=== PATIENT | male | born 1940 | race Asian ===

== ENCOUNTER 2020-01-07 05:17 | Inpatient (IN) | payer MEDICARE, OTHER ==
[~2020-01-07] VITALS: Ht 165.1 cm; Wt 51.8 kg
[2020-01-07] VITALS (25 sets, daily range): BP systolic 63–206; BP diastolic 28–144
[2020-01-07] MEDS ORDERED: SINEMET 25-1001 EAC1 ORAL (05:28)
[2020-01-07] MEDS ORDERED: NORVASC2.5 MG ORAL (05:28)
[2020-01-07] MEDS ORDERED: COZAAR25 MG ORAL (05:28)
[2020-01-07] MEDS ORDERED: ATORVASTATIN CA20 MG ORAL (05:28)
--- NOTE | 2020-01-07 05:41 | Emergency Room Report ---
History of Present Illness General Chief Complaint: Dyspnea/Respdistress Present Illness HPI Disclaimer: Please note that this report is being documented using [employer] technology. This can lead to erroneous entry secondary to incorrect interpretation by the dictating instrument. HPI: 79-year-old male presents from senior living facility due to shortness of breath. Patient presented by EMS. Reportedly short of breath for the past few hours. Found to be hypoxic on room air. Improved on oxygen supplementation. Patient has a history of dementia, Parkinson's disease and is unable to provide any history. PMH: Dementia, Parkinson's disease, (Rufus Good M.D.) Allergies: Coded Allergies: PENICILLINS (Verified Allergy, Unknown, 01/07/20) COVID-19 Screening Contact w/high risk pt: Yes Experienced COVID-19 symptoms?: Yes (Rufus Good M.D.) Patient History Reviewed Nursing Documentation: PMH: Agreed; PSxH: Agreed (Rufus Good M.D.) Nursing Documentation-PMH Hx Cardiac Problems: Yes - HLD, BPH, Hx Hypertension: Yes (Rufus Good M.D.) Review of Systems All Other Systems: negative except mentioned in HPI (Rufus Good M.D.) Physical Exam Vital Signs Date Time Temp Pulse Resp B/P (MAP) Pulse Ox O2 Delivery O2 Flow Rate FiO2 01/07/20 05:16 97.9 86 24 206/104 (138) 100 Non-Rebreather 15.0 Sp02 EP Interpretation: reviewed, normal, abnormal General Appearance: mild distress, Chronically Ill Head: normocephalic, atraumatic Eyes: bilateral eye PERRL, bilateral eye EOMI ENT: no angioedema, dry mucus membranes Neck: supple/symm/no masses Respiratory: no rhonchi, no retraction, respiratory distress - Mild respiratory distress Cardiovascular #1: normal peripheral pulses, regular rate, rhythm, no murmur Gastrointestinal: non tender, soft, non-distended, no guarding Neurologic: alert, no focal defects, other - Patient with a baseline tremor. Alert but not oriented Skin: normal color, warm/dry (Rufus Good M.D.) Procedures Critical Care Time Critical Care Time Given the critical condition in which the patient arrived, the patient was immediately assessed by myself and the nurse, and cardiac monitoring initiated due to the potential for rapid decompensation of the patient's clinical condition. During the course of the patient's stay, I spent a considerable amount of time at the bedside performing serial re-evaluations of the patient's hemodynamic and clinical status because of the recognized potential threat to life or limb in this condition. I then had a chance to review not only all of the available current laboratory and radiographic studies obtained today, but I also reviewed old records available to me at the time. Additionally, any ancillary information available including industrial hygiene engineer records were reviewed. Sequential vital signs were obtained. Critical Care time of 35 minutes was performed exclusive of billable procedures. (Jefferson De La O MD) Medical Decision Making Diagnostic Impression: Primary Impression: Hypoxia Additional Impressions: HECTOR (acute kidney injury) Acute hypernatremia AMS (altered mental status) Qualified Codes: R41.82 - Altered mental status, unspecified ER Course MDM: Differential diagnosis included but not limited to pneumonia, COVID-19, CHF , sepsis, UTI to name a few Clinical course-septic work-up initiated, COVID-19 testing was sent. Patient signed out to oncoming physician to follow-up on laboratory studies, chest x- ray and and final disposition (Rufus Good M.D.) ER Course 79-year-old male history of dementia altered mental status, DNR, DNI, presents with hypoxia, worsening altered mental status, patient found to be hyponatremic , found to have an HECTOR, plan admit to ICU for supportive care electrolyte correction. Spoke with Noah Rawls who signed POLST, she was okay with upgrading to ICU without major interventions. Patient as high risk for cerebral edema if corrected too quickly ICU for electrolyte checks Patient given broad-spectrum antibiotics given elevated white count and hypoxia Laboratory Tests Test 01/07/20 05:30 01/07/20 05:39 White Blood Count 12.7 K/UL (4.8-10.8) H Red Blood Count 3.29 M/UL (4.70-6.10) L Hemoglobin 9.7 G/DL (14.2-18.0) L Hematocrit 31.4 % (42.0-52.0) L Mean Corpuscular Volume 96 FL (80-99) Mean Corpuscular Hemoglobin 29.4 PG (27.0-31.0) Mean Corpuscular Hemoglobin Concent 30.7 G/DL (32.0-36.0) L Red Cell Distribution Width 14.9 % (11.6-14.8) H Platelet Count 231 K/UL (150-450) Mean Platelet Volume 7.2 FL (6.5-10.1) Neutrophils (%) (Auto) % (45.0-75.0) Lymphocytes (%) (Auto) % (20.0-45.0) Monocytes (%) (Auto) % (1.0-10.0) Eosinophils (%) (Auto) % (0.0-3.0) Basophils (%) (Auto) % (0.0-2.0) Urine Color Pale yellow Urine Appearance Clear Urine pH 5 (4.5-8.0) Urine Specific [place] 1.015 (1.005-1.035) Urine Protein Negative (NEGATIVE) Urine Glucose (UA) Negative (NEGATIVE) Urine Ketones Negative (NEGATIVE) Urine Blood 2+ (NEGATIVE) H Urine Nitrite Negative (NEGATIVE) Urine Bilirubin Negative (NEGATIVE) Urine Urobilinogen Normal MG/DL (0.0-1.0) Urine Leukocyte Esterase 1+ (NEGATIVE) H Urine RBC 2-4 /HPF (0 - 0) H Urine WBC 0-2 /HPF (0 - 0) Urine Squamous Epithelial Cells None /LPF (NONE/OCC) Urine Bacteria None /HPF (NONE) Sodium Level 182 MMOL/L (136-145) *H Potassium Level 5.2 MMOL/L (3.5-5.1) H Chloride Level 144 MMOL/L (98-107) H Carbon Dioxide Level 24 MMOL/L (21-32) Anion Gap 13 mmol/L (5-15) Blood Urea Nitrogen 176 mg/dL (7-18) H Creatinine 5.6 MG/DL (0.55-1.30) H Estimated Glomerular Filtration Rate 9.9 mL/min (>60) Glucose Level 145 MG/DL (74-106) H Lactic Acid Level 1.60 mmol/L (0.4-2.0) Calcium Level 9.1 MG/DL (8.5-10.1) Total Bilirubin 0.2 MG/DL (0.2-1.0) Aspartate Amino Transferase (AST) 44 U/L (15-37) H Alanine Aminotransferase (ALT) 23 U/L (12-78) Alkaline Phosphatase 70 U/L (46-116) Troponin I 0.046 ng/mL (0.000-0.056) Pro-B-Type Natriuretic Peptide 337 pg/mL (0-125) H Total Protein 7.0 G/DL (6.4-8.2) Albumin 2.0 G/DL (3.4-5.0) L Globulin 5.0 g/dL Albumin/Globulin Ratio 0.4 (1.0-2.7) L Arterial Blood pH 7.382 (7.350-7.450) Arterial Blood Partial Pressure CO2 34.3 mmHg (35.0-45.0) L Arterial Blood Partial Pressure O2 74.1 mmHg (75.0-100.0) L Arterial Blood HCO3 19.9 mmol/L (22.0-26.0) L Arterial Blood Oxygen Saturation 93.1 % (95-100) L Arterial Blood Base Excess -4.5 (-2-2) L Martell Test Positive Microbiology Date/Time Source Procedure Growth Status 01/07/20 05:30 Nasopharynx SARS-CoV-2 RdRp Gene Assay - Final Complete (Jefferson De La O MD) EKG Diagnostic Results EKG Time: 05:37 EP Interpretation: NSR, rate 85, QTc 478, no acute ST elevations, normal axis (Jefferson De La O MD) Rhythm Strip Diag. Results Rhythm Strip Time: 06:28 EP Interpretation: yes Rate: 82 Rhythm: NSR, no PVC's, no ectopy (Jefferson De La O MD) Chest X-Ray Diagnostic Results Chest X-Ray Diagnostic Results : Chest X-Ray Ordered: Yes # of Views/Limited/Complete: 1 View Indication: Chest Pain EP Interpretation: Yes Interpretation: no consolidation, no effusion, no pneumothorax, no acute cardiopulmonary disease Impression: No acute disease Electronically Signed by: Jefferson De La O MD (Jefferson De La O MD) CT/MRI/US Diagnostic Results CT/MRI/US Diagnostic Results : Impression Procedure: CT Chest no Contrast EXAM: CT Chest Without Intravenous Contrast CLINICAL HISTORY: PAIN TECHNIQUE: Axial computed tomography images of the chest without intravenous contrast. CTDI is 4.8 mGy and DLP is 176.7 mGy-cm. One or more of the following dose reduction techniques were used: automated exposure control, adjustment of the mA and/or kV according to patient size, use of iterative reconstruction technique. COMPARISON: No relevant prior studies available. FINDINGS: Airspace consolidation at the lung bases, consistent with correlate for aspiration. Moderate centrilobular emphysematous changes. Linear subsegmental scarring at the left lung apex. Calcified granuloma within the right upper lobe adjacent to the right major fissure on series 4 image. 8 mm left apical spiculated nodule. 1 cm right upper lobe nodule (series 8 image 35). Consider PET/CT correlation given the background emphysematous changes. No cardiomegaly. No pericardial effusion. Atherosclerotic changes of the thoracic aorta, with coronary involvement. Mildly prominent thyroid gland. No mediastinal or axillary adenopathy. Hilar adenopathy is suboptimally evaluated without intravenous contrast. Suspected small bilateral calcified hilar lymph nodes. Correlate for history of granulomatous disease. Degenerative changes of the spine. IMPRESSION: Airspace consolidation at the lung bases, consistent with correlate for aspiration. 8 mm left apical spiculated nodule. 1.0 cm right upper lobe nodule (series 8 image 35). Consider PET/CT correlation given the background emphysematous changes. Dictated By: Hossein Farris M.D. Electronically Signed By: Hossein Farris M.D. Signed Date/Time 01/07/20 0752 CC: Jefferson De La O MD; Iggy Saunders MD EXAM: CT Head Without Intravenous Contrast CLINICAL HISTORY: AMS TECHNIQUE: Axial computed tomography images of the head/brain without intravenous contrast. CTDI is 53.4 mGy and DLP is 1018.80 mGy-cm. One or more of the following dose reduction techniques were used: automated exposure control, adjustment of the mA and/or kV according to patient size, use of iterative reconstruction technique. COMPARISON: No relevant prior studies available. FINDINGS: There is no acute intracranial hemorrhage. The territorial pimentel-white matter differentiation is maintained throughout. There is no midline shift or other mass effect. The ventricles and sulci are commensurate with age. There is age-related cerebral volume loss. There is nonspecific white matter hypoattenuation, indicative of chronic ischemic microangiopathy. The visualized orbits appear grossly unremarkable. The calvarium is intact. The visualized paranasal sinuses and mastoid air cells are grossly clear. IMPRESSION: No acute intracranial hemorrhage, midline shift, or mass effect. Dictated By: Hossein Farris M.D. Electronically Signed By: Hossein Farris M.D. Signed Date/Time 01/07/20 0741 CC: Jefferson De La O MD; Iggy Saunders MD (Jefferson De La O MD) Last Vital Signs Date Time Temp Pulse Resp B/P (MAP) Pulse Ox O2 Delivery O2 Flow Rate FiO2 01/07/20 05:16 97.9 86 24 206/104 (138) 100 Non-Rebreather 15.0 (Rufus Good M.D.) Disposition: ADMITTED INPATIENT Condition: Critical Signed Out To: Jaylyn (Rufus Good M.D.) Referrals: NON PHYSICIAN (PCP) Rufus Good M.D. Jan 07, 2020 05:41 Jefferson De La O MD Jan 07, 2020 06:31
[2020-01-07 05:47] LABS: APPEARANCE,URINE CLEAR; BILIRUBIN, URINE NEGATIVE (NEGATIVE); COLOR,URINE PALE YELLOW; GLUCOSE, URINE (UA) NEGATIVE (NEGATIVE); KETONES,URINE NEGATIVE (NEGATIVE); LEUKOCYTE ESTERASE ,URINE 1+ (NEGATIVE); NITRITE,URINE NEGATIVE (NEGATIVE); PH,URINE 5 (4.5-8.0); PROTEIN,URINE NEGATIVE (NEGATIVE); UROBILINOGEN,URINE NORMAL MG/DL (0.0-1.0)
[2020-01-07 05:49] LABS: HEMATOCRIT 31.4 % (42.0-52.0); HEMOGLOBIN 9.7 G/DL (14.2-18.0); MEAN CORPUSCULAR VOLUME 96 FL (80-99); PLATELET COUNT 231 K/UL (150-450); RED BLOOD COUNT 3.29 M/UL (4.70-6.10); RED CELL DISTRIBUTION WIDTH 14.9 % (11.6-14.8); WHITE BLOOD COUNT 12.7 K/UL (4.8-10.8)
[2020-01-07] MEDS ORDERED: Cefepime HCl 1 GM in D5W 55 ML IVPB ONE (06:00)
[2020-01-07 06:12] LABS: ALANINE AMINOTRANSFERASE 23 U/L (12-78); ALBUMIN/GLOBULIN RATIO 0.4 (1.0-2.7); ALKALINE PHOSPHATASE 70 U/L (46-116); ANION GAP 13 mmol/L (5-15); ASPARTATE AMINO TRANSFERASE 44 U/L (15-37); BILIRUBIN,TOTAL 0.2 MG/DL (0.2-1.0); BLOOD UREA NITROGEN 176 mg/dL (7-18); CALCIUM 9.1 MG/DL (8.5-10.1); CARBON DIOXIDE 24 MMOL/L (21-32); CHLORIDE 144 MMOL/L (98-107); CREATININE 5.6 MG/DL (0.55-1.30); POTASSIUM 5.2 MMOL/L (3.5-5.1)
[2020-01-07 06:17] LABS: SODIUM 182 MMOL/L (136-145)
[2020-01-07] MEDS ORDERED: Omnipaque 350 100ml vial INJ PRN (06:30)
--- NOTE | 2020-01-07 07:41 | Diagnostic Imaging Report ---
EXAM: CT Head Without Intravenous Contrast CLINICAL HISTORY: AMS TECHNIQUE: Axial computed tomography images of the head/brain without intravenous contrast. CTDI is 53.4 mGy and DLP is 1018.80 mGy-cm. One or more of the following dose reduction techniques were used: automated exposure control, adjustment of the mA and/or kV according to patient size, use of iterative reconstruction technique. COMPARISON: No relevant prior studies available. FINDINGS: There is no acute intracranial hemorrhage. The territorial pimentel-white matter differentiation is maintained throughout. There is no midline shift or other mass effect. The ventricles and sulci are commensurate with age. There is age-related cerebral volume loss. There is nonspecific white matter hypoattenuation, indicative of chronic ischemic microangiopathy. The visualized orbits appear grossly unremarkable. The calvarium is intact. The visualized paranasal sinuses and mastoid air cells are grossly clear. IMPRESSION: No acute intracranial hemorrhage, midline shift, or mass effect.
--- NOTE | 2020-01-07 07:53 | Diagnostic Imaging Report ---
EXAM: CT Chest Without Intravenous Contrast CLINICAL HISTORY: PAIN TECHNIQUE: Axial computed tomography images of the chest without intravenous contrast. CTDI is 4.8 mGy and DLP is 176.7 mGy-cm. One or more of the following dose reduction techniques were used: automated exposure control, adjustment of the mA and/or kV according to patient size, use of iterative reconstruction technique. COMPARISON: No relevant prior studies available. FINDINGS: Airspace consolidation at the lung bases, consistent with correlate for aspiration. Moderate centrilobular emphysematous changes. Linear subsegmental scarring at the left lung apex. Calcified granuloma within the right upper lobe adjacent to the right major fissure on series 4 image. 8 mm left apical spiculated nodule. 1 cm right upper lobe nodule (series 8 image 35). Consider PET/CT correlation given the background emphysematous changes. No cardiomegaly. No pericardial effusion. Atherosclerotic changes of the thoracic aorta, with coronary involvement. Mildly prominent thyroid gland. No mediastinal or axillary adenopathy. Hilar adenopathy is suboptimally evaluated without intravenous contrast. Suspected small bilateral calcified hilar lymph nodes. Correlate for history of granulomatous disease. Degenerative changes of the spine. IMPRESSION: Airspace consolidation at the lung bases, consistent with correlate for aspiration. 8 mm left apical spiculated nodule. 1.0 cm right upper lobe nodule (series 8 image 35). Consider PET/CT correlation given the background emphysematous changes.
--- NOTE | 2020-01-07 09:15 | Diagnostic Imaging Report ---
Indication: Shortness of breath Technique: One view of the chest Comparison: none Findings: No acute infiltrates, effusions, or congestion. Tortuous calcified aorta. Normal heart size. Upper mediastinum unremarkable. Impression: No acute process.
[2020-01-07] MEDS: Heparin 5000 units/ml inj SUBQ SCH ×2 (12:21→20:37)
[2020-01-07] MEDS ORDERED: Vancomycin 1 GM in NS 275 ML IVPB SCH (13:00)
--- NOTE | 2020-01-07 15:39 | Diagnostic Imaging Report ---
Indication: Post nasogastric tube placement Technique: Supine view of the upper abdomen Comparison: none Findings: There is a nasogastric tube in place, tip projecting at the level gastric fundus, proximal port beyond the gastric esophageal junction. Unremarkable bowel gas pattern. Impression: Satisfactory nasogastric intubation. ICU nurse notified at the time of interpretation
[2020-01-07] MEDS: Levodopa/Carbidopa 25/100 tab ORAL SCH ×2 (15:40→17:39)
--- NOTE | 2020-01-07 15:43 | Diagnostic Imaging Report ---
Indication: Acute renal failure Technique: Grayscale and duplex images of the kidneys, retroperitoneum, and bladder were obtained. Comparison: none Findings: Right kidney measures 9.7 cm in length. Left kidney measures 11 cm in length. Both kidneys demonstrate normal echogenicity. There is moderate hydronephrosis bilaterally. Some debris is seen within the renal collecting systems. There also appears to be proximal bilateral hydroureter. The bladder is distended, calculated volume 601 mL. No ureteral jets are seen over the course of 3 minutes of examination. No focal abnormality. Normal inferior vena cava. Impression: Bilateral moderate hydronephrosis, etiology not demonstrated. Note absence of ureteral jets in the bladder Debris within the renal collecting systems. This is nonspecific Distended bladder, calculated volume 601 mL .
--- NOTE | 2020-01-07 16:00 | History and Physical Report ---
DATE OF ADMISSION: 01/07/2020 CHIEF COMPLAINT: Shortness of breath. HISTORY OF PRESENT ILLNESS: Patient is a 79-year-old male. He has a history of Parkinson disease, dementia, dysphagia, atherosclerotic cardiovascular disease who was transferred from a half-way facility with complaints of shortness of breath and desaturation. He was initially noted to be hypoxic in the ER, placed on 15 liters non-rebreather. He was titrated down to a simple mask. Workup in the ER included a chest x-ray, which was clear and a CT of the head, which was also unremarkable. A CT scan did show airspace consolidation at the lung bases. Patient initially was hyper and then hypotensive. Laboratories were significant for a sodium of 182 with a potassium of 5.2, a BUN of 176, and a creatinine of 5.6. White count of 12. The patient has been pancultured, started on IV antibiotic therapy and IV fluids, and now admitted to the ICU for further evaluation and care. PAST MEDICAL HISTORY: As above. PAST SURGICAL HISTORY: Unknown. CURRENT MEDICATIONS: Reconciled and reviewed. ALLERGIES: Penicillin. FAMILY HISTORY: Noncontributory. SOCIAL HISTORY: There is no known history of tobacco, ethanol, or drugs. REVIEW OF SYSTEMS: From the patient is unobtainable as he is confused. PHYSICAL EXAMINATION: VITAL SIGNS: Temperature 98 degrees, pulse 83, respirations 29, blood pressure 63/28. GENERAL: Patient is a chronically ill-appearing thin male, in no apparent distress. He is awake, but is clearly confused. Unable to follow any commands. HEENT: Head is normocephalic, atraumatic. Mucous membranes are dry. NECK: Supple. HEART: Regular rate and rhythm. LUNGS: Clear anteriorly. ABDOMEN: Soft, nontender, nondistended. EXTREMITIES: Without clubbing, cyanosis, or edema. NEUROLOGIC: Patient is unable to comply with neurologic exam. LABORATORY DATA: White count 12, hemoglobin 9.7, platelet count of 231. Sodium 182, potassium 5.2, chloride 144, bicarb 24, BUN 136, creatinine was 5.6. ASSESSMENT: This is a 79-year-old male with multiple medical problems admitted with complaints of severe hypernatremia, hypoxemia secondary to pneumonia, sepsis, and shock. PLAN: 1. Aggressive fluid resuscitation with hypotonic saline. 2. Monitor electrolytes every 6 hours. 3. Renal, Cardiology, and ID evaluations will be obtained. 4. Broad-spectrum IV antibiotics. 5. Followup pending cultures. 6. DVT and stress ulcer prophylaxis. 7. Check a swallow evaluation. 8. Patient's status is currently critical and guarded. 9. He is DNR as per advance directive. Mello Wheeler M.D. DR: FOSTER JOB#: [id number] CC:
[2020-01-07 18:48] LABS: CREATINE KINASE 322 U/L (26-308)
[2020-01-07 19:10] LABS: ANION GAP 9 mmol/L (5-15); BLOOD UREA NITROGEN 154 mg/dL (7-18); CALCIUM 8.6 MG/DL (8.5-10.1); CARBON DIOXIDE 24 MMOL/L (21-32); CHLORIDE 145 MMOL/L (98-107); CREATININE 4.4 MG/DL (0.55-1.30); POTASSIUM 4.4 MMOL/L (3.5-5.1)
[2020-01-07 19:12] LABS: SODIUM 178 MMOL/L (136-145)
[2020-01-07] MEDS: Cefepime HCl 1 GM in D5W 55 ML IVPB SCH (20:36)
[2020-01-07] MEDS ORDERED: Atorvastatin 20mg tab ORAL SCH (21:00)
[2020-01-08] VITALS (24 sets, daily range): BP systolic 90–138; BP diastolic 41–64
--- NOTE | 2020-01-08 01:45 | Consultation ---
DATE OF CONSULTATION: 01/07/2020 CARDIOLOGY CONSULTATION CONSULTING PHYSICIAN: Iggy Saunders MD. REFERRING PHYSICIAN: Mello Wheeler MD. REASON FOR CONSULTATION: Shock. HISTORY OF PRESENT ILLNESS: This is a 79-year-old [place] gentleman who resides at a intermediate facility. He has Parkinson disease and advanced dementia complicated by dysphagia. He was increasingly short of breath, congested, and hypoxic today and transferred to the emergency room. On arrival, his blood pressure was significantly elevated, but subsequently plummeted. Extensive workup in the emergency room was undertaken. Multiple abnormalities noted on his laboratory studies and the patient is being admitted to the intensive care unit. I have been asked to assist with cardiovascular care. PAST MEDICAL HISTORY: Parkinson disease, cerebrovascular disease, dementia, arteriosclerotic cardiovascular disease, osteoarthritis, dysphagia, chronic kidney disease. MEDICATIONS: Reviewed and reconciled. ALLERGIES: Penicillin. SOCIAL HISTORY: No history of smoking, alcohol, or substance abuse. FAMILY HISTORY: Not known. REVIEW OF SYSTEMS: Not obtainable from patient. Review of senior living records and discussions with senior living staff is performed for over 25 minutes with pertinent data obtained and outlined above. PHYSICAL EXAMINATION: GENERAL: Thin, frail, and in moderate respiratory distress. Appears older than stated age. Confused. VITAL SIGNS: Blood pressure 63/28, heart rate 83, respiratory rate 29, temperature 98. HEENT: Temporal wasting. Pale conjunctivae. Dry mucous membranes. NECK: Supple. Mild accessory muscle use. LUNGS: Diminished breath sounds. No wheezing. CARDIAC: Regular rhythm and rate. Normal S1, S2 with a fourth heart sound and a 1/6 systolic murmur at the base. ABDOMEN: Soft, flat, nontender. EXTREMITIES: No edema. NEUROLOGIC: He seems to move all extremities. LABORATORY DATA: Sodium 182, potassium 5.2, chloride 144, bicarb 24, BUN 176, creatinine 5.6. Pro natriuretic peptide 337. Troponin 0.046. Albumin 2.0. Lactic acid 1.6. White count 12.7, hemoglobin 9.7. Urinalysis with 0 to 2 white cells. IMPRESSION: 1. Critical and guarded. 2. Shock. 3. Aspiration pneumonia. 4. Hypovolemia. 5. Dehydration. 6. Acute renal failure. 7. Acute myocardial ischemia. 8. Chronic diastolic congestive heart failure. 9. Cerebrovascular disease with dementia. 10. Dysphagia. 11. Probable aspiration and healthcare-associated pneumonia with respiratory insufficiency. PLAN: 1. Review EKG. 2. Hydrate with hypotonic fluids. 3. Volume resuscitation. 4. May need pressors. 5. Broad-spectrum antibiotics. 6. Respiratory hygiene. 7. Stress ulcer and DVT prophylaxes. 8. DNR/DNI based on advance directives. Armando Saunders M.D. DR: DAVID JOB#: [id number] CC:
[2020-01-08 04:42] LABS: HEMATOCRIT 26.4 % (42.0-52.0); HEMOGLOBIN 8.2 G/DL (14.2-18.0); MEAN CORPUSCULAR VOLUME 93 FL (80-99); PLATELET COUNT 182 K/UL (150-450); RED BLOOD COUNT 2.84 M/UL (4.70-6.10); RED CELL DISTRIBUTION WIDTH 14.2 % (11.6-14.8)
[2020-01-08 05:02] LABS: ANION GAP 11 mmol/L (5-15); BLOOD UREA NITROGEN 132 mg/dL (7-18); CALCIUM 8.2 MG/DL (8.5-10.1); CARBON DIOXIDE 24 MMOL/L (21-32); CHLORIDE 142 MMOL/L (98-107); CREATININE 3.4 MG/DL (0.55-1.30); POTASSIUM 4.1 MMOL/L (3.5-5.1)
[2020-01-08 05:09] LABS: SODIUM 176 MMOL/L (136-145)
[2020-01-08] MEDS ORDERED: Vancomycin 1gm/D5W 275ml IVPB ONE ×2 (07:00)
[2020-01-08] MEDS: Levodopa/Carbidopa 25/100 tab NG SCH ×3 (09:00→17:01)
[2020-01-08] MEDS: Pantoprazole Inj IVP SCH (09:53)
[2020-01-08] MEDS ORDERED: NS 275ml ONE ×2 (09:57→18:47)
[2020-01-08] MEDS ORDERED: NS 500ML ONE (09:57)
[2020-01-08] MEDS ORDERED: Tubing IV Secondary IV ONE (09:57)
[2020-01-08] MEDS ORDERED: 1/2 NS 1000ml IV ONE ×2 (09:57→18:47)
[2020-01-08] MEDS ORDERED: D5NS 1000ml IV ONE (09:57)
[2020-01-08] MEDS: Heparin 5000 units/ml inj SUBQ SCH ×2 (10:06→20:12)
--- NOTE | 2020-01-08 14:24 | General Progress Note ---
Assessment/Plan Problem List: (1) Pneumonia ICD Codes: J18.9 - Pneumonia, unspecified organism SNOMED: 782570744 (2) Sepsis ICD Codes: A41.9 - Sepsis, unspecified organism SNOMED: 86980891 (3) HECTOR (acute kidney injury) ICD Codes: N17.9 - Acute kidney failure, unspecified SNOMED: 80447080, 3321003 (4) AMS (altered mental status) ICD Codes: R41.82 - Altered mental status, unspecified SNOMED: 257823266 Qualifiers: Qualified Codes: R41.82 - Altered mental status, unspecified (5) Acute hypernatremia ICD Codes: E87.0 - Hyperosmolality and hypernatremia SNOMED: 6338536, 3378709 (6) Hypoxia ICD Codes: R09.02 - Hypoxemia SNOMED: 879775865 Status: stable, progressing Assessment/Plan: cont hypotonic ivf added water flushes iv abx dvt/stress ulcer prophylaxis repeat labs later tonight and in am swallow eval ngt feeds/water flushes critical and guarded improving Subjective ROS Limited/Unobtainable: Yes Constitutional: Reports: malaise, weakness HEENT: Reports: no symptoms Cardiovascular: Reports: no symptoms Respiratory: Reports: cough, shortness of breath Gastrointestinal/Abdominal: Reports: no symptoms Genitourinary: Reports: no symptoms Neurologic/Psychiatric: Reports: no symptoms Endocrine: Reports: no symptoms Hematologic/Lymphatic: Reports: anemia Allergies: Coded Allergies: PENICILLINS (Verified Allergy, Unknown, 01/07/20) All Systems: reviewed and negative except above Subjective no events. d/w rn. on ivf. no fevers or chills. on iv abx. renal fxn and sodium improving. Objective Last 24 Hour Vital Signs Date Time Temp Pulse Resp B/P (MAP) Pulse Ox O2 Delivery O2 Flow Rate FiO2 01/08/20 10:00 80 24 114/50 (71) 96 01/08/20 09:00 78 31 118/59 (78) 96 01/08/20 08:00 3.0 01/08/20 08:00 Nasal Cannula 3.0 01/08/20 08:00 98.2 79 13 107/48 (67) 97 01/08/20 07:00 84 28 106/54 (71) 97 01/08/20 06:00 98.8 86 34 113/48 (69) 97 01/08/20 05:00 83 33 115/50 (71) 97 01/08/20 04:00 97.8 70 28 90/45 (60) 99 01/08/20 04:00 Nasal Cannula 4.0 01/08/20 03:23 79 01/08/20 03:00 81 24 108/42 (64) 98 01/08/20 02:00 76 29 103/47 (65) 99 01/08/20 01:00 81 25 105/45 (65) 100 01/08/20 00:00 Venturi Mask 8.0 01/08/20 00:00 98.1 79 30 94/41 (58) 98 01/07/20 23:00 84 01/07/20 23:00 80 26 103/41 (61) 98 01/07/20 21:00 75 24 97/38 (57) 99 01/07/20 20:00 98.7 73 26 94/35 (54) 100 01/07/20 20:00 Venturi Mask 8.0 01/07/20 19:37 100 Venturi Mask 8.0 40 01/07/20 19:13 73 01/07/20 19:00 77 26 94/38 (56) 98 01/07/20 18:00 82 31 94/41 (58) 98 01/07/20 17:00 89 29 110/47 (68) 99 01/07/20 16:00 98.5 92 28 93/30 (51) 99 01/07/20 16:00 Simple Mask 10.0 01/07/20 15:56 84 01/07/20 15:00 24 124/48 (73) 98 01/07/20 14:37 100 Simple Mask 10.0 50 Intake and Output 01/07/20 01/08/20 19:00 07:00 Intake Total 1375.000 ml 2475.004 ml Output Total 1955 ml 1345 ml Balance -580.000 ml 1130.004 ml IV Total 1375.000 ml 2445.004 ml Other 30 ml Output Urine Total 1955 ml 1345 ml # Voids 1 # Bowel Movements 3 1 Laboratory Tests 01/07/20 16:20: Urine Random Sodium 38, Urine Creatinine 54.8 01/07/20 18:16: Sodium Level 178*H, Potassium Level 4.4, Chloride Level 145H, Carbon Dioxide Level 24, Anion Gap 9, Blood Urea Nitrogen 154H, Creatinine 4.4H, Estimat Glomerular Filtration Rate 13.1, Glucose Level 137H, Uric Acid 7.9H, Calcium Level 8.6, Total Creatine Kinase 322H 01/08/20 02:45: Sodium Level 176*H, Potassium Level 4.1, Chloride Level 142H, Carbon Dioxide Level 24, Anion Gap 11, Blood Urea Nitrogen 132H, Creatinine 3.4H, Estimat Glomerular Filtration Rate 17.6, Glucose Level 108H, Calcium Level 8.2L, White Blood Count 9.0, Red Blood Count 2.84L, Hemoglobin 8.2L, Hematocrit 26.4L, Mean Corpuscular Volume 93, Mean Corpuscular Hemoglobin 29.0, Mean Corpuscular Hemoglobin Concent 31.1L, Red Cell Distribution Width 14.2, Platelet Count 182, Mean Platelet Volume 6.9, Neutrophils (%) (Auto) , Lymphocytes (%) (Auto) , Monocytes (%) (Auto) , Eosinophils (%) (Auto) , Basophils (%) (Auto) , Differential Total Cells Counted 100, Neutrophils % (Manual) 89H, Lymphocytes % (Manual) 7L, Monocytes % (Manual) 3, Eosinophils % (Manual) 1, Basophils % ( Manual) 0, Band Neutrophils 0, Platelet Estimate Adequate, Platelet Morphology Normal, Hypochromasia 2+, Anisocytosis 1+, Random Vancomycin Level 10.6 Height (Feet): 5 Height (Inches): 6.00 Weight (Pounds): 111 General Appearance: WD/WN, lethargic, confused EENT: PERRL/EOMI, normal ENT inspection Neck: non-tender, normal alignment Cardiovascular: normal peripheral pulses, normal rate Respiratory/Chest: chest wall non-tender, lungs clear, normal breath sounds, no respiratory distress Abdomen: normal bowel sounds, non tender, soft, no organomegaly Edema: no edema noted Arm (L), no edema noted Arm (R) Edema: trace edema 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
--- NOTE | 2020-01-08 14:25 | Diagnostic Imaging Report ---
Indication: Post nasogastric tube placement Technique: Supine view of the upper abdomen Comparison: 01/07/2020 Findings: There is a nasogastric tube in place. Tip projects at the level gastric fundus, proximal sidehole at the level of the gastroesophageal junction. Bowel gas pattern is unremarkable. The visualized lower thorax appears unremarkable. Impression: Proximal port of the nasogastric tube is at the gastroesophageal junction, and slight advancement is recommended. This was discussed with patient's nurse at the time of interpretation
--- NOTE | 2020-01-08 15:46 | Diagnostic Imaging Report ---
Indication: NG tube Technique: Portable frontal view the abdomen Comparison: 01/08/2020, 8:59 Findings: NG tube tip and side-port project in the region of the proximal stomach, not significant changed compared to prior.. Bowel gas pattern is nonspecific. There are degenerative changes in the spine. Question interval development of mild interstitial opacification/edema. Impression: NG tube with tip and side-port projecting in the expected region of the proximal stomach. Question development of some mild interstitial opacification/edema in the partially visualized lungs. Relation a dedicated chest radiograph recommended.
--- NOTE | 2020-01-08 19:30 | Consultation ---
DATE OF CONSULTATION: 01/08/2020 NEPHROLOGY CONSULTATION CONSULTING PHYSICIAN: Franki Bergeron MD REFERRING PHYSICIAN: Mello Wheeler MD REASON FOR CONSULTATION: I am asked to evaluate this 79-year-old man, who has severe hypernatremia and dehydration. HISTORY OF PRESENT ILLNESS: The patient lives in an [facility] and is unable to give any history. On record review, he has a history of Parkinson disease, dysphagia, and coronary artery disease. He presented with some shortness of breath, desaturation, and azotemia. ALLERGIES: Apparently to penicillin. MEDICATIONS: Medications at the [facility] reviewed include amlodipine, atorvastatin, Sinemet, and losartan. SYSTEM REVIEW: The patient is unable. PHYSICAL EXAMINATION: GENERAL: The patient is lying in bed, lethargic. VITAL SIGNS: Pulse 80, respirations 30, blood pressure 116/54, and O2 saturation is 95%. HEAD, EYES, EARS, NOSE, THROAT: Oral mucosa is dry. Sclerae anicteric. NECK: No adenopathy. LUNGS: Clear. HEART: Regular rhythm. I hear no murmur. ABDOMEN: Soft without organomegaly. EXTREMITIES: Show edema. There is muscle wasting. NEUROLOGIC: The patient is very lethargic with lack of spontaneous movement. REVIEW OF PERTINENT LABS: Chest x-ray shows no active disease. He had white count of 12.7, hemoglobin 9.7. Sodium 178, potassium 4.4, chloride 145, CO2 of 24, BUN 154, creatinine 4.4. Initial sodium was 182. IMPRESSION: 1. Severe dehydration. 2. Severe hypernatremia secondary to dehydration. 3. Acute kidney injury. 4. Unknown baseline of chronic kidney disease. 5. Dyspnea with clear chest x-ray. PLAN: At this time, the patient requires vigorous hydration. We will avoid overcorrection of his sodium and correction with 8-10 milliequivalents per day. Half-normal saline has been ordered. The patient is NPO. He has been started on empiric antibiotics. In view of his prior condition, his condition is gravely ill and high risk. Franki Bergeron M.D. : Bertin JOB#: [id number] CC:
[2020-01-08] MEDS ORDERED: AMLODIPINE BESYL5 MG ORAL (19:34)
[2020-01-08] MEDS ORDERED: ATORVASTATIN CA40 MG ORAL (19:34)
[2020-01-08] MEDS ORDERED: LOSARTAN POTASS50 MG ORAL (19:35)
[2020-01-08 19:50] LABS: ANION GAP 13 mmol/L (5-15); BLOOD UREA NITROGEN 101 mg/dL (7-18); CARBON DIOXIDE 24 MMOL/L (21-32); CHLORIDE 136 MMOL/L (98-107); CREATININE 2.5 MG/DL (0.55-1.30); POTASSIUM 3.9 MMOL/L (3.5-5.1)
[2020-01-08 19:52] LABS: SODIUM 172 MMOL/L (136-145)
[2020-01-08] MEDS ORDERED: FOLIC ACID1 MG ORAL (19:53)
[2020-01-08] MEDS ORDERED: TRAZODONE HCL50 MG ORAL (19:53)
[2020-01-08] MEDS ORDERED: VITAMIN B-12500 MCG ORAL (19:53)
[2020-01-08] MEDS ORDERED: APATATE FORTE237 ML ORAL (19:53)
[2020-01-08] MEDS ORDERED: ALFUZOSIN HCL10 MG PO (19:53)
[2020-01-08] MEDS ORDERED: BISACODYL10 M1 RC (19:53)
[2020-01-08] MEDS ORDERED: MELATONIN 5 MG1 EAC1 ORAL (19:53)
[2020-01-08] MEDS ORDERED: ACETAMINOPHEN325 M1 ORAL (19:53)
[2020-01-08] MEDS ORDERED: AZILECT1 MG ORAL (19:53)
[2020-01-08] MEDS ORDERED: METOPROLOL SUCC25 MG ORAL (19:53)
[2020-01-08] MEDS ORDERED: MILK OF MA400 MG/51 ORAL (19:53)
[2020-01-08] MEDS ORDERED: ASPIRIN81 MG ORAL (19:53)
[2020-01-08] MEDS ORDERED: NORCO 5-325 TA1 EAC1 ORAL (19:53)
[2020-01-08] MEDS ORDERED: VITAMIN D325 MCG ORAL (19:53)
[2020-01-08] MEDS ORDERED: DOCUSATE SODIU100 MG ORAL (19:53)
[2020-01-08] MEDS ORDERED: B-121000 MCG ORAL (19:59)
[2020-01-08] MEDS: Cefepime HCl 1 GM in D5W 55 ML IVPB SCH (20:11)
[2020-01-08] MEDS ORDERED: Atorvastatin 20mg tab NG SCH (21:00)
[2020-01-09] VITALS (18 sets, daily range): BP systolic 111–141; BP diastolic 50–71
--- NOTE | 2020-01-09 02:10 | Cardiology Progress Note ---
Subjective DATE OF SERVICE: Jan 08, 2020 Withdrawn and lethargic BP parameters tenuous at times Remains on hypotonic IVF and Abx Monitor: sinus with PAC's Objective Last 24 Hour Vital Signs Date Time Temp Pulse Resp B/P (MAP) Pulse Ox O2 Delivery O2 Flow Rate FiO2 01/09/20 00:00 98.0 74 23 130/58 (82) 99 01/09/20 00:00 Nasal Cannula 3.0 01/08/20 23:00 73 25 128/57 (80) 98 01/08/20 22:00 74 25 132/59 (83) 98 01/08/20 21:00 74 27 133/64 (87) 98 01/08/20 20:00 Nasal Cannula 3.0 01/08/20 20:00 97.8 65 19 138/58 (84) 99 01/08/20 20:00 73 01/08/20 19:00 73 27 133/62 (85) 100 01/08/20 18:00 77 26 120/52 (74) 99 01/08/20 17:00 77 28 119/54 (75) 96 01/08/20 16:00 Nasal Cannula 3.0 01/08/20 16:00 77 01/08/20 16:00 98.2 79 26 129/60 (83) 97 01/08/20 15:00 72 26 113/53 (73) 96 01/08/20 14:00 76 31 114/54 (74) 94 01/08/20 13:00 78 27 120/55 (76) 96 01/08/20 12:00 Nasal Cannula 3.0 01/08/20 12:00 98.0 68 23 98/52 (67) 98 01/08/20 12:00 71 01/08/20 11:00 80 30 116/54 (74) 95 01/08/20 10:00 80 24 114/50 (71) 96 01/08/20 09:00 78 31 118/59 (78) 96 01/08/20 08:00 3.0 01/08/20 08:00 81 01/08/20 08:00 Nasal Cannula 3.0 01/08/20 08:00 98.2 79 13 107/48 (67) 97 01/08/20 07:00 84 28 106/54 (71) 97 01/08/20 06:00 98.8 86 34 113/48 (69) 97 01/08/20 05:00 83 33 115/50 (71) 97 01/08/20 04:00 97.8 70 28 90/45 (60) 99 01/08/20 04:00 Nasal Cannula 4.0 01/08/20 03:23 79 01/08/20 03:00 81 24 108/42 (64) 98 ROS: unchanged from my initial assessment on 01/07/20 RHYTHM: PACs LUNGS: diminished breath sounds CARDIAC: normal rate, regular rhythm, normal S1 and S2 ABDOMEN: normal bowel sounds, non tender, soft EXTREMITIES: normal inspection, No edema Laboratory Tests Test 01/08/20 02:45 01/08/20 19:05 White Blood Count 9.0 K/UL (4.8-10.8) Red Blood Count 2.84 M/UL (4.70-6.10) L Hemoglobin 8.2 G/DL (14.2-18.0) L Hematocrit 26.4 % (42.0-52.0) L Mean Corpuscular Volume 93 FL (80-99) Mean Corpuscular Hemoglobin 29.0 PG (27.0-31.0) Mean Corpuscular Hemoglobin Concent 31.1 G/DL (32.0-36.0) L Red Cell Distribution Width 14.2 % (11.6-14.8) Platelet Count 182 K/UL (150-450) Mean Platelet Volume 6.9 FL (6.5-10.1) Neutrophils (%) (Auto) % (45.0-75.0) Lymphocytes (%) (Auto) % (20.0-45.0) Monocytes (%) (Auto) % (1.0-10.0) Eosinophils (%) (Auto) % (0.0-3.0) Basophils (%) (Auto) % (0.0-2.0) Differential Total Cells Counted 100 Neutrophils % (Manual) 89 % (45-75) H Lymphocytes % (Manual) 7 % (20-45) L Monocytes % (Manual) 3 % (1-10) Eosinophils % (Manual) 1 % (0-3) Basophils % (Manual) 0 % (0-2) Band Neutrophils 0 % (0-8) Platelet Estimate Adequate Platelet Morphology Normal Hypochromasia 2+ Anisocytosis 1+ Sodium Level 176 MMOL/L (136-145) *H 172 MMOL/L (136-145) *H Potassium Level 4.1 MMOL/L (3.5-5.1) 3.9 MMOL/L (3.5-5.1) Chloride Level 142 MMOL/L (98-107) H 136 MMOL/L (98-107) H Carbon Dioxide Level 24 MMOL/L (21-32) 24 MMOL/L (21-32) Anion Gap 11 mmol/L (5-15) 13 mmol/L (5-15) Blood Urea Nitrogen 132 mg/dL (7-18) H 101 mg/dL (7-18) H Creatinine 3.4 MG/DL (0.55-1.30) H 2.5 MG/DL (0.55-1.30) H Estimat Glomerular Filtration Rate 17.6 mL/min (>60) 25.1 mL/min (>60) Glucose Level 108 MG/DL (74-106) H 91 MG/DL (74-106) Calcium Level 8.2 MG/DL (8.5-10.1) L 8.0 MG/DL (8.5-10.1) L Random Vancomycin Level 10.6 ug/mL Microbiology Date/Time Source Procedure Growth Status 01/07/20 05:30 Blood Blood Culture - Preliminary NO GROWTH AFTER 24 HOURS Resulted 01/07/20 05:15 Blood Blood Culture - Preliminary NO GROWTH AFTER 24 HOURS Resulted 01/07/20 06:00 Nasal Nares MRSA Culture - Final NO METHICILLIN RESISTANT STAPH AUREUS... Complete 01/07/20 05:30 Nasopharynx SARS-CoV-2 RdRp Gene Assay - Final Complete 01/07/20 06:00 Rectum Received Assessment/Plan Assessment/Plan Severe dehydration Toxic and metabolic encephalopathies Severe sepsis Hypernatremia UTI Anemia Acute renal failure Chronic diastolic CHF Dementia Aspiration risk Hypotonic IVF ICU care Abx Follow up cultures DVT prophyl Iggy Saunders MD Jan 09, 2020 02:10
[2020-01-09 05:08] LABS: HEMATOCRIT 27.6 % (42.0-52.0); HEMOGLOBIN 8.7 G/DL (14.2-18.0); MEAN CORPUSCULAR VOLUME 92 FL (80-99); PLATELET COUNT 187 K/UL (150-450); RED BLOOD COUNT 2.99 M/UL (4.70-6.10); RED CELL DISTRIBUTION WIDTH 13.5 % (11.6-14.8); WHITE BLOOD COUNT 10.9 K/UL (4.8-10.8)
[2020-01-09 05:30] LABS: ANION GAP 12 mmol/L (5-15); BLOOD UREA NITROGEN 79 mg/dL (7-18); CALCIUM 7.7 MG/DL (8.5-10.1); CARBON DIOXIDE 22 MMOL/L (21-32); CHLORIDE 134 MMOL/L (98-107); POTASSIUM 3.4 MMOL/L (3.5-5.1)
[2020-01-09 05:32] LABS: SODIUM 168 MMOL/L (136-145)
[2020-01-09] MEDS: Heparin 5000 units/ml inj SUBQ SCH ×2 (10:01→21:45)
[2020-01-09] MEDS: Pantoprazole Inj IVP SCH (10:01)
[2020-01-09] MEDS: Levodopa/Carbidopa 25/100 tab NG SCH ×4 (10:01→18:37)
--- NOTE | 2020-01-09 12:37 | General Progress Note ---
Assessment/Plan Problem List: (1) Pneumonia ICD Codes: J18.9 - Pneumonia, unspecified organism SNOMED: 065487173 (2) Sepsis ICD Codes: A41.9 - Sepsis, unspecified organism SNOMED: 04922510 (3) HECTOR (acute kidney injury) ICD Codes: N17.9 - Acute kidney failure, unspecified SNOMED: 18926683, 4759076 (4) AMS (altered mental status) ICD Codes: R41.82 - Altered mental status, unspecified SNOMED: 852045401 Qualifiers: Qualified Codes: R41.82 - Altered mental status, unspecified (5) Acute hypernatremia ICD Codes: E87.0 - Hyperosmolality and hypernatremia SNOMED: 6250176, 2479854 (6) Hypoxia ICD Codes: R09.02 - Hypoxemia SNOMED: 351301126 Status: stable, progressing Assessment/Plan: cont hypotonic ivf added water flushes start tube feeds monitor residuals iv abx dvt/stress ulcer prophylaxis monitor labs swallow eval improving Subjective ROS Limited/Unobtainable: Yes Constitutional: Reports: malaise, weakness HEENT: Reports: no symptoms Cardiovascular: Reports: no symptoms Respiratory: Reports: no symptoms Gastrointestinal/Abdominal: Reports: difficulty swallowing Genitourinary: Reports: no symptoms Neurologic/Psychiatric: Reports: pre-existing deficit Endocrine: Reports: no symptoms Hematologic/Lymphatic: Reports: anemia Allergies: Coded Allergies: PENICILLINS (Verified Allergy, Unknown, 01/07/20) All Systems: reviewed and negative except above Subjective no events. d/w rn. on ivf. no fevers or chills. on iv abx. renal fxn and sodium improving. +ngt. placement confirmed. more alert. responds to simple questions in yoruba. c/o leg pain Objective Last 24 Hour Vital Signs Date Time Temp Pulse Resp B/P (MAP) Pulse Ox O2 Delivery O2 Flow Rate FiO2 01/09/20 11:00 68 23 123/56 (78) 98 01/09/20 10:00 66 21 125/57 (79) 98 01/09/20 09:00 76 29 137/60 (85) 97 01/09/20 08:00 75 01/09/20 08:00 98.4 75 25 138/61 (86) 98 01/09/20 08:00 3.0 01/09/20 08:00 Nasal Cannula 3.0 01/09/20 07:00 73 26 127/62 (83) 99 01/09/20 06:00 72 25 129/57 (81) 97 01/09/20 05:00 71 24 127/55 (79) 96 01/09/20 04:00 97.8 73 26 126/59 (81) 98 01/09/20 04:00 Nasal Cannula 3.0 01/09/20 04:00 74 01/09/20 03:00 72 28 122/54 (76) 98 01/09/20 02:00 76 26 111/50 (70) 97 01/09/20 01:00 69 23 124/56 (78) 98 01/09/20 00:00 98.0 74 23 130/58 (82) 99 01/09/20 00:00 73 01/09/20 00:00 Nasal Cannula 3.0 01/08/20 23:00 73 25 128/57 (80) 98 01/08/20 22:00 74 25 132/59 (83) 98 01/08/20 21:00 74 27 133/64 (87) 98 01/08/20 20:00 Nasal Cannula 3.0 01/08/20 20:00 97.8 65 19 138/58 (84) 99 01/08/20 20:00 73 01/08/20 19:00 73 27 133/62 (85) 100 01/08/20 18:00 77 26 120/52 (74) 99 01/08/20 17:00 77 28 119/54 (75) 96 01/08/20 16:00 Nasal Cannula 3.0 01/08/20 16:00 77 01/08/20 16:00 98.2 79 26 129/60 (83) 97 01/08/20 15:00 72 26 113/53 (73) 96 01/08/20 14:00 76 31 114/54 (74) 94 01/08/20 13:00 78 27 120/55 (76) 96 Intake and Output 01/08/20 01/09/20 19:00 07:00 Intake Total 2192 ml 1785 ml Output Total 1660 ml 2300 ml Balance 532 ml -515 ml Free Water 100 ml 200 ml IV Total 2092 ml 1585 ml Output Urine Total 1660 ml 2300 ml Laboratory Tests 01/08/20 19:05: Sodium Level 172*H, Potassium Level 3.9, Chloride Level 136H, Carbon Dioxide Level 24, Anion Gap 13, Blood Urea Nitrogen 101H, Creatinine 2.5H, Estimat Glomerular Filtration Rate 25.1, Glucose Level 91, Calcium Level 8.0L 01/09/20 04:20: Sodium Level 168*H, Potassium Level 3.4L, Chloride Level 134H, Carbon Dioxide Level 22, Anion Gap 12, Blood Urea Nitrogen 79H, Creatinine 2.0H, Estimat Glomerular Filtration Rate 32.5, Glucose Level 87, Calcium Level 7.7L, White Blood Count 10.9H, Red Blood Count 2.99L, Hemoglobin 8.7L, Hematocrit 27.6L, Mean Corpuscular Volume 92, Mean Corpuscular Hemoglobin 29.1, Mean Corpuscular Hemoglobin Concent 31.5L, Red Cell Distribution Width 13.5, Platelet Count 187, Mean Platelet Volume 7.2, Neutrophils (%) (Auto) , Lymphocytes (%) (Auto) , Monocytes (%) (Auto) , Eosinophils (%) (Auto) , Basophils (%) (Auto) , Differential Total Cells Counted 100, Neutrophils % (Manual) 87H, Lymphocytes % (Manual) 7L, Monocytes % (Manual) 3, Eosinophils % (Manual) 3, Basophils % ( Manual) 0, Band Neutrophils 0, Platelet Estimate Adequate, Platelet Morphology Normal, Hypochromasia 2+, Anisocytosis 1+, Phosphorus Level 3.0, Magnesium Level 3.0H Height (Feet): 5 Height (Inches): 6.00 Weight (Pounds): 113 Objective General Appearance: WD/WN, lethargic, confused EENT: PERRL/EOMI, normal ENT inspection Neck: non-tender, normal alignment Cardiovascular: normal peripheral pulses, normal rate Respiratory/Chest: chest wall non-tender, lungs clear, normal breath sounds, no respiratory distress Abdomen: normal bowel sounds, non tender, soft, no organomegaly Edema: no edema noted Arm (L), no edema noted Arm (R) Edema: trace edema 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
--- NOTE | 2020-01-09 12:45 | Consultation ---
DATE OF CONSULTATION: 01/09/2020 INFECTIOUS DISEASES CONSULTATION CONSULTING PHYSICIAN: Ana Carrasco MD. REFERRING PHYSICIAN: Iggy Saunders MD. REASON FOR CONSULTATION: Septic shock and aspiration pneumonia. HISTORY OF PRESENTING ILLNESS: This is a 79-year-old gentleman with history of Parkinson's disease, dementia, CVA, atherosclerotic cardiovascular disease, chronic kidney disease, who comes in because he had increasing congestion and shortness of breath. He was found to be hypoxic. He has been admitted to the ICU with shock as well as possible pneumonia and an Infectious Diseases consultation has been obtained for antibiotics. PAST MEDICAL HISTORY: 1. History of Parkinson's disease. 2. CVA. 3. Dementia. 4. Atherosclerotic cardiovascular disease. 5. Osteoarthritis. 6. Chronic kidney disease. SOCIAL HISTORY: No history of smoking, alcohol, or drug use. FAMILY HISTORY: Unknown. REVIEW OF SYSTEMS: Unable to obtain currently. MEDICATIONS: As an inpatient, the patient is on atorvastatin, Protonix, carbidopa and levodopa, cefepime, IV vancomycin, subcutaneous heparin. ALLERGIES: To penicillin noted. PHYSICAL EXAMINATION: VITAL SIGNS: Temperature of 98.4, T-max of 98.8, pulse of 66, respiratory rate 21, blood pressure 127/57, O2 saturation of 98% on 3 liters of oxygen. HEENT: Pupils equally reactive to light and accommodation. Mouth appears clean without thrush. NECK: Supple. No adenopathy. No JVD. CARDIOVASCULAR: Regular rate and rhythm. No murmurs. LUNGS: Clear to auscultation bilaterally. No crackles. No wheezes. ABDOMEN: Soft, nontender. No organomegaly. EXTREMITIES: No cyanosis, no clubbing, no edema. LABORATORY AND DIAGNOSTIC DATA: White count of 10.9, hemoglobin 8.7, hematocrit 27.6, MCV 92, platelet count of 187,000, neutrophils of 87%. Sodium 168, potassium 3.4, chloride 134, bicarb 22, BUN 79, creatinine 2, glucose 87, calcium 7.7. Total bilirubin 0.2. AST 44, ALT 23, alkaline phosphatase 70. Troponin 0.046. Beta-natriuretic peptide 337. Total protein 7. Albumin of 2. UA is showing 0 to 2 white cells. Blood cultures are negative. COVID-19 test is negative. Nasal swab was negative for MRSA. Rectal swab was negative for VRE. Chest x-ray is showing no acute process. CT head showing no acute hemorrhage, midline shift or mass effect. CT chest showing airspace consolidation at the lung bases consistent with aspiration pneumonia. Left apical spiculated nodule. Renal ultrasound showing bilateral hydronephrosis, debride within the renal collecting system, distended bladder. ASSESSMENT: This is a 79-year-old gentleman with history of Parkinson's disease, dementia, CVA, who comes in with congestion and cough and was found to have, 1. Aspiration pneumonia. 2. Shock. 3. Would like to rule out urinary tract infection. 4. Parkinson's disease. 5. Dementia. PLAN: 1. Continue IV vancomycin and cefepime. 2. We will follow up cultures and adjust antibiotics accordingly. 3. We will order sputum for Gram stain and culture. I would like to thank, Dr. Saunders, for this consultation. Ana Carrasco M.D. DR: EILEEN JOB#: [id number] CC: Iggy Saunders MD.
--- NOTE | 2020-01-09 14:54 | Nephrology Progress Note ---
Assessment/Plan Problem List: (1) Malnutrition of moderate degree (2) Metabolic encephalopathy (3) HECTOR (acute kidney injury) (4) AMS (altered mental status) (5) Acute hypernatremia (6) Pneumonia Plan lab trend better, iv adjusted, starting tube feed Subjective ROS Limited/Unobtainable: Yes Objective Objective Last 24 Hour Vital Signs Date Time Temp Pulse Resp B/P (MAP) Pulse Ox O2 Delivery O2 Flow Rate FiO2 01/09/20 12:00 73 01/09/20 11:00 68 23 123/56 (78) 98 01/09/20 10:00 66 21 125/57 (79) 98 01/09/20 09:00 76 29 137/60 (85) 97 01/09/20 08:00 75 01/09/20 08:00 98.4 75 25 138/61 (86) 98 01/09/20 08:00 3.0 01/09/20 08:00 Nasal Cannula 3.0 01/09/20 07:00 73 26 127/62 (83) 99 01/09/20 06:00 72 25 129/57 (81) 97 01/09/20 05:00 71 24 127/55 (79) 96 01/09/20 04:00 97.8 73 26 126/59 (81) 98 01/09/20 04:00 Nasal Cannula 3.0 01/09/20 04:00 74 01/09/20 03:00 72 28 122/54 (76) 98 01/09/20 02:00 76 26 111/50 (70) 97 01/09/20 01:00 69 23 124/56 (78) 98 01/09/20 00:00 98.0 74 23 130/58 (82) 99 01/09/20 00:00 73 01/09/20 00:00 Nasal Cannula 3.0 01/08/20 23:00 73 25 128/57 (80) 98 01/08/20 22:00 74 25 132/59 (83) 98 01/08/20 21:00 74 27 133/64 (87) 98 01/08/20 20:00 Nasal Cannula 3.0 01/08/20 20:00 97.8 65 19 138/58 (84) 99 01/08/20 20:00 73 01/08/20 19:00 73 27 133/62 (85) 100 01/08/20 18:00 77 26 120/52 (74) 99 01/08/20 17:00 77 28 119/54 (75) 96 01/08/20 16:00 Nasal Cannula 3.0 01/08/20 16:00 77 01/08/20 16:00 98.2 79 26 129/60 (83) 97 01/08/20 15:00 72 26 113/53 (73) 96 Intake and Output 01/08/20 01/09/20 19:00 07:00 Intake Total 2192 ml 1785 ml Output Total 1660 ml 2300 ml Balance 532 ml -515 ml Free Water 100 ml 200 ml IV Total 2092 ml 1585 ml Output Urine Total 1660 ml 2300 ml Laboratory Tests 01/08/20 19:05: Sodium Level 172*H, Potassium Level 3.9, Chloride Level 136H, Carbon Dioxide Level 24, Anion Gap 13, Blood Urea Nitrogen 101H, Creatinine 2.5H, Estimat Glomerular Filtration Rate 25.1, Glucose Level 91, Calcium Level 8.0L 01/09/20 04:20: Sodium Level 168*H, Potassium Level 3.4L, Chloride Level 134H, Carbon Dioxide Level 22, Anion Gap 12, Blood Urea Nitrogen 79H, Creatinine 2.0H, Estimat Glomerular Filtration Rate 32.5, Glucose Level 87, Calcium Level 7.7L, White Blood Count 10.9H, Red Blood Count 2.99L, Hemoglobin 8.7L, Hematocrit 27.6L, Mean Corpuscular Volume 92, Mean Corpuscular Hemoglobin 29.1, Mean Corpuscular Hemoglobin Concent 31.5L, Red Cell Distribution Width 13.5, Platelet Count 187, Mean Platelet Volume 7.2, Neutrophils (%) (Auto) , Lymphocytes (%) (Auto) , Monocytes (%) (Auto) , Eosinophils (%) (Auto) , Basophils (%) (Auto) , Differential Total Cells Counted 100, Neutrophils % (Manual) 87H, Lymphocytes % (Manual) 7L, Monocytes % (Manual) 3, Eosinophils % (Manual) 3, Basophils % ( Manual) 0, Band Neutrophils 0, Platelet Estimate Adequate, Platelet Morphology Normal, Hypochromasia 2+, Anisocytosis 1+, Phosphorus Level 3.0, Magnesium Level 3.0H Height (Feet): 5 Height (Inches): 6.00 Weight (Pounds): 113 General Appearance: lethargic, confused Neck: normal alignment Cardiovascular: regular rhythm Respiratory/Chest: lungs clear Abdomen: non tender, soft Extremities: no edema Neurologic: disoriented Franki Bergeron MD Jan 09, 2020 14:54
[2020-01-09] MEDS ORDERED: Potassium Chloride 30 MEQ in 1/2 NS 1000ml 1,000 ML IV SCH ×2 (16:00→16:45)
[2020-01-09] MEDS ORDERED: 1/2 NS 1000ml IV ONE (17:12)
[2020-01-09] MEDS ORDERED: Sterile Water Irrig 1000ml IRRIG ONE (17:12)
--- NOTE | 2020-01-09 17:20 | Diagnostic Imaging Report ---
EXAM: XR Abdomen, 2 Views CLINICAL HISTORY: TUBE PLCMT TECHNIQUE: Frontal view of the abdomen/pelvis with upright view of the abdomen. COMPARISON: 01/08/2020 FINDINGS: Lower thorax: Limited evaluation of the lung bases. Intraperitoneal space: No free air. Gastrointestinal tract: Nonobstructive bowel gas pattern. Bones/joints: Lumbosacral spondylosis. Tubes, lines and devices: Enteric tube tip and proximal sideport below gastroesophageal junction, adequate for gastric decompression. IMPRESSION: 1. Enteric tube tip and proximal sideport below gastroesophageal junction, adequate for gastric decompression. 2. Nonobstructive bowel gas pattern.
--- NOTE | 2020-01-09 17:42 | Cardiology Progress Note ---
Subjective DATE OF SERVICE: Jan 09, 2020 More alert BP parameters stabilizing. Remains on hypotonic IVF and Abx Monitor: sinus with PAC's and BBB NGTube replaced. Objective Last 24 Hour Vital Signs Date Time Temp Pulse Resp B/P (MAP) Pulse Ox O2 Delivery O2 Flow Rate FiO2 01/09/20 16:00 Nasal Cannula 3.0 01/09/20 16:00 98.7 60 18 116/62 (80) 98 01/09/20 16:00 70 01/09/20 15:00 69 15 118/57 (77) 97 01/09/20 14:00 79 29 124/62 (82) 96 01/09/20 13:00 73 24 133/69 (90) 97 01/09/20 12:00 Nasal Cannula 3.0 01/09/20 12:00 73 01/09/20 12:00 98.6 73 25 137/60 (85) 97 01/09/20 11:00 68 23 123/56 (78) 98 01/09/20 10:00 66 21 125/57 (79) 98 01/09/20 09:00 76 29 137/60 (85) 97 01/09/20 08:00 75 01/09/20 08:00 98.4 75 25 138/61 (86) 98 01/09/20 08:00 3.0 01/09/20 08:00 Nasal Cannula 3.0 01/09/20 07:00 73 26 127/62 (83) 99 01/09/20 06:00 72 25 129/57 (81) 97 01/09/20 05:00 71 24 127/55 (79) 96 01/09/20 04:00 97.8 73 26 126/59 (81) 98 01/09/20 04:00 Nasal Cannula 3.0 01/09/20 04:00 74 01/09/20 03:00 72 28 122/54 (76) 98 01/09/20 02:00 76 26 111/50 (70) 97 01/09/20 01:00 69 23 124/56 (78) 98 01/09/20 00:00 98.0 74 23 130/58 (82) 99 01/09/20 00:00 73 01/09/20 00:00 Nasal Cannula 3.0 01/08/20 23:00 73 25 128/57 (80) 98 01/08/20 22:00 74 25 132/59 (83) 98 01/08/20 21:00 74 27 133/64 (87) 98 01/08/20 20:00 Nasal Cannula 3.0 01/08/20 20:00 97.8 65 19 138/58 (84) 99 01/08/20 20:00 73 01/08/20 19:00 73 27 133/62 (85) 100 01/08/20 18:00 77 26 120/52 (74) 99 ROS: unchanged from my initial assessment on 01/07/20 HEENT: other - NGTube RHYTHM: PACs LUNGS: diminished breath sounds CARDIAC: normal rate, regular rhythm, normal S1 and S2 ABDOMEN: normal bowel sounds, non tender, soft EXTREMITIES: normal inspection, No edema Laboratory Tests Test 01/08/20 19:05 01/09/20 04:20 Sodium Level 172 MMOL/L (136-145) *H 168 MMOL/L (136-145) *H Potassium Level 3.9 MMOL/L (3.5-5.1) 3.4 MMOL/L (3.5-5.1) L Chloride Level 136 MMOL/L (98-107) H 134 MMOL/L (98-107) H Carbon Dioxide Level 24 MMOL/L (21-32) 22 MMOL/L (21-32) Anion Gap 13 mmol/L (5-15) 12 mmol/L (5-15) Blood Urea Nitrogen 101 mg/dL (7-18) H 79 mg/dL (7-18) H Creatinine 2.5 MG/DL (0.55-1.30) H 2.0 MG/DL (0.55-1.30) H Estimat Glomerular Filtration Rate 25.1 mL/min (>60) 32.5 mL/min (>60) Glucose Level 91 MG/DL (74-106) 87 MG/DL (74-106) Calcium Level 8.0 MG/DL (8.5-10.1) L 7.7 MG/DL (8.5-10.1) L White Blood Count 10.9 K/UL (4.8-10.8) H Red Blood Count 2.99 M/UL (4.70-6.10) L Hemoglobin 8.7 G/DL (14.2-18.0) L Hematocrit 27.6 % (42.0-52.0) L Mean Corpuscular Volume 92 FL (80-99) Mean Corpuscular Hemoglobin 29.1 PG (27.0-31.0) Mean Corpuscular Hemoglobin Concent 31.5 G/DL (32.0-36.0) L Red Cell Distribution Width 13.5 % (11.6-14.8) Platelet Count 187 K/UL (150-450) Mean Platelet Volume 7.2 FL (6.5-10.1) Neutrophils (%) (Auto) % (45.0-75.0) Lymphocytes (%) (Auto) % (20.0-45.0) Monocytes (%) (Auto) % (1.0-10.0) Eosinophils (%) (Auto) % (0.0-3.0) Basophils (%) (Auto) % (0.0-2.0) Differential Total Cells Counted 100 Neutrophils % (Manual) 87 % (45-75) H Lymphocytes % (Manual) 7 % (20-45) L Monocytes % (Manual) 3 % (1-10) Eosinophils % (Manual) 3 % (0-3) Basophils % (Manual) 0 % (0-2) Band Neutrophils 0 % (0-8) Platelet Estimate Adequate Platelet Morphology Normal Hypochromasia 2+ Anisocytosis 1+ Phosphorus Level 3.0 MG/DL (2.5-4.9) Magnesium Level 3.0 MG/DL (1.8-2.4) H Microbiology Date/Time Source Procedure Growth Status 01/07/20 05:30 Blood Blood Culture - Preliminary NO GROWTH AFTER 24 HOURS Resulted 01/07/20 05:15 Blood Blood Culture - Preliminary NO GROWTH AFTER 24 HOURS Resulted 01/07/20 06:00 Nasal Nares MRSA Culture - Final NO METHICILLIN RESISTANT STAPH AUREUS... Complete 01/07/20 05:30 Nasopharynx SARS-CoV-2 RdRp Gene Assay - Final Complete 01/07/20 06:00 Rectum VRE Culture - Final NO VANCOMYCIN RESISTANT ENTEROCOCCUS ... Complete 01/07/20 06:00 Rectum - Final NO CARBAPENEM-RESISTANT ENTEROBACTERI... Complete Assessment/Plan Assessment/Plan Severe dehydration Toxic and metabolic encephalopathies Severe sepsis with recovering shock Hypernatremia UTI Anemia Acute renal failure Chronic diastolic CHF Dementia Aspiration risk Hypotonic IVF Continue telemetry Abx Follow up cultures DVT prophyl Start NGTube feeds; swallow eval to follow Monitor and replace lytes as needed. Monitor volume status Restraints to prevent pulling out NGtube and IV lines Iggy Saunders MD Jan 09, 2020 17:42
[2020-01-09] MEDS: Atorvastatin 20mg tab NG SCH (21:43)
[2020-01-09] MEDS: Cefepime HCl 1 GM in D5W 55 ML IVPB SCH (21:43)
[2020-01-10] VITALS: BP 132/81
[2020-01-10] MEDS: Potassium Chloride 30 MEQ in 1/2 NS 1000ml 1,000 ML IV SCH ×4 (00:02→18:14)
[2020-01-10 04:00] VITALS: BP 122/74
[2020-01-10 07:29] LABS: HEMATOCRIT 32.1 % (42.0-52.0); MEAN CORPUSCULAR VOLUME 92 FL (80-99); PLATELET COUNT 201 K/UL (150-450); RED BLOOD COUNT 3.49 M/UL (4.70-6.10); RED CELL DISTRIBUTION WIDTH 13.4 % (11.6-14.8); WHITE BLOOD COUNT 9.3 K/UL (4.8-10.8)
[2020-01-10 07:36] LABS: ANION GAP 10 mmol/L (5-15); BLOOD UREA NITROGEN 56 mg/dL (7-18); CALCIUM 7.9 MG/DL (8.5-10.1); CARBON DIOXIDE 23 MMOL/L (21-32); CHLORIDE 131 MMOL/L (98-107); CREATININE 1.7 MG/DL (0.55-1.30); POTASSIUM 4.3 MMOL/L (3.5-5.1)
[2020-01-10 07:39] LABS: SODIUM 163 MMOL/L (136-145)
[2020-01-10 08:00] VITALS: BP 156/70
[2020-01-10] MEDS ORDERED: Vancomycin 1gm in D5W 275ml IVPB SCH (08:30)
--- NOTE | 2020-01-10 09:17 | Diagnostic Imaging Report ---
EXAM: XR Abdomen, 2 Views CLINICAL HISTORY: NGT TECHNIQUE: Frontal view of the abdomen/pelvis with upright view of the abdomen. COMPARISON: 1 day prior FINDINGS: Intraperitoneal space: No free air Gastrointestinal tract: Bowel gas pattern is consistent with mild ileus. No obstruction or free air is identified. Bones/joints: Unremarkable. Tubes, lines and devices: There is an NG tube identified as tip in the gastric fundus. IMPRESSION: NG tube in good position. Mild ileus.
[2020-01-10] MEDS: Levodopa/Carbidopa 25/100 tab NG SCH ×3 (09:31→17:58)
[2020-01-10] MEDS: Pantoprazole Inj IVP SCH (09:31)
[2020-01-10] MEDS: Heparin 5000 units/ml inj SUBQ SCH ×2 (09:32→21:13)
--- NOTE | 2020-01-10 11:14 | General Progress Note ---
Assessment/Plan Problem List: (1) Pneumonia ICD Codes: J18.9 - Pneumonia, unspecified organism SNOMED: 360640341 (2) Sepsis ICD Codes: A41.9 - Sepsis, unspecified organism SNOMED: 02620658 (3) HECTOR (acute kidney injury) ICD Codes: N17.9 - Acute kidney failure, unspecified SNOMED: 93019821, 4345626 (4) AMS (altered mental status) ICD Codes: R41.82 - Altered mental status, unspecified SNOMED: 582850337 Qualifiers: Qualified Codes: R41.82 - Altered mental status, unspecified (5) Acute hypernatremia ICD Codes: E87.0 - Hyperosmolality and hypernatremia SNOMED: 4988132, 6209624 (6) Hypoxia ICD Codes: R09.02 - Hypoxemia SNOMED: 499659711 Status: stable, progressing Assessment/Plan: cont hypotonic ivf per renal water flushes resume tube feeds monitor residuals iv abx repeat cxr dvt/stress ulcer prophylaxis monitor labs swallow eval when alert enough improving Subjective ROS Limited/Unobtainable: Yes Constitutional: Reports: malaise, weakness HEENT: Reports: no symptoms Cardiovascular: Reports: no symptoms Respiratory: Reports: no symptoms Gastrointestinal/Abdominal: Reports: difficulty swallowing Genitourinary: Reports: no symptoms Neurologic/Psychiatric: Reports: pre-existing deficit Endocrine: Reports: no symptoms Hematologic/Lymphatic: Reports: no symptoms Allergies: Coded Allergies: PENICILLINS (Verified Allergy, Unknown, 01/07/20) All Systems: reviewed and negative except above Subjective Patient was transferred from the intensive care unit to telemetry. Accidentally pulled out NG tube. NG tube replaced. Confirmation of placement review of x-ray. Slightly more alert. Nonverbal. Remains on IV fluids. Renal function and hypernatremia improving with hydration. On IV antibiotics. Objective Last 24 Hour Vital Signs Date Time Temp Pulse Resp B/P (MAP) Pulse Ox O2 Delivery O2 Flow Rate FiO2 01/10/20 08:00 97.5 75 18 156/70 (98) 100 01/10/20 04:00 82 01/10/20 04:00 97.4 82 18 122/74 (90) 97 01/10/20 00:00 97.5 73 18 132/81 (98) 97 01/10/20 00:00 73 01/09/20 21:00 Nasal Cannula 3.0 01/09/20 20:00 81 01/09/20 20:00 97.0 81 18 141/71 (94) 98 01/09/20 16:00 Nasal Cannula 3.0 01/09/20 16:00 98.7 60 18 116/62 (80) 98 01/09/20 16:00 70 01/09/20 15:00 69 15 118/57 (77) 97 01/09/20 14:00 79 29 124/62 (82) 96 01/09/20 13:00 73 24 133/69 (90) 97 01/09/20 12:00 Nasal Cannula 3.0 01/09/20 12:00 73 01/09/20 12:00 98.6 73 25 137/60 (85) 97 Intake and Output 01/09/20 01/10/20 19:00 07:00 Intake Total 1725 ml Output Total 1250 ml 200 ml Balance 475 ml -200 ml Free Water 300 ml IV Total 1325 ml Tube Feeding 100 ml Output Urine Total 1250 ml 200 ml # Bowel Movements 1 Laboratory Tests 01/10/20 06:05: White Blood Count 9.3, Red Blood Count 3.49L, Hemoglobin 10.0L, Hematocrit 32.1L , Mean Corpuscular Volume 92, Mean Corpuscular Hemoglobin 28.6, Mean Corpuscular Hemoglobin Concent 31.1L, Red Cell Distribution Width 13.4, Platelet Count 201, Mean Platelet Volume 7.3, Neutrophils (%) (Auto) , Lymphocytes (%) (Auto) , Monocytes (%) (Auto) , Eosinophils (%) (Auto) , Basophils (%) (Auto) , Differential Total Cells Counted 100, Neutrophils % ( Manual) 86H, Lymphocytes % (Manual) 7L, Monocytes % (Manual) 4, Eosinophils % ( Manual) 3, Basophils % (Manual) 0, Band Neutrophils 0, Platelet Estimate Adequate, Platelet Morphology Normal, Hypochromasia 1+, Anisocytosis 1+, Sodium Level 163*H, Potassium Level 4.3, Chloride Level 131H, Carbon Dioxide Level 23, Anion Gap 10, Blood Urea Nitrogen 56H, Creatinine 1.7H, Estimat Glomerular Filtration Rate 39.2, Glucose Level 79, Calcium Level 7.9L, Random Vancomycin Level 7.1 Height (Feet): 5 Height (Inches): 6.00 Weight (Pounds): 113 Objective General Appearance: WD/WN, lethargic, confused EENT: PERRL/EOMI, normal ENT inspection Neck: non-tender, normal alignment Cardiovascular: normal peripheral pulses, normal rate Respiratory/Chest: chest wall non-tender, lungs clear, normal breath sounds, no respiratory distress Abdomen: normal bowel sounds, non tender, soft, no organomegaly Edema: no edema noted Arm (L), no edema noted Arm (R) Edema: trace edema 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
--- NOTE | 2020-01-10 11:54 | Diagnostic Imaging Report ---
EXAM: XR Chest, 1 View CLINICAL HISTORY: COUGH TECHNIQUE: Frontal view of the chest. COMPARISON: Chest radiograph on 01/07/2020 FINDINGS: Hardware: None. Lungs/pleura: Decreased patchy opacities in the upper lungs. Slightly increased opacities in the medial lower lungs. No pleural effusion or pneumothorax. Heart/mediastinum: Atherosclerotic calcifications of the aorta. No cardiomegaly. Soft tissues: Unremarkable. Bones: No acute fracture. Degenerative changes of the acromioclavicular joints and spine. Upper abdomen: Normal. IMPRESSION: Decreased patchy opacities in the upper lungs. Slightly increased opacities in the medial lower lungs which may represent an infectious/inflammatory process.
[2020-01-10 12:00] VITALS: BP 116/65
[2020-01-10] MEDS ORDERED: Vancomycin 500mg/D5W 110ml IVPB ONE ×2 (14:30)
--- NOTE | 2020-01-10 15:04 | Infectious Diseases Prog Note ---
Assessment/Plan Assessment/Plan A: 1. Aspiration pneumonia. 2. Shock resolved 3. Hydronephrosis 4. Parkinson's disease. 5. Dementia. 6. acute renal failure, improving 7. Hypernatremia PLAN: 1. Discontinue IV vancomycin 2. Continue cefepime. Subjective ROS Limited/Unobtainable: Yes Constitutional: Reports: other - transferred from ICU to telemetry; Denies: fever Neurologic: Reports: other - more alert on restraint Allergies: Coded Allergies: PENICILLINS (Verified Allergy, Unknown, 01/07/20) Objective Last 24 Hour Vital Signs Date Time Temp Pulse Resp B/P (MAP) Pulse Ox O2 Delivery O2 Flow Rate FiO2 01/10/20 12:00 97.9 70 18 116/65 (82) 100 01/10/20 12:00 72 01/10/20 09:00 Nasal Cannula 3.0 01/10/20 08:00 97.5 75 18 156/70 (98) 100 01/10/20 08:00 75 01/10/20 04:00 82 01/10/20 04:00 97.4 82 18 122/74 (90) 97 01/10/20 00:00 97.5 73 18 132/81 (98) 97 01/10/20 00:00 73 01/09/20 21:00 Nasal Cannula 3.0 01/09/20 20:00 81 01/09/20 20:00 97.0 81 18 141/71 (94) 98 01/09/20 16:00 Nasal Cannula 3.0 01/09/20 16:00 98.7 60 18 116/62 (80) 98 01/09/20 16:00 70 01/09/20 15:00 69 15 118/57 (77) 97 Height (Feet): 5 Height (Inches): 6.00 Weight (Pounds): 113 HEENT: mucous membranes moist Respiratory/Chest: rhonchi - bilaterally, other - oxygen by nasal cannula Cardiovascular: normal rate Abdomen: soft, non tender, other - GT feeding Extremities: other - hands edema Neurologic/Psychiatric: alert Laboratory Tests Test 01/10/20 06:05 White Blood Count 9.3 K/UL (4.8-10.8) Red Blood Count 3.49 M/UL (4.70-6.10) L Hemoglobin 10.0 G/DL (14.2-18.0) L Hematocrit 32.1 % (42.0-52.0) L Mean Corpuscular Volume 92 FL (80-99) Mean Corpuscular Hemoglobin 28.6 PG (27.0-31.0) Mean Corpuscular Hemoglobin Concent 31.1 G/DL (32.0-36.0) L Red Cell Distribution Width 13.4 % (11.6-14.8) Platelet Count 201 K/UL (150-450) Mean Platelet Volume 7.3 FL (6.5-10.1) Neutrophils (%) (Auto) % (45.0-75.0) Lymphocytes (%) (Auto) % (20.0-45.0) Monocytes (%) (Auto) % (1.0-10.0) Eosinophils (%) (Auto) % (0.0-3.0) Basophils (%) (Auto) % (0.0-2.0) Differential Total Cells Counted 100 Neutrophils % (Manual) 86 % (45-75) H Lymphocytes % (Manual) 7 % (20-45) L Monocytes % (Manual) 4 % (1-10) Eosinophils % (Manual) 3 % (0-3) Basophils % (Manual) 0 % (0-2) Band Neutrophils 0 % (0-8) Platelet Estimate Adequate Platelet Morphology Normal Hypochromasia 1+ Anisocytosis 1+ Sodium Level 163 MMOL/L (136-145) *H Potassium Level 4.3 MMOL/L (3.5-5.1) Chloride Level 131 MMOL/L (98-107) H Carbon Dioxide Level 23 MMOL/L (21-32) Anion Gap 10 mmol/L (5-15) Blood Urea Nitrogen 56 mg/dL (7-18) H Creatinine 1.7 MG/DL (0.55-1.30) H Estimat Glomerular Filtration Rate 39.2 mL/min (>60) Glucose Level 79 MG/DL (74-106) Calcium Level 7.9 MG/DL (8.5-10.1) L Random Vancomycin Level 7.1 ug/mL Current Medications Medications (Trade) Dose Ordered Sig/Veronica Route PRN Reason Start Time Stop Time Status Last Admin Dose Admin Atorvastatin Calcium (Lipitor) 20 mg BEDTIME NG 01/09/20 21:00 04/06/20 20:59 01/09/20 21:43 Carbidopa/Levodopa (Sinemet 25/100) 1 tab THREE TIMES A DAY NG 01/09/20 18:00 02/06/20 12:59 01/10/20 12:59 Cefepime HCl 1 gm/ Dextrose 55 ml @ 110 mls/hr Q24H IVPB 01/09/20 21:00 01/14/20 20:59 01/09/20 21:43 Heparin Sodium (Porcine) (Heparin 5000 units/ml) 5,000 units EVERY 12 HOURS SUBQ 01/09/20 21:00 02/21/20 11:14 01/10/20 09:32 Pantoprazole (Protonix) 40 mg DAILY IVP 01/10/20 09:00 02/07/20 08:59 01/10/20 09:31 Potassium Chloride 30 meq/ Sodium Chloride 1,015 ml @ 100 mls/hr Q10H9M IV 01/11/20 11:39 02/10/20 11:38 Vancomycin HCl ([facility] pharmacy to dose) 1 ea DAILY PRN MISC Per rx protocol 01/10/20 09:00 02/06/20 11:14 Vancomycin HCl 500 mg/Dextrose 110 ml @ 110 mls/hr ONCE ONCE IVPB 01/10/20 14:30 01/10/20 15:29 Mohsen Garcia MD Jan 10, 2020 15:04
[2020-01-10 16:00] VITALS: BP 155/73
--- NOTE | 2020-01-10 16:13 | Cardiology Progress Note ---
Subjective DATE OF SERVICE: Jan 10, 2020 More alert BP parameters stabilizing. Remains on hypotonic IVF and Abx Monitor: sinus with PAC's and BBB NGTube replaced; restraints needed now to prevent from pulling out, as needed for nutrition. Objective Last 24 Hour Vital Signs Date Time Temp Pulse Resp B/P (MAP) Pulse Ox O2 Delivery O2 Flow Rate FiO2 01/10/20 12:00 97.9 70 18 116/65 (82) 100 01/10/20 12:00 72 01/10/20 09:00 Nasal Cannula 3.0 01/10/20 08:00 97.5 75 18 156/70 (98) 100 01/10/20 08:00 75 01/10/20 04:00 82 01/10/20 04:00 97.4 82 18 122/74 (90) 97 01/10/20 00:00 97.5 73 18 132/81 (98) 97 01/10/20 00:00 73 01/09/20 21:00 Nasal Cannula 3.0 01/09/20 20:00 81 01/09/20 20:00 97.0 81 18 141/71 (94) 98 ROS: unchanged from my initial assessment on 01/07/20 HEENT: other - NGTube RHYTHM: PACs LUNGS: diminished breath sounds CARDIAC: normal rate, regular rhythm, normal S1 and S2 ABDOMEN: normal bowel sounds, non tender, soft EXTREMITIES: normal inspection, No edema Laboratory Tests Test 01/10/20 06:05 White Blood Count 9.3 K/UL (4.8-10.8) Red Blood Count 3.49 M/UL (4.70-6.10) L Hemoglobin 10.0 G/DL (14.2-18.0) L Hematocrit 32.1 % (42.0-52.0) L Mean Corpuscular Volume 92 FL (80-99) Mean Corpuscular Hemoglobin 28.6 PG (27.0-31.0) Mean Corpuscular Hemoglobin Concent 31.1 G/DL (32.0-36.0) L Red Cell Distribution Width 13.4 % (11.6-14.8) Platelet Count 201 K/UL (150-450) Mean Platelet Volume 7.3 FL (6.5-10.1) Neutrophils (%) (Auto) % (45.0-75.0) Lymphocytes (%) (Auto) % (20.0-45.0) Monocytes (%) (Auto) % (1.0-10.0) Eosinophils (%) (Auto) % (0.0-3.0) Basophils (%) (Auto) % (0.0-2.0) Differential Total Cells Counted 100 Neutrophils % (Manual) 86 % (45-75) H Lymphocytes % (Manual) 7 % (20-45) L Monocytes % (Manual) 4 % (1-10) Eosinophils % (Manual) 3 % (0-3) Basophils % (Manual) 0 % (0-2) Band Neutrophils 0 % (0-8) Platelet Estimate Adequate Platelet Morphology Normal Hypochromasia 1+ Anisocytosis 1+ Sodium Level 163 MMOL/L (136-145) *H Potassium Level 4.3 MMOL/L (3.5-5.1) Chloride Level 131 MMOL/L (98-107) H Carbon Dioxide Level 23 MMOL/L (21-32) Anion Gap 10 mmol/L (5-15) Blood Urea Nitrogen 56 mg/dL (7-18) H Creatinine 1.7 MG/DL (0.55-1.30) H Estimat Glomerular Filtration Rate 39.2 mL/min (>60) Glucose Level 79 MG/DL (74-106) Calcium Level 7.9 MG/DL (8.5-10.1) L Random Vancomycin Level 7.1 ug/mL CHEST XRAY: 01/10/20 - decreasing upper lobe infiltrate; increasing lower lobe infiltrates Assessment/Plan Assessment/Plan Severe dehydration Healthcare associated/aspiration PNA Toxic and metabolic encephalopathies Severe sepsis with recovering shock Hypernatremia UTI Anemia Acute renal failure Chronic diastolic CHF Dementia Aspiration risk Hypotonic IVF Continue telemetry Abx Follow up cultures DVT prophyl Respiratory therapy Start NGTube feeds; swallow eval to follow Monitor and replace lytes as needed. Monitor volume status Restraints to prevent pulling out NGtube and IV lines Iggy Saunders MD Jan 10, 2020 16:13
--- NOTE | 2020-01-10 16:31 | Diagnostic Imaging Report ---
EXAM: XR Abdomen, 2 Views CLINICAL HISTORY: NGT TECHNIQUE: Frontal view of the abdomen/pelvis with upright view of the abdomen. COMPARISON: Abdominal radiographs on 01/10/2020@817 hours. FINDINGS: Hardware: Enteric tube terminates in the region of the stomach. Abdomen: Nonspecific partially visualized bowel gas pattern. No free air. Bones: Degenerative changes of the spine. Soft tissues: Normal. Lower chest: Normal. IMPRESSION: Enteric tube terminates in the region of the stomach.
[2020-01-10] MEDS: Albuterol/Ipratropium 3ml neb HHN SCH (19:02)
[2020-01-10 20:00] VITALS: BP 109/46
[2020-01-10] MEDS: Atorvastatin 20mg tab NG SCH (21:12)
[2020-01-10] MEDS: Cefepime HCl 1 GM in D5W 55 ML IVPB SCH (21:12)
[2020-01-11] VITALS: BP 119/58
[2020-01-11] MEDS: Albuterol/Ipratropium 3ml neb HHN SCH ×4 (01:21→19:35)
[2020-01-11 04:00] VITALS: BP 110/55
[2020-01-11] MEDS: Potassium Chloride 30 MEQ in 1/2 NS 1000ml 1,000 ML IV SCH ×2 (04:17→09:04)
[2020-01-11 06:29] LABS: ANION GAP 10 mmol/L (5-15); BLOOD UREA NITROGEN 42 mg/dL (7-18); CALCIUM 6.8 MG/DL (8.5-10.1); CARBON DIOXIDE 23 MMOL/L (21-32); CHLORIDE 125 MMOL/L (98-107); CREATININE 1.5 MG/DL (0.55-1.30); POTASSIUM 4.1 MMOL/L (3.5-5.1); SODIUM 158 MMOL/L (136-145)
[2020-01-11 08:00] VITALS: BP 120/54
[2020-01-11] MEDS: Pantoprazole Inj IVP SCH (09:04)
[2020-01-11] MEDS: Levodopa/Carbidopa 25/100 tab NG SCH ×3 (09:04→17:00)
[2020-01-11] MEDS: Heparin 5000 units/ml inj SUBQ SCH ×2 (09:05→22:01)
--- NOTE | 2020-01-11 11:13 | Infectious Diseases Prog Note ---
Assessment/Plan Assessment/Plan antibiotics : cefepime A 1. Aspiration pneumonia. COVID 19 test negative 2. Shock resolved 3. Parkinson's disease. 4. Dementia. P 1. continue cefepime 2. will follow up cultures Subjective ROS Limited/Unobtainable: Yes Allergies: Coded Allergies: PENICILLINS (Verified Allergy, Unknown, 01/07/20) Objective Last 24 Hour Vital Signs Date Time Temp Pulse Resp B/P (MAP) Pulse Ox O2 Delivery O2 Flow Rate FiO2 01/11/20 09:00 Nasal Cannula 3.0 01/11/20 08:00 89 01/11/20 08:00 100.0 76 22 120/54 (76) 95 01/11/20 06:57 94 Nasal Cannula 3.0 32 01/11/20 06:57 82 16 96 Nasal Cannula 3.0 32 85 16 94 01/11/20 04:00 85 01/11/20 04:00 98.8 78 29 110/55 (73) 97 01/11/20 00:13 76 14 94 Nasal Cannula 3.0 32 76 14 94 01/11/20 00:00 75 01/11/20 00:00 98.2 74 28 119/58 (78) 96 01/10/20 21:00 Nasal Cannula 3.0 01/10/20 20:00 72 01/10/20 20:00 98.1 71 21 109/46 (67) 96 01/10/20 19:04 80 16 95 Nasal Cannula 2.0 28 77 14 92 01/10/20 19:02 92 Nasal Cannula 2.0 28 01/10/20 16:00 97.9 74 18 155/73 (100) 100 01/10/20 16:00 70 01/10/20 12:00 97.9 70 18 116/65 (82) 100 01/10/20 12:00 72 Height (Feet): 5 Height (Inches): 6.00 Weight (Pounds): 119 Respiratory/Chest: lungs clear Cardiovascular: normal rate, regular rhythm, no gallop/murmur Abdomen: soft, non tender Extremities: no edema Microbiology Date/Time Source Procedure Growth Status 01/09/20 16:20 Sputum Gram Stain - Final Resulted 01/09/20 16:20 Sputum Sputum Culture Pending Resulted Laboratory Tests Test 01/11/20 05:50 Sodium Level 158 MMOL/L (136-145) H Potassium Level 4.1 MMOL/L (3.5-5.1) Chloride Level 125 MMOL/L (98-107) H Carbon Dioxide Level 23 MMOL/L (21-32) Anion Gap 10 mmol/L (5-15) Blood Urea Nitrogen 42 mg/dL (7-18) H Creatinine 1.5 MG/DL (0.55-1.30) H Estimat Glomerular Filtration Rate 45.3 mL/min (>60) Glucose Level 138 MG/DL (74-106) H Calcium Level 6.8 MG/DL (8.5-10.1) L Current Medications Medications (Trade) Dose Ordered Sig/Veronica Route PRN Reason Start Time Stop Time Status Last Admin Dose Admin Albuterol/ Ipratropium (Albuterol/ Ipratropium) 3 ml Q6HRT HHN 01/10/20 19:00 01/15/20 18:59 01/11/20 06:47 Atorvastatin Calcium (Lipitor) 20 mg BEDTIME NG 01/09/20 21:00 04/06/20 20:59 01/10/20 21:12 Carbidopa/Levodopa (Sinemet 25/100) 1 tab THREE TIMES A DAY NG 01/09/20 18:00 02/06/20 12:59 01/11/20 09:04 Cefepime HCl 1 gm/ Dextrose 55 ml @ 110 mls/hr Q24H IVPB 01/09/20 21:00 01/14/20 20:59 01/10/20 21:12 Heparin Sodium (Porcine) (Heparin 5000 units/ml) 5,000 units EVERY 12 HOURS SUBQ 01/09/20 21:00 02/21/20 11:14 01/11/20 09:05 Pantoprazole (Protonix) 40 mg DAILY IVP 01/10/20 09:00 02/07/20 08:59 01/11/20 09:04 Potassium Chloride 30 meq/ Sodium Chloride 1,015 ml @ 100 mls/hr Q10H9M IV 01/10/20 18:08 02/09/20 18:07 01/11/20 09:04 Ana Carrasco MD Jan 11, 2020 11:13
[2020-01-11 12:00] VITALS: BP 126/69
[2020-01-11] MEDS ORDERED: Acetaminophen 650mg/20.3ml NG PRN (14:15)
--- NOTE | 2020-01-11 15:59 | Nephrology Progress Note ---
Assessment/Plan Problem List: (1) Malnutrition of moderate degree (2) Metabolic encephalopathy (3) HECTOR (acute kidney injury) (4) AMS (altered mental status) (5) Acute hypernatremia (6) Pneumonia Plan lab trend better, iv adjusted, starting tube feed Subjective ROS Limited/Unobtainable: Yes Objective Objective Last 24 Hour Vital Signs Date Time Temp Pulse Resp B/P (MAP) Pulse Ox O2 Delivery O2 Flow Rate FiO2 01/11/20 15:06 98.1 01/11/20 13:25 82 16 97 Nasal Cannula 3.0 32 74 16 95 01/11/20 12:00 102.2 88 22 126/69 (88) 96 01/11/20 12:00 68 01/11/20 09:00 Nasal Cannula 3.0 01/11/20 08:00 89 01/11/20 08:00 100.0 76 22 120/54 (76) 95 01/11/20 06:57 94 Nasal Cannula 3.0 32 01/11/20 06:57 82 16 96 Nasal Cannula 3.0 32 85 16 94 01/11/20 04:00 85 01/11/20 04:00 98.8 78 29 110/55 (73) 97 01/11/20 00:13 76 14 94 Nasal Cannula 3.0 32 76 14 94 01/11/20 00:00 75 01/11/20 00:00 98.2 74 28 119/58 (78) 96 01/10/20 21:00 Nasal Cannula 3.0 01/10/20 20:00 72 01/10/20 20:00 98.1 71 21 109/46 (67) 96 01/10/20 19:04 80 16 95 Nasal Cannula 2.0 28 77 14 92 01/10/20 19:02 92 Nasal Cannula 2.0 28 01/10/20 16:00 97.9 74 18 155/73 (100) 100 01/10/20 16:00 70 Intake and Output 01/10/20 01/11/20 19:00 07:00 Intake Total 1605 ml Output Total 1000 ml Balance 1605 ml -1000 ml IV Total 1585 ml Tube Feeding 20 ml Output Urine Total 1000 ml Laboratory Tests 01/11/20 05:50: Sodium Level 158H, Potassium Level 4.1, Chloride Level 125H, Carbon Dioxide Level 23, Anion Gap 10, Blood Urea Nitrogen 42H, Creatinine 1.5H, Estimat Glomerular Filtration Rate 45.3, Glucose Level 138H, Calcium Level 6.8L Height (Feet): 5 Height (Inches): 6.00 Weight (Pounds): 119 General Appearance: lethargic, confused EENT: normal ENT inspection Neck: normal alignment Cardiovascular: regular rhythm Respiratory/Chest: rhonchi - bilaterally Abdomen: non tender Extremities: moderate edema Neurologic: motor weakness, disoriented Franki Bergeron MD Jan 11, 2020 15:59
[2020-01-11 16:00] VITALS: BP 117/59
[2020-01-11] MEDS: D5W w/KCl 20mEq 1,000 ML IV SCH (17:01)
--- NOTE | 2020-01-11 17:41 | General Progress Note ---
Assessment/Plan Problem List: (1) Pneumonia ICD Codes: J18.9 - Pneumonia, unspecified organism SNOMED: 439144569 (2) Sepsis ICD Codes: A41.9 - Sepsis, unspecified organism SNOMED: 43589597 (3) HECTOR (acute kidney injury) ICD Codes: N17.9 - Acute kidney failure, unspecified SNOMED: 98468935, 8301471 (4) AMS (altered mental status) ICD Codes: R41.82 - Altered mental status, unspecified SNOMED: 868616115 Qualifiers: Qualified Codes: R41.82 - Altered mental status, unspecified (5) Acute hypernatremia ICD Codes: E87.0 - Hyperosmolality and hypernatremia SNOMED: 2622065, 7081193 (6) Hypoxia ICD Codes: R09.02 - Hypoxemia SNOMED: 129123073 Status: stable, progressing Assessment/Plan: cont hypotonic ivf per renal water flushes tube feeds monitor residuals monitor volume status iv abx repeat cxr dvt/stress ulcer prophylaxis monitor labs speech rx turn q2 skin care improving Subjective ROS Limited/Unobtainable: Yes Constitutional: Reports: malaise, weakness HEENT: Reports: no symptoms Cardiovascular: Reports: no symptoms Respiratory: Reports: no symptoms Gastrointestinal/Abdominal: Reports: difficulty swallowing Genitourinary: Reports: no symptoms Neurologic/Psychiatric: Reports: pre-existing deficit Endocrine: Reports: no symptoms Hematologic/Lymphatic: Reports: no symptoms Allergies: Coded Allergies: PENICILLINS (Verified Allergy, Unknown, 01/07/20) All Systems: reviewed and negative except above Subjective no events. w/o complaints. remains poorly responsive. opens eyes. tracks. does not follow commands. no fevers. tolerating tube feeds. renal fxn and hypernatremia gradually improving on hydration/ivf. Objective Last 24 Hour Vital Signs Date Time Temp Pulse Resp B/P (MAP) Pulse Ox O2 Delivery O2 Flow Rate FiO2 01/11/20 16:00 97.7 78 22 117/59 (78) 95 01/11/20 16:00 83 01/11/20 15:06 98.1 01/11/20 13:25 82 16 97 Nasal Cannula 3.0 32 74 16 95 01/11/20 12:00 102.2 88 22 126/69 (88) 96 01/11/20 12:00 68 01/11/20 09:00 Nasal Cannula 3.0 01/11/20 08:00 89 01/11/20 08:00 100.0 76 22 120/54 (76) 95 01/11/20 06:57 94 Nasal Cannula 3.0 32 01/11/20 06:57 82 16 96 Nasal Cannula 3.0 32 85 16 94 01/11/20 04:00 85 01/11/20 04:00 98.8 78 29 110/55 (73) 97 01/11/20 00:13 76 14 94 Nasal Cannula 3.0 32 76 14 94 01/11/20 00:00 75 01/11/20 00:00 98.2 74 28 119/58 (78) 96 01/10/20 21:00 Nasal Cannula 3.0 01/10/20 20:00 72 01/10/20 20:00 98.1 71 21 109/46 (67) 96 01/10/20 19:04 80 16 95 Nasal Cannula 2.0 28 77 14 92 01/10/20 19:02 92 Nasal Cannula 2.0 28 Intake and Output 01/10/20 01/11/20 19:00 07:00 Intake Total 1605 ml Output Total 1000 ml Balance 1605 ml -1000 ml IV Total 1585 ml Tube Feeding 20 ml Output Urine Total 1000 ml Laboratory Tests 01/11/20 05:50: Sodium Level 158H, Potassium Level 4.1, Chloride Level 125H, Carbon Dioxide Level 23, Anion Gap 10, Blood Urea Nitrogen 42H, Creatinine 1.5H, Estimat Glomerular Filtration Rate 45.3, Glucose Level 138H, Calcium Level 6.8L Height (Feet): 5 Height (Inches): 6.00 Weight (Pounds): 119 Objective General Appearance: WD/WN, lethargic, confused EENT: PERRL/EOMI, normal ENT inspection Neck: non-tender, normal alignment Cardiovascular: normal peripheral pulses, normal rate Respiratory/Chest: chest wall non-tender, lungs clear, normal breath sounds, no respiratory distress Abdomen: normal bowel sounds, non tender, soft, no organomegaly Edema: no edema noted Arm (L), no edema noted Arm (R) Edema: trace edema 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 MD Jan 11, 2020 17:41
[2020-01-11 20:00] VITALS: BP 135/62
[2020-01-11] MEDS: Cefepime HCl 1 GM in D5W 55 ML IVPB SCH (21:59)
[2020-01-11] MEDS: Atorvastatin 20mg tab NG SCH (22:00)
[2020-01-12] VITALS: BP 147/51
[2020-01-12] MEDS: Albuterol/Ipratropium 3ml neb HHN SCH ×4 (01:04→19:27)
[2020-01-12] MEDS: D5W w/KCl 20mEq 1,000 ML IV SCH ×3 (01:12→13:00)
[2020-01-12 04:00] VITALS: BP 122/50
[2020-01-12 06:06] LABS: ANION GAP 8 mmol/L (5-15); BLOOD UREA NITROGEN 29 mg/dL (7-18); CALCIUM 7.3 MG/DL (8.5-10.1); CARBON DIOXIDE 24 MMOL/L (21-32); CHLORIDE 119 MMOL/L (98-107); CREATININE 1.4 MG/DL (0.55-1.30); POTASSIUM 4.5 MMOL/L (3.5-5.1); SODIUM 151 MMOL/L (136-145)
[2020-01-12 08:00] VITALS: BP 143/57
[2020-01-12] MEDS: Pantoprazole Inj IVP SCH (08:47)
[2020-01-12] MEDS: Levodopa/Carbidopa 25/100 tab NG SCH ×3 (08:47→18:17)
[2020-01-12] MEDS: Heparin 5000 units/ml inj SUBQ SCH ×2 (08:49→22:10)
--- NOTE | 2020-01-12 10:53 | Infectious Diseases Prog Note ---
Assessment/Plan Assessment/Plan antibiotics : cefepime A 1. gram negative Aspiration pneumonia. COVID 19 test negative 2. Shock resolved 3. Parkinson's disease. 4. Dementia. P 1. continue cefepime 2. will follow up cultures Subjective ROS Limited/Unobtainable: Yes Allergies: Coded Allergies: PENICILLINS (Verified Allergy, Unknown, 01/07/20) Objective Last 24 Hour Vital Signs Date Time Temp Pulse Resp B/P (MAP) Pulse Ox O2 Delivery O2 Flow Rate FiO2 01/12/20 08:18 79 18 98 Nasal Cannula 3.0 32 87 18 95 01/12/20 06:59 95 Nasal Cannula 3.0 32 01/12/20 04:00 86 01/12/20 04:00 97.7 85 25 122/50 (74) 98 01/12/20 01:04 84 18 99 Nasal Cannula 3.0 32 81 18 95 01/12/20 00:01 81 01/12/20 00:00 98.1 84 21 147/51 (83) 99 01/11/20 21:00 Nasal Cannula 3.0 01/11/20 20:00 97.9 76 26 135/62 (86) 99 01/11/20 20:00 79 01/11/20 19:38 94 Nasal Cannula 3.0 32 01/11/20 19:35 77 18 99 Nasal Cannula 3.0 32 79 18 94 01/11/20 16:00 97.7 78 22 117/59 (78) 95 01/11/20 16:00 83 01/11/20 15:06 98.1 01/11/20 13:25 82 16 97 Nasal Cannula 3.0 32 74 16 95 01/11/20 12:00 102.2 88 22 126/69 (88) 96 01/11/20 12:00 68 Height (Feet): 5 Height (Inches): 6.00 Weight (Pounds): 113 Respiratory/Chest: lungs clear Cardiovascular: normal rate, regular rhythm, no gallop/murmur Abdomen: soft, non tender Extremities: no edema Microbiology Date/Time Source Procedure Growth Status 01/09/20 16:20 Sputum Gram Stain - Final Resulted 01/09/20 16:20 Sputum Culture - Preliminary Gram Negative Bacillus 1 Gram Negative Bacillus 2 Usual Respiratory Anaid Resulted 01/11/20 14:40 Urine,Clean Catch Urine Culture - Preliminary NO GROWTH Resulted Laboratory Tests Test 01/12/20 05:10 Sodium Level 151 MMOL/L (136-145) H Potassium Level 4.5 MMOL/L (3.5-5.1) Chloride Level 119 MMOL/L (98-107) H Carbon Dioxide Level 24 MMOL/L (21-32) Anion Gap 8 mmol/L (5-15) Blood Urea Nitrogen 29 mg/dL (7-18) H Creatinine 1.4 MG/DL (0.55-1.30) H Estimat Glomerular Filtration Rate 49.0 mL/min (>60) Glucose Level 166 MG/DL (74-106) H Calcium Level 7.3 MG/DL (8.5-10.1) L Phosphorus Level 2.0 MG/DL (2.5-4.9) L Current Medications Medications (Trade) Dose Ordered Sig/Veronica Route PRN Reason Start Time Stop Time Status Last Admin Dose Admin Acetaminophen (Tylenol) 650 mg Q6H PRN NG Temp >100.5 01/11/20 14:15 02/10/20 14:14 01/11/20 14:36 Albuterol/ Ipratropium (Albuterol/ Ipratropium) 3 ml Q6HRT HHN 01/10/20 19:00 01/15/20 18:59 01/12/20 08:08 Atorvastatin Calcium (Lipitor) 20 mg BEDTIME NG 01/09/20 21:00 04/06/20 20:59 01/11/20 22:00 Carbidopa/Levodopa (Sinemet 25/100) 1 tab THREE TIMES A DAY NG 01/09/20 18:00 02/06/20 12:59 01/12/20 08:47 Cefepime HCl 1 gm/ Dextrose 55 ml @ 110 mls/hr Q24H IVPB 01/09/20 21:00 01/14/20 20:59 01/11/20 21:59 Dextrose/ Electrolytes 1,000 ml @ 125 mls/hr Q8H IV 01/11/20 17:00 02/10/20 16:59 01/12/20 08:47 Heparin Sodium (Porcine) (Heparin 5000 units/ml) 5,000 units EVERY 12 HOURS SUBQ 01/09/20 21:00 02/21/20 11:14 01/12/20 08:49 Pantoprazole (Protonix) 40 mg DAILY IVP 01/10/20 09:00 02/07/20 08:59 01/12/20 08:47 Ana Carrasco MD Jan 12, 2020 10:53
[2020-01-12 12:00] VITALS: BP 133/63
--- NOTE | 2020-01-12 12:44 | Nephrology Progress Note ---
Assessment/Plan Problem List: (1) Malnutrition of moderate degree (2) Metabolic encephalopathy (3) HECTOR (acute kidney injury) (4) AMS (altered mental status) (5) Acute hypernatremia (6) Pneumonia (7) Hypophosphatemia Plan lab trend better, iv adjusted, starting tube feed replace phos Subjective ROS Limited/Unobtainable: Yes Objective Objective Last 24 Hour Vital Signs Date Time Temp Pulse Resp B/P (MAP) Pulse Ox O2 Delivery O2 Flow Rate FiO2 01/12/20 09:00 Nasal Cannula 3.0 01/12/20 08:18 79 18 98 Nasal Cannula 3.0 32 87 18 95 01/12/20 08:00 98.9 80 20 143/57 (85) 97 01/12/20 06:59 95 Nasal Cannula 3.0 32 01/12/20 04:00 86 01/12/20 04:00 97.7 85 25 122/50 (74) 98 01/12/20 01:04 84 18 99 Nasal Cannula 3.0 32 81 18 95 01/12/20 00:01 81 01/12/20 00:00 98.1 84 21 147/51 (83) 99 01/11/20 21:00 Nasal Cannula 3.0 01/11/20 20:00 97.9 76 26 135/62 (86) 99 01/11/20 20:00 79 01/11/20 19:38 94 Nasal Cannula 3.0 32 01/11/20 19:35 77 18 99 Nasal Cannula 3.0 32 79 18 94 01/11/20 16:00 97.7 78 22 117/59 (78) 95 01/11/20 16:00 83 01/11/20 15:06 98.1 01/11/20 13:25 82 16 97 Nasal Cannula 3.0 32 74 16 95 Intake and Output 01/11/20 01/12/20 19:00 07:00 Output Total 750 ml 500 ml Balance -750 ml -500 ml Output Urine Total 750 ml 500 ml # Bowel Movements 1 Laboratory Tests 01/12/20 05:10: Sodium Level 151H, Potassium Level 4.5, Chloride Level 119H, Carbon Dioxide Level 24, Anion Gap 8, Blood Urea Nitrogen 29H, Creatinine 1.4H, Estimat Glomerular Filtration Rate 49.0, Glucose Level 166H, Calcium Level 7.3L, Phosphorus Level 2.0L Height (Feet): 5 Height (Inches): 6.00 Weight (Pounds): 113 General Appearance: confused Cardiovascular: normal rate, regular rhythm Respiratory/Chest: rhonchi - bilaterally Abdomen: non tender Extremities: moderate edema Neurologic: motor weakness Franki Bergeron MD Jan 12, 2020 12:43
[2020-01-12] MEDS: Phospha 250 Neutral tab NG SCH ×2 (13:47→18:17)
[2020-01-12 16:00] VITALS: BP 115/50
--- NOTE | 2020-01-12 16:41 | General Progress Note ---
Assessment/Plan Problem List: (1) Pneumonia ICD Codes: J18.9 - Pneumonia, unspecified organism SNOMED: 133801981 (2) Sepsis ICD Codes: A41.9 - Sepsis, unspecified organism SNOMED: 56223779 (3) HECTOR (acute kidney injury) ICD Codes: N17.9 - Acute kidney failure, unspecified SNOMED: 96298836, 0949870 (4) AMS (altered mental status) ICD Codes: R41.82 - Altered mental status, unspecified SNOMED: 094270868 Qualifiers: Qualified Codes: R41.82 - Altered mental status, unspecified (5) Acute hypernatremia ICD Codes: E87.0 - Hyperosmolality and hypernatremia SNOMED: 1945298, 6364629 (6) Hypoxia ICD Codes: R09.02 - Hypoxemia SNOMED: 152615579 Status: stable, progressing Assessment/Plan: cont hypotonic ivf per renal water flushes tube feeds monitor residuals monitor volume status iv abx per id repeat cxr dvt/stress ulcer prophylaxis monitor labs speech rx turn q2 skin care improving notes reviewed Subjective ROS Limited/Unobtainable: Yes Constitutional: Reports: malaise, weakness HEENT: Reports: no symptoms Cardiovascular: Reports: no symptoms Respiratory: Reports: shortness of breath Gastrointestinal/Abdominal: Reports: difficulty swallowing Genitourinary: Reports: no symptoms Neurologic/Psychiatric: Reports: no symptoms Endocrine: Reports: no symptoms Hematologic/Lymphatic: Reports: anemia Allergies: Coded Allergies: PENICILLINS (Verified Allergy, Unknown, 01/07/20) All Systems: reviewed and negative except above Subjective no change. remains lethargic and withdrawn. opens eyes, does not follow commands , na and cr improving on ivf/tube feeds. no fevers. on iv abx, no distress. Objective Last 24 Hour Vital Signs Date Time Temp Pulse Resp B/P (MAP) Pulse Ox O2 Delivery O2 Flow Rate FiO2 01/12/20 14:05 75 18 97 Nasal Cannula 3.0 32 76 18 92 01/12/20 12:00 78 01/12/20 12:00 98.8 78 18 133/63 (86) 98 01/12/20 09:00 Nasal Cannula 3.0 01/12/20 08:18 79 18 98 Nasal Cannula 3.0 32 87 18 95 01/12/20 08:00 98.9 80 20 143/57 (85) 97 01/12/20 08:00 80 01/12/20 06:59 95 Nasal Cannula 3.0 32 01/12/20 04:00 86 01/12/20 04:00 97.7 85 25 122/50 (74) 98 01/12/20 01:04 84 18 99 Nasal Cannula 3.0 32 81 18 95 01/12/20 00:01 81 01/12/20 00:00 98.1 84 21 147/51 (83) 99 01/11/20 21:00 Nasal Cannula 3.0 01/11/20 20:00 97.9 76 26 135/62 (86) 99 01/11/20 20:00 79 01/11/20 19:38 94 Nasal Cannula 3.0 32 01/11/20 19:35 77 18 99 Nasal Cannula 3.0 32 79 18 94 Intake and Output 01/11/20 01/12/20 19:00 07:00 Output Total 750 ml 500 ml Balance -750 ml -500 ml Output Urine Total 750 ml 500 ml # Bowel Movements 1 Laboratory Tests 01/12/20 05:10: Sodium Level 151H, Potassium Level 4.5, Chloride Level 119H, Carbon Dioxide Level 24, Anion Gap 8, Blood Urea Nitrogen 29H, Creatinine 1.4H, Estimat Glomerular Filtration Rate 49.0, Glucose Level 166H, Calcium Level 7.3L, Phosphorus Level 2.0L Height (Feet): 5 Height (Inches): 6.00 Weight (Pounds): 113 Objective General Appearance: WD/WN, lethargic, confused EENT: PERRL/EOMI, normal ENT inspection Neck: non-tender, normal alignment Cardiovascular: normal peripheral pulses, normal rate Respiratory/Chest: chest wall non-tender, lungs clear, normal breath sounds, no respiratory distress Abdomen: normal bowel sounds, non tender, soft, no organomegaly Edema: no edema noted Arm (L), no edema noted Arm (R) Edema: trace edema 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
--- NOTE | 2020-01-12 18:56 | Cardiology Progress Note ---
Subjective DATE OF SERVICE: Jan 12, 2020 More alert, but non-verbal and doesnt follow commands BP parameters stabilizing. Remains on hypotonic IVF and Abx Monitor: sinus with PAC's and BBB NGTube replaced; restraints needed now to prevent from pulling out, as needed for nutrition. 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 I have made them aware that current condition may not improve significantly. As such - they are asked to consider a Gtube, or hospice care. Objective Last 24 Hour Vital Signs Date Time Temp Pulse Resp B/P (MAP) Pulse Ox O2 Delivery O2 Flow Rate FiO2 01/12/20 16:00 98.0 74 20 115/50 (71) 97 01/12/20 16:00 72 01/12/20 14:05 75 18 97 Nasal Cannula 3.0 32 76 18 92 01/12/20 12:00 78 01/12/20 12:00 98.8 78 18 133/63 (86) 98 01/12/20 09:00 Nasal Cannula 3.0 01/12/20 08:18 79 18 98 Nasal Cannula 3.0 32 87 18 95 01/12/20 08:00 98.9 80 20 143/57 (85) 97 01/12/20 08:00 80 01/12/20 06:59 95 Nasal Cannula 3.0 32 01/12/20 04:00 86 01/12/20 04:00 97.7 85 25 122/50 (74) 98 01/12/20 01:04 84 18 99 Nasal Cannula 3.0 32 81 18 95 01/12/20 00:01 81 01/12/20 00:00 98.1 84 21 147/51 (83) 99 01/11/20 21:00 Nasal Cannula 3.0 01/11/20 20:00 97.9 76 26 135/62 (86) 99 01/11/20 20:00 79 01/11/20 19:38 94 Nasal Cannula 3.0 32 01/11/20 19:35 77 18 99 Nasal Cannula 3.0 32 79 18 94 ROS: unchanged from my initial assessment on 01/07/20 HEENT: other - NGTube RHYTHM: PACs LUNGS: diminished breath sounds CARDIAC: normal rate, regular rhythm, normal S1 and S2 ABDOMEN: normal bowel sounds, non tender, soft EXTREMITIES: normal inspection, No edema Laboratory Tests Test 01/12/20 05:10 Sodium Level 151 MMOL/L (136-145) H Potassium Level 4.5 MMOL/L (3.5-5.1) Chloride Level 119 MMOL/L (98-107) H Carbon Dioxide Level 24 MMOL/L (21-32) Anion Gap 8 mmol/L (5-15) Blood Urea Nitrogen 29 mg/dL (7-18) H Creatinine 1.4 MG/DL (0.55-1.30) H Estimat Glomerular Filtration Rate 49.0 mL/min (>60) Glucose Level 166 MG/DL (74-106) H Calcium Level 7.3 MG/DL (8.5-10.1) L Phosphorus Level 2.0 MG/DL (2.5-4.9) L Microbiology Date/Time Source Procedure Growth Status 01/11/20 14:40 Urine,Clean Catch Urine Culture - Preliminary NO GROWTH Resulted Assessment/Plan Assessment/Plan Severe dehydration Healthcare associated gram negative/aspiration PNA Toxic and metabolic encephalopathies Severe sepsis with recovering shock Hypernatremia UTI Anemia Acute renal failure Chronic diastolic CHF Dementia Aspiration risk Hypophosphatemia Parkinsons dementia Hypotonic IVF Discontinue telemetry Abx Follow up cultures DVT prophyl Respiratory therapy Start NGTube feeds; may need PEG. Monitor volume status Replace lytes and PO4 Restraints to prevent pulling out NGtube and IV lines Iggy Saunders MD Jan 12, 2020 18:56
[2020-01-12 20:00] VITALS: BP 109/55
[2020-01-12] MEDS: Atorvastatin 20mg tab NG SCH (22:09)
[2020-01-12] MEDS: Cefepime HCl 1 GM in D5W 55 ML IVPB SCH (22:09)
[2020-01-13] VITALS (7 sets, daily range): BP systolic 101–136; BP diastolic 48–99
[2020-01-13] MEDS: Albuterol/Ipratropium 3ml neb HHN SCH ×4 (00:03→19:04)
[2020-01-13] MEDS: D5W w/KCl 20mEq 1,000 ML IV SCH ×2 (02:28→15:08)
[2020-01-13 07:59] LABS: ANION GAP 7 mmol/L (5-15); BLOOD UREA NITROGEN 25 mg/dL (7-18); CARBON DIOXIDE 25 MMOL/L (21-32); CHLORIDE 112 MMOL/L (98-107); CREATININE 1.2 MG/DL (0.55-1.30); POTASSIUM 4.7 MMOL/L (3.5-5.1); SODIUM 144 MMOL/L (136-145)
--- NOTE | 2020-01-13 09:14 | General Progress Note ---
Assessment/Plan Problem List: (1) Pneumonia ICD Codes: J18.9 - Pneumonia, unspecified organism SNOMED: 041121729 (2) Sepsis ICD Codes: A41.9 - Sepsis, unspecified organism SNOMED: 31131679 (3) HECTOR (acute kidney injury) ICD Codes: N17.9 - Acute kidney failure, unspecified SNOMED: 87087581, 0163679 (4) AMS (altered mental status) ICD Codes: R41.82 - Altered mental status, unspecified SNOMED: 582795482 Qualifiers: Qualified Codes: R41.82 - Altered mental status, unspecified (5) Acute hypernatremia ICD Codes: E87.0 - Hyperosmolality and hypernatremia SNOMED: 2634321, 1107224 (6) Hypoxia ICD Codes: R09.02 - Hypoxemia SNOMED: 265538511 Status: stable, progressing Assessment/Plan: ivf per renal water flushes tube feeds monitor residuals monitor volume status iv abx per id repeat cxr dvt/stress ulcer prophylaxis monitor labs speech rx re-eval turn q2 skin care improving notes reviewed Subjective ROS Limited/Unobtainable: No Constitutional: Reports: malaise, weakness HEENT: Reports: no symptoms Cardiovascular: Reports: no symptoms Respiratory: Reports: no symptoms Gastrointestinal/Abdominal: Reports: difficulty swallowing Genitourinary: Reports: no symptoms Neurologic/Psychiatric: Reports: pre-existing deficit Endocrine: Reports: no symptoms Hematologic/Lymphatic: Reports: no symptoms Allergies: Coded Allergies: PENICILLINS (Verified Allergy, Unknown, 01/07/20) All Systems: reviewed and negative except above Subjective no change. remains lethargic and withdrawn. opens eyes, does not follow commands ,labs much better no fevers. on iv abx, no distress. Objective Last 24 Hour Vital Signs Date Time Temp Pulse Resp B/P (MAP) Pulse Ox O2 Delivery O2 Flow Rate FiO2 01/13/20 07:38 94 18 96 Nasal Cannula 2.0 28 92 18 94 01/13/20 07:38 94 Nasal Cannula 2.0 28 01/13/20 04:00 99.0 84 20 101/62 (75) 97 01/13/20 04:00 83 01/13/20 00:04 85 18 97 Nasal Cannula 2.0 28 83 18 93 01/13/20 00:00 82 01/13/20 00:00 98.9 97 22 136/94 (108) 97 01/12/20 21:00 Nasal Cannula 3.0 01/12/20 20:00 98.5 87 20 109/55 (73) 95 01/12/20 19:30 96 Nasal Cannula 2.0 28 01/12/20 19:29 81 18 98 Nasal Cannula 2.0 28 78 18 96 01/12/20 16:00 98.0 74 20 115/50 (71) 97 01/12/20 16:00 72 01/12/20 14:05 75 18 97 Nasal Cannula 3.0 32 76 18 92 01/12/20 12:00 78 01/12/20 12:00 98.8 78 18 133/63 (86) 98 Intake and Output 01/12/20 01/13/20 19:00 07:00 Output Total 1500 ml 400 ml Balance -1500 ml -400 ml Output Urine Total 1500 ml 400 ml # Bowel Movements 1 Laboratory Tests 01/13/20 05:31: Sodium Level 144, Potassium Level 4.7, Chloride Level 112H, Carbon Dioxide Level 25, Anion Gap 7, Blood Urea Nitrogen 25H, Creatinine 1.2, Estimat Glomerular Filtration Rate 58.6, Glucose Level 119H, Calcium Level 7.0L, Phosphorus Level 3.0 Height (Feet): 5 Height (Inches): 6.00 Weight (Pounds): 147 Objective General Appearance: WD/WN, lethargic, confused EENT: PERRL/EOMI, normal ENT inspection Neck: non-tender, normal alignment Cardiovascular: normal peripheral pulses, normal rate Respiratory/Chest: chest wall non-tender, lungs clear, normal breath sounds, no respiratory distress Abdomen: normal bowel sounds, non tender, soft, no organomegaly Edema: no edema noted Arm (L), no edema noted Arm (R) Edema: trace edema Neurologic: [facility] home [facility] II-XII grossly normal, alert, responsive, disoriented Skin: normal pigmentation Lymphatic: normal anterior cervical (L), normal anterior cervical (R) Mello Wheeler MD Jan 13, 2020 09:14
[2020-01-13] MEDS: Levodopa/Carbidopa 25/100 tab NG SCH ×3 (09:52→17:43)
[2020-01-13] MEDS: Phospha 250 Neutral tab NG SCH ×2 (09:52→12:35)
[2020-01-13] MEDS: Heparin 5000 units/ml inj SUBQ SCH ×2 (09:53→22:11)
--- NOTE | 2020-01-13 10:51 | Infectious Diseases Prog Note ---
Assessment/Plan Assessment/Plan antibiotics : cefepime A 1. klebsiella, e.coli pneumonia. COVID 19 test negative 2. Shock resolved 3. Parkinson's disease. 4. Dementia. P 1. d/c cefepime 2. observe off antibiotics 3. will follow up cultures Subjective ROS Limited/Unobtainable: Yes Allergies: Coded Allergies: PENICILLINS (Verified Allergy, Unknown, 01/07/20) Objective Last 24 Hour Vital Signs Date Time Temp Pulse Resp B/P (MAP) Pulse Ox O2 Delivery O2 Flow Rate FiO2 01/13/20 07:38 94 18 96 Nasal Cannula 2.0 28 92 18 94 01/13/20 07:38 94 Nasal Cannula 2.0 28 01/13/20 04:00 99.0 84 20 101/62 (75) 97 01/13/20 04:00 83 01/13/20 00:04 85 18 97 Nasal Cannula 2.0 28 83 18 93 01/13/20 00:00 82 01/13/20 00:00 98.9 97 22 136/94 (108) 97 01/12/20 21:00 Nasal Cannula 3.0 01/12/20 20:00 98.5 87 20 109/55 (73) 95 01/12/20 19:30 96 Nasal Cannula 2.0 28 01/12/20 19:29 81 18 98 Nasal Cannula 2.0 28 78 18 96 01/12/20 16:00 98.0 74 20 115/50 (71) 97 01/12/20 16:00 72 01/12/20 14:05 75 18 97 Nasal Cannula 3.0 32 76 18 92 01/12/20 12:00 78 01/12/20 12:00 98.8 78 18 133/63 (86) 98 Height (Feet): 5 Height (Inches): 6.00 Weight (Pounds): 147 Respiratory/Chest: lungs clear Cardiovascular: normal rate, regular rhythm, no gallop/murmur Abdomen: soft, non tender Extremities: no edema Microbiology Date/Time Source Procedure Growth Status 01/11/20 20:55 Blood Blood Culture - Preliminary NO GROWTH AFTER 24 HOURS Resulted 01/11/20 20:42 Blood Blood Culture - Preliminary NO GROWTH AFTER 24 HOURS Resulted 01/11/20 14:40 Urine,Clean Catch Urine Culture - Preliminary NO GROWTH AFTER 24 HOURS Resulted Laboratory Tests Test 01/13/20 05:31 Sodium Level 144 MMOL/L (136-145) Potassium Level 4.7 MMOL/L (3.5-5.1) Chloride Level 112 MMOL/L (98-107) H Carbon Dioxide Level 25 MMOL/L (21-32) Anion Gap 7 mmol/L (5-15) Blood Urea Nitrogen 25 mg/dL (7-18) H Creatinine 1.2 MG/DL (0.55-1.30) Estimat Glomerular Filtration Rate 58.6 mL/min (>60) Glucose Level 119 MG/DL (74-106) H Calcium Level 7.0 MG/DL (8.5-10.1) L Phosphorus Level 3.0 MG/DL (2.5-4.9) Current Medications Medications (Trade) Dose Ordered Sig/Veronica Route PRN Reason Start Time Stop Time Status Last Admin Dose Admin Acetaminophen (Tylenol) 650 mg Q6H PRN NG Temp >100.5 01/11/20 14:15 02/10/20 14:14 01/11/20 14:36 Albuterol/ Ipratropium (Albuterol/ Ipratropium) 3 ml Q6HRT HHN 01/10/20 19:00 01/15/20 18:59 01/13/20 07:37 Atorvastatin Calcium (Lipitor) 20 mg BEDTIME NG 01/09/20 21:00 04/06/20 20:59 01/12/20 22:09 Carbidopa/Levodopa (Sinemet 25/100) 1 tab THREE TIMES A DAY NG 01/09/20 18:00 02/06/20 12:59 01/13/20 09:52 Cefepime HCl 1 gm/ Dextrose 55 ml @ 110 mls/hr Q24H IVPB 01/09/20 21:00 01/14/20 20:59 01/12/20 22:09 Dextrose/ Electrolytes 1,000 ml @ 75 mls/hr [id number] IV 01/12/20 13:00 02/11/20 12:59 01/13/20 02:28 Famotidine (Pepcid) 20 mg BID GT 01/13/20 09:00 04/12/20 08:59 01/13/20 09:52 Heparin Sodium (Porcine) (Heparin 5000 units/ml) 5,000 units EVERY 12 HOURS SUBQ 01/09/20 21:00 02/21/20 11:14 01/13/20 09:53 Phosphorus (Phospha 250 Neutral) 500 mg THREE TIMES A DAY NG 01/12/20 13:00 02/11/20 12:59 01/13/20 09:52 Ana Carrasco MD Jan 13, 2020 10:51
[2020-01-13] MEDS ORDERED: Acetaminophen 650mg/20.3ml NG PRN (17:15)
[2020-01-13] MEDS ORDERED: D5W w/KCl 20mEq 1,000 ML IV SCH ×2 (17:15→18:00)
--- NOTE | 2020-01-13 17:51 | Nephrology Progress Note ---
Assessment/Plan Problem List: (1) Malnutrition of moderate degree (2) Metabolic encephalopathy (3) HECTOR (acute kidney injury) (4) AMS (altered mental status) (5) Acute hypernatremia (6) Pneumonia (7) Hypophosphatemia Plan lab trend better, iv adjusted, starting tube feed replace phos Subjective ROS Limited/Unobtainable: Yes Objective Objective Last 24 Hour Vital Signs Date Time Temp Pulse Resp B/P (MAP) Pulse Ox O2 Delivery O2 Flow Rate FiO2 01/13/20 16:00 83 01/13/20 16:00 98.0 78 20 112/49 (70) 97 01/13/20 13:05 88 18 98 Nasal Cannula 2.0 28 86 18 96 01/13/20 12:00 98.4 82 19 110/53 (72) 96 01/13/20 12:00 91 01/13/20 09:00 Nasal Cannula 3.0 01/13/20 08:00 79 01/13/20 08:00 98.0 84 19 104/99 (101) 97 01/13/20 07:38 94 18 96 Nasal Cannula 2.0 28 92 18 94 01/13/20 07:38 94 Nasal Cannula 2.0 28 01/13/20 04:00 99.0 84 20 101/62 (75) 97 01/13/20 04:00 83 01/13/20 00:04 85 18 97 Nasal Cannula 2.0 28 83 18 93 01/13/20 00:00 82 01/13/20 00:00 98.9 97 22 136/94 (108) 97 01/12/20 21:00 Nasal Cannula 3.0 01/12/20 20:00 98.5 87 20 109/55 (73) 95 01/12/20 19:30 96 Nasal Cannula 2.0 28 01/12/20 19:29 81 18 98 Nasal Cannula 2.0 28 78 18 96 Intake and Output 01/12/20 01/13/20 19:00 07:00 Output Total 1500 ml 400 ml Balance -1500 ml -400 ml Output Urine Total 1500 ml 400 ml # Bowel Movements 1 Laboratory Tests 01/13/20 05:31: Sodium Level 144, Potassium Level 4.7, Chloride Level 112H, Carbon Dioxide Level 25, Anion Gap 7, Blood Urea Nitrogen 25H, Creatinine 1.2, Estimat Glomerular Filtration Rate 58.6, Glucose Level 119H, Calcium Level 7.0L, Phosphorus Level 3.0 Height (Feet): 5 Height (Inches): 6.00 Weight (Pounds): 147 General Appearance: lethargic, confused EENT: normal ENT inspection Neck: supple Cardiovascular: regular rhythm Respiratory/Chest: rhonchi - bilaterally Abdomen: non tender, soft Extremities: moderate edema Neurologic: motor weakness, disoriented Franki Bergeron MD Jan 13, 2020 17:51
[2020-01-13] MEDS ORDERED: Phospha 250 Neutral tab NG SCH (18:00)
[2020-01-13] MEDS ORDERED: Varibar Honey 250ml MC PRN (19:30)
[2020-01-13] MEDS ORDERED: Varibar Pudding 230ml MC PRN (19:30)
[2020-01-13] MEDS ORDERED: Varibar Nectar 240ml MC PRN (19:30)
[2020-01-13] MEDS ORDERED: Cefepime HCl 1 GM in D5W 55 ML IVPB SCH (21:00)
[2020-01-13] MEDS: Atorvastatin 20mg tab NG SCH (22:10)
--- NOTE | 2020-01-13 22:23 | Cardiology Progress Note ---
Subjective DATE OF SERVICE: Jan 13, 2020 More alert, but non-verbal and doesnt follow commands BP parameters stabilizing. CXR: no acute process now. Remains on hypotonic IVF; Abx discont'd by ID NGTube replaced; restraints needed now to prevent from pulling out, as needed for nutrition. 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 I have made them aware that current condition may not improve significantly. As such - they are asked to consider a Gtube, or hospice care. Objective Last 24 Hour Vital Signs Date Time Temp Pulse Resp B/P (MAP) Pulse Ox O2 Delivery O2 Flow Rate FiO2 01/13/20 20:00 98.1 78 17 118/83 (95) 95 01/13/20 19:03 80 18 98 Nasal Cannula 2.0 28 78 18 96 01/13/20 19:03 96 Nasal Cannula 2.0 28 01/13/20 16:00 83 01/13/20 16:00 98.0 78 20 112/49 (70) 97 01/13/20 13:05 88 18 98 Nasal Cannula 2.0 28 86 18 96 01/13/20 12:00 98.4 82 19 110/53 (72) 96 01/13/20 12:00 91 01/13/20 09:00 Nasal Cannula 3.0 01/13/20 08:00 79 01/13/20 08:00 98.0 84 19 104/99 (101) 97 01/13/20 07:38 94 18 96 Nasal Cannula 2.0 28 92 18 94 01/13/20 07:38 94 Nasal Cannula 2.0 28 01/13/20 04:00 99.0 84 20 101/62 (75) 97 01/13/20 04:00 83 01/13/20 00:04 85 18 97 Nasal Cannula 2.0 28 83 18 93 01/13/20 00:00 82 01/13/20 00:00 98.9 97 22 136/94 (108) 97 ROS: unchanged from my initial assessment on 01/07/20 HEENT: other - NGTube RHYTHM: PACs LUNGS: diminished breath sounds CARDIAC: normal rate, regular rhythm, normal S1 and S2 ABDOMEN: normal bowel sounds, non tender, soft EXTREMITIES: normal inspection, No edema Laboratory Tests Test 01/13/20 05:31 Sodium Level 144 MMOL/L (136-145) Potassium Level 4.7 MMOL/L (3.5-5.1) Chloride Level 112 MMOL/L (98-107) H Carbon Dioxide Level 25 MMOL/L (21-32) Anion Gap 7 mmol/L (5-15) Blood Urea Nitrogen 25 mg/dL (7-18) H Creatinine 1.2 MG/DL (0.55-1.30) Estimat Glomerular Filtration Rate 58.6 mL/min (>60) Glucose Level 119 MG/DL (74-106) H Calcium Level 7.0 MG/DL (8.5-10.1) L Phosphorus Level 3.0 MG/DL (2.5-4.9) Microbiology Date/Time Source Procedure Growth Status 01/11/20 20:55 Blood Blood Culture - Preliminary NO GROWTH AFTER 24 HOURS Resulted 01/11/20 20:42 Blood Blood Culture - Preliminary NO GROWTH AFTER 24 HOURS Resulted 01/11/20 14:40 Urine,Clean Catch Urine Culture - Preliminary NO GROWTH AFTER 24 HOURS Resulted Assessment/Plan Assessment/Plan Severe dehydration resolving Healthcare associated gram negative/aspiration PNA Toxic and metabolic encephalopathies Severe sepsis with recovered shock Hypernatremia UTI Anemia Acute renal failure Chronic diastolic CHF Dementia Aspiration risk Hypophosphatemia Parkinsons dementia Hypotonic IVF Abx completed today DVT prophyl Respiratory therapy Continue NGTube feeds; may need PEG. Swallow eval in progress. Monitor volume status Replace lytes and PO4 Restraints to prevent pulling out NGtube and IV lines Iggy Saunders MD Jan 13, 2020 22:23
[2020-01-14] VITALS (9 sets, daily range): BP systolic 103–122; BP diastolic 48–60
[2020-01-14] MEDS: Albuterol/Ipratropium 3ml neb HHN SCH ×4 (00:36→22:01)
[2020-01-14 07:05] LABS: ANION GAP 5 mmol/L (5-15); BLOOD UREA NITROGEN 26 mg/dL (7-18); CALCIUM 7.4 MG/DL (8.5-10.1); CARBON DIOXIDE 27 MMOL/L (21-32); CHLORIDE 108 MMOL/L (98-107); CREATININE 1.2 MG/DL (0.55-1.30); PHOSPHORUS 3.6 MG/DL (2.5-4.9); POTASSIUM 4.4 MMOL/L (3.5-5.1); SODIUM 140 MMOL/L (136-145)
[2020-01-14] MEDS: Levodopa/Carbidopa 25/100 tab NG SCH ×3 (08:15→19:02)
[2020-01-14] MEDS: Heparin 5000 units/ml inj SUBQ SCH ×2 (08:16→21:08)
--- NOTE | 2020-01-14 08:21 | General Progress Note ---
Assessment/Plan Problem List: (1) Pneumonia ICD Codes: J18.9 - Pneumonia, unspecified organism SNOMED: 704910627 (2) Sepsis ICD Codes: A41.9 - Sepsis, unspecified organism SNOMED: 11981786 (3) HECTOR (acute kidney injury) ICD Codes: N17.9 - Acute kidney failure, unspecified SNOMED: 30387309, 4926536 (4) AMS (altered mental status) ICD Codes: R41.82 - Altered mental status, unspecified SNOMED: 193395142 Qualifiers: Qualified Codes: R41.82 - Altered mental status, unspecified (5) Acute hypernatremia ICD Codes: E87.0 - Hyperosmolality and hypernatremia SNOMED: 9717378, 3141823 (6) Hypoxia ICD Codes: R09.02 - Hypoxemia SNOMED: 791741985 Status: stable, progressing Assessment/Plan: water flushes/ivf tube feeds monitor residuals monitor volume status iv abx per id dvt/stress ulcer prophylaxis monitor labs speech rx re-eval turn q2 skin care improving notes reviewed await decision on gt Subjective ROS Limited/Unobtainable: Yes Constitutional: Reports: malaise, weakness HEENT: Reports: no symptoms Cardiovascular: Reports: no symptoms Respiratory: Reports: cough, shortness of breath Gastrointestinal/Abdominal: Reports: difficulty swallowing Genitourinary: Reports: no symptoms Neurologic/Psychiatric: Reports: pre-existing deficit Endocrine: Reports: no symptoms Hematologic/Lymphatic: Reports: anemia Allergies: Coded Allergies: PENICILLINS (Verified Allergy, Unknown, 01/07/20) All Systems: reviewed and negative except above Subjective no change. remains lethargic and withdrawn. opens eyes, does not follow commands ,labs reviewed no fevers. on iv abx, no distress. tolerating feeds Objective Last 24 Hour Vital Signs Date Time Temp Pulse Resp B/P (MAP) Pulse Ox O2 Delivery O2 Flow Rate FiO2 01/14/20 07:34 90 18 94 Nasal Cannula 2.0 88 18 93 01/14/20 07:32 94 Nasal Cannula 2.0 28 01/14/20 04:00 96.9 81 18 111/52 (71) 95 01/14/20 00:36 83 18 98 Nasal Cannula 2.0 28 81 18 96 01/14/20 00:34 97.5 80 18 103/48 (66) 94 8/19/20 21:00 Nasal Cannula 3.0 01/13/20 20:01 98.2 83 18 102/48 (66) 96 01/13/20 19:03 80 18 98 Nasal Cannula 2.0 28 78 18 96 01/13/20 19:03 96 Nasal Cannula 2.0 28 01/13/20 16:00 83 01/13/20 16:00 98.0 78 20 112/49 (70) 97 01/13/20 13:05 88 18 98 Nasal Cannula 2.0 28 86 18 96 01/13/20 12:00 98.4 82 19 110/53 (72) 96 01/13/20 12:00 91 01/13/20 09:00 Nasal Cannula 3.0 Intake and Output 01/13/20 01/14/20 19:00 07:00 Intake Total 45 ml Output Total 400 ml 100 ml Balance -355 ml -100 ml Tube Feeding 45 ml Output Urine Total 400 ml 100 ml Laboratory Tests 01/14/20 04:52: Sodium Level 140, Potassium Level 4.4, Chloride Level 108H, Carbon Dioxide Level 27, Anion Gap 5, Blood Urea Nitrogen 26H, Creatinine 1.2, Estimat Glomerular Filtration Rate 58.6, Glucose Level 115H, Calcium Level 7.4L, Phosphorus Level 3.6 Height (Feet): 5 Height (Inches): 6.00 Weight (Pounds): 147 Objective General Appearance: WD/WN, lethargic, confused EENT: PERRL/EOMI, normal ENT inspection Neck: non-tender, normal alignment Cardiovascular: normal peripheral pulses, normal rate Respiratory/Chest: chest wall non-tender, lungs clear, normal breath sounds, no respiratory distress Abdomen: normal bowel sounds, non tender, soft, no organomegaly Edema: no edema noted Arm (L), no edema noted Arm (R) Edema: trace edema 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
--- NOTE | 2020-01-14 10:48 | Nephrology Progress Note ---
Assessment/Plan Status: stable, progressing Assessment/Plan: A/P 1) Hypernatremia - resolved - DC IVfs as patient on TFs 2) PNA- mgmt per PCP 3) Dehydration- resolved- DC IVFs and continue TFs Subjective Date patient seen: Jan 14, 2020 Time patient seen: 10:46 ROS Limited/Unobtainable: Yes Allergies: Coded Allergies: PENICILLINS (Verified Allergy, Unknown, 01/07/20) Subjective NG tube in place. In no overt distress Objective Last 24 Hour Vital Signs Date Time Temp Pulse Resp B/P (MAP) Pulse Ox O2 Delivery O2 Flow Rate FiO2 01/14/20 08:00 97.0 79 18 115/55 (75) 96 01/14/20 07:34 90 18 94 Nasal Cannula 2.0 28 88 18 93 01/14/20 07:32 94 Nasal Cannula 2.0 28 01/14/20 04:00 96.9 81 18 111/52 (71) 95 01/14/20 00:36 83 18 98 Nasal Cannula 2.0 28 81 18 96 01/14/20 00:34 97.5 80 18 103/48 (66) 94 01/13/20 21:00 Nasal Cannula 3.0 01/13/20 20:01 98.2 83 18 102/48 (66) 96 01/13/20 19:03 80 18 98 Nasal Cannula 2.0 28 78 18 96 01/13/20 19:03 96 Nasal Cannula 2.0 28 01/13/20 16:00 83 01/13/20 16:00 98.0 78 20 112/49 (70) 97 01/13/20 13:05 88 18 98 Nasal Cannula 2.0 28 86 18 96 01/13/20 12:00 98.4 82 19 110/53 (72) 96 01/13/20 12:00 91 Intake and Output 01/13/20 01/14/20 19:00 07:00 Intake Total 45 ml Output Total 400 ml 100 ml Balance -355 ml -100 ml Tube Feeding 45 ml Output Urine Total 400 ml 100 ml Laboratory Tests 01/14/20 04:52: Sodium Level 140, Potassium Level 4.4, Chloride Level 108H, Carbon Dioxide Level 27, Anion Gap 5, Blood Urea Nitrogen 26H, Creatinine 1.2, Estimat Glomerular Filtration Rate 58.6, Glucose Level 115H, Calcium Level 7.4L, Phosphorus Level 3.6 Height (Feet): 5 Height (Inches): 6.00 Weight (Pounds): 147 General Appearance: no apparent distress EENT: normal ENT inspection Neck: normal alignment Cardiovascular: normal rate, regular rhythm Respiratory/Chest: rhonchi - bilaterally Abdomen: non tender, soft Edema: no edema noted Arm (L), no edema noted Arm (R), no edema noted Leg (L), no edema noted Leg (R), no edema noted Pedal (L), no edema noted Pedal (R), no edema noted Generalized Efrain Parker MD Jan 14, 2020 10:48
[2020-01-14] MEDS ORDERED: Cyclobenzaprine 10mg Tab NG SCH ×3 (12:00→21:45)
--- NOTE | 2020-01-14 12:12 | Infectious Diseases Prog Note ---
Assessment/Plan Assessment/Plan A: 1. Aspiration pneumonia with E. Coli & Klebsiella treated 2. Shock resolved 3. Hydronephrosis 4. Parkinson's disease. 5. Dementia. 6. acute renal failure, improving 7. Hypernatremia corrected 8. Anemia PLAN: 1. Observe off antibiotic Subjective ROS Limited/Unobtainable: Yes Constitutional: Denies: fever Neurologic: Reports: confusion, other - on restraint Allergies: Coded Allergies: PENICILLINS (Verified Allergy, Unknown, 01/07/20) Objective Last 24 Hour Vital Signs Date Time Temp Pulse Resp B/P (MAP) Pulse Ox O2 Delivery O2 Flow Rate FiO2 01/14/20 09:00 Nasal Cannula 3.0 01/14/20 08:00 97.0 79 18 115/55 (75) 96 01/14/20 07:34 90 18 94 Nasal Cannula 2.0 28 88 18 93 01/14/20 07:32 94 Nasal Cannula 2.0 28 01/14/20 04:00 96.9 81 18 111/52 (71) 95 01/14/20 00:36 83 18 98 Nasal Cannula 2.0 28 81 18 96 01/14/20 00:34 97.5 80 18 103/48 (66) 94 01/13/20 21:00 Nasal Cannula 3.0 01/13/20 20:01 98.2 83 18 102/48 (66) 96 01/13/20 19:03 80 18 98 Nasal Cannula 2.0 28 78 18 96 01/13/20 19:03 96 Nasal Cannula 2.0 28 01/13/20 16:00 83 01/13/20 16:00 98.0 78 20 112/49 (70) 97 01/13/20 13:05 88 18 98 Nasal Cannula 2.0 28 86 18 96 Height (Feet): 5 Height (Inches): 6.00 Weight (Pounds): 147 General Appearance: no acute distress HEENT: mucous membranes moist Respiratory/Chest: rhonchi - bilaterally Cardiovascular: normal rate Abdomen: soft, non tender, other - NGT feeding Extremities: other - left hand edema Neurologic/Psychiatric: alert, responsive Microbiology Date/Time Source Procedure Growth Status 01/11/20 20:55 Blood Blood Culture - Preliminary NO GROWTH AFTER 48 HOURS Resulted 01/11/20 20:42 Blood Blood Culture - Preliminary NO GROWTH AFTER 48 HOURS Resulted 01/11/20 14:40 Urine,Clean Catch Urine Culture - Final NO GROWTH AFTER 48 HOURS Complete Laboratory Tests Test 01/14/20 04:52 Sodium Level 140 MMOL/L (136-145) Potassium Level 4.4 MMOL/L (3.5-5.1) Chloride Level 108 MMOL/L (98-107) H Carbon Dioxide Level 27 MMOL/L (21-32) Anion Gap 5 mmol/L (5-15) Blood Urea Nitrogen 26 mg/dL (7-18) H Creatinine 1.2 MG/DL (0.55-1.30) Estimat Glomerular Filtration Rate 58.6 mL/min (>60) Glucose Level 115 MG/DL (74-106) H Calcium Level 7.4 MG/DL (8.5-10.1) L Phosphorus Level 3.6 MG/DL (2.5-4.9) Current Medications Medications (Trade) Dose Ordered Sig/Veronica Route PRN Reason Start Time Stop Time Status Last Admin Dose Admin Acetaminophen (Tylenol) 650 mg Q6H PRN NG Temp >100.5 01/13/20 17:15 02/10/20 17:14 Albuterol/ Ipratropium (Albuterol/ Ipratropium) 3 ml Q6HRT HHN 01/13/20 19:00 01/15/20 18:59 01/14/20 07:31 Atorvastatin Calcium (Lipitor) 20 mg BEDTIME NG 01/13/20 21:00 04/06/20 20:59 01/13/20 22:10 Barium Sulfate (Varibar Honey) 250 ml NOW PRN MC RAD 01/13/20 19:30 01/16/20 19:21 Barium Sulfate (Varibar [place]) 240 ml NOW PRN MC RAD 01/13/20 19:30 01/16/20 19:21 Barium Sulfate (Varibar Pudding) 230 ml NOW PRN MC RAD 01/13/20 19:30 01/16/20 19:21 Carbidopa/Levodopa (Sinemet 25/100) 1 tab THREE TIMES A DAY NG 01/13/20 18:00 02/06/20 12:59 01/14/20 08:15 Cyclobenzaprine HCl (Flexeril) 10 mg ONCE NG 01/14/20 12:00 01/14/20 13:00 Famotidine (Pepcid) 20 mg BID GT 01/13/20 18:00 04/12/20 08:59 01/14/20 08:15 Heparin Sodium (Porcine) (Heparin 5000 units/ml) 5,000 units EVERY 12 HOURS SUBQ 01/13/20 21:00 02/21/20 11:14 01/14/20 08:16 Mohsen Garcia MD Jan 14, 2020 12:12
[2020-01-14] MEDS: Atorvastatin 20mg tab NG SCH (21:06)
--- NOTE | 2020-01-14 22:19 | Cardiology Progress Note ---
Subjective DATE OF SERVICE: Jan 14, 2020 More alert, but non-verbal and doesnt follow commands Failed swallow eval BP parameters stabilizing. CXR: no acute process now. Remains on hypotonic IVF; Abx discont'd by ID NGTube replaced; restraints needed now to prevent from pulling out, as needed for nutrition. 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 I have made them aware that current condition may not improve significantly. As such - they are asked to consider a Gtube, or hospice care. Objective Last 24 Hour Vital Signs Date Time Temp Pulse Resp B/P (MAP) Pulse Ox O2 Delivery O2 Flow Rate FiO2 01/14/20 22:00 94 Nasal Cannula 2.0 28 01/14/20 22:00 83 16 95 Nasal Cannula 2.0 28 82 16 94 01/14/20 16:00 97.0 81 18 105/54 (71) 95 01/14/20 14:08 97.9 83 18 122/60 (80) 98 01/14/20 13:23 89 18 99 Nasal Cannula 2.0 28 86 18 96 01/14/20 12:00 97.9 83 18 122/60 (80) 98 01/14/20 09:00 Nasal Cannula 3.0 01/14/20 08:00 97.0 79 18 115/55 (75) 96 01/14/20 07:34 90 18 94 Nasal Cannula 2.0 28 88 18 93 01/14/20 07:32 94 Nasal Cannula 2.0 28 01/14/20 04:00 96.9 81 18 111/52 (71) 95 01/14/20 00:36 83 18 98 Nasal Cannula 2.0 28 81 18 96 01/14/20 00:34 97.5 80 18 103/48 (66) 94 ROS: unchanged from my initial assessment on 01/07/20 HEENT: other - NGTube RHYTHM: PACs LUNGS: diminished breath sounds CARDIAC: normal rate, regular rhythm, normal S1 and S2 ABDOMEN: normal bowel sounds, non tender, soft EXTREMITIES: normal inspection, No edema Laboratory Tests Test 01/14/20 04:52 Sodium Level 140 MMOL/L (136-145) Potassium Level 4.4 MMOL/L (3.5-5.1) Chloride Level 108 MMOL/L (98-107) H Carbon Dioxide Level 27 MMOL/L (21-32) Anion Gap 5 mmol/L (5-15) Blood Urea Nitrogen 26 mg/dL (7-18) H Creatinine 1.2 MG/DL (0.55-1.30) Estimat Glomerular Filtration Rate 58.6 mL/min (>60) Glucose Level 115 MG/DL (74-106) H Calcium Level 7.4 MG/DL (8.5-10.1) L Phosphorus Level 3.6 MG/DL (2.5-4.9) Assessment/Plan Assessment/Plan Severe dehydration resolving Healthcare associated gram negative/aspiration PNA Toxic and metabolic encephalopathies Severe sepsis with recovered shock Hypernatremia UTI Anemia Acute renal failure Chronic diastolic CHF Dementia Aspiration risk Hypophosphatemia Parkinsons dementia Hypotonic IVF Abx completed today DVT prophyl Respiratory therapy Continue NGTube feeds; will need PEG. Monitor volume status Replace lytes and PO4 Restraints to prevent pulling out NGtube and IV lines Iggy Saunders MD Jan 14, 2020 22:19
[2020-01-15] VITALS: BP 122/90
[2020-01-15] MEDS: Albuterol/Ipratropium 3ml neb HHN SCH ×3 (01:18→12:58)
[2020-01-15 04:00] VITALS: BP 128/61
[2020-01-15 06:35] LABS: EOSINOPHILS % (AUTO) 4.3 % (0.0-3.0); HEMATOCRIT 25.8 % (42.0-52.0); HEMOGLOBIN 8.5 G/DL (14.2-18.0); LYMPHOCYTES % (AUTO) 12.3 % (20.0-45.0); MEAN CORPUSCULAR VOLUME 88 FL (80-99); MONOCYTES % (AUTO) 5.4 % (1.0-10.0); NEUTROPHILS % (AUTO) 76.9 % (45.0-75.0); PLATELET COUNT 270 K/UL (150-450); RED BLOOD COUNT 2.93 M/UL (4.70-6.10); RED CELL DISTRIBUTION WIDTH 12.9 % (11.6-14.8); WHITE BLOOD COUNT 8.4 K/UL (4.8-10.8)
[2020-01-15 07:00] LABS: ALANINE AMINOTRANSFERASE 38 U/L (12-78); ALBUMIN 1.6 G/DL (3.4-5.0); ALBUMIN/GLOBULIN RATIO 0.4 (1.0-2.7); ALKALINE PHOSPHATASE 88 U/L (46-116); ANION GAP 9 mmol/L (5-15); ASPARTATE AMINO TRANSFERASE 70 U/L (15-37); BILIRUBIN,TOTAL 0.2 MG/DL (0.2-1.0); BLOOD UREA NITROGEN 25 mg/dL (7-18); CALCIUM 7.5 MG/DL (8.5-10.1); CARBON DIOXIDE 27 MMOL/L (21-32); CHLORIDE 104 MMOL/L (98-107); CREATININE 1.2 MG/DL (0.55-1.30); POTASSIUM 4.4 MMOL/L (3.5-5.1); SODIUM 139 MMOL/L (136-145)
[2020-01-15 08:00] VITALS: BP 109/58
[2020-01-15] MEDS: Levodopa/Carbidopa 25/100 tab NG SCH ×3 (08:02→17:08)
[2020-01-15] MEDS: Heparin 5000 units/ml inj SUBQ SCH ×2 (08:04→20:35)
--- NOTE | 2020-01-15 11:00 | Nephrology Progress Note ---
Assessment/Plan Status: stable, progressing Assessment/Plan: A/P 1) Hypernatremia - resolved - continue on TFs 2) PNA- mgmt per PCP 3) Dehydration- resolved Subjective Date patient seen: Jan 15, 2020 Time patient seen: 10:53 ROS Limited/Unobtainable: Yes Allergies: Coded Allergies: PENICILLINS (Verified Allergy, Unknown, 01/07/20) Subjective NG tube in place Objective Last 24 Hour Vital Signs Date Time Temp Pulse Resp B/P (MAP) Pulse Ox O2 Delivery O2 Flow Rate FiO2 01/15/20 10:33 Nasal Cannula 3.0 01/15/20 08:00 99.1 91 20 109/58 (75) 96 01/15/20 07:37 94 18 95 Nasal Cannula 2.0 28 91 16 93 01/15/20 07:34 93 Nasal Cannula 2.0 28 01/15/20 04:00 97.6 85 23 128/61 (83) 96 01/15/20 01:18 83 18 97 Nasal Cannula 2.0 28 86 16 92 01/15/20 00:00 97.5 89 23 122/90 (101) 96 01/14/20 22:00 94 Nasal Cannula 2.0 28 01/14/20 22:00 83 16 95 Nasal Cannula 2.0 28 82 16 94 01/14/20 21:00 Nasal Cannula 3.0 01/14/20 20:00 97.9 79 22 114/58 (76) 97 01/14/20 16:00 97.0 81 18 105/54 (71) 95 01/14/20 14:08 97.9 83 18 122/60 (80) 98 01/14/20 13:23 89 18 99 Nasal Cannula 2.0 28 86 18 96 01/14/20 12:00 97.9 83 18 122/60 (80) 98 Intake and Output 01/14/20 01/15/20 19:00 07:00 Intake Total 1173 ml 45 ml Output Total 100 ml Balance 1073 ml 45 ml Intake Oral 0 ml Free Water 400 ml IV Total 188 ml Tube Feeding 585 ml 45 ml Output Urine Total 100 ml # Voids 1 # Bowel Movements 2 Laboratory Tests 01/15/20 06:00: White Blood Count 8.4, Red Blood Count 2.93L, Hemoglobin 8.5L, Hematocrit 25.8L , Mean Corpuscular Volume 88, Mean Corpuscular Hemoglobin 29.1, Mean Corpuscular Hemoglobin Concent 33.0, Red Cell Distribution Width 12.9, Platelet Count 270, Mean Platelet Volume 6.9, Neutrophils (%) (Auto) 76.9H, Lymphocytes ( %) (Auto) 12.3L, Monocytes (%) (Auto) 5.4, Eosinophils (%) (Auto) 4.3H, Basophils (%) (Auto) 1.0, Sodium Level 139, Potassium Level 4.4, Chloride Level 104, Carbon Dioxide Level 27, Anion Gap 9, Blood Urea Nitrogen 25H, Creatinine 1.2, Estimat Glomerular Filtration Rate 58.6, Glucose Level 125H, Calcium Level 7.5L, Total Bilirubin 0.2, Aspartate Amino Transf (AST/SGOT) 70H, Alanine Aminotransferase (ALT/SGPT) 38, Alkaline Phosphatase 88, Total Protein 6.1L, Albumin 1.6L, Globulin 4.5, Albumin/Globulin Ratio 0.4L Height (Feet): 5 Height (Inches): 6.00 Weight (Pounds): 147 General Appearance: no apparent distress EENT: normal ENT inspection Neck: normal alignment, supple Cardiovascular: normal rate, regular rhythm Respiratory/Chest: normal breath sounds Abdomen: non tender, soft Edema: no edema noted Arm (L), no edema noted Arm (R), no edema noted Leg (L), no edema noted Leg (R), no edema noted Pedal (L), no edema noted Pedal (R), no edema noted Generalized Efrain Parker MD Jan 15, 2020 11:00
--- NOTE | 2020-01-15 11:50 | Infectious Diseases Prog Note ---
Assessment/Plan Assessment/Plan A: 1. Aspiration pneumonia with E. Coli & Klebsiella treated 2. Shock resolved 3. Hydronephrosis 4. Parkinson's disease. 5. Dementia. 6. acute renal failure, improving 7. Hypernatremia corrected 8. Anemia PLAN: 1. Observe off antibiotic Subjective ROS Limited/Unobtainable: Yes Neurologic: Reports: confusion, other - on restraint Allergies: Coded Allergies: PENICILLINS (Verified Allergy, Unknown, 01/07/20) Objective Last 24 Hour Vital Signs Date Time Temp Pulse Resp B/P (MAP) Pulse Ox O2 Delivery O2 Flow Rate FiO2 01/15/20 10:33 Nasal Cannula 3.0 01/15/20 08:00 99.1 91 20 109/58 (75) 96 01/15/20 07:37 94 18 95 Nasal Cannula 2.0 28 91 16 93 01/15/20 07:34 93 Nasal Cannula 2.0 28 01/15/20 04:00 97.6 85 23 128/61 (83) 96 01/15/20 01:18 83 18 97 Nasal Cannula 2.0 28 86 16 92 01/15/20 00:00 97.5 89 23 122/90 (101) 96 01/14/20 22:00 94 Nasal Cannula 2.0 28 01/14/20 22:00 83 16 95 Nasal Cannula 2.0 28 82 16 94 01/14/20 21:00 Nasal Cannula 3.0 01/14/20 20:00 97.9 79 22 114/58 (76) 97 01/14/20 16:00 97.0 81 18 105/54 (71) 95 01/14/20 14:08 97.9 83 18 122/60 (80) 98 01/14/20 13:23 89 18 99 Nasal Cannula 2.0 28 86 18 96 01/14/20 12:00 97.9 83 18 122/60 (80) 98 Height (Feet): 5 Height (Inches): 6.00 Weight (Pounds): 147 General Appearance: no acute distress HEENT: mucous membranes moist Respiratory/Chest: lungs clear Cardiovascular: normal rate Abdomen: soft, non tender, other - NG T feeding Extremities: no edema Neurologic/Psychiatric: other - sleeping Laboratory Tests Test 01/15/20 06:00 White Blood Count 8.4 K/UL (4.8-10.8) Red Blood Count 2.93 M/UL (4.70-6.10) L Hemoglobin 8.5 G/DL (14.2-18.0) L Hematocrit 25.8 % (42.0-52.0) L Mean Corpuscular Volume 88 FL (80-99) Mean Corpuscular Hemoglobin 29.1 PG (27.0-31.0) Mean Corpuscular Hemoglobin Concent 33.0 G/DL (32.0-36.0) Red Cell Distribution Width 12.9 % (11.6-14.8) Platelet Count 270 K/UL (150-450) Mean Platelet Volume 6.9 FL (6.5-10.1) Neutrophils (%) (Auto) 76.9 % (45.0-75.0) H Lymphocytes (%) (Auto) 12.3 % (20.0-45.0) L Monocytes (%) (Auto) 5.4 % (1.0-10.0) Eosinophils (%) (Auto) 4.3 % (0.0-3.0) H Basophils (%) (Auto) 1.0 % (0.0-2.0) Sodium Level 139 MMOL/L (136-145) Potassium Level 4.4 MMOL/L (3.5-5.1) Chloride Level 104 MMOL/L (98-107) Carbon Dioxide Level 27 MMOL/L (21-32) Anion Gap 9 mmol/L (5-15) Blood Urea Nitrogen 25 mg/dL (7-18) H Creatinine 1.2 MG/DL (0.55-1.30) Estimat Glomerular Filtration Rate 58.6 mL/min (>60) Glucose Level 125 MG/DL (74-106) H Calcium Level 7.5 MG/DL (8.5-10.1) L Total Bilirubin 0.2 MG/DL (0.2-1.0) Aspartate Amino Transf (AST/SGOT) 70 U/L (15-37) H Alanine Aminotransferase (ALT/SGPT) 38 U/L (12-78) Alkaline Phosphatase 88 U/L (46-116) Total Protein 6.1 G/DL (6.4-8.2) L Albumin 1.6 G/DL (3.4-5.0) L Globulin 4.5 g/dL Albumin/Globulin Ratio 0.4 (1.0-2.7) L Current Medications Medications (Trade) Dose Ordered Sig/Veronica Route PRN Reason Start Time Stop Time Status Last Admin Dose Admin Acetaminophen (Tylenol) 650 mg Q6H PRN NG Temp >100.5 01/13/20 17:15 02/10/20 17:14 Albuterol/ Ipratropium (Albuterol/ Ipratropium) 3 ml Q6HRT HHN 01/13/20 19:00 01/15/20 18:59 01/15/20 07:34 Atorvastatin Calcium (Lipitor) 20 mg BEDTIME NG 01/13/20 21:00 04/06/20 20:59 01/14/20 21:06 Barium Sulfate (Varibar Honey) 250 ml NOW PRN MC RAD 01/13/20 19:30 01/16/20 19:21 Barium Sulfate (Varibar [place]) 240 ml NOW PRN MC RAD 01/13/20 19:30 01/16/20 19:21 Barium Sulfate (Varibar Pudding) 230 ml NOW PRN MC RAD 01/13/20 19:30 01/16/20 19:21 Carbidopa/Levodopa (Sinemet 25/100) 1 tab THREE TIMES A DAY NG 01/13/20 18:00 02/06/20 12:59 01/15/20 08:02 Famotidine (Pepcid) 20 mg BID GT 01/13/20 18:00 04/12/20 08:59 01/15/20 08:02 Heparin Sodium (Porcine) (Heparin 5000 units/ml) 5,000 units EVERY 12 HOURS SUBQ 01/13/20 21:00 02/21/20 11:14 01/15/20 08:04 Mohsen Garcia MD Jan 15, 2020 11:50
[2020-01-15 12:05] VITALS: BP 108/98
--- NOTE | 2020-01-15 13:12 | General Progress Note ---
Assessment/Plan Problem List: (1) Pneumonia ICD Codes: J18.9 - Pneumonia, unspecified organism SNOMED: 584228855 (2) Sepsis ICD Codes: A41.9 - Sepsis, unspecified organism SNOMED: 37248095 (3) HECTOR (acute kidney injury) ICD Codes: N17.9 - Acute kidney failure, unspecified SNOMED: 34777917, 2573018 (4) AMS (altered mental status) ICD Codes: R41.82 - Altered mental status, unspecified SNOMED: 596317971 Qualifiers: Qualified Codes: R41.82 - Altered mental status, unspecified (5) Acute hypernatremia ICD Codes: E87.0 - Hyperosmolality and hypernatremia SNOMED: 7215111, 6079475 (6) Hypoxia ICD Codes: R09.02 - Hypoxemia SNOMED: 663475338 Status: stable, progressing Assessment/Plan: water flushes/ivf tube feeds monitor residuals monitor volume status iv abx per id dvt/stress ulcer prophylaxis monitor labs speech rx re-eval turn q2 skin care Klonopin x1 for hiccups. We will improving notes reviewed await decision on gt Subjective ROS Limited/Unobtainable: Yes Constitutional: Reports: malaise, weakness HEENT: Reports: no symptoms Cardiovascular: Reports: no symptoms Respiratory: Reports: shortness of breath, sputum Gastrointestinal/Abdominal: Reports: difficulty swallowing Genitourinary: Reports: no symptoms Neurologic/Psychiatric: Reports: pre-existing deficit Endocrine: Reports: no symptoms Hematologic/Lymphatic: Reports: no symptoms Allergies: Coded Allergies: PENICILLINS (Verified Allergy, Unknown, 01/07/20) All Systems: reviewed and negative except above Subjective No real change overnight. Continues to have intractable hiccups. Then after muscle relaxant. Seems overall more alert. Remains on NG tube feedings. No significant congestion or shortness of breath. Objective Last 24 Hour Vital Signs Date Time Temp Pulse Resp B/P (MAP) Pulse Ox O2 Delivery O2 Flow Rate FiO2 01/15/20 12:58 21 16 98 Nasal Cannula 3.0 32 81 16 93 01/15/20 12:05 98.9 85 19 108/98 (101) 95 01/15/20 10:33 Nasal Cannula 3.0 01/15/20 08:00 99.1 91 20 109/58 (75) 96 01/15/20 07:37 94 18 95 Nasal Cannula 2.0 28 91 16 93 01/15/20 07:34 93 Nasal Cannula 2.0 28 01/15/20 04:00 97.6 85 23 128/61 (83) 96 01/15/20 01:18 83 18 97 Nasal Cannula 2.0 28 86 16 92 01/15/20 00:00 97.5 89 23 122/90 (101) 96 01/14/20 22:00 94 Nasal Cannula 2.0 28 01/14/20 22:00 83 16 95 Nasal Cannula 2.0 28 82 16 94 01/14/20 21:00 Nasal Cannula 3.0 01/14/20 20:00 97.9 79 22 114/58 (76) 97 01/14/20 16:00 97.0 81 18 105/54 (71) 95 01/14/20 14:08 97.9 83 18 122/60 (80) 98 01/14/20 13:23 89 18 99 Nasal Cannula 2.0 28 86 18 96 Intake and Output 01/14/20 01/15/20 19:00 07:00 Intake Total 1173 ml 45 ml Output Total 100 ml Balance 1073 ml 45 ml Intake Oral 0 ml Free Water 400 ml IV Total 188 ml Tube Feeding 585 ml 45 ml Output Urine Total 100 ml # Voids 1 # Bowel Movements 2 Laboratory Tests 01/15/20 06:00: White Blood Count 8.4, Red Blood Count 2.93L, Hemoglobin 8.5L, Hematocrit 25.8L , Mean Corpuscular Volume 88, Mean Corpuscular Hemoglobin 29.1, Mean Corpuscular Hemoglobin Concent 33.0, Red Cell Distribution Width 12.9, Platelet Count 270, Mean Platelet Volume 6.9, Neutrophils (%) (Auto) 76.9H, Lymphocytes ( %) (Auto) 12.3L, Monocytes (%) (Auto) 5.4, Eosinophils (%) (Auto) 4.3H, Basophils (%) (Auto) 1.0, Sodium Level 139, Potassium Level 4.4, Chloride Level 104, Carbon Dioxide Level 27, Anion Gap 9, Blood Urea Nitrogen 25H, Creatinine 1.2, Estimat Glomerular Filtration Rate 58.6, Glucose Level 125H, Calcium Level 7.5L, Total Bilirubin 0.2, Aspartate Amino Transf (AST/SGOT) 70H, Alanine Aminotransferase (ALT/SGPT) 38, Alkaline Phosphatase 88, Total Protein 6.1L, Albumin 1.6L, Globulin 4.5, Albumin/Globulin Ratio 0.4L Height (Feet): 5 Height (Inches): 6.00 Weight (Pounds): 147 Objective General Appearance: WD/WN, lethargic, confused EENT: PERRL/EOMI, normal ENT inspection Neck: non-tender, normal alignment Cardiovascular: normal peripheral pulses, normal rate Respiratory/Chest: chest wall non-tender, lungs clear, normal breath sounds, no respiratory distress Abdomen: normal bowel sounds, non tender, soft, no organomegaly Edema: no edema noted Arm (L), no edema noted Arm (R) Edema: trace edema 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
[2020-01-15] MEDS ORDERED: clonazePAM 0.5mg tab ORAL SCH (13:15)
[2020-01-15 16:00] VITALS: BP 110/51
[2020-01-15 20:00] VITALS: BP 120/60
[2020-01-15] MEDS: Atorvastatin 20mg tab NG SCH (20:33)
--- NOTE | 2020-01-15 21:18 | Cardiology Progress Note ---
Subjective DATE OF SERVICE: Jan 15, 2020 More alert, but non-verbal and doesnt follow commands Failed swallow eval Frequent hiccups BP parameters stabilizing. CXR: no acute process now. Remains on hypotonic IVF; Abx discont'd by ID NGTube replaced; restraints needed now to prevent from pulling out, as needed for nutrition. 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 I have made them aware that current condition may not improve significantly. As such - they are asked to consider a Gtube, or hospice care. Son to discuss with other family members. Objective Last 24 Hour Vital Signs Date Time Temp Pulse Resp B/P (MAP) Pulse Ox O2 Delivery O2 Flow Rate FiO2 01/15/20 16:00 97.5 80 18 110/51 (70) 96 01/15/20 12:58 21 16 98 Nasal Cannula 3.0 32 81 16 93 01/15/20 12:05 98.9 85 19 108/98 (101) 95 01/15/20 10:33 Nasal Cannula 3.0 01/15/20 08:00 99.1 91 20 109/58 (75) 96 01/15/20 07:37 94 18 95 Nasal Cannula 2.0 28 91 16 93 01/15/20 07:34 93 Nasal Cannula 2.0 28 01/15/20 04:00 97.6 85 23 128/61 (83) 96 01/15/20 01:18 83 18 97 Nasal Cannula 2.0 28 86 16 92 01/15/20 00:00 97.5 89 23 122/90 (101) 96 01/14/20 22:00 94 Nasal Cannula 2.0 28 01/14/20 22:00 83 16 95 Nasal Cannula 2.0 28 82 16 94 ROS: unchanged from my initial assessment on 01/07/20 HEENT: other - NGTube RHYTHM: PACs LUNGS: diminished breath sounds CARDIAC: normal rate, regular rhythm, normal S1 and S2 ABDOMEN: normal bowel sounds, non tender, soft EXTREMITIES: normal inspection, No edema Laboratory Tests Test 01/15/20 06:00 White Blood Count 8.4 K/UL (4.8-10.8) Red Blood Count 2.93 M/UL (4.70-6.10) L Hemoglobin 8.5 G/DL (14.2-18.0) L Hematocrit 25.8 % (42.0-52.0) L Mean Corpuscular Volume 88 FL (80-99) Mean Corpuscular Hemoglobin 29.1 PG (27.0-31.0) Mean Corpuscular Hemoglobin Concent 33.0 G/DL (32.0-36.0) Red Cell Distribution Width 12.9 % (11.6-14.8) Platelet Count 270 K/UL (150-450) Mean Platelet Volume 6.9 FL (6.5-10.1) Neutrophils (%) (Auto) 76.9 % (45.0-75.0) H Lymphocytes (%) (Auto) 12.3 % (20.0-45.0) L Monocytes (%) (Auto) 5.4 % (1.0-10.0) Eosinophils (%) (Auto) 4.3 % (0.0-3.0) H Basophils (%) (Auto) 1.0 % (0.0-2.0) Sodium Level 139 MMOL/L (136-145) Potassium Level 4.4 MMOL/L (3.5-5.1) Chloride Level 104 MMOL/L (98-107) Carbon Dioxide Level 27 MMOL/L (21-32) Anion Gap 9 mmol/L (5-15) Blood Urea Nitrogen 25 mg/dL (7-18) H Creatinine 1.2 MG/DL (0.55-1.30) Estimat Glomerular Filtration Rate 58.6 mL/min (>60) Glucose Level 125 MG/DL (74-106) H Calcium Level 7.5 MG/DL (8.5-10.1) L Total Bilirubin 0.2 MG/DL (0.2-1.0) Aspartate Amino Transf (AST/SGOT) 70 U/L (15-37) H Alanine Aminotransferase (ALT/SGPT) 38 U/L (12-78) Alkaline Phosphatase 88 U/L (46-116) Total Protein 6.1 G/DL (6.4-8.2) L Albumin 1.6 G/DL (3.4-5.0) L Globulin 4.5 g/dL Albumin/Globulin Ratio 0.4 (1.0-2.7) L Assessment/Plan Assessment/Plan Severe dehydration resolving Healthcare associated gram negative/aspiration PNA Toxic and metabolic encephalopathies Severe sepsis with recovered shock Hypernatremia UTI Anemia Acute renal failure Chronic diastolic CHF Dementia Aspiration risk Hypophosphatemia Parkinsons dementia Hypotonic IVF Abx completed DVT prophyl Respiratory therapy Continue NGTube feeds; await family decision re: PEG. Monitor volume status Replace lytes and PO4 Restraints to prevent pulling out NGtube and IV lines Iggy Saunders MD Jan 15, 2020 21:18
[2020-01-16] VITALS: BP 113/48
[2020-01-16 04:00] VITALS: BP 109/61
[2020-01-16 08:00] VITALS: BP 126/64
[2020-01-16] MEDS: Levodopa/Carbidopa 25/100 tab NG SCH ×3 (08:40→17:07)
[2020-01-16] MEDS: Heparin 5000 units/ml inj SUBQ SCH ×2 (08:41→20:09)
--- NOTE | 2020-01-16 10:43 | General Progress Note ---
Assessment/Plan Problem List: (1) Pneumonia ICD Codes: J18.9 - Pneumonia, unspecified organism SNOMED: 971022840 (2) Sepsis ICD Codes: A41.9 - Sepsis, unspecified organism SNOMED: 47944949 (3) HECTOR (acute kidney injury) ICD Codes: N17.9 - Acute kidney failure, unspecified SNOMED: 84310378, 5938923 (4) AMS (altered mental status) ICD Codes: R41.82 - Altered mental status, unspecified SNOMED: 541272091 Qualifiers: Qualified Codes: R41.82 - Altered mental status, unspecified (5) Acute hypernatremia ICD Codes: E87.0 - Hyperosmolality and hypernatremia SNOMED: 9436451, 8283291 (6) Hypoxia ICD Codes: R09.02 - Hypoxemia SNOMED: 359600214 Status: stable, progressing Assessment/Plan: water flushes/ivf tube feeds monitor residuals monitor volume status iv abx per id dvt/stress ulcer prophylaxis monitor labs speech rx re-eval turn q2 skin care add reglan for hiccups improving notes reviewed await decision on gt Subjective ROS Limited/Unobtainable: Yes Constitutional: Reports: malaise, weakness HEENT: Reports: no symptoms Cardiovascular: Reports: no symptoms Respiratory: Reports: cough Gastrointestinal/Abdominal: Reports: difficulty swallowing Genitourinary: Reports: no symptoms Neurologic/Psychiatric: Reports: pre-existing deficit Endocrine: Reports: no symptoms Hematologic/Lymphatic: Reports: no symptoms Allergies: Coded Allergies: PENICILLINS (Verified Allergy, Unknown, 01/07/20) All Systems: reviewed and negative except above Subjective No real change overnight. Continues to have intractable hiccups. tolerating feeds. Lethargic but seems overall slightly more alert. Remains on NG tube feedings. No significant congestion or shortness of breath.no labs today Objective Last 24 Hour Vital Signs Date Time Temp Pulse Resp B/P (MAP) Pulse Ox O2 Delivery O2 Flow Rate FiO2 01/16/20 09:00 Nasal Cannula 2.0 01/16/20 08:00 97.2 89 18 126/64 (84) 95 01/16/20 04:00 98.4 90 21 109/61 (77) 94 01/16/20 00:00 98.0 86 23 113/48 (69) 95 01/15/20 21:00 Nasal Cannula 2.0 01/15/20 20:19 94 Nasal Cannula 2.0 28 01/15/20 20:00 98.1 88 23 120/60 (80) 94 01/15/20 16:00 97.5 80 18 110/51 (70) 96 01/15/20 12:58 21 16 98 Nasal Cannula 3.0 32 81 16 93 01/15/20 12:05 98.9 85 19 108/98 (101) 95 Intake and Output 01/15/20 01/16/20 19:00 07:00 Intake Total 635 ml 855 ml Output Total 900 ml Balance 635 ml -45 ml Free Water 230 ml 360 ml Tube Feeding 405 ml 495 ml Output Urine Total 900 ml Height (Feet): 5 Height (Inches): 6.00 Weight (Pounds): 147 Objective General Appearance: WD/WN, lethargic, confused EENT: PERRL/EOMI, normal ENT inspection Neck: non-tender, normal alignment Cardiovascular: normal peripheral pulses, normal rate Respiratory/Chest: chest wall non-tender, lungs clear, normal breath sounds, no respiratory distress Abdomen: normal bowel sounds, non tender, soft, no organomegaly Edema: no edema noted Arm (L), no edema noted Arm (R) Edema: trace edema Neurologic: roving hand II-XII grossly normal, alert, responsive, disoriented Skin: normal pigmentation Lymphatic: normal anterior cervical (L), normal anterior cervical (R) Mello Wheeler MD Jan 16, 2020 10:43
[2020-01-16 12:00] VITALS: BP 99/56
--- NOTE | 2020-01-16 13:27 | Nephrology Progress Note ---
Assessment/Plan Status: stable, progressing Assessment/Plan: A/P 1) Hypernatremia - resolved - continue on TFs. Stable 2) PNA- mgmt per PCP. Stable 3) Dehydration- resolved Subjective Date patient seen: Jan 16, 2020 Time patient seen: 13:25 ROS Limited/Unobtainable: Yes Allergies: Coded Allergies: PENICILLINS (Verified Allergy, Unknown, 01/07/20) Subjective NG tube in place. No overt distress Objective Last 24 Hour Vital Signs Date Time Temp Pulse Resp B/P (MAP) Pulse Ox O2 Delivery O2 Flow Rate FiO2 01/16/20 12:00 98.7 86 20 99/56 (70) 97 01/16/20 09:00 Nasal Cannula 2.0 01/16/20 08:00 97.2 89 18 126/64 (84) 95 01/16/20 04:00 98.4 90 21 109/61 (77) 94 01/16/20 00:00 98.0 86 23 113/48 (69) 95 01/15/20 21:00 Nasal Cannula 2.0 01/15/20 20:19 94 Nasal Cannula 2.0 28 01/15/20 20:00 98.1 88 23 120/60 (80) 94 01/15/20 16:00 97.5 80 18 110/51 (70) 96 Intake and Output 01/15/20 01/16/20 19:00 07:00 Intake Total 635 ml 855 ml Output Total 900 ml Balance 635 ml -45 ml Free Water 230 ml 360 ml Tube Feeding 405 ml 495 ml Output Urine Total 900 ml Height (Feet): 5 Height (Inches): 6.00 Weight (Pounds): 147 General Appearance: no apparent distress EENT: normal ENT inspection Neck: normal alignment Cardiovascular: normal rate Respiratory/Chest: rhonchi - bilaterally Abdomen: non tender, soft Edema: no edema noted Arm (L), no edema noted Arm (R), no edema noted Leg (L), no edema noted Leg (R), no edema noted Pedal (L), no edema noted Pedal (R), no edema noted Generalized Efrain Parker MD Jan 16, 2020 13:27
[2020-01-16 16:00] VITALS: BP 115/56
--- NOTE | 2020-01-16 18:38 | Cardiology Progress Note ---
Subjective DATE OF SERVICE: Jan 16, 2020 More alert, but non-verbal and doesnt follow commands Failed swallow eval Persisting hiccups - started on reglan BP parameters stabilizing. Remains on hypotonic IVF; Abx discont'd by ID NGTube replaced; restraints needed now to prevent from pulling out, as needed for nutrition. 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 I have made them aware that current condition may not improve significantly. As such - they are asked to consider a Gtube, or hospice care. Son to discuss with other family members. Objective Last 24 Hour Vital Signs Date Time Temp Pulse Resp B/P (MAP) Pulse Ox O2 Delivery O2 Flow Rate FiO2 01/16/20 16:00 97.6 81 18 115/56 (75) 95 01/16/20 12:00 98.7 86 20 99/56 (70) 97 01/16/20 09:00 Nasal Cannula 2.0 01/16/20 08:00 97.2 89 18 126/64 (84) 95 01/16/20 04:00 98.4 90 21 109/61 (77) 94 01/16/20 00:00 98.0 86 23 113/48 (69) 95 01/15/20 21:00 Nasal Cannula 2.0 01/15/20 20:19 94 Nasal Cannula 2.0 28 01/15/20 20:00 98.1 88 23 120/60 (80) 94 ROS: unchanged from my initial assessment on 01/07/20 HEENT: other - NGTube RHYTHM: PACs LUNGS: diminished breath sounds CARDIAC: normal rate, regular rhythm, normal S1 and S2 ABDOMEN: normal bowel sounds, non tender, soft EXTREMITIES: normal inspection, No edema Assessment/Plan Assessment/Plan Severe dehydration resolving Healthcare associated gram negative/aspiration PNA Toxic and metabolic encephalopathies Severe sepsis with recovered shock Hypernatremia UTI Anemia Acute renal failure Chronic diastolic CHF Dementia Aspiration risk Hypophosphatemia Parkinsons dementia Hypotonic IVF Abx completed DVT prophyl Respiratory therapy Continue NGTube feeds; await family decision re: PEG. Monitor volume status Replace lytes and PO4 as needed Restraints to prevent pulling out NGtube and IV lines Iggy Saunders MD Jan 16, 2020 18:38
[2020-01-16 20:00] VITALS: BP 98/53
[2020-01-16] MEDS: Atorvastatin 20mg tab NG SCH (20:08)
[2020-01-17] VITALS: BP 117/53
[2020-01-17 04:00] VITALS: BP 134/63
--- NOTE | 2020-01-17 06:24 | Diagnostic Imaging Report ---
EXAM: XR Abdomen, 2 Views CLINICAL HISTORY: NGT TECHNIQUE: Frontal view of the abdomen/pelvis with upright view of the abdomen. COMPARISON: 01/10/20 FINDINGS: Intraperitoneal space: No free air. Gastrointestinal tract: Side-port projects distal to the GE junction. Bones/joints: Unremarkable. Tubes, lines and devices: NG tube is again seen, tip in the proximal to mid stomach. IMPRESSION: NG tube, tip in the proximal to mid stomach
[2020-01-17 07:11] LABS: BASOPHILS % (AUTO) 0.4 % (0.0-2.0); EOSINOPHILS % (AUTO) 2.7 % (0.0-3.0); HEMATOCRIT 26.3 % (42.0-52.0); HEMOGLOBIN 9.1 G/DL (14.2-18.0); LYMPHOCYTES % (AUTO) 9.3 % (20.0-45.0); MEAN CORPUSCULAR VOLUME 87 FL (80-99); MONOCYTES % (AUTO) 5.5 % (1.0-10.0); NEUTROPHILS % (AUTO) 82.1 % (45.0-75.0); PLATELET COUNT 364 K/UL (150-450); RED BLOOD COUNT 3.01 M/UL (4.70-6.10); RED CELL DISTRIBUTION WIDTH 13.4 % (11.6-14.8); WHITE BLOOD COUNT 11.1 K/UL (4.8-10.8)
[2020-01-17 07:29] LABS: ALANINE AMINOTRANSFERASE 39 U/L (12-78); ALBUMIN 1.8 G/DL (3.4-5.0); ALBUMIN/GLOBULIN RATIO 0.4 (1.0-2.7); ALKALINE PHOSPHATASE 93 U/L (46-116); ANION GAP 10 mmol/L (5-15); ASPARTATE AMINO TRANSFERASE 39 U/L (15-37); BILIRUBIN,TOTAL 0.3 MG/DL (0.2-1.0); BLOOD UREA NITROGEN 33 mg/dL (7-18); CALCIUM 8.2 MG/DL (8.5-10.1); CARBON DIOXIDE 27 MMOL/L (21-32); CHLORIDE 99 MMOL/L (98-107); CREATININE 1.3 MG/DL (0.55-1.30); POTASSIUM 4.8 MMOL/L (3.5-5.1); SODIUM 136 MMOL/L (136-145)
[2020-01-17 08:00] VITALS: BP 107/58
[2020-01-17] MEDS: Metoclopramide 10mg/2ml Inj IVP PRN ×2 (08:15→17:59)
[2020-01-17] MEDS: Levodopa/Carbidopa 25/100 tab NG SCH ×3 (08:15→17:08)
[2020-01-17] MEDS: Heparin 5000 units/ml inj SUBQ SCH ×2 (08:19→20:45)
--- NOTE | 2020-01-17 08:27 | General Progress Note ---
Assessment/Plan Problem List: (1) Pneumonia ICD Codes: J18.9 - Pneumonia, unspecified organism SNOMED: 509801460 (2) Sepsis ICD Codes: A41.9 - Sepsis, unspecified organism SNOMED: 63099833 (3) HECTOR (acute kidney injury) ICD Codes: N17.9 - Acute kidney failure, unspecified SNOMED: 64081141, 4479763 (4) AMS (altered mental status) ICD Codes: R41.82 - Altered mental status, unspecified SNOMED: 219017241 Qualifiers: Qualified Codes: R41.82 - Altered mental status, unspecified (5) Acute hypernatremia ICD Codes: E87.0 - Hyperosmolality and hypernatremia SNOMED: 1455422, 0976363 (6) Hypoxia ICD Codes: R09.02 - Hypoxemia SNOMED: 596560305 Status: stable, progressing Assessment/Plan: water flushes/ivf tube feeds monitor residuals monitor volume status iv abx per id dvt/stress ulcer prophylaxis monitor labs speech rx re-eval turn q2 skin care reglan for hiccups improving notes reviewed await family decision on gt Subjective ROS Limited/Unobtainable: Yes Constitutional: Reports: malaise, weakness HEENT: Reports: no symptoms Cardiovascular: Reports: no symptoms Respiratory: Reports: cough, SOB at rest, sputum Gastrointestinal/Abdominal: Reports: difficulty swallowing Genitourinary: Reports: no symptoms Neurologic/Psychiatric: Reports: pre-existing deficit Endocrine: Reports: no symptoms Hematologic/Lymphatic: Reports: anemia Allergies: Coded Allergies: PENICILLINS (Verified Allergy, Unknown, 01/07/20) All Systems: reviewed and negative except above Subjective No real change overnight. Continues to have intractable hiccups. per RN reglan not given yet. tolerating feeds. Lethargic but seems overall slightly more alert. Remains on NG tube feedings. No significant congestion or shortness of breath. labs reviewed. family present last night- still undecided about gt Objective Last 24 Hour Vital Signs Date Time Temp Pulse Resp B/P (MAP) Pulse Ox O2 Delivery O2 Flow Rate FiO2 01/17/20 04:00 97.0 88 22 134/63 (86) 95 01/17/20 00:00 97.2 85 20 117/53 (74) 96 01/16/20 21:00 Nasal Cannula 2.0 01/16/20 20:00 98.1 86 20 98/53 (68) 95 01/16/20 19:11 95 Nasal Cannula 2.0 28 01/16/20 16:00 97.6 81 18 115/56 (75) 95 01/16/20 12:00 98.7 86 20 99/56 (70) 97 01/16/20 09:00 Nasal Cannula 2.0 Intake and Output 01/16/20 01/17/20 19:00 07:00 Intake Total 900 ml 525 ml Output Total 900 ml Balance 900 ml -375 ml Free Water 360 ml 120 ml Tube Feeding 540 ml 405 ml Output Urine Total 900 ml # Bowel Movements 1 Laboratory Tests 01/17/20 06:20: White Blood Count 11.1H, Red Blood Count 3.01L, Hemoglobin 9.1L, Hematocrit 26.3L, Mean Corpuscular Volume 87, Mean Corpuscular Hemoglobin 30.2, Mean Corpuscular Hemoglobin Concent 34.5, Red Cell Distribution Width 13.4, Platelet Count 364, Mean Platelet Volume 6.7, Neutrophils (%) (Auto) 82.1H, Lymphocytes ( %) (Auto) 9.3L, Monocytes (%) (Auto) 5.5, Eosinophils (%) (Auto) 2.7, Basophils (%) (Auto) 0.4, Sodium Level 136, Potassium Level 4.8, Chloride Level 99, Carbon Dioxide Level 27, Anion Gap 10, Blood Urea Nitrogen 33H, Creatinine 1.3, Estimat Glomerular Filtration Rate 53.4, Glucose Level 104, Calcium Level 8.2L, Total Bilirubin 0.3, Aspartate Amino Transf (AST/SGOT) 39H, Alanine Aminotransferase (ALT/SGPT) 39, Alkaline Phosphatase 93, Total Protein 6.7, Albumin 1.8L, Globulin 4.9, Albumin/Globulin Ratio 0.4L Height (Feet): 5 Height (Inches): 6.00 Weight (Pounds): 140 Objective General Appearance: WD/WN, lethargic, confused EENT: PERRL/EOMI, normal ENT inspection Neck: non-tender, normal alignment Cardiovascular: normal peripheral pulses, normal rate Respiratory/Chest: chest wall non-tender, lungs clear, normal breath sounds, no respiratory distress Abdomen: normal bowel sounds, non tender, soft, no organomegaly Edema: no edema noted Arm (L), no edema noted Arm (R) Edema: trace edema 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
[2020-01-17 12:00] VITALS: BP 101/53
--- NOTE | 2020-01-17 12:48 | Nephrology Progress Note ---
Assessment/Plan Status: stable, progressing Assessment/Plan: A/P 1) Hypernatremia - resolved - continue on TFs. 2) PNA- mgmt per PCP. 3) Dehydration- resolved Subjective Date patient seen: Jan 17, 2020 Time patient seen: 12:47 ROS Limited/Unobtainable: Yes Allergies: Coded Allergies: PENICILLINS (Verified Allergy, Unknown, 01/07/20) Subjective NG tube in place. No changes Objective Last 24 Hour Vital Signs Date Time Temp Pulse Resp B/P (MAP) Pulse Ox O2 Delivery O2 Flow Rate FiO2 01/17/20 12:00 97.7 87 18 101/53 (69) 96 01/17/20 09:00 Nasal Cannula 2.0 01/17/20 08:00 98.5 94 18 107/58 (74) 92 01/17/20 04:00 97.0 88 22 134/63 (86) 95 01/17/20 00:00 97.2 85 20 117/53 (74) 96 01/16/20 21:00 Nasal Cannula 2.0 01/16/20 20:00 98.1 86 20 98/53 (68) 95 01/16/20 19:11 95 Nasal Cannula 2.0 28 01/16/20 16:00 97.6 81 18 115/56 (75) 95 Intake and Output 01/16/20 01/17/20 19:00 07:00 Intake Total 900 ml 570 ml Output Total 900 ml Balance 900 ml -330 ml Free Water 360 ml 120 ml Tube Feeding 540 ml 450 ml Output Urine Total 900 ml # Bowel Movements 1 Laboratory Tests 01/17/20 06:20: White Blood Count 11.1H, Red Blood Count 3.01L, Hemoglobin 9.1L, Hematocrit 26.3L, Mean Corpuscular Volume 87, Mean Corpuscular Hemoglobin 30.2, Mean Corpuscular Hemoglobin Concent 34.5, Red Cell Distribution Width 13.4, Platelet Count 364, Mean Platelet Volume 6.7, Neutrophils (%) (Auto) 82.1H, Lymphocytes ( %) (Auto) 9.3L, Monocytes (%) (Auto) 5.5, Eosinophils (%) (Auto) 2.7, Basophils (%) (Auto) 0.4, Sodium Level 136, Potassium Level 4.8, Chloride Level 99, Carbon Dioxide Level 27, Anion Gap 10, Blood Urea Nitrogen 33H, Creatinine 1.3, Estimat Glomerular Filtration Rate 53.4, Glucose Level 104, Calcium Level 8.2L, Total Bilirubin 0.3, Aspartate Amino Transf (AST/SGOT) 39H, Alanine Aminotransferase (ALT/SGPT) 39, Alkaline Phosphatase 93, Total Protein 6.7, Albumin 1.8L, Globulin 4.9, Albumin/Globulin Ratio 0.4L Height (Feet): 5 Height (Inches): 6.00 Weight (Pounds): 140 General Appearance: no apparent distress EENT: normal ENT inspection Neck: normal alignment, supple Cardiovascular: normal rate Respiratory/Chest: normal breath sounds Abdomen: non tender, soft Edema: no edema noted Arm (L), no edema noted Arm (R), no edema noted Leg (L), no edema noted Leg (R), no edema noted Pedal (L), no edema noted Pedal (R), no edema noted Generalized Efrain Parker MD Jan 17, 2020 12:48
--- NOTE | 2020-01-17 14:11 | Infectious Diseases Prog Note ---
Assessment/Plan Assessment/Plan A: 1. Aspiration pneumonia with E. Coli & Klebsiella treated 2. Shock resolved 3. Hydronephrosis 4. Parkinson's disease. 5. Dementia. 6. acute renal failure, improving 7. Hypernatremia corrected 8. Anemia PLAN: 1. Observe off antibiotic Subjective ROS Limited/Unobtainable: Yes Neurologic: Reports: confusion, other - on restraint Allergies: Coded Allergies: PENICILLINS (Verified Allergy, Unknown, 01/07/20) Objective Last 24 Hour Vital Signs Date Time Temp Pulse Resp B/P (MAP) Pulse Ox O2 Delivery O2 Flow Rate FiO2 01/17/20 12:00 97.7 87 18 101/53 (69) 96 01/17/20 09:00 Nasal Cannula 2.0 01/17/20 08:00 98.5 94 18 107/58 (74) 92 01/17/20 04:00 97.0 88 22 134/63 (86) 95 01/17/20 00:00 97.2 85 20 117/53 (74) 96 01/16/20 21:00 Nasal Cannula 2.0 01/16/20 20:00 98.1 86 20 98/53 (68) 95 01/16/20 19:11 95 Nasal Cannula 2.0 28 01/16/20 16:00 97.6 81 18 115/56 (75) 95 Height (Feet): 5 Height (Inches): 6.00 Weight (Pounds): 140 General Appearance: no acute distress HEENT: mucous membranes moist Respiratory/Chest: lungs clear Cardiovascular: normal rate Abdomen: soft, non tender, other - NGT feeding Extremities: no edema Neurologic/Psychiatric: alert, disoriented Laboratory Tests Test 01/17/20 06:20 White Blood Count 11.1 K/UL (4.8-10.8) H Red Blood Count 3.01 M/UL (4.70-6.10) L Hemoglobin 9.1 G/DL (14.2-18.0) L Hematocrit 26.3 % (42.0-52.0) L Mean Corpuscular Volume 87 FL (80-99) Mean Corpuscular Hemoglobin 30.2 PG (27.0-31.0) Mean Corpuscular Hemoglobin Concent 34.5 G/DL (32.0-36.0) Red Cell Distribution Width 13.4 % (11.6-14.8) Platelet Count 364 K/UL (150-450) Mean Platelet Volume 6.7 FL (6.5-10.1) Neutrophils (%) (Auto) 82.1 % (45.0-75.0) H Lymphocytes (%) (Auto) 9.3 % (20.0-45.0) L Monocytes (%) (Auto) 5.5 % (1.0-10.0) Eosinophils (%) (Auto) 2.7 % (0.0-3.0) Basophils (%) (Auto) 0.4 % (0.0-2.0) Sodium Level 136 MMOL/L (136-145) Potassium Level 4.8 MMOL/L (3.5-5.1) Chloride Level 99 MMOL/L (98-107) Carbon Dioxide Level 27 MMOL/L (21-32) Anion Gap 10 mmol/L (5-15) Blood Urea Nitrogen 33 mg/dL (7-18) H Creatinine 1.3 MG/DL (0.55-1.30) Estimat Glomerular Filtration Rate 53.4 mL/min (>60) Glucose Level 104 MG/DL (74-106) Calcium Level 8.2 MG/DL (8.5-10.1) L Total Bilirubin 0.3 MG/DL (0.2-1.0) Aspartate Amino Transf (AST/SGOT) 39 U/L (15-37) H Alanine Aminotransferase (ALT/SGPT) 39 U/L (12-78) Alkaline Phosphatase 93 U/L (46-116) Total Protein 6.7 G/DL (6.4-8.2) Albumin 1.8 G/DL (3.4-5.0) L Globulin 4.9 g/dL Albumin/Globulin Ratio 0.4 (1.0-2.7) L Current Medications Medications (Trade) Dose Ordered Sig/Veronica Route PRN Reason Start Time Stop Time Status Last Admin Dose Admin Acetaminophen (Tylenol) 650 mg Q6H PRN NG Temp >100.5 01/13/20 17:15 02/10/20 17:14 Atorvastatin Calcium (Lipitor) 20 mg BEDTIME NG 01/13/20 21:00 04/06/20 20:59 01/16/20 20:08 Carbidopa/Levodopa (Sinemet 25/100) 1 tab THREE TIMES A DAY NG 01/13/20 18:00 02/06/20 12:59 01/17/20 12:19 Famotidine (Pepcid) 20 mg BID GT 01/13/20 18:00 04/12/20 08:59 01/17/20 08:15 Heparin Sodium (Porcine) (Heparin 5000 units/ml) 5,000 units EVERY 12 HOURS SUBQ 01/13/20 21:00 02/21/20 11:14 01/17/20 08:19 Metoclopramide HCl (Reglan) 10 mg Q8H PRN IVP Nausea & Vomiting 01/16/20 10:45 02/15/20 10:44 01/17/20 08:15 Mohsen Garcia MD Jan 17, 2020 14:11
[2020-01-17 16:00] VITALS: BP 94/46
[2020-01-17 20:00] VITALS: BP 105/59
[2020-01-17] MEDS: Atorvastatin 20mg tab NG SCH (20:38)
--- NOTE | 2020-01-17 23:03 | Cardiology Progress Note ---
Subjective DATE OF SERVICE: Jan 17, 2020 Remains alert, but non-verbal and doesnt follow commands Failed swallow eval - still awaiting family decision/consent for PEG. Persisting hiccups - started on reglan 2 days ago. BP parameters stabilizing. Remains on maintenance IVF; Abx discont'd by ID NGTube replaced; restraints needed now to prevent from pulling out, as needed for nutrition. Objective Last 24 Hour Vital Signs Date Time Temp Pulse Resp B/P (MAP) Pulse Ox O2 Delivery O2 Flow Rate FiO2 01/17/20 21:00 Nasal Cannula 2.0 01/17/20 20:06 96 Nasal Cannula 2.0 28 01/17/20 20:00 97.0 77 20 105/59 (74) 96 01/17/20 16:00 96.7 87 18 94/46 (62) 96 01/17/20 12:00 97.7 87 18 101/53 (69) 96 01/17/20 09:00 Nasal Cannula 2.0 01/17/20 08:00 98.5 94 18 107/58 (74) 92 01/17/20 04:00 97.0 88 22 134/63 (86) 95 01/17/20 00:00 97.2 85 20 117/53 (74) 96 ROS: unchanged from my initial assessment on 01/07/20 HEENT: other - NGTube RHYTHM: PACs LUNGS: diminished breath sounds CARDIAC: normal rate, regular rhythm, normal S1 and S2 ABDOMEN: normal bowel sounds, non tender, soft EXTREMITIES: normal inspection, No edema Laboratory Tests Test 01/17/20 06:20 White Blood Count 11.1 K/UL (4.8-10.8) H Red Blood Count 3.01 M/UL (4.70-6.10) L Hemoglobin 9.1 G/DL (14.2-18.0) L Hematocrit 26.3 % (42.0-52.0) L Mean Corpuscular Volume 87 FL (80-99) Mean Corpuscular Hemoglobin 30.2 PG (27.0-31.0) Mean Corpuscular Hemoglobin Concent 34.5 G/DL (32.0-36.0) Red Cell Distribution Width 13.4 % (11.6-14.8) Platelet Count 364 K/UL (150-450) Mean Platelet Volume 6.7 FL (6.5-10.1) Neutrophils (%) (Auto) 82.1 % (45.0-75.0) H Lymphocytes (%) (Auto) 9.3 % (20.0-45.0) L Monocytes (%) (Auto) 5.5 % (1.0-10.0) Eosinophils (%) (Auto) 2.7 % (0.0-3.0) Basophils (%) (Auto) 0.4 % (0.0-2.0) Sodium Level 136 MMOL/L (136-145) Potassium Level 4.8 MMOL/L (3.5-5.1) Chloride Level 99 MMOL/L (98-107) Carbon Dioxide Level 27 MMOL/L (21-32) Anion Gap 10 mmol/L (5-15) Blood Urea Nitrogen 33 mg/dL (7-18) H Creatinine 1.3 MG/DL (0.55-1.30) Estimat Glomerular Filtration Rate 53.4 mL/min (>60) Glucose Level 104 MG/DL (74-106) Calcium Level 8.2 MG/DL (8.5-10.1) L Total Bilirubin 0.3 MG/DL (0.2-1.0) Aspartate Amino Transf (AST/SGOT) 39 U/L (15-37) H Alanine Aminotransferase (ALT/SGPT) 39 U/L (12-78) Alkaline Phosphatase 93 U/L (46-116) Total Protein 6.7 G/DL (6.4-8.2) Albumin 1.8 G/DL (3.4-5.0) L Globulin 4.9 g/dL Albumin/Globulin Ratio 0.4 (1.0-2.7) L Assessment/Plan Assessment/Plan Severe dehydration resolving Healthcare associated gram negative/aspiration PNA Toxic and metabolic encephalopathies Severe sepsis with recovered shock Hypernatremia UTI Anemia Acute renal failure Chronic diastolic CHF Dementia Aspiration risk Hypophosphatemia Parkinsons dementia IVF Abx completed DVT prophyl Respiratory therapy Continue NGTube feeds; await family decision re: PEG. Monitor volume status Replace lytes and PO4 as needed Restraints to prevent pulling out NGtube and IV lines Iggy Saunders MD Jan 17, 2020 23:03
[2020-01-18] VITALS: BP 101/56
[2020-01-18 01:23] LABS: APPEARANCE,URINE CLEAR; COLOR,URINE PALE YELLOW
[2020-01-18 01:24] LABS: BILIRUBIN, URINE NEGATIVE (NEGATIVE); GLUCOSE, URINE (UA) NEGATIVE (NEGATIVE); KETONES,URINE NEGATIVE (NEGATIVE); LEUKOCYTE ESTERASE ,URINE NEGATIVE (NEGATIVE); NITRITE,URINE NEGATIVE (NEGATIVE); PROTEIN,URINE NEGATIVE (NEGATIVE); UROBILINOGEN,URINE NORMAL MG/DL (0.0-1.0)
[2020-01-18] MEDS: Metoclopramide 10mg/2ml Inj IVP PRN ×2 (02:39→20:06)
[2020-01-18 04:00] VITALS: BP 97/54
--- NOTE | 2020-01-18 07:57 | General Progress Note ---
Assessment/Plan Problem List: (1) Pneumonia ICD Codes: J18.9 - Pneumonia, unspecified organism SNOMED: 467627869 (2) Sepsis ICD Codes: A41.9 - Sepsis, unspecified organism SNOMED: 17398412 (3) HECTOR (acute kidney injury) ICD Codes: N17.9 - Acute kidney failure, unspecified SNOMED: 74504093, 6739563 (4) AMS (altered mental status) ICD Codes: R41.82 - Altered mental status, unspecified SNOMED: 979308577 Qualifiers: Qualified Codes: R41.82 - Altered mental status, unspecified (5) Acute hypernatremia ICD Codes: E87.0 - Hyperosmolality and hypernatremia SNOMED: 8993357, 2821377 (6) Hypoxia ICD Codes: R09.02 - Hypoxemia SNOMED: 415408367 Status: stable, progressing Assessment/Plan: water flushes tube feeds monitor residuals monitor volume status iv abx per id dvt/stress ulcer prophylaxis monitor labs speech rx re-eval turn q2 skin care reglan for hiccups improving notes reviewed await family decision on gt Subjective ROS Limited/Unobtainable: Yes Constitutional: Reports: malaise, weakness HEENT: Reports: no symptoms Cardiovascular: Reports: no symptoms Respiratory: Reports: no symptoms Gastrointestinal/Abdominal: Reports: difficulty swallowing Genitourinary: Reports: no symptoms Neurologic/Psychiatric: Reports: pre-existing deficit Endocrine: Reports: no symptoms Hematologic/Lymphatic: Reports: anemia Allergies: Coded Allergies: PENICILLINS (Verified Allergy, Unknown, 01/07/20) All Systems: reviewed and negative except above Subjective No real change overnight. hiccups better, tolerating feeds. Lethargic. Remains on NG tube feedings. No significant congestion or shortness of breath. Objective Last 24 Hour Vital Signs Date Time Temp Pulse Resp B/P (MAP) Pulse Ox O2 Delivery O2 Flow Rate FiO2 01/18/20 04:00 97.4 80 20 97/54 (68) 95 01/18/20 00:00 97.2 83 22 101/56 (71) 96 01/17/20 21:00 Nasal Cannula 2.0 01/17/20 20:06 96 Nasal Cannula 2.0 28 01/17/20 20:00 97.0 77 20 105/59 (74) 96 01/17/20 16:00 96.7 87 18 94/46 (62) 96 01/17/20 12:00 97.7 87 18 101/53 (69) 96 01/17/20 09:00 Nasal Cannula 2.0 01/17/20 08:00 98.5 94 18 107/58 (74) 92 Intake and Output 01/17/20 01/18/20 19:00 07:00 Intake Total 840 ml 460 ml Output Total 1000 ml Balance -160 ml 460 ml Free Water 300 ml 100 ml Tube Feeding 540 ml 360 ml Output Urine Total 1000 ml Laboratory Tests 01/17/20 23:30: Urine Color Pale yellow, Urine Appearance Clear, Urine pH 6.0, Urine Specific [place] 1.015, Urine Protein Negative, Urine Glucose (UA) Negative, Urine Ketones Negative, Urine Blood Negative, Urine Nitrite Negative, Urine Bilirubin Negative, Urine Urobilinogen Normal, Urine Leukocyte Esterase Negative Height (Feet): 5 Height (Inches): 6.00 Weight (Pounds): 138 Objective General Appearance: WD/WN, lethargic, confused EENT: PERRL/EOMI, normal ENT inspection Neck: non-tender, normal alignment Cardiovascular: normal peripheral pulses, normal rate Respiratory/Chest: chest wall non-tender, lungs clear, normal breath sounds, no respiratory distress Abdomen: normal bowel sounds, non tender, soft, no organomegaly Edema: no edema noted Arm (L), no edema noted Arm (R) Edema: trace edema 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
[2020-01-18 08:00] VITALS: BP 108/56
[2020-01-18] MEDS: Levodopa/Carbidopa 25/100 tab NG SCH ×3 (09:05→17:29)
[2020-01-18] MEDS: Heparin 5000 units/ml inj SUBQ SCH ×2 (09:06→20:08)
[2020-01-18 12:00] VITALS: BP 117/53
--- NOTE | 2020-01-18 12:00 | Infectious Diseases Prog Note ---
Assessment/Plan Assessment/Plan antibiotics : none A 1. klebsiella, e.coli pneumonia s/p rx COVID 19 test negative 2. Shock resolved 3. Parkinson's disease. 4. Dementia. P 1. observe off antibiotics 2. will follow up cultures Subjective ROS Limited/Unobtainable: Yes Allergies: Coded Allergies: PENICILLINS (Verified Allergy, Unknown, 01/07/20) Objective Last 24 Hour Vital Signs Date Time Temp Pulse Resp B/P (MAP) Pulse Ox O2 Delivery O2 Flow Rate FiO2 01/18/20 09:00 Nasal Cannula 2.0 01/18/20 08:00 97.8 82 19 108/56 (73) 97 01/18/20 04:00 97.4 80 20 97/54 (68) 95 01/18/20 00:00 97.2 83 22 101/56 (71) 96 01/17/20 21:00 Nasal Cannula 2.0 01/17/20 20:06 96 Nasal Cannula 2.0 28 01/17/20 20:00 97.0 77 20 105/59 (74) 96 01/17/20 16:00 96.7 87 18 94/46 (62) 96 01/17/20 12:00 97.7 87 18 101/53 (69) 96 Height (Feet): 5 Height (Inches): 6.00 Weight (Pounds): 138 Respiratory/Chest: lungs clear Cardiovascular: normal rate, regular rhythm, no gallop/murmur Abdomen: soft, non tender Extremities: no edema Laboratory Tests Test 01/17/20 23:30 Urine Color Pale yellow Urine Appearance Clear Urine pH 6.0 (4.5-8.0) Urine Specific [place] 1.015 (1.005-1.035) Urine Protein Negative (NEGATIVE) Urine Glucose (UA) Negative (NEGATIVE) Urine Ketones Negative (NEGATIVE) Urine Blood Negative (NEGATIVE) Urine Nitrite Negative (NEGATIVE) Urine Bilirubin Negative (NEGATIVE) Urine Urobilinogen Normal MG/DL (0.0-1.0) Urine Leukocyte Esterase Negative (NEGATIVE) Current Medications Medications (Trade) Dose Ordered Sig/Veronica Route PRN Reason Start Time Stop Time Status Last Admin Dose Admin Acetaminophen (Tylenol) 650 mg Q6H PRN NG Temp >100.5 01/13/20 17:15 02/10/20 17:14 Atorvastatin Calcium (Lipitor) 20 mg BEDTIME NG 01/13/20 21:00 04/06/20 20:59 01/17/20 20:38 Carbidopa/Levodopa (Sinemet 25/100) 1 tab THREE TIMES A DAY NG 01/13/20 18:00 02/06/20 12:59 01/18/20 09:05 Famotidine (Pepcid) 20 mg BID GT 01/13/20 18:00 04/12/20 08:59 01/18/20 09:05 Heparin Sodium (Porcine) (Heparin 5000 units/ml) 5,000 units EVERY 12 HOURS SUBQ 01/13/20 21:00 02/21/20 11:14 01/18/20 09:06 Metoclopramide HCl (Reglan) 10 mg Q8H PRN IVP Nausea & Vomiting 01/16/20 10:45 02/15/20 10:44 01/18/20 02:39 Ana Carrasco MD Jan 18, 2020 12:00
[2020-01-18 16:00] VITALS: BP 129/65
--- NOTE | 2020-01-18 16:22 | Nephrology Progress Note ---
Assessment/Plan Problem List: (1) Malnutrition of moderate degree (2) Metabolic encephalopathy (3) HECTOR (acute kidney injury) (4) AMS (altered mental status) (5) Acute hypernatremia (6) Pneumonia (7) Hypophosphatemia Plan lab trend better, add free water to tube feed, starting tube feed Subjective ROS Limited/Unobtainable: Yes Objective Objective Last 24 Hour Vital Signs Date Time Temp Pulse Resp B/P (MAP) Pulse Ox O2 Delivery O2 Flow Rate FiO2 01/18/20 16:00 98.2 80 20 129/65 (86) 98 01/18/20 12:00 97.2 85 20 117/53 (74) 96 01/18/20 09:00 Nasal Cannula 2.0 01/18/20 08:00 97.8 82 19 108/56 (73) 97 01/18/20 04:00 97.4 80 20 97/54 (68) 95 01/18/20 00:00 97.2 83 22 101/56 (71) 96 01/17/20 21:00 Nasal Cannula 2.0 01/17/20 20:06 96 Nasal Cannula 2.0 28 01/17/20 20:00 97.0 77 20 105/59 (74) 96 Intake and Output 01/17/20 01/18/20 19:00 07:00 Intake Total 840 ml 460 ml Output Total 1000 ml Balance -160 ml 460 ml Free Water 300 ml 100 ml Tube Feeding 540 ml 360 ml Output Urine Total 1000 ml Laboratory Tests 01/17/20 23:30: Urine Color Pale yellow, Urine Appearance Clear, Urine pH 6.0, Urine Specific [place] 1.015, Urine Protein Negative, Urine Glucose (UA) Negative, Urine Ketones Negative, Urine Blood Negative, Urine Nitrite Negative, Urine Bilirubin Negative, Urine Urobilinogen Normal, Urine Leukocyte Esterase Negative Height (Feet): 5 Height (Inches): 6.00 Weight (Pounds): 138 General Appearance: confused, thin EENT: normal ENT inspection Cardiovascular: regular rhythm Respiratory/Chest: rhonchi - bilaterally Abdomen: non tender Extremities: moderate edema Neurologic: motor weakness Franki Bergeron MD Jan 18, 2020 16:22
[2020-01-18 20:00] VITALS: BP 130/68
[2020-01-18] MEDS: Atorvastatin 20mg tab NG SCH (20:06)
[2020-01-19] VITALS: BP 135/70
--- NOTE | 2020-01-19 00:35 | Cardiology Progress Note ---
Subjective DATE OF SERVICE: Jan 18, 2020 Remains alert, but non-verbal and doesnt follow commands Failed swallow eval - family now consents for PEG. Decreasing hiccups - started on reglan 3 days ago. BP parameters stabilizing. Remains on maintenance IVF; Abx discont'd by ID NGTube replaced; restraints needed now to prevent from pulling out, as needed for nutrition. Objective Last 24 Hour Vital Signs Date Time Temp Pulse Resp B/P (MAP) Pulse Ox O2 Delivery O2 Flow Rate FiO2 01/19/20 00:00 98.0 90 23 135/70 (91) 95 01/18/20 21:00 Nasal Cannula 2.0 01/18/20 20:11 95 Nasal Cannula 2.0 28 01/18/20 20:00 98.9 95 23 130/68 (88) 95 01/18/20 16:00 98.2 80 20 129/65 (86) 98 01/18/20 12:00 97.2 85 20 117/53 (74) 96 01/18/20 09:00 Nasal Cannula 2.0 01/18/20 08:00 97.8 82 19 108/56 (73) 97 01/18/20 04:00 97.4 80 20 97/54 (68) 95 ROS: unchanged from my initial assessment on 01/07/20 HEENT: other - NGTube RHYTHM: PACs LUNGS: diminished breath sounds CARDIAC: normal rate, regular rhythm, normal S1 and S2 ABDOMEN: normal bowel sounds, non tender, soft EXTREMITIES: normal inspection, No edema Laboratory Tests Test 01/18/20 17:40 Phosphorus Level 4.3 MG/DL (2.5-4.9) Assessment/Plan Assessment/Plan Severe dehydration resolving Healthcare associated gram negative/aspiration PNA Toxic and metabolic encephalopathies Severe sepsis with recovered shock Hypernatremia UTI Anemia Acute renal failure Chronic diastolic CHF Dementia Aspiration risk Hypophosphatemia Parkinsons dementia IVF Abx completedG placed. Monitor volume status Replace lytes and PO4 as needed Restraints to prevent pulling out NGtube and IV lines Iggy Saunders MD Jan 19, 2020 00:35
[2020-01-19 04:00] VITALS: BP 128/68
[2020-01-19] MEDS: Metoclopramide 10mg/2ml Inj IVP PRN (05:25)
[2020-01-19 07:10] LABS: ANION GAP 8 mmol/L (5-15); BLOOD UREA NITROGEN 35 mg/dL (7-18); CALCIUM 8.6 MG/DL (8.5-10.1); CARBON DIOXIDE 28 MMOL/L (21-32); CHLORIDE 98 MMOL/L (98-107); CREATININE 1.2 MG/DL (0.55-1.30); POTASSIUM 4.9 MMOL/L (3.5-5.1); SODIUM 134 MMOL/L (136-145)
[2020-01-19 08:00] VITALS: BP 130/71
[2020-01-19] MEDS: Levodopa/Carbidopa 25/100 tab NG SCH ×3 (09:00→17:47)
--- NOTE | 2020-01-19 09:36 | General Progress Note ---
Assessment/Plan Problem List: (1) Pneumonia ICD Codes: J18.9 - Pneumonia, unspecified organism SNOMED: 490735866 (2) Sepsis ICD Codes: A41.9 - Sepsis, unspecified organism SNOMED: 15425749 (3) HECTOR (acute kidney injury) ICD Codes: N17.9 - Acute kidney failure, unspecified SNOMED: 37580815, 1060034 (4) AMS (altered mental status) ICD Codes: R41.82 - Altered mental status, unspecified SNOMED: 702995164 Qualifiers: Qualified Codes: R41.82 - Altered mental status, unspecified (5) Acute hypernatremia ICD Codes: E87.0 - Hyperosmolality and hypernatremia SNOMED: 8534323, 4892898 (6) Hypoxia ICD Codes: R09.02 - Hypoxemia SNOMED: 425349942 Status: stable, progressing Assessment/Plan: water flushes tube feeds monitor residuals monitor volume status iv abx per id dvt/stress ulcer prophylaxis monitor labs speech rx re-eval turn q2 skin care reglan for hiccups improving notes reviewed gi consult for gt placement Subjective ROS Limited/Unobtainable: Yes Constitutional: Reports: malaise, weakness HEENT: Reports: no symptoms Cardiovascular: Reports: no symptoms Respiratory: Reports: cough, shortness of breath Gastrointestinal/Abdominal: Reports: difficulty swallowing Genitourinary: Reports: no symptoms Neurologic/Psychiatric: Reports: pre-existing deficit Endocrine: Reports: no symptoms Hematologic/Lymphatic: Reports: anemia Allergies: Coded Allergies: PENICILLINS (Verified Allergy, Unknown, 01/07/20) All Systems: reviewed and negative except above Subjective status quo. no new complaints. remains lethargic and confused. awake. doesnt really track or communicate. tolerating ngt feeds. family now agrees to gt placement Objective Last 24 Hour Vital Signs Date Time Temp Pulse Resp B/P (MAP) Pulse Ox O2 Delivery O2 Flow Rate FiO2 01/19/20 08:00 98.2 93 21 130/71 (90) 97 01/19/20 04:00 98.4 90 23 128/68 (88) 97 01/19/20 00:00 98.0 90 23 135/70 (91) 95 01/18/20 21:00 Nasal Cannula 2.0 01/18/20 20:11 95 Nasal Cannula 2.0 28 01/18/20 20:00 98.9 95 23 130/68 (88) 95 01/18/20 16:00 98.2 80 20 129/65 (86) 98 01/18/20 12:00 97.2 85 20 117/53 (74) 96 Intake and Output 01/18/20 01/19/20 19:00 07:00 Intake Total 45 ml 1095 ml Output Total 1000 ml Balance 45 ml 95 ml Free Water 600 ml Tube Feeding 45 ml 495 ml Output Urine Total 1000 ml Laboratory Tests 01/18/20 17:40: Phosphorus Level 4.3 01/19/20 04:55: Sodium Level 134L, Potassium Level 4.9, Chloride Level 98, Carbon Dioxide Level 28, Anion Gap 8, Blood Urea Nitrogen 35H, Creatinine 1.2, Estimat Glomerular Filtration Rate 58.6, Glucose Level 123H, Calcium Level 8.6, Magnesium Level 2.3 Height (Feet): 5 Height (Inches): 6.00 Weight (Pounds): 138 Objective General Appearance: WD/WN, lethargic, confused EENT: PERRL/EOMI, normal ENT inspection Neck: non-tender, normal alignment Cardiovascular: normal peripheral pulses, normal rate Respiratory/Chest: chest wall non-tender, lungs clear, normal breath sounds, no respiratory distress Abdomen: normal bowel sounds, non tender, soft, no organomegaly Edema: no edema noted Arm (L), no edema noted Arm (R) Edema: trace edema 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
--- NOTE | 2020-01-19 10:29 | Infectious Diseases Prog Note ---
Assessment/Plan Assessment/Plan antibiotics : none A 1. klebsiella, e.coli pneumonia s/p rx COVID 19 test negative 2. Shock resolved 3. Parkinson's disease. 4. Dementia. P 1. observe off antibiotics 2. will follow up cultures Subjective ROS Limited/Unobtainable: Yes Allergies: Coded Allergies: PENICILLINS (Verified Allergy, Unknown, 01/07/20) Objective Last 24 Hour Vital Signs Date Time Temp Pulse Resp B/P (MAP) Pulse Ox O2 Delivery O2 Flow Rate FiO2 01/19/20 08:00 98.2 93 21 130/71 (90) 97 01/19/20 04:00 98.4 90 23 128/68 (88) 97 01/19/20 00:00 98.0 90 23 135/70 (91) 95 01/18/20 21:00 Nasal Cannula 2.0 01/18/20 20:11 95 Nasal Cannula 2.0 28 01/18/20 20:00 98.9 95 23 130/68 (88) 95 01/18/20 16:00 98.2 80 20 129/65 (86) 98 01/18/20 12:00 97.2 85 20 117/53 (74) 96 Height (Feet): 5 Height (Inches): 6.00 Weight (Pounds): 138 Respiratory/Chest: lungs clear Cardiovascular: normal rate, regular rhythm, no gallop/murmur Abdomen: soft, non tender Extremities: no edema Microbiology Date/Time Source Procedure Growth Status 01/19/20 08:18 Nasopharynx SARS-CoV-2 RdRp Gene Assay - Final Complete Laboratory Tests Test 01/18/20 17:40 01/19/20 04:55 Phosphorus Level 4.3 MG/DL (2.5-4.9) Sodium Level 134 MMOL/L (136-145) L Potassium Level 4.9 MMOL/L (3.5-5.1) Chloride Level 98 MMOL/L (98-107) Carbon Dioxide Level 28 MMOL/L (21-32) Anion Gap 8 mmol/L (5-15) Blood Urea Nitrogen 35 mg/dL (7-18) H Creatinine 1.2 MG/DL (0.55-1.30) Estimat Glomerular Filtration Rate 58.6 mL/min (>60) Glucose Level 123 MG/DL (74-106) H Calcium Level 8.6 MG/DL (8.5-10.1) Magnesium Level 2.3 MG/DL (1.8-2.4) Current Medications Medications (Trade) Dose Ordered Sig/Veronica Route PRN Reason Start Time Stop Time Status Last Admin Dose Admin Acetaminophen (Tylenol) 650 mg Q6H PRN NG Temp >100.5 01/13/20 17:15 02/10/20 17:14 Atorvastatin Calcium (Lipitor) 20 mg BEDTIME NG 01/13/20 21:00 04/06/20 20:59 01/18/20 20:06 Carbidopa/Levodopa (Sinemet /) 1 tab THREE TIMES A DAY NG 01/13/20 18:00 02/06/20 12:59 01/18/20 17:29 Famotidine (Pepcid) 20 mg BID GT 01/13/20 18:00 04/12/20 08:59 01/18/20 17:29 Heparin Sodium (Porcine) (Heparin 5000 units/ml) 5,000 units EVERY 12 HOURS SUBQ 01/13/20 21:00 02/21/20 11:14 01/18/20 20:08 Metoclopramide HCl (Reglan) 10 mg Q8H PRN IVP Nausea & Vomiting 01/16/20 10:45 02/15/20 10:44 01/19/20 05:25 Ana Carrasco MD Jan 19, 2020 10:29
[2020-01-19] MEDS: Heparin 5000 units/ml inj SUBQ SCH ×2 (11:05→20:03)
[2020-01-19 12:00] VITALS: BP 122/74
--- NOTE | 2020-01-19 12:31 | Diagnostic Imaging Report ---
Indication: Post nasogastric tube positioning Technique: Supine view of the upper abdomen Comparison: 01/17/2020 Findings: Again demonstrated is a nasogastric tube, tip of which projects at the level gastric fundus, occipital for appearing to be above the gastroesophageal junction. Prominent gas-filled but not frankly dilated small bowel loops are noted. Degenerative changes of the thoracolumbar junction are noted. Impression: Somewhat high position of nasogastric tube. Advancement recommended. This finding was phoned to patient's nurse at the time of interpretation Other findings as noted
--- NOTE | 2020-01-19 13:39 | Nephrology Progress Note ---
Assessment/Plan Problem List: (1) Malnutrition of moderate degree (2) Metabolic encephalopathy (3) HECTOR (acute kidney injury) (4) AMS (altered mental status) (5) Acute hypernatremia (6) Pneumonia (7) Hypophosphatemia Plan lab trend better, add free water to tube feed, starting tube feed Subjective ROS Limited/Unobtainable: Yes Objective Objective Last 24 Hour Vital Signs Date Time Temp Pulse Resp B/P (MAP) Pulse Ox O2 Delivery O2 Flow Rate FiO2 01/19/20 12:00 98.2 97 20 122/74 (90) 97 01/19/20 09:00 Nasal Cannula 2.0 01/19/20 08:35 96 Nasal Cannula 2.0 28 01/19/20 08:00 98.2 93 21 130/71 (90) 97 01/19/20 04:00 98.4 90 23 128/68 (88) 97 01/19/20 00:00 98.0 90 23 135/70 (91) 95 01/18/20 21:00 Nasal Cannula 2.0 01/18/20 20:11 95 Nasal Cannula 2.0 28 01/18/20 20:00 98.9 95 23 130/68 (88) 95 01/18/20 16:00 98.2 80 20 129/65 (86) 98 Intake and Output 01/18/20 01/19/20 19:00 07:00 Intake Total 45 ml 1095 ml Output Total 1000 ml Balance 45 ml 95 ml Free Water 600 ml Tube Feeding 45 ml 495 ml Output Urine Total 1000 ml Laboratory Tests 01/18/20 17:40: Phosphorus Level 4.3 01/19/20 04:55: Sodium Level 134L, Potassium Level 4.9, Chloride Level 98, Carbon Dioxide Level 28, Anion Gap 8, Blood Urea Nitrogen 35H, Creatinine 1.2, Estimat Glomerular Filtration Rate 58.6, Glucose Level 123H, Calcium Level 8.6, Magnesium Level 2.3 Height (Feet): 5 Height (Inches): 6.00 Weight (Pounds): 138 General Appearance: no apparent distress, lethargic, confused EENT: normal ENT inspection Neck: normal alignment Cardiovascular: regular rhythm Respiratory/Chest: rhonchi - bilaterally Abdomen: non tender, soft Extremities: moderate edema Neurologic: motor weakness, disoriented Franki Bergeron MD Jan 19, 2020 13:39
--- NOTE | 2020-01-19 15:01 | Diagnostic Imaging Report ---
Indication: Previously malpositioned nasogastric tube Technique: Supine view of the abdomen Comparison: 4 hours earlier Findings: Interim advancement of nasogastric tube, tip projecting at the level gastric fundus, proximal beyond the gastroesophageal junction. The bowel gas pattern is unremarkable. Impression: Satisfactory position of nasogastric tube Charge nurse Iggy notified at the time of interpretation
[2020-01-19 16:00] VITALS: BP 145/71
[2020-01-19 20:00] VITALS: BP 149/68
[2020-01-19] MEDS: Atorvastatin 20mg tab NG SCH (20:02)
--- NOTE | 2020-01-19 20:51 | General Progress Note ---
Assessment/Plan Status: stable, progressing Assessment/Plan: Assessment - Encephalopathy - dysphagia, NGT dependent - Abnormal LFT, ? etiology - Anemia, ? etiology - Malnutrition, Albumin = 1.6 Recommendations NGT feeds/Meds PEG in am check hepatitis serologies liver imaging Family advised to address anemia at later date Thank you Camilla Merida MD Subjective Allergies: Coded Allergies: PENICILLINS (Verified Allergy, Unknown, 01/07/20) Objective Last 24 Hour Vital Signs Date Time Temp Pulse Resp B/P (MAP) Pulse Ox O2 Delivery O2 Flow Rate FiO2 01/19/20 16:00 97.7 103 19 145/71 (95) 96 01/19/20 12:00 98.2 97 20 122/74 (90) 97 01/19/20 09:00 Nasal Cannula 2.0 01/19/20 08:35 96 Nasal Cannula 2.0 28 01/19/20 08:00 98.2 93 21 130/71 (90) 97 01/19/20 04:00 98.4 90 23 128/68 (88) 97 01/19/20 00:00 98.0 90 23 135/70 (91) 95 01/18/20 21:00 Nasal Cannula 2.0 Intake and Output 01/18/20 01/19/20 19:00 07:00 Intake Total 45 ml 1095 ml Output Total 1000 ml Balance 45 ml 95 ml Free Water 600 ml Tube Feeding 45 ml 495 ml Output Urine Total 1000 ml Laboratory Tests 01/19/20 04:55: Sodium Level 134L, Potassium Level 4.9, Chloride Level 98, Carbon Dioxide Level 28, Anion Gap 8, Blood Urea Nitrogen 35H, Creatinine 1.2, Estimat Glomerular Filtration Rate 58.6, Glucose Level 123H, Calcium Level 8.6, Magnesium Level 2.3 Height (Feet): 5 Height (Inches): 6.00 Weight (Pounds): 138 Camilla Merida MD Jan 19, 2020 20:50
--- NOTE | 2020-01-19 23:00 | Consultation ---
DATE OF CONSULTATION: 01/19/2020 GASTROENTEROLOGY CONSULTATION CONSULTING PHYSICIAN: Camilla Merida MD. CHIEF COMPLAINT: I was asked to see this patient by Dr. Iggy Saunders and Dr. Mello Wheeler for gastrostomy tube placement, anemia, and abnormal liver tests. HISTORY OF PRESENT ILLNESS: Patient is an unfortunate 79-year-old Sami man, who was brought to the hospital due to sepsis shock, hypernatremia, and other derangements. He has been in the hospital for several days and his metabolic parameters have significantly improved. However, he remained confused with hepatic encephalopathy and is unable to eat by mouth. A nasogastric tube is in place. This consultation was generated to place the gastrostomy tube. In addition, the patient has anemia of unclear etiology. There has been no other recent reports of bleeding. He also has abnormal liver tests of unclear etiology. The patient himself is unable to provide any information and most of the information is only available from the chart and discussion with the patient's family. PAST MEDICAL HISTORY: History of Parkinson disease, stroke, dementia, atherosclerotic cardiovascular disease, osteoarthritis, kidney disease, current abnormal liver tests. FAMILY HISTORY: Noncontributory. SOCIAL HISTORY: Patient does not smoke or drink alcohol. ALLERGIES: Penicillin. REVIEW OF SYSTEMS: Otherwise negative and unobtainable. PHYSICAL EXAMINATION: GENERAL: Debilitated man, seen in his room. HEENT: Normocephalic and atraumatic. Sclerae anicteric. Oropharynx clear. NECK: Supple. CHEST: Clear to auscultation. CARDIAC: Revealed a regular rate. ABDOMEN: Soft, nontender. Nasogastric tube is in place. EXTREMITIES: Revealed no edema. LABORATORY DATA: Noted. ASSESSMENT: This patient is unable to eat safely at this time due to his encephalopathy and requires tube feeding for enteral access and nutrition. The indications, risks, alternatives, and possible complications of procedure were explained to patient's daughter and his , as the daughter translated and all questions were answered and informed consent was obtained. In addition, the patient does have a degree of anemia of unclear etiology. He is not a good candidate for a colonoscopy at this time due to his multiple medical problems, but the family advised to wait about a month and then ask the primary physician whether the patient would be a candidate to consider workup at that time. Finally, he does have abnormal liver tests of unclear etiology. Basic evaluation with some hepatitis serologies and abdominal ultrasound can be done while he is here in the hospital. RECOMMENDATIONS: Per above discussion and per orders written in the chart. Thank you for asking me to participate in the care of this patient. Camilla Merida M.D. DR: ARY JOB#: [id number] CC: ZENAIDA
[2020-01-20] VITALS (11 sets, daily range): BP systolic 102–146; BP diastolic 61–85
--- NOTE | 2020-01-20 01:46 | Cardiology Progress Note ---
Subjective DATE OF SERVICE: Jan 19, 2020 Remains alert, but non-verbal and doesn't follow commands Failed swallow eval - family now consents for PEG, which is scheduled for tomorrow. Persisting hiccups - remains on reglan. BP parameters stabilized. NGTube replaced; restraints needed now to prevent from pulling out, as needed for nutrition. Objective Last 24 Hour Vital Signs Date Time Temp Pulse Resp B/P (MAP) Pulse Ox O2 Delivery O2 Flow Rate FiO2 01/20/20 00:00 97.8 97 18 137/75 (95) 96 01/19/20 21:00 Nasal Cannula 2.0 01/19/20 20:00 98.1 92 16 149/68 (95) 96 01/19/20 16:00 97.7 103 19 145/71 (95) 96 01/19/20 12:00 98.2 97 20 122/74 (90) 97 01/19/20 09:00 Nasal Cannula 2.0 01/19/20 08:35 96 Nasal Cannula 2.0 28 01/19/20 08:00 98.2 93 21 130/71 (90) 97 01/19/20 04:00 98.4 90 23 128/68 (88) 97 ROS: unchanged from my initial assessment on 01/07/20 HEENT: other - NGTube RHYTHM: PACs LUNGS: diminished breath sounds CARDIAC: normal rate, regular rhythm, normal S1 and S2 ABDOMEN: normal bowel sounds, non tender, soft EXTREMITIES: normal inspection, No edema Laboratory Tests Test 01/19/20 04:55 Sodium Level 134 MMOL/L (136-145) L Potassium Level 4.9 MMOL/L (3.5-5.1) Chloride Level 98 MMOL/L (98-107) Carbon Dioxide Level 28 MMOL/L (21-32) Anion Gap 8 mmol/L (5-15) Blood Urea Nitrogen 35 mg/dL (7-18) H Creatinine 1.2 MG/DL (0.55-1.30) Estimat Glomerular Filtration Rate 58.6 mL/min (>60) Glucose Level 123 MG/DL (74-106) H Calcium Level 8.6 MG/DL (8.5-10.1) Magnesium Level 2.3 MG/DL (1.8-2.4) Microbiology Date/Time Source Procedure Growth Status 01/19/20 08:18 Nasopharynx SARS-CoV-2 RdRp Gene Assay - Final Complete Assessment/Plan Assessment/Plan Severe dehydration resolving Healthcare associated gram negative/aspiration PNA Toxic and metabolic encephalopathies Severe sepsis with recovered shock Hypernatremia UTI Anemia Acute renal failure Chronic diastolic CHF Dementia Aspiration risk Hypophosphatemia Parkinsons dementia IVF Abx completed. Monitor volume status Replace lytes and PO4 as needed Restraints to prevent pulling out NGtube and IV lines PEG scheduled tomorrow. Iggy Saunders MD Jan 20, 2020 01:46
[2020-01-20] MEDS ORDERED: Vancomycin 500 MG in D5W 110 ML IVPB ONE (07:00)
[2020-01-20 07:34] LABS: ANION GAP 10 mmol/L (5-15); BLOOD UREA NITROGEN 38 mg/dL (7-18); CARBON DIOXIDE 28 MMOL/L (21-32); CHLORIDE 97 MMOL/L (98-107); CREATININE 1.3 MG/DL (0.55-1.30); SODIUM 135 MMOL/L (136-145)
[2020-01-20] MEDS: Heparin 5000 units/ml inj SUBQ SCH ×2 (08:17→20:30)
[2020-01-20] MEDS: Levodopa/Carbidopa 25/100 tab NG SCH ×3 (08:17→17:38)
--- NOTE | 2020-01-20 08:38 | Anethesia Preoperative Eval ---
Anesthesia Pre-op PMH/ROS General Date of Evaluation: Jan 20, 2020 Time of Evaluation: 08:38 Anesthesiologist: kt ASA Score: ASA 4 Mallampati Score Class I : Soft palate, uvula, fauces, pillars visible Class II: Soft palate, uvula, fauces visible Class III: Soft palate, base of uvula visible Class IV: Only hard plate visible Mallampati Classification: Class II Surgeon: anatoly Diagnosis: malnutrition Surgical Procedure: egd/peg Anesthesia History: none Social History: smoking - nonsmoker Family History: no anesthesia problems Allergies: Coded Allergies: PENICILLINS (Verified Allergy, Unknown, 01/07/20) Medications: see eMAR Patient NPO?: Yes Past Medical History Pulmonary: Reports: other - pneumonia Gastrointestinal/Genitourinary: Reports: other - malnutrition, hugo Neurologic/Psychiatric: Reports: other - ams, metabolic encephalopathy, Hematology/Immune: Reports: other - sepsis Anesthesia Pre-op Phys. Exam Physician Exam Last Vital Signs Date Time Temp Pulse Resp B/P (MAP) Pulse Ox O2 Delivery O2 Flow Rate FiO2 01/20/20 08:00 97.5 91 21 123/67 (85) 97 01/19/20 21:00 Nasal Cannula 2.0 01/19/20 08:35 28 Constitutional: NAD Neurologic: CN 2-12 intact Cardiovascular: RRR Respiratory: CTA Gastrointestinal: S/NT/ND Airway Exam Mallampati Score: Class II MO: limited Neck: flexible TMD: 2fb ROM: limited Anesthesia Pre-op A/P Labs Microbiology Date/Time Source Procedure Growth Status 01/19/20 08:18 Nasopharynx SARS-CoV-2 RdRp Gene Assay - Final Complete Chemistry Test 01/20/20 04:36 Sodium Level 135 MMOL/L (136-145) L Potassium Level 5.0 MMOL/L (3.5-5.1) Chloride Level 97 MMOL/L (98-107) L Carbon Dioxide Level 28 MMOL/L (21-32) Anion Gap 10 mmol/L (5-15) Blood Urea Nitrogen 38 mg/dL (7-18) H Creatinine 1.3 MG/DL (0.55-1.30) Estimat Glomerular Filtration Rate 53.4 mL/min (>60) Glucose Level 102 MG/DL (74-106) Calcium Level 9.0 MG/DL (8.5-10.1) Risk Assessment & Plan Assessment: asa4 Plan: mac Status Change Before Surgery: No Pre-Antibiotics Drug: Marta Walker MD Jan 20, 2020 08:38
[2020-01-20] MEDS ORDERED: Atropine Inj 1mg/10ml Syr IV PRN (08:45)
[2020-01-20] MEDS ORDERED: fentaNYL 100 mcg/2 mL IV PRN (08:45)
[2020-01-20] MEDS ORDERED: DiphenhydrAMINE 50mg/ml Inj IVP PRN (08:45)
[2020-01-20] MEDS ORDERED: Midazolam 2mg/2ml Inj IVP PRN (08:45)
[2020-01-20] MEDS ORDERED: Lidocaine 1% MPF 10mg/ml 5ml ONE (09:00)
--- NOTE | 2020-01-20 09:10 | General Progress Note ---
Assessment/Plan Status: stable, progressing Assessment/Plan: Assessment - Encephalopathy - dysphagia, NGT dependent - Abnormal LFT, ? etiology - Anemia, ? etiology - Malnutrition, Albumin = 1.6 Recommendations PEG today check hepatitis serologies liver imaging Family advised to address anemia at later date Subjective Allergies: Coded Allergies: PENICILLINS (Verified Allergy, Unknown, 01/07/20) Subjective Patient non verbal seen in GI lab NPO for EGD d/w DTR and last night Objective Last 24 Hour Vital Signs Date Time Temp Pulse Resp B/P (MAP) Pulse Ox O2 Delivery O2 Flow Rate FiO2 01/20/20 09:00 Nasal Cannula 2.0 01/20/20 08:00 97.5 91 21 123/67 (85) 97 01/20/20 04:00 97.6 97 17 130/63 (85) 96 01/20/20 00:00 97.8 97 18 137/75 (95) 96 01/19/20 21:00 Nasal Cannula 2.0 01/19/20 20:00 98.1 92 16 149/68 (95) 96 01/19/20 16:00 97.7 103 19 145/71 (95) 96 01/19/20 12:00 98.2 97 20 122/74 (90) 97 Intake and Output 01/19/20 01/20/20 19:00 07:00 Intake Total 705 ml 625 ml Output Total 1900 ml 600 ml Balance -1195 ml 25 ml Intake Oral 0 ml Free Water 400 ml 400 ml IV Total 50 ml Tube Feeding 225 ml 225 ml Other 30 ml Output Urine Total 1900 ml 600 ml # Voids 1 1 # Bowel Movements 2 1 Laboratory Tests 01/20/20 04:36: Sodium Level 135L, Potassium Level 5.0, Chloride Level 97L, Carbon Dioxide Level 28, Anion Gap 10, Blood Urea Nitrogen 38H, Creatinine 1.3, Estimat Glomerular Filtration Rate 53.4, Glucose Level 102, Calcium Level 9.0, Hepatitis A IgM Antibody [Pending], Hepatitis B Surface Antigen [Pending], Hepatitis B Core IgM Antibody [Pending], Hepatitis C Antibody [Pending] Height (Feet): 5 Height (Inches): 5.00 Weight (Pounds): 138 Objective Elderly Bengali Man NCAT neck supple CTA RR abd soft ND NT no edema Camilla Merida MD Jan 20, 2020 09:10
--- NOTE | 2020-01-20 09:11 | Pre-Procedure Note/Attestation ---
Pre-Procedure Note/Attestation Complete Prior to Procedure Planned Procedure: not applicable Procedure Narrative: esophagogastroduodenoscopy enteroscopy PEG Indications for Procedure Pre-Operative Diagnosis: anemia dysphagia Attestation I attest that I discussed the nature of the procedure; its benefits; risks and complications; and alternatives (and the risks and benefits of such alternatives ), prior to the procedure, with the patient (or the patient's legal chemical sales representative). I attest that, if there was a reasonable possibility of needing a blood transfusion, the patient (or the patient's legal chemical sales representative) was given the [facility] standardized written summary, pursuant to the Jovany Faizan Blood Safety Act ([place] Health and Safety Code # 1645, as amended). I attest that I re-evaluated the patient just prior to the surgery and that there has been no change in the patient's H&P, except as documented below: Camilla Merida MD Jan 20, 2020 09:11
[2020-01-20] MEDS ORDERED: NS 500ML IVPB ONE (09:12)
--- NOTE | 2020-01-20 09:35 | Endoscopy Procedure Note ---
Endoscopy Procedure Note General Indication for Procedure: anemia dysphagia Procedures Performed: EGD, PEG Operative Findings/Diagnosis: PEG Specimen: yes Pt Tolerated Procedure Well: Yes Estimated Blood Loss: none Anesthesia Anesthesiologist: Randell Parker Anesthesia: MAC Medications Medication Given: see anesthesia record Inserted Devices Implant(s) used?: No GI Core Measures 50 yrs or older w/o bx or poly: Not Applicable 10yrs. F/U recommended: Not Applicable If not recommended, why?: Camilla Merida MD Jan 20, 2020 09:35
--- NOTE | 2020-01-20 09:37 | Brief Operative Note ---
Immediate Post Operative Note Operative Note Chief Complaint: anemia dysphagia Pre-op Diagnosis: anemia dysphagia Procedure: EGD Ent PEG Post-op Diagnosis: Nl EGD , Bx Duo , PEG Surgeon: anatoly Anesthesiologist: joshua Parker Anesthesia: MAC Specimen: yes Complications: none Condition: stable Fluids: per anesthesia Estimated Blood Loss: none Drains: none Implant(s) used?: No Camilla Merida MD Jan 20, 2020 09:37
--- NOTE | 2020-01-20 11:08 | Infectious Diseases Prog Note ---
Assessment/Plan Assessment/Plan antibiotics : none A 1. klebsiella, e.coli pneumonia s/p rx COVID 19 test negative 2. Shock resolved 3. Parkinson's disease. 4. Dementia. 5. s/p GT placement P 1. observe off antibiotics 2. will follow up cultures Subjective ROS Limited/Unobtainable: Yes Allergies: Coded Allergies: PENICILLINS (Verified Allergy, Unknown, 01/07/20) Objective Last 24 Hour Vital Signs Date Time Temp Pulse Resp B/P (MAP) Pulse Ox O2 Delivery O2 Flow Rate FiO2 01/20/20 10:04 97.4 88 23 146/72 100 Nasal Cannula 3 01/20/20 10:00 92 21 144/85 100 Nasal Cannula 3 01/20/20 09:50 88 20 145/82 100 Nasal Cannula 3 01/20/20 09:45 86 19 139/77 100 Nasal Cannula 3 01/20/20 09:43 97.9 85 19 142/84 100 Nasal Cannula 3 01/20/20 09:00 Nasal Cannula 2.0 01/20/20 08:00 97.5 91 21 123/67 (85) 97 01/20/20 04:00 97.6 97 17 130/63 (85) 96 01/20/20 00:00 97.8 97 18 137/75 (95) 96 01/19/20 21:00 Nasal Cannula 2.0 01/19/20 20:00 98.1 92 16 149/68 (95) 96 01/19/20 16:00 97.7 103 19 145/71 (95) 96 01/19/20 12:00 98.2 97 20 122/74 (90) 97 Height (Feet): 5 Height (Inches): 5.00 Weight (Pounds): 138 Respiratory/Chest: lungs clear Cardiovascular: normal rate, regular rhythm, no gallop/murmur Abdomen: soft, non tender Extremities: no edema Microbiology Date/Time Source Procedure Growth Status 01/19/20 08:18 Nasopharynx SARS-CoV-2 RdRp Gene Assay - Final Complete Laboratory Tests Test 01/20/20 04:36 Sodium Level 135 MMOL/L (136-145) L Potassium Level 5.0 MMOL/L (3.5-5.1) Chloride Level 97 MMOL/L (98-107) L Carbon Dioxide Level 28 MMOL/L (21-32) Anion Gap 10 mmol/L (5-15) Blood Urea Nitrogen 38 mg/dL (7-18) H Creatinine 1.3 MG/DL (0.55-1.30) Estimat Glomerular Filtration Rate 53.4 mL/min (>60) Glucose Level 102 MG/DL (74-106) Calcium Level 9.0 MG/DL (8.5-10.1) Hepatitis A IgM Antibody Pending Hepatitis B Surface Antigen Pending Hepatitis B Core IgM Antibody Pending Hepatitis C Antibody Pending Current Medications Medications (Trade) Dose Ordered Sig/Veronica Route PRN Reason Start Time Stop Time Status Last Admin Dose Admin Acetaminophen (Tylenol) 650 mg Q6H PRN NG Temp >100.5 01/13/20 17:15 02/10/20 17:14 Atorvastatin Calcium (Lipitor) 20 mg BEDTIME NG 01/13/20 21:00 04/06/20 20:59 01/19/20 20:02 Carbidopa/Levodopa (Sinemet 25/100) 1 tab THREE TIMES A DAY NG 01/13/20 18:00 02/06/20 12:59 01/19/20 17:47 Famotidine (Pepcid) 20 mg BID GT 01/13/20 18:00 04/12/20 08:59 01/19/20 17:47 Heparin Sodium (Porcine) (Heparin 5000 units/ml) 5,000 units EVERY 12 HOURS SUBQ 01/13/20 21:00 02/21/20 11:14 01/19/20 20:03 Metoclopramide HCl (Reglan) 10 mg Q8H PRN IVP Nausea & Vomiting 01/16/20 10:45 02/15/20 10:44 01/19/20 05:25 Sodium Chloride 1,000 ml @ 50 mls/hr Q20H IVLG 01/21/20 10:30 02/20/20 10:29 Ana Carrasco MD Jan 20, 2020 11:08
--- NOTE | 2020-01-20 11:15 | Procedure Note ---
DATE OF PROCEDURE: 01/20/2020 PROCEDURE: Upper gastrointestinal endoscopy with enteroscopy and biopsy as well as gastrostomy tube placement. SURGEON: Camilla Merida MD. ANESTHESIA: Please see the separate anesthesiologist notes for details. PRE-ENDOSCOPIC DIAGNOSES: 1. Anemia. 2. Dysphagia. POST-ENDOSCOPIC DIAGNOSES: 1. Normal upper endoscopy status post random biopsies of the duodenum. 2. Status post uneventful gastrostomy tube placement. DESCRIPTION OF PROCEDURE: The procedure its risks, indications, alternatives, and possible complications including but not limited to bleeding, infection, perforation, , and anesthesia complications were explained to the patient's through a shearing machine feeder and informed consent was obtained. The patient was then sedated in supine position. A diagnostic upper endoscope was introduced through oropharynx and advanced to the third portion of duodenum without difficulty. The endoscope was then gradually withdrawn and mucosa examined carefully. Examination of the upper gastrointestinal mucosa did not reveal any pathology. Random biopsies of the duodenum were sent to pathology for review. The endoscope was pulled back into the stomach and location was identified by palpation and transillumination techniques for placement of gastrostomy tube. The outside skin was sterilely prepared, anesthetized, incised and the trocar needle was used to pass the gastrostomy tube using the standard pull technique. Position was verified endoscopically. The endoscope was removed. The patient was sent to recovery in good condition. COMPLICATIONS: None. RECOMMENDATIONS: 1. Followup biopsy results. 2. Monitor CBC. 3. The family was advised to the consider colonoscopy in a month or so once the patient has recovered from acute illness. 4. Observe overnight before restarting feeding tomorrow. Camilla Merida M.D. DR: Stewart JOB#: [id number] CC: ZENAIDA
--- NOTE | 2020-01-20 12:25 | General Progress Note ---
Assessment/Plan Problem List: (1) Pneumonia ICD Codes: J18.9 - Pneumonia, unspecified organism SNOMED: 999478470 (2) Sepsis ICD Codes: A41.9 - Sepsis, unspecified organism SNOMED: 84080620 (3) HECTOR (acute kidney injury) ICD Codes: N17.9 - Acute kidney failure, unspecified SNOMED: 98544927, 6596168 (4) AMS (altered mental status) ICD Codes: R41.82 - Altered mental status, unspecified SNOMED: 292241408 Qualifiers: Qualified Codes: R41.82 - Altered mental status, unspecified (5) Acute hypernatremia ICD Codes: E87.0 - Hyperosmolality and hypernatremia SNOMED: 3556861, 0798451 (6) Hypoxia ICD Codes: R09.02 - Hypoxemia SNOMED: 598645112 Status: stable, progressing Assessment/Plan: water flushes tube feeds monitor residuals monitor volume status off abx per id dvt/stress ulcer prophylaxis monitor labs turn q2 skin care reglan for hiccups improving notes reviewed gt today Subjective ROS Limited/Unobtainable: Yes Constitutional: Reports: malaise, weakness HEENT: Reports: no symptoms Cardiovascular: Reports: no symptoms Respiratory: Reports: cough Gastrointestinal/Abdominal: Reports: difficulty swallowing Genitourinary: Reports: no symptoms Neurologic/Psychiatric: Reports: pre-existing deficit Endocrine: Reports: no symptoms Hematologic/Lymphatic: Reports: no symptoms Allergies: Coded Allergies: PENICILLINS (Verified Allergy, Unknown, 01/07/20) All Systems: reviewed and negative except above Subjective no events. stable on tube feeds. scheduled for GT placement today. hiccups mostly better. no sob. Objective Last 24 Hour Vital Signs Date Time Temp Pulse Resp B/P (MAP) Pulse Ox O2 Delivery O2 Flow Rate FiO2 01/20/20 12:00 97.3 99 21 121/62 (81) 97 01/20/20 10:04 97.4 88 23 146/72 100 Nasal Cannula 3 01/20/20 10:00 92 21 144/85 100 Nasal Cannula 3 01/20/20 09:50 88 20 145/82 100 Nasal Cannula 3 01/20/20 09:45 86 19 139/77 100 Nasal Cannula 3 01/20/20 09:43 97.9 85 19 142/84 100 Nasal Cannula 3 01/20/20 09:00 Nasal Cannula 2.0 01/20/20 08:00 97.5 91 21 123/67 (85) 97 01/20/20 04:00 97.6 97 17 130/63 (85) 96 01/20/20 00:00 97.8 97 18 137/75 (95) 96 01/19/20 21:00 Nasal Cannula 2.0 01/19/20 20:00 98.1 92 16 149/68 (95) 96 01/19/20 16:00 97.7 103 19 145/71 (95) 96 Intake and Output 01/19/20 01/20/20 19:00 07:00 Intake Total 705 ml 625 ml Output Total 1900 ml 600 ml Balance -1195 ml 25 ml Intake Oral 0 ml Free Water 400 ml 400 ml IV Total 50 ml Tube Feeding 225 ml 225 ml Other 30 ml Output Urine Total 1900 ml 600 ml # Voids 1 1 # Bowel Movements 2 1 Laboratory Tests 01/20/20 04:36: Sodium Level 135L, Potassium Level 5.0, Chloride Level 97L, Carbon Dioxide Level 28, Anion Gap 10, Blood Urea Nitrogen 38H, Creatinine 1.3, Estimat Glomerular Filtration Rate 53.4, Glucose Level 102, Calcium Level 9.0, Hepatitis A IgM Antibody [Pending], Hepatitis B Surface Antigen [Pending], Hepatitis B Core IgM Antibody [Pending], Hepatitis C Antibody [Pending] Height (Feet): 5 Height (Inches): 5.00 Weight (Pounds): 138 Objective General Appearance: WD/WN, lethargic, confused EENT: PERRL/EOMI, normal ENT inspection Neck: non-tender, normal alignment Cardiovascular: normal peripheral pulses, normal rate Respiratory/Chest: chest wall non-tender, lungs clear, normal breath sounds, no respiratory distress Abdomen: normal bowel sounds, non tender, soft, no organomegaly Edema: no edema noted Arm (L), no edema noted Arm (R) Edema: trace edema Neurologic: yard demurrage clerk II-XII grossly normal, alert, responsive, disoriented Skin: normal pigmentation Lymphatic: normal anterior cervical (L), normal anterior cervical (R) Mello Wheeler MD Jan 20, 2020 12:25
--- NOTE | 2020-01-20 13:37 | Immediate Post-Op Evaluation ---
Immediate Post-Op Evalulation Immediate Post-Op Evalulation Procedure: egd/peg w/bx Date of Evaluation: Jan 20, 2020 Time of Evaluation: 09:55 IV Fluids: 275ml 0.9ns Blood Products: none Estimated Blood Loss: negligible Blood Pressure Systolic: 142 Blood Pressure Diastolic: 84 Pulse Rate: 86 Respiratory Rate: 18 O2 Sat by Pulse Oximetry: 100 Temperature (Fahrenheit): 97.9 Pain Score (1-10): 0 Nausea: No Vomiting: No Complications none Patient Status: awake, reacts, patent Hydration Status: adequate Drug: Marta Walker MD Jan 20, 2020 13:37
--- NOTE | 2020-01-20 13:39 | 48 Hour Post Anesthesia Eval ---
Post Anesthesia Evaluation Procedure: egd/peg w/bx Date of Evaluation: Jan 20, 2020 Time of Evaluation: 09:57 Blood Pressure Systolic: 144 0: 85 Pulse Rate: 92 Respiratory Rate: 18 Temperature (Fahrenheit): 98.2 O2 Sat by Pulse Oximetry: 100 Airway: patent Nausea: No Vomiting: No Pain Intensity: 0 Hydration Status: adequate Cardiopulmonary Status: stable Mental Status/LOC: patient returned to baseline Post-Anesthesia Complications: none Follow-up care needed: N/A Marta Christianson MD Jan 20, 2020 13:39
--- NOTE | 2020-01-20 13:40 | Nephrology Progress Note ---
Assessment/Plan Problem List: (1) Malnutrition of moderate degree (2) Metabolic encephalopathy (3) HECTOR (acute kidney injury) (4) AMS (altered mental status) (5) Acute hypernatremia (6) Pneumonia (7) Hypophosphatemia Plan lab trend better, add free water to tube feed, starting tube feed again soon, new aPEG Subjective ROS Limited/Unobtainable: Yes Objective Objective Last 24 Hour Vital Signs Date Time Temp Pulse Resp B/P (MAP) Pulse Ox O2 Delivery O2 Flow Rate FiO2 01/20/20 13:37 86 18 100 01/20/20 12:00 97.3 99 21 121/62 (81) 97 01/20/20 10:04 97.4 88 23 146/72 100 Nasal Cannula 3 01/20/20 10:00 92 21 144/85 100 Nasal Cannula 3 01/20/20 09:50 88 20 145/82 100 Nasal Cannula 3 01/20/20 09:45 86 19 139/77 100 Nasal Cannula 3 01/20/20 09:43 97.9 85 19 142/84 100 Nasal Cannula 3 01/20/20 09:00 Nasal Cannula 2.0 01/20/20 08:00 97.5 91 21 123/67 (85) 97 01/20/20 04:00 97.6 97 17 130/63 (85) 96 01/20/20 00:00 97.8 97 18 137/75 (95) 96 01/19/20 21:00 Nasal Cannula 2.0 01/19/20 20:00 98.1 92 16 149/68 (95) 96 01/19/20 16:00 97.7 103 19 145/71 (95) 96 Intake and Output 01/19/20 01/20/20 19:00 07:00 Intake Total 705 ml 625 ml Output Total 1900 ml 600 ml Balance -1195 ml 25 ml Intake Oral 0 ml Free Water 400 ml 400 ml IV Total 50 ml Tube Feeding 225 ml 225 ml Other 30 ml Output Urine Total 1900 ml 600 ml # Voids 1 1 # Bowel Movements 2 1 Laboratory Tests 01/20/20 04:36: Sodium Level 135L, Potassium Level 5.0, Chloride Level 97L, Carbon Dioxide Level 28, Anion Gap 10, Blood Urea Nitrogen 38H, Creatinine 1.3, Estimat Glomerular Filtration Rate 53.4, Glucose Level 102, Calcium Level 9.0, Hepatitis A IgM Antibody [Pending], Hepatitis B Surface Antigen [Pending], Hepatitis B Core IgM Antibody [Pending], Hepatitis C Antibody [Pending] Height (Feet): 5 Height (Inches): 5.00 Weight (Pounds): 138 General Appearance: lethargic, confused EENT: normal ENT inspection Neck: normal alignment Cardiovascular: normal rate Respiratory/Chest: rhonchi - bilaterally Abdomen: non tender Extremities: trace edema Neurologic: motor weakness Franki Bergeron MD Jan 20, 2020 13:40
[2020-01-20] MEDS: Atorvastatin 20mg tab NG SCH (20:28)
--- NOTE | 2020-01-20 21:04 | Cardiology Progress Note ---
Subjective DATE OF SERVICE: Jan 20, 2020 Remains alert, but non-verbal and doesn't follow commands Failed swallow eval - now s/p PEG Persisting hiccups - remains on reglan. BP parameters stabilized. Objective Last 24 Hour Vital Signs Date Time Temp Pulse Resp B/P (MAP) Pulse Ox O2 Delivery O2 Flow Rate FiO2 01/20/20 19:59 96 Nasal Cannula 2.0 28 01/20/20 16:00 97.3 99 21 121/62 (81) 97 01/20/20 16:00 98.1 92 21 102/72 (82) 98 01/20/20 13:39 92 18 100 01/20/20 13:37 86 18 100 01/20/20 12:00 97.3 99 21 121/62 (81) 97 01/20/20 10:04 97.4 88 23 146/72 100 Nasal Cannula 3 01/20/20 10:00 92 21 144/85 100 Nasal Cannula 3 01/20/20 09:50 88 20 145/82 100 Nasal Cannula 3 01/20/20 09:45 86 19 139/77 100 Nasal Cannula 3 01/20/20 09:43 97.9 85 19 142/84 100 Nasal Cannula 3 01/20/20 09:00 Nasal Cannula 2.0 01/20/20 08:00 97.5 91 21 123/67 (85) 97 01/20/20 04:00 97.6 97 17 130/63 (85) 96 01/20/20 00:00 97.8 97 18 137/75 (95) 96 ROS: unchanged from my initial assessment on 01/07/20 HEENT: other RHYTHM: PACs LUNGS: diminished breath sounds CARDIAC: normal rate, regular rhythm, normal S1 and S2 ABDOMEN: normal bowel sounds, non tender, soft, G-Tube intact EXTREMITIES: normal inspection, No edema Laboratory Tests Test 01/20/20 04:36 Sodium Level 135 MMOL/L (136-145) L Potassium Level 5.0 MMOL/L (3.5-5.1) Chloride Level 97 MMOL/L (98-107) L Carbon Dioxide Level 28 MMOL/L (21-32) Anion Gap 10 mmol/L (5-15) Blood Urea Nitrogen 38 mg/dL (7-18) H Creatinine 1.3 MG/DL (0.55-1.30) Estimat Glomerular Filtration Rate 53.4 mL/min (>60) Glucose Level 102 MG/DL (74-106) Calcium Level 9.0 MG/DL (8.5-10.1) Hepatitis A IgM Antibody Pending Hepatitis B Surface Antigen Pending Hepatitis B Core IgM Antibody Pending Hepatitis C Antibody Pending Microbiology Date/Time Source Procedure Growth Status 01/19/20 08:18 Nasopharynx SARS-CoV-2 RdRp Gene Assay - Final Complete Assessment/Plan Assessment/Plan Severe dehydration resolving Healthcare associated gram negative/aspiration PNA Toxic and metabolic encephalopathies Severe sepsis with recovered shock Hypernatremia UTI Anemia Acute renal failure Chronic diastolic CHF Dementia Aspiration risk - s/p PEG Hypophosphatemia Parkinsons dementia IVF until feedings maximized Abx completed. Monitor volume status Replace lytes and PO4 as needed Restraints to prevent pulling out Gtube and IV lines Iggy Saunders MD Jan 20, 2020 21:04
[2020-01-21] VITALS: BP 136/72
[2020-01-21 04:00] VITALS: BP 144/70
[2020-01-21 07:19] LABS: ANION GAP 12 mmol/L (5-15); BLOOD UREA NITROGEN 44 mg/dL (7-18); CARBON DIOXIDE 26 MMOL/L (21-32); CHLORIDE 98 MMOL/L (98-107); CREATININE 1.4 MG/DL (0.55-1.30); POTASSIUM 4.6 MMOL/L (3.5-5.1); SODIUM 136 MMOL/L (136-145)
[2020-01-21 08:00] VITALS: BP 110/67
[2020-01-21] MEDS: Levodopa/Carbidopa 25/100 tab NG SCH ×3 (08:06→17:08)
[2020-01-21] MEDS: Heparin 5000 units/ml inj SUBQ SCH ×2 (08:07→20:56)
--- NOTE | 2020-01-21 08:56 | Nephrology Progress Note ---
Assessment/Plan Problem List: (1) Malnutrition of moderate degree (2) Metabolic encephalopathy (3) HECTOR (acute kidney injury) (4) AMS (altered mental status) (5) Acute hypernatremia (6) Pneumonia (7) Hypophosphatemia Plan lab trend better, add free water to tube feed, starting tube feed again soon, new aPEG , iv hydration until adequate enteral intake, edema from hypoalbuminemia Subjective ROS Limited/Unobtainable: Yes Objective Objective Last 24 Hour Vital Signs Date Time Temp Pulse Resp B/P (MAP) Pulse Ox O2 Delivery O2 Flow Rate FiO2 01/21/20 08:00 98.0 94 18 110/67 (81) 97 01/21/20 04:00 98.2 86 19 144/70 (94) 98 01/21/20 00:00 98.2 85 19 136/72 (93) 99 01/20/20 21:00 Nasal Cannula 2.0 01/20/20 20:00 97.2 89 18 129/61 (83) 97 01/20/20 19:59 96 Nasal Cannula 2.0 28 01/20/20 16:00 97.3 99 21 121/62 (81) 97 01/20/20 16:00 98.1 92 21 102/72 (82) 98 01/20/20 13:39 92 18 100 01/20/20 13:37 86 18 100 01/20/20 12:00 97.3 99 21 121/62 (81) 97 01/20/20 10:04 97.4 88 23 146/72 100 Nasal Cannula 3 01/20/20 10:00 92 21 144/85 100 Nasal Cannula 3 01/20/20 09:50 88 20 145/82 100 Nasal Cannula 3 01/20/20 09:45 86 19 139/77 100 Nasal Cannula 3 01/20/20 09:43 97.9 85 19 142/84 100 Nasal Cannula 3 01/20/20 09:00 Nasal Cannula 2.0 Intake and Output 01/20/20 01/21/20 19:00 07:00 Intake Total 300 ml Output Total 0 ml 600 ml Balance 300 ml -600 ml IV Total 300 ml Output Urine Total 600 ml Estimated Blood Loss 0 ml # Bowel Movements 1 Laboratory Tests 01/21/20 05:35: Sodium Level 136, Potassium Level 4.6, Chloride Level 98, Carbon Dioxide Level 26, Anion Gap 12, Blood Urea Nitrogen 44H, Creatinine 1.4H, Estimat Glomerular Filtration Rate 49.0, Glucose Level 85, Calcium Level 9.0 Height (Feet): 5 Height (Inches): 5.00 Weight (Pounds): 114 General Appearance: lethargic, confused EENT: normal ENT inspection Cardiovascular: normal rate, regular rhythm Respiratory/Chest: lungs clear Abdomen: non tender, soft Extremities: moderate edema Neurologic: motor weakness, disoriented Franki Bergeron MD Jan 21, 2020 08:56
[2020-01-21 12:00] VITALS: BP 119/67
--- NOTE | 2020-01-21 12:17 | Infectious Diseases Prog Note ---
Assessment/Plan Assessment/Plan A: 1. Aspiration pneumonia with E. Coli & Klebsiella treated 2. Shock resolved 3. Hydronephrosis 4. Parkinson's disease. 5. Dementia. 6. acute renal failure, improving 7. Hypernatremia corrected 8. Anemia PLAN: 1. Observe off antibiotic Subjective ROS Limited/Unobtainable: Yes Neurologic: Reports: confusion, other - on restraint Allergies: Coded Allergies: PENICILLINS (Verified Allergy, Unknown, 01/07/20) Objective Last 24 Hour Vital Signs Date Time Temp Pulse Resp B/P (MAP) Pulse Ox O2 Delivery O2 Flow Rate FiO2 01/21/20 09:00 Nasal Cannula 2.0 01/21/20 08:00 98.0 94 18 110/67 (81) 97 01/21/20 04:00 98.2 86 19 144/70 (94) 98 01/21/20 00:00 98.2 85 19 136/72 (93) 99 01/20/20 21:00 Nasal Cannula 2.0 01/20/20 20:00 97.2 89 18 129/61 (83) 97 01/20/20 19:59 96 Nasal Cannula 2.0 28 01/20/20 16:00 97.3 99 21 121/62 (81) 97 01/20/20 16:00 98.1 92 21 102/72 (82) 98 01/20/20 13:39 92 18 100 01/20/20 13:37 86 18 100 Height (Feet): 5 Height (Inches): 5.00 Weight (Pounds): 114 General Appearance: no acute distress HEENT: mucous membranes moist Respiratory/Chest: lungs clear, other - oxygen by nasal cannula Cardiovascular: normal rate Abdomen: soft, non tender Extremities: no edema Neurologic/Psychiatric: other - sleeping Microbiology Date/Time Source Procedure Growth Status 01/19/20 08:18 Nasopharynx SARS-CoV-2 RdRp Gene Assay - Final Complete Laboratory Tests Test 01/21/20 05:35 Sodium Level 136 MMOL/L (136-145) Potassium Level 4.6 MMOL/L (3.5-5.1) Chloride Level 98 MMOL/L (98-107) Carbon Dioxide Level 26 MMOL/L (21-32) Anion Gap 12 mmol/L (5-15) Blood Urea Nitrogen 44 mg/dL (7-18) H Creatinine 1.4 MG/DL (0.55-1.30) H Estimat Glomerular Filtration Rate 49.0 mL/min (>60) Glucose Level 85 MG/DL (74-106) Calcium Level 9.0 MG/DL (8.5-10.1) Current Medications Medications (Trade) Dose Ordered Sig/Veronica Route PRN Reason Start Time Stop Time Status Last Admin Dose Admin Acetaminophen (Tylenol) 650 mg Q6H PRN NG Temp >100.5 01/13/20 17:15 02/10/20 17:14 Atorvastatin Calcium (Lipitor) 20 mg BEDTIME NG 01/13/20 21:00 04/06/20 20:59 01/20/20 20:28 Carbidopa/Levodopa (Sinemet 25/) 1 tab THREE TIMES A DAY NG 01/13/20 18:00 02/06/20 12:59 01/21/20 08:06 Famotidine (Pepcid) 20 mg BID GT 01/13/20 18:00 04/12/20 08:59 01/21/20 08:06 Heparin Sodium (Porcine) (Heparin 5000 units/ml) 5,000 units EVERY 12 HOURS SUBQ 01/13/20 21:00 02/21/20 11:14 01/21/20 08:07 Metoclopramide HCl (Reglan) 10 mg Q8H PRN IVP Nausea & Vomiting 01/16/20 10:45 02/15/20 10:44 01/19/20 05:25 Sodium Chloride 1,000 ml @ 50 mls/hr Q20H IVLG 01/21/20 10:30 02/20/20 10:29 01/21/20 10:37 Mohsen Garcia MD Jan 21, 2020 12:17
[2020-01-21 16:00] VITALS: BP 119/72
--- NOTE | 2020-01-21 16:22 | General Progress Note ---
Assessment/Plan Problem List: (1) Pneumonia ICD Codes: J18.9 - Pneumonia, unspecified organism SNOMED: 865904443 (2) Sepsis ICD Codes: A41.9 - Sepsis, unspecified organism SNOMED: 23257051 (3) HECTOR (acute kidney injury) ICD Codes: N17.9 - Acute kidney failure, unspecified SNOMED: 07367073, 1370407 (4) AMS (altered mental status) ICD Codes: R41.82 - Altered mental status, unspecified SNOMED: 759399344 Qualifiers: Qualified Codes: R41.82 - Altered mental status, unspecified (5) Acute hypernatremia ICD Codes: E87.0 - Hyperosmolality and hypernatremia SNOMED: 9937325, 6579949 (6) Hypoxia ICD Codes: R09.02 - Hypoxemia SNOMED: 663603591 Status: stable, progressing Assessment/Plan: water flushes tube feeds monitor residuals monitor volume status off abx per id dvt/stress ulcer prophylaxis monitor labs turn q2 skin care reglan for hiccups improving notes reviewed dc planning Subjective ROS Limited/Unobtainable: No Constitutional: Reports: malaise, weakness HEENT: Reports: no symptoms Cardiovascular: Reports: no symptoms Respiratory: Reports: cough Gastrointestinal/Abdominal: Reports: difficulty swallowing Genitourinary: Reports: no symptoms Neurologic/Psychiatric: Reports: emotional problems, pre-existing deficit Endocrine: Reports: no symptoms Hematologic/Lymphatic: Reports: anemia Allergies: Coded Allergies: PENICILLINS (Verified Allergy, Unknown, 01/07/20) All Systems: reviewed and negative except above Subjective Patient is status post uncomplicated G-tube placement. Tolerating feedings. Remains poorly responsive. No congestion. No hiccups noted labs reviewed. Objective Last 24 Hour Vital Signs Date Time Temp Pulse Resp B/P (MAP) Pulse Ox O2 Delivery O2 Flow Rate FiO2 01/21/20 12:00 97.9 89 19 119/67 (84) 98 01/21/20 09:00 Nasal Cannula 2.0 01/21/20 08:00 98.0 94 18 110/67 (81) 97 01/21/20 04:00 98.2 86 19 144/70 (94) 98 01/21/20 00:00 98.2 85 19 136/72 (93) 99 01/20/20 21:00 Nasal Cannula 2.0 01/20/20 20:00 97.2 89 18 129/61 (83) 97 01/20/20 19:59 96 Nasal Cannula 2.0 28 Intake and Output 01/20/20 01/21/20 19:00 07:00 Intake Total 300 ml Output Total 0 ml 600 ml Balance 300 ml -600 ml IV Total 300 ml Output Urine Total 600 ml Estimated Blood Loss 0 ml # Bowel Movements 1 Laboratory Tests 01/21/20 05:35: Sodium Level 136, Potassium Level 4.6, Chloride Level 98, Carbon Dioxide Level 26, Anion Gap 12, Blood Urea Nitrogen 44H, Creatinine 1.4H, Estimat Glomerular Filtration Rate 49.0, Glucose Level 85, Calcium Level 9.0 Height (Feet): 5 Height (Inches): 5.00 Weight (Pounds): 114 Objective General Appearance: WD/WN, lethargic, confused EENT: PERRL/EOMI, normal ENT inspection Neck: non-tender, normal alignment Cardiovascular: normal peripheral pulses, normal rate Respiratory/Chest: chest wall non-tender, lungs clear, normal breath sounds, no respiratory distress Abdomen: normal bowel sounds, non tender, soft, no organomegaly Edema: no edema noted Arm (L), no edema noted Arm (R) Edema: trace edema Neurologic: ward secretary II-XII grossly normal, alert, responsive, disoriented Skin: normal pigmentation Lymphatic: normal anterior cervical (L), normal anterior cervical (R) Mello Wheeler MD Jan 21, 2020 16:22
[2020-01-21 20:00] VITALS: BP 116/57
[2020-01-21] MEDS: Atorvastatin 20mg tab NG SCH (20:43)
[2020-01-22] VITALS: BP 140/66
--- NOTE | 2020-01-22 00:01 | Cardiology Progress Note ---
Subjective DATE OF SERVICE: Jan 21, 2020 Remains alert, but non-verbal and doesn't follow commands Failed swallow eval - now s/p PEG; feedings just restarted. Resolving hiccups. BP parameters stabilized. Objective Last 24 Hour Vital Signs Date Time Temp Pulse Resp B/P (MAP) Pulse Ox O2 Delivery O2 Flow Rate FiO2 01/21/20 21:00 Nasal Cannula 2.0 01/21/20 20:00 97.6 80 19 116/57 (76) 96 01/21/20 19:34 96 Nasal Cannula 2.0 28 01/21/20 16:00 97.2 81 18 119/72 (88) 97 01/21/20 12:00 97.9 89 19 119/67 (84) 98 01/21/20 09:00 Nasal Cannula 2.0 01/21/20 08:00 98.0 94 18 110/67 (81) 97 01/21/20 04:00 98.2 86 19 144/70 (94) 98 ROS: unchanged from my initial assessment on 01/07/20 HEENT: other RHYTHM: PACs LUNGS: diminished breath sounds CARDIAC: normal rate, regular rhythm, normal S1 and S2 ABDOMEN: normal bowel sounds, non tender, soft, G-Tube intact EXTREMITIES: normal inspection, No edema Laboratory Tests Test 01/21/20 05:35 Sodium Level 136 MMOL/L (136-145) Potassium Level 4.6 MMOL/L (3.5-5.1) Chloride Level 98 MMOL/L (98-107) Carbon Dioxide Level 26 MMOL/L (21-32) Anion Gap 12 mmol/L (5-15) Blood Urea Nitrogen 44 mg/dL (7-18) H Creatinine 1.4 MG/DL (0.55-1.30) H Estimat Glomerular Filtration Rate 49.0 mL/min (>60) Glucose Level 85 MG/DL (74-106) Calcium Level 9.0 MG/DL (8.5-10.1) Microbiology Date/Time Source Procedure Growth Status 01/19/20 08:18 Nasopharynx SARS-CoV-2 RdRp Gene Assay - Final Complete Assessment/Plan Assessment/Plan Severe dehydration resolving Healthcare associated gram negative/aspiration PNA Toxic and metabolic encephalopathies Severe sepsis with recovered shock Hypernatremia UTI Anemia Acute renal failure Chronic diastolic CHF Dementia Aspiration risk - s/p PEG Hypophosphatemia Parkinsons dementia IVF until feedings maximized Abx completed. Monitor volume status Replace lytes and PO4 as needed Restraints to prevent pulling out Gtube and IV lines DC plan tomorrow Iggy Saunders MD Jan 22, 2020 00:01
[2020-01-22 04:00] VITALS: BP 132/70
[2020-01-22 07:15] LABS: ANION GAP 7 mmol/L (5-15); BLOOD UREA NITROGEN 39 mg/dL (7-18); CALCIUM 8.6 MG/DL (8.5-10.1); CARBON DIOXIDE 28 MMOL/L (21-32); CHLORIDE 102 MMOL/L (98-107); CREATININE 1.3 MG/DL (0.55-1.30); POTASSIUM 4.6 MMOL/L (3.5-5.1); SODIUM 137 MMOL/L (136-145)
[2020-01-22 08:00] VITALS: BP 136/64
[2020-01-22] MEDS: Levodopa/Carbidopa 25/100 tab NG SCH ×2 (08:38→13:16)
[2020-01-22] MEDS: Heparin 5000 units/ml inj SUBQ SCH (08:50)
--- NOTE | 2020-01-22 09:32 | Nephrology Progress Note ---
Assessment/Plan Problem List: (1) Malnutrition of moderate degree (2) Metabolic encephalopathy (3) HECTOR (acute kidney injury) (4) AMS (altered mental status) (5) Acute hypernatremia (6) Pneumonia (7) Hypophosphatemia Plan lab trend better, add free water to tube feed, starting tube feed again , new aPEG , iv hydration until adequate enteral intake, edema from hypoalbuminemia Subjective ROS Limited/Unobtainable: Yes Objective Objective Last 24 Hour Vital Signs Date Time Temp Pulse Resp B/P (MAP) Pulse Ox O2 Delivery O2 Flow Rate FiO2 01/22/20 08:02 Nasal Cannula 2.0 01/22/20 08:00 98.1 82 18 136/64 (88) 99 01/22/20 07:55 95 Nasal Cannula 2.0 28 01/22/20 04:00 97.4 86 20 132/70 (90) 94 01/22/20 00:00 97.8 89 22 140/66 (90) 98 01/21/20 21:00 Nasal Cannula 2.0 01/21/20 20:00 97.6 80 19 116/57 (76) 96 01/21/20 19:34 96 Nasal Cannula 2.0 28 01/21/20 16:00 97.2 81 18 119/72 (88) 97 01/21/20 12:00 97.9 89 19 119/67 (84) 98 Intake and Output 01/21/20 01/22/20 19:00 07:00 Intake Total 670 ml 1060 ml Balance 670 ml 1060 ml Free Water 100 ml 200 ml IV Total 450 ml 600 ml Tube Feeding 120 ml 260 ml Laboratory Tests 01/22/20 05:25: Sodium Level 137, Potassium Level 4.6, Chloride Level 102, Carbon Dioxide Level 28, Anion Gap 7, Blood Urea Nitrogen 39H, Creatinine 1.3, Estimat Glomerular Filtration Rate 53.4, Glucose Level 121H, Calcium Level 8.6 Height (Feet): 5 Height (Inches): 5.00 Weight (Pounds): 114 General Appearance: lethargic, confused EENT: normal ENT inspection Cardiovascular: regular rhythm Respiratory/Chest: lungs clear Abdomen: non tender, soft Extremities: trace edema Neurologic: motor weakness, disoriented Franki Bergeron MD Jan 22, 2020 09:32
--- NOTE | 2020-01-22 11:04 | Infectious Diseases Prog Note ---
Assessment/Plan Assessment/Plan antibiotics : none A 1. klebsiella, e.coli pneumonia s/p rx COVID 19 test negative 2. Shock resolved 3. Parkinson's disease. 4. Dementia. 5. s/p GT placement P 1. observe off antibiotics 2. will follow up cultures Subjective ROS Limited/Unobtainable: Yes Allergies: Coded Allergies: PENICILLINS (Verified Allergy, Unknown, 01/07/20) Objective Last 24 Hour Vital Signs Date Time Temp Pulse Resp B/P (MAP) Pulse Ox O2 Delivery O2 Flow Rate FiO2 01/22/20 08:02 Nasal Cannula 2.0 01/22/20 08:00 98.1 82 18 136/64 (88) 99 01/22/20 07:55 95 Nasal Cannula 2.0 28 01/22/20 04:00 97.4 86 20 132/70 (90) 94 01/22/20 00:00 97.8 89 22 140/66 (90) 98 01/21/20 21:00 Nasal Cannula 2.0 01/21/20 20:00 97.6 80 19 116/57 (76) 96 01/21/20 19:34 96 Nasal Cannula 2.0 28 01/21/20 16:00 97.2 81 18 119/72 (88) 97 01/21/20 12:00 97.9 89 19 119/67 (84) 98 Height (Feet): 5 Height (Inches): 5.00 Weight (Pounds): 114 Respiratory/Chest: lungs clear Cardiovascular: normal rate, regular rhythm, no gallop/murmur Abdomen: soft, non tender, other - GT Extremities: no edema Laboratory Tests Test 01/22/20 05:25 Sodium Level 137 MMOL/L (136-145) Potassium Level 4.6 MMOL/L (3.5-5.1) Chloride Level 102 MMOL/L (98-107) Carbon Dioxide Level 28 MMOL/L (21-32) Anion Gap 7 mmol/L (5-15) Blood Urea Nitrogen 39 mg/dL (7-18) H Creatinine 1.3 MG/DL (0.55-1.30) Estimat Glomerular Filtration Rate 53.4 mL/min (>60) Glucose Level 121 MG/DL (74-106) H Calcium Level 8.6 MG/DL (8.5-10.1) Current Medications Medications (Trade) Dose Ordered Sig/Veronica Route PRN Reason Start Time Stop Time Status Last Admin Dose Admin Acetaminophen (Tylenol) 650 mg Q6H PRN NG Temp >100.5 01/13/20 17:15 02/10/20 17:14 Atorvastatin Calcium (Lipitor) 20 mg BEDTIME NG 01/13/20 21:00 04/06/20 20:59 01/21/20 20:43 Carbidopa/Levodopa (Sinemet 25/100) 1 tab THREE TIMES A DAY NG 01/13/20 18:00 02/06/20 12:59 01/22/20 08:38 Famotidine (Pepcid) 20 mg BID GT 01/13/20 18:00 04/12/20 08:59 01/22/20 08:38 Heparin Sodium (Porcine) (Heparin 5000 units/ml) 5,000 units EVERY 12 HOURS SUBQ 01/13/20 21:00 02/21/20 11:14 01/22/20 08:50 Metoclopramide HCl (Reglan) 10 mg Q8H PRN IVP Nausea & Vomiting 01/16/20 10:45 02/15/20 10:44 01/19/20 05:25 Sodium Chloride 1,000 ml @ 50 mls/hr Q20H IVLG 01/21/20 10:30 02/20/20 10:29 01/22/20 05:36 Ana Carrasco MD Jan 22, 2020 11:04
[2020-01-22 12:00] VITALS: BP 127/72
[2020-01-22] MEDS ORDERED: METOPROLOL TART25 MG ORAL (13:12)
[2020-01-22] MEDS ORDERED: LIPITOR20 MG NG (13:12)
[2020-01-22] MEDS ORDERED: FAMOTIDINE20 MG GT (13:12)
--- NOTE | 2020-01-22 15:46 | Cardiology Progress Note ---
Subjective DATE OF SERVICE: Jan 22, 2020 Remains alert, but non-verbal and doesn't follow commands Failed swallow eval - now s/p PEG; feedings restarted, and tolerated without residuals. Resolved hiccups. BP parameters stable. Objective Last 24 Hour Vital Signs Date Time Temp Pulse Resp B/P (MAP) Pulse Ox O2 Delivery O2 Flow Rate FiO2 01/22/20 12:00 98.8 80 18 127/72 (90) 98 01/22/20 08:02 Nasal Cannula 2.0 01/22/20 08:00 98.1 82 18 136/64 (88) 99 01/22/20 07:55 95 Nasal Cannula 2.0 28 01/22/20 04:00 97.4 86 20 132/70 (90) 94 01/22/20 00:00 97.8 89 22 140/66 (90) 98 01/21/20 21:00 Nasal Cannula 2.0 01/21/20 20:00 97.6 80 19 116/57 (76) 96 01/21/20 19:34 96 Nasal Cannula 2.0 28 01/21/20 16:00 97.2 81 18 119/72 (88) 97 ROS: unchanged from my initial assessment on 01/07/20 HEENT: other RHYTHM: PACs LUNGS: diminished breath sounds CARDIAC: normal rate, regular rhythm, normal S1 and S2 ABDOMEN: normal bowel sounds, non tender, soft, G-Tube intact EXTREMITIES: normal inspection, No edema Laboratory Tests Test 01/22/20 05:25 Sodium Level 137 MMOL/L (136-145) Potassium Level 4.6 MMOL/L (3.5-5.1) Chloride Level 102 MMOL/L (98-107) Carbon Dioxide Level 28 MMOL/L (21-32) Anion Gap 7 mmol/L (5-15) Blood Urea Nitrogen 39 mg/dL (7-18) H Creatinine 1.3 MG/DL (0.55-1.30) Estimat Glomerular Filtration Rate 53.4 mL/min (>60) Glucose Level 121 MG/DL (74-106) H Calcium Level 8.6 MG/DL (8.5-10.1) Assessment/Plan Assessment/Plan Severe dehydration resolving Healthcare associated gram negative/aspiration PNA Toxic and metabolic encephalopathies Severe sepsis with recovered shock Hypernatremia UTI Anemia Acute renal failure Chronic diastolic CHF Dementia Aspiration risk - s/p PEG Hypophosphatemia Parkinsons dementia Off IVF Abx completed. Monitor volume status at SNF DC plan to SNF today; DC meds reconciled and reviewed Iggy Saunders MD Jan 22, 2020 15:46
[2020-01-22 16:00] VITALS: BP 128/65
--- NOTE | 2020-01-22 20:43 | General Progress Note ---
Assessment/Plan Status: stable, progressing Assessment/Plan: Assessment - Encephalopathy - dysphagia, s/p PEG - Abnormal LFT, ? etiology - Anemia, ? etiology - Malnutrition, Albumin = 1.6 Recommendations TF check hepatitis serologies --> Neg liver imaging Family advised to address anemia at later date Subjective Allergies: Coded Allergies: PENICILLINS (Verified Allergy, Unknown, 01/07/20) Subjective Patient non verbal s/p PEG tolerating TF for discharge today Objective Last 24 Hour Vital Signs Date Time Temp Pulse Resp B/P (MAP) Pulse Ox O2 Delivery O2 Flow Rate FiO2 01/22/20 16:00 98.0 78 19 128/65 (86) 99 01/22/20 12:00 98.8 80 18 127/72 (90) 98 01/22/20 08:02 Nasal Cannula 2.0 01/22/20 08:00 98.1 82 18 136/64 (88) 99 01/22/20 07:55 95 Nasal Cannula 2.0 28 01/22/20 04:00 97.4 86 20 132/70 (90) 94 01/22/20 00:00 97.8 89 22 140/66 (90) 98 01/21/20 21:00 Nasal Cannula 2.0 Intake and Output 01/21/20 01/22/20 19:00 07:00 Intake Total 670 ml 1060 ml Balance 670 ml 1060 ml Free Water 100 ml 200 ml IV Total 450 ml 600 ml Tube Feeding 120 ml 260 ml Laboratory Tests 01/22/20 05:25: Sodium Level 137, Potassium Level 4.6, Chloride Level 102, Carbon Dioxide Level 28, Anion Gap 7, Blood Urea Nitrogen 39H, Creatinine 1.3, Estimat Glomerular Filtration Rate 53.4, Glucose Level 121H, Calcium Level 8.6 Height (Feet): 5 Height (Inches): 5.00 Weight (Pounds): 114 Objective Elderly [place] Man NCAT neck supple CTA RR abd soft ND NT no edema Camilla Merida MD Jan 22, 2020 20:43
--- NOTE | 2020-01-22 22:30 | Discharge Summary ---
DATE OF ADMISSION: 01/07/2020 DATE OF DISCHARGE: 01/22/2020 ADMISSION DIAGNOSES: Altered mental status, sepsis, shock, pneumonia, hypernatremia, and acute renal failure. DISCHARGE DIAGNOSES: Altered mental status, sepsis, shock, pneumonia, hypernatremia, and acute renal failure. HOSPITAL COURSE: The patient is an unfortunate male admitted with complaints of sepsis, hypernatremia, dehydration, shock, and acute renal failure. He was admitted and aggressively resuscitated. He received broad-spectrum IV antibiotics. Cardiology, ID consultation, and Renal consultations were obtained. The patient's renal failure did improve. He remained lethargic though and confused. He failed multiple swallow evaluations. An NG tube was placed and the patient was placed on feedings. Swallowing still did not improve. After discussion with family members, they agreed to proceed with G-tube. He tolerated the G-tube well. On discharge, he was tolerating feedings. DISCHARGE MEDICATIONS: Please see discharge medication list for discharge medications. DIET: G-tube feedings. ACTIVITY: Ad-charlene. FOLLOWUP: The patient will be followed by his PMD at the [facility]. Mello Wheeler M.D. DR: Bryan JOB#: [id number] CC:
== END 2020-01-22 17:06 | DRG 871 ==
LOC: EDBD 05:17 → EMR 05:34 → ICU 06:00 → EDBEDREQ 06:06 → EDBEDREQSVC 06:26 → EDBEDREQ 07:10 → 2E 01-09 16:10 → 4E 01-13 16:44
PROC: 0DD98ZX Extraction of Duodenum, Via Natural or Artificial Opening Endoscopic, Diagnostic (ICD-10-PCS; principal; 2020-01-18)
PROC: 0DH63UZ Insertion of Feeding Device into Stomach, Percutaneous Approach (ICD-10-PCS; principal; 2020-01-18)
DX: A41.9 Sepsis, unspecified organism (principal); R65.21 Severe sepsis with septic shock; J69.0 Pneumonitis due to inhalation of food and vomit; G92 Toxic encephalopathy; G93.41 Metabolic encephalopathy; J15.5 Pneumonia due to Escherichia coli; J15.0 Pneumonia due to Klebsiella pneumoniae; E87.0 Hyperosmolality and hypernatremia; N17.9 Acute kidney failure, unspecified; I24.9 Acute ischemic heart disease, unspecified; E44.0 Moderate protein-calorie malnutrition; N39.0 Urinary tract infection, site not specified; I50.32 Chronic diastolic (congestive) heart failure; R09.02 Hypoxemia; G20 Parkinson's disease; F02.80 Dementia in other diseases classified elsewhere, unspecified severity, without behavioral disturbance, psychotic disturbance, mood disturbance, and anxiety; R13.10 Dysphagia, unspecified; Z66 Do not resuscitate; Z20.828 Contact with and (suspected) exposure to other viral communicable diseases; N18.9 Chronic kidney disease, unspecified; E86.1 Hypovolemia; E86.0 Dehydration; K72.90 Hepatic failure, unspecified without coma; E83.39 Other disorders of phosphorus metabolism
CPT/HCPCS: 36415; 36600; 70450; 71045; 71250; 74018; 74230; 76770; 80048; 80053; 80202; 81003; 82550; 82570; 82803; 82962; 83605; 83735; 83880; 84100; 84300; 84484; 84550; 85007; 85025; 86705; 86709; 86803; 87040; 87070; 87081; 87086; 87181; 87205; 87340; 93005; 93306; 94003; 94150; 94640; 96365; 99291; C9399; J2765; J7620; U0002

== ENCOUNTER 2020-02-17 18:45 | Inpatient (IN) | payer MEDICARE, OTHER ==
[~2020-02-17] VITALS: Ht 157.5 cm; Wt 43.3 kg
[~2020-02-17 18:45] MED LIST: ACETAMINOPHEN325 M1 ORAL; ALFUZOSIN HCL10 MG PO; AMLODIPINE BESYL5 MG ORAL; APATATE FORTE237 ML ORAL; ASPIRIN81 MG ORAL; ATORVASTATIN CA20 MG ORAL; ATORVASTATIN CA40 MG ORAL; AZILECT1 MG ORAL; B-121000 MCG ORAL; BISACODYL10 M1 RC; COZAAR25 MG ORAL; DOCUSATE SODIU100 MG ORAL; FAMOTIDINE20 MG GT; FOLIC ACID1 MG ORAL; LIPITOR20 MG NG; LOSARTAN POTASS50 MG ORAL; MELATONIN 5 MG1 EAC1 ORAL; METOPROLOL SUCC25 MG ORAL; METOPROLOL TART25 MG ORAL; MILK OF MA400 MG/51 ORAL; NORCO 5-325 TA1 EAC1 ORAL; NORVASC2.5 MG ORAL; SINEMET 25-1001 EAC1 ORAL; TRAZODONE HCL50 MG ORAL; VITAMIN B-12500 MCG ORAL; VITAMIN D325 MCG ORAL
[2020-02-17 18:57] VITALS: BP 105/63
--- NOTE | 2020-02-17 18:59 | NUR ---
ED Nurse Note: PT brought in by ambulance from [facility] for fever of 101.3 with congestion. pt is covid +. pt currently on oxygen 2L NC with sp02 94%.
--- NOTE | 2020-02-17 18:59 | Emergency Room Report ---
History of Present Illness General Chief Complaint: Upper Respiratory Illness Source: Medical Record, EMS, PMD Present Illness HPI Disclaimer: Please note that this report is being documented using [employer] technology. This can lead to erroneous entry secondary to incorrect interpretat ion by the dictating instrument. HPI: 79-year-old male history of dementia, Parkinson's, CAD presents from custodial facility for evaluation of fever. Patient tested positive for COVID 19 earlier today; swabbed on 02/14. Was reportedly saturating 90% on room air reported persistently elevated fevers. Sent in for medical evaluation. Cannot obtain any information from the patient. 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 EOMI. Cardiovascular: RRR. S1 and S2 normal. No murmur appreciated Resp: Tachypneic, 90% on room air. Somewhat increased work of breathing. Abdomen: Abdomen is soft, nondistended. Nontender Skin: Intact. No abrasions, laceration or rash over the exposed skin MSK: Decreased muscle bulk diffusely. Neuro: Awake, confused. Procedures Critical Care Time Critical Care Time Total critical care time: Approximately 45 minutes Due to a high probability of clinically significant, life threatening deterioration, the patient required the highest level of preparedness to intervene emergently and I personally spent this critical care time directly and personally managing the patient. This critical care time included obtaining a history, examining the patient, pulse oximetry, ordering and reviewing studies, ordering treatments, evaluating response to treatment and updating management plan as needed, frequent reassessment and discussion with other providers as well as arranging for ultimate disposition. This critical to care time was p erformed to assess and manage the high probability of life-threatening deterioration that could result in multiorgan failure. This critical care time is separate from the separately billable procedures and treating other patients. Medical Decision Making Diagnostic Impression: Primary Impression: COVID-19 Additional Impressions: Right bundle branch block Pneumonia ER Course 79-year-old male sent in from nursing facility recent tested positive for COVID- 19 pneumonia. Reported fever and hypoxia. Patient is DNR/DNI. Concern for pneumonia, viral syndrome, malnutrition, sepsis. Patient given Decadron, started on supplemental oxygen. Labs are returned largely within normal limits. The patient appears to have a right lower lobe infiltrate consistent with COVID-19 pneumonia. Will treat with antibiotics. Slight elevation in d-dimer. 40 mg subcutaneous Lovenox ordered. Patient will be admitted to her PMD, Dr. Saunders. Laboratory Tests Test 02/17/20 19:30 02/17/20 19:40 White Blood Count 8.3 K/UL (4.8-10.8) Red Blood Count 3.39 M/UL (4.70-6.10) L Hemoglobin 9.7 G/DL (14.2-18.0) L Hematocrit 30.0 % (42.0-52.0) L Mean Corpuscular Volume 88 FL (80-99) Mean Corpuscular Hemoglobin 28.5 PG (27.0-31.0) Mean Corpuscular Hemoglobin Concent 32.2 G/DL (32.0-36.0) Red Cell Distribution Width 16.0 % (11.6-14.8) H Platelet Count 347 K/UL (150-450) Mean Platelet Volume 5.1 FL (6.5-10.1) L Neutrophils (%) (Auto) 82.1 % (45.0-75.0) H Lymphocytes (%) (Auto) 12.3 % (20.0-45.0) L Monocytes (%) (Auto) 4.0 % (1.0-10.0) Eosinophils (%) (Auto) 1.4 % (0.0-3.0) Basophils (%) (Auto) 0.2 % (0.0-2.0) Prothrombin Time 10.4 SEC (9.30-11.50) Prothrombin Time INR 0.9 (0.9-1.1) Activated Partial Thromboplast Time 32 SEC (23-33) D-Dimer 0.84 mg/L FEU (0.00-0.49) H Sodium Level 134 MMOL/L (136-145) L Potassium Level 3.7 MMOL/L (3.5-5.1) Chloride Level 100 MMOL/L (98-107) Carbon Dioxide Level 28 MMOL/L (21-32) Anion Gap 6 mmol/L (5-15) Blood Urea Nitrogen 34 mg/dL (7-18) H Creatinine 1.2 MG/DL (0.55-1.30) Estimated Glomerular Filtration Rate 58.6 mL/min (>60) Glucose Level 110 MG/DL (74-106) H Lactic Acid Level 0.80 mmol/L (0.4-2.0) Calcium Level 8.7 MG/DL (8.5-10.1) Phosphorus Level 3.4 MG/DL (2.5-4.9) Magnesium Level 1.9 MG/DL (1.8-2.4) Ferritin 553 NG/ML (8-388) H Total Bilirubin 0.3 MG/DL (0.2-1.0) Aspartate Amino Transferase (AST) 38 U/L (15-37) H Alanine Aminotransferase (ALT) 12 U/L (12-78) Alkaline Phosphatase 53 U/L (46-116) Lactate Dehydrogenase 269 U/L (81-234) H Total Creatine Kinase 438 U/L (26-308) H Creatine Kinase MB 1.9 NG/ML (0.0-3.6) Creatine Kinase MB Relative Index 0.4 Troponin I 0.018 ng/mL (0.000-0.056) C-Reactive Protein, Quantitative 10.7 mg/dL (0.00-0.90) H Pro-B-Type Natriuretic Peptide 271 pg/mL (0-125) H Total Protein 7.0 G/DL (6.4-8.2) Albumin 2.5 G/DL (3.4-5.0) L Globulin 4.5 g/dL Albumin/Globulin Ratio 0.6 (1.0-2.7) L Lipase 144 U/L (73-393) Urine Color Yellow Urine Appearance Cloudy Urine pH 6 (4.5-8.0) Urine Specific [place] 1.015 (1.005-1.035) Urine Protein 2+ (NEGATIVE) H Urine Glucose (UA) Negative (NEGATIVE) Urine Ketones Negative (NEGATIVE) Urine Blood 1+ (NEGATIVE) H Urine Nitrite Negative (NEGATIVE) Urine Bilirubin Negative (NEGATIVE) Urine Urobilinogen Normal MG/DL (0.0-1.0) Urine Leukocyte Esterase 1+ (NEGATIVE) H Urine RBC 2-4 /HPF (0 - 0) H Urine WBC 2-4 /HPF (0 - 0) Urine Squamous Epithelial Cells None /LPF (NONE/OCC) Urine Bacteria Few /HPF (NONE) Urine Yeast Many /HPF (NONE) H EKG Diagnostic Results EKG Time: 19:02 Rate: normal Rhythm: NSR ST Segments: no acute changes Other Impression Sinus rhythm, normal axis, normal intervals, right bundle branch block pattern Rhythm Strip Diag. Results Rhythm Strip Time: 19:02 EP Interpretation: yes Rate: 88 Rhythm: NSR, no PVC's, no ectopy Chest X-Ray Diagnostic Results Chest X-Ray Diagnostic Results : Chest X-Ray Ordered: Yes # of Views/Limited/Complete: 1 View Indication: Shortness of Breath EP Interpretation: Yes Interpretation: no effusion, no pneumothorax, other - Possible right lower lobe infiltrate Impression: Other - Right lower lobe pneumonia Electronically Signed by: Electronically signed by Dr. Gene Navarro Last Vital Signs Date Time Temp Pulse Resp B/P (MAP) Pulse Ox O2 Delivery O2 Flow Rate FiO2 02/17/20 18:47 101.3 86 20 103/54 (70) 90 Room Air Disposition: ADMITTED INPATIENT Condition: Serious Gene Navarro MD Feb 17, 2020 18:59
[2020-02-17] MEDS ORDERED: dexAMETHasone 10mg/ml Inj IV ONE (19:00)
[2020-02-17] MEDS ORDERED: Acetaminophen 650 MG SUPP RECTAL ONE (19:00)
--- NOTE | 2020-02-17 19:10 | NUR ---
HAND-OFF: Report given to DAMION Hardy. Endorsed plan of care.
--- NOTE | 2020-02-17 19:10 | NUR ---
ED Nurse Note: pt biba from SNF for COVID-19 pos test result with SOB (90% on RA), T 101.3, and congestion. Pt aao x 0-1. Pt bedbound with redness on sacral area. pt incontinent x 2. Pt placed in gown and on monitor with 2L NC for spo2 99%. ERMD at bedside. awaiting further orders.
--- NOTE | 2020-02-17 19:30 | NUR ---
ED Nurse Note: all medications administered, pt tolerated well no ss of distress noted. will continue to monitor.
[2020-02-17 20:24] LABS: BASOPHILS % (AUTO) 0.2 % (0.0-2.0); EOSINOPHILS % (AUTO) 1.4 % (0.0-3.0); HEMOGLOBIN 9.7 G/DL (14.2-18.0); LYMPHOCYTES % (AUTO) 12.3 % (20.0-45.0); MEAN CORPUSCULAR VOLUME 88 FL (80-99); NEUTROPHILS % (AUTO) 82.1 % (45.0-75.0); PLATELET COUNT 347 K/UL (150-450); RED BLOOD COUNT 3.39 M/UL (4.70-6.10); WHITE BLOOD COUNT 8.3 K/UL (4.8-10.8)
[2020-02-17 20:36] LABS: CALCIUM 8.7 MG/DL (8.5-10.1); CREATININE 1.2 MG/DL (0.55-1.30); POTASSIUM 3.7 MMOL/L (3.5-5.1)
[2020-02-17 20:38] LABS: INR 0.9 (0.9-1.1)
[2020-02-17 20:41] LABS: APPEARANCE,URINE CLOUDY; BILIRUBIN, URINE NEGATIVE (NEGATIVE); GLUCOSE, URINE (UA) NEGATIVE (NEGATIVE); KETONES,URINE NEGATIVE (NEGATIVE); LEUKOCYTE ESTERASE ,URINE 1+ (NEGATIVE); NITRITE,URINE NEGATIVE (NEGATIVE); PH,URINE 6 (4.5-8.0); PROTEIN,URINE 2+ (NEGATIVE); UROBILINOGEN,URINE NORMAL MG/DL (0.0-1.0)
[2020-02-17 20:43] LABS: COLOR,URINE YELLOW
[2020-02-17 20:45] VITALS: BP 105/55
[2020-02-17 20:56] LABS: ALBUMIN 2.5 G/DL (3.4-5.0); ALBUMIN/GLOBULIN RATIO 0.6 (1.0-2.7); BILIRUBIN,TOTAL 0.3 MG/DL (0.2-1.0); CKMB 1.9 NG/ML (0.0-3.6); PHOSPHORUS 3.4 MG/DL (2.5-4.9)
[2020-02-17] MEDS ORDERED: Enoxaparin 40mg Inj SUBQ SCH (21:15)
--- NOTE | 2020-02-17 21:15 | NUR ---
ED Nurse Note: all medications administered, pt tolerated well no ss of distress noted. will continue to monitor.
[2020-02-17] MEDS ORDERED: cefTRIAXone 1 GM in NS 55 ML IVPB ONE (22:00)
[2020-02-17] MEDS ORDERED: Azithromycin 500 MG in NS 275 ML IV ONE (22:00)
[2020-02-17 22:35] VITALS: BP 106/61
--- NOTE | 2020-02-17 23:10 | NUR ---
ED Nurse Note: all medications administered, pt tolerated well no ss of distress noted. Pt BP decreased for MAP of 55 (94/42) ERMD aware, bolus IV fluids administered. Will continue to monitor.
[2020-02-17 23:15] VITALS: BP 95/41
--- NOTE | 2020-02-17 23:26 | NUR ---
ED Nurse Note: Report given to DMAION Pabon on telemetry unit.
--- NOTE | 2020-02-18 00:13 | NUR ---
ER DISCHARGE NOTE: Patient is cleared to be discharged to telemetry unit per ERMD, pt is aox0-1, 98% on room air, with stable vital signs. pt took all belongings. Pt transported to unit with 1 RN and 1 HEALTH AND SAFETY TECH. Report given to DAMION Pabon on telemetry unit.
[2020-02-18 00:15] VITALS: BP 104/51
--- NOTE | 2020-02-18 00:15 | NUR ---
NURSE NOTES: Received pt from ED via gurney. Pt transferred to [facility] without any incident. Received report from DAMION Reveles. Pt is A/Ox0-1, nonverbal. air sampling and monitoring placed; pt is SR w/BBB. IV site intact, asymptomatic, and patent. Belongings list checked and signed. Bed is in the lowest position and locked. Call light and bedside table is within reach. No signs/symptoms of acute distress noted at this time. Will contact MD for admission orders.
--- NOTE | 2020-02-18 01:31 | NUR ---
NURSE NOTES: Contacted Dr. Saunders for admission orders. Awaiting call back.
--- NOTE | 2020-02-18 02:15 | NUR ---
NURSE NOTES: Contacted Dr. Saunders to verify new orders of two different IVF. NS 1000ml w/KCL 10mEq/H2O premix 100ml and KCL 10mEq in NS 1000ml. Awaiting call back.
[2020-02-18] MEDS ORDERED: [UNRECOGNIZED DRUG - OTHER] IV SCH ×2 (02:30)
--- NOTE | 2020-02-18 03:08 | NUR ---
NURSE NOTES: Contacted Dr. Saunders that NS 1000ml w/KCL 10mEq/H2O premix 100ml is not available in ER and pharmacy is closed at night. Awaiting call back.
--- NOTE | 2020-02-18 03:29 | NUR ---
NURSE NOTES: Per Dr. Saunders, discontinue previous IVF and order NS @75cc/hr. Will note and carry out.
[2020-02-18 04:00] VITALS: BP 105/55
--- NOTE | 2020-02-18 05:44 | Consultation ---
DATE OF CONSULTATION: 02/17/2020 CARDIOLOGY CONSULTATION REFERRING PHYSICIAN: Mello Wheeler M.D. REASON FOR CONSULTATION: Severe sepsis with abnormal EKG. HISTORY OF PRESENT ILLNESS: This elderly male, with advanced Parkinson disease and dementia, recently had a G-tube placed for dysphagia, has been residing at a shelter facility. He tested positive for COVID-19 today. He also developed hypoxia, shortness of breath, and fevers. He was transferred to the hospital for evaluation. Diagnostic workup in the emergency room was reviewed. I have been asked to assist with cardiovascular care. The patient is unable to give any historical data. Records have been reviewed including prior hospital chart and current jail chart. PAST MEDICAL HISTORY: 1. Dementia. 2. Parkinson disease. 3. Coronary artery disease. 4. Dysphagia, with G-tube. 5. Chronic kidney disease. 6. Hyperlipidemia. ALLERGIES: Penicillin. FAMILY HISTORY: Noncontributory. SOCIAL HISTORY: Nonsmoker. No alcohol or substance abuse. REVIEW OF SYSTEMS: Not obtainable. Pertinent data from records outlined above. PHYSICAL EXAMINATION: VITAL SIGNS: Temperature 101.3, blood pressure 103/54, heart rate 86, respiratory rate 20, oxygen saturation on room air 90%. HEENT: Temporal wasting. NECK: Jugular venous pressure normal. No accessory muscle use. LUNGS: Bilateral rhonchi. CARDIAC: Regular rhythm. Rapid rate. Normal S1. Increased splitting S2. No murmur. ABDOMEN: Soft, nontender. No guarding or rebound. EXTREMITIES: No clubbing, cyanosis, or edema. EKG with sinus rhythm and right bundle-branch block. LABORATORY DATA: Reviewed. White count 8.3, hemoglobin 9.7. D-dimer is 0.84, slightly elevated. Sodium 134, potassium 3.7, bicarb 28, BUN 34, creatinine 1.2. Magnesium 1.9. Albumin 2.5. Urinalysis with only 2 to 4 white and red cells. Chest x-ray reveals right basilar infiltrate. IMPRESSION: 1. Healthcare-acquired pneumonia, likely aspiration related. 2. COVID-19 pneumonia. 3. Severe protein-calorie malnutrition. 4. Parkinson disease with dementia. 5. Hypovolemia. 6. Dehydration. 7. Hyponatremia. 8. Prerenal azotemia. 9. 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 PLAN: 1. Saline hydration. 2. Oxygenation by nasal cannula. 3. Broad-spectrum antimicrobials. 4. Nasal oxygen. 5. DVT prophylaxis. 6. Consideration for steroids. Iggy Saunders M.D. DR: STACIA JOB#: [id number] CC:
--- NOTE | 2020-02-18 07:49 | NUR ---
NURSE NOTES: Received report from DAMION Pabon. Pt is A/Ox0-1, nonverbal. engine monitor in place with SR w/BBB. No SOB or acute distress noted. No IV site at this moment. Pt on NC 2L SATing @ 96%.Bed is in the lowest position and locked. Call light and bedside table is within reach. Will continue plan of care.
[2020-02-18 08:00] VITALS: BP 102/50
--- NOTE | 2020-02-18 08:00 | NUR ---
NURSE HAND-OFF REPORT: Important Events on Shift: Admitted pt for COVID-19/Hypoxia. Pt pulled out IV around 0720. Applied pressure on area and wrapped. No bleeding noted. Endorsed to dayshift. Patient Status: Stable Diet: ? Pending Orders: N Pending Results/Labs: N Pending MD notification: Diet needs to be change. Pt no longer has G-tube. Latest Vital Signs: Temperature 97.0 , Pulse 62 , B/P 105 /55 , Respiratory Rate 20 , O2 SAT 98 , Room Air, O2 Flow Rate 2.0 . EKG Rhythm: SR w/BBB Rhythm change?: N Latest [place] Fall Score: 75 Fall Risk: High Risk Safety Measures: Call light Within Reach, Bed Alarm Zone 1, Side Rails Side Rails x2, Bed position Low and Locked. Fall Precautions: Yellow Socks Yellow Gown Door Sign Patient Fall Education Report given to DAMION Tate.
--- NOTE | 2020-02-18 09:12 | NUR ---
RD ASSESSMENT & RECOMMENDATIONS SEE CARE ACTIVITY FOR COMPLETE ASSESSMENT DAILY ESTIMATED NEEDS: Needs based on Underweight, 46kg 30-35 kcals/kg 2273-6223 total kcals 1-1.5 g protein/kg 46-69 g total protein 25-30 mL/kg 9726-7414 total fluid mLs NUTRITION DIAGNOSIS: * Increased kcal and pro needs r/t underweight status as evidenced by pt is 78% of [place] Body Weight, w/ est progressive and severe wt loss of 24lbs/19% in 2 months * Swallowing difficulty R/T dysphagia as evidenced by pt is PEG dep. CURRENT TF:Glucerna 1.2 @ 45ml/hr x 24 hrs ENTERAL NUTRITION RECOMMENDATIONS: Osmolite 1.2 goal of 55ml/hr x24 hrs to provide 1320ml, 1584 kcal, 73g prot, 1082ml free H2O - Rec Osmolite 1.2: carb controlled TF is not indicated at this time, pt on non-carb controlled TF RAISER HELPER - Initiate Osmolite 1.2@ 35ml/hr x 6 hrs, advance 10ml q 4-6 hrs as tolerated to goal - HOB over 30 degrees. - Water flush 100ml q 8hrs ADDITIONAL RECOMMENDATIONS: 1) Maintain calibrated bedscale wt 2) Monitor BGs, need for carb controlled TF -> on noncarb controlled TF RAISER HELPER 3) F/up w/ WC eval: add Vit C 250mg QD 4) Monitor lytes, replete as needed . .
[2020-02-18] MEDS: Enoxaparin 40mg Inj SUBQ SCH (09:46)
[2020-02-18] MEDS: Levodopa/Carbidopa 25/100 tab ORAL SCH ×4 (09:47→20:34)
--- NOTE | 2020-02-18 10:21 | NUR ---
NURSE NOTES: Notified Dr Saunders office that pts pulse is between 150-160 with no BP medications. Puncher stated she would page him.
--- NOTE | 2020-02-18 10:47 | NUR ---
NURSES NOTES: Relieved order for metoprolol 5mg IVP x [address] Wheeler. Carried out.
[2020-02-18] MEDS ORDERED: Metoprolol Tartrate 5mg/5ml Inj IVP SCH (11:15)
[2020-02-18 12:00] VITALS: BP 110/54
--- NOTE | 2020-02-18 13:19 | Cardiology Progress Note ---
Subjective DATE OF SERVICE: Feb 18, 2020 Confused Some congestion Pulls out IV lines and tries to get OOB alone. Needs restraints for safety Objective Last 24 Hour Vital Signs Date Time Temp Pulse Resp B/P (MAP) Pulse Ox O2 Delivery O2 Flow Rate FiO2 02/18/20 11:35 159 132/56 02/18/20 09:00 Nasal Cannula 2.0 02/18/20 08:00 97.2 68 20 102/50 (67) 97 02/18/20 08:00 86 02/18/20 04:00 62 02/18/20 04:00 97.0 62 20 105/55 (72) 98 02/18/20 00:54 Nasal Cannula 2.0 02/18/20 00:29 70 02/18/20 00:15 97.9 70 20 104/51 (68) 97 02/18/20 00:13 100.7 69 22 91/67 98 Room Air 02/17/20 23:15 100.7 69 21 95/41 99 Nasal Cannula 2.0 02/17/20 22:35 100.7 68 21 106/61 99 Nasal Cannula 2.0 02/17/20 20:45 100.7 73 21 105/55 99 Nasal Cannula 2.0 02/17/20 19:42 100.7 02/17/20 18:57 86 20 Room Air 02/17/20 18:57 101.3 86 20 105/63 99 Nasal Cannula 2.0 02/17/20 18:47 101.3 86 20 103/54 (70) 90 Room Air ROS: unchanged from my evaluation of 02/17/20 HEENT: normal ENT inspection RHYTHM: NSR, ST LUNGS: bilateral rhonchi CARDIAC: normal rate, regular rhythm, normal S1 and S2 ABDOMEN: normal bowel sounds, non tender, soft, no organomegaly EXTREMITIES: trace edema, other - confused Laboratory Tests Test 02/17/20 19:30 02/17/20 19:40 White Blood Count 8.3 K/UL (4.8-10.8) Red Blood Count 3.39 M/UL (4.70-6.10) L Hemoglobin 9.7 G/DL (14.2-18.0) L Hematocrit 30.0 % (42.0-52.0) L Mean Corpuscular Volume 88 FL (80-99) Mean Corpuscular Hemoglobin 28.5 PG (27.0-31.0) Mean Corpuscular Hemoglobin Concent 32.2 G/DL (32.0-36.0) Red Cell Distribution Width 16.0 % (11.6-14.8) H Platelet Count 347 K/UL (150-450) Mean Platelet Volume 5.1 FL (6.5-10.1) L Neutrophils (%) (Auto) 82.1 % (45.0-75.0) H Lymphocytes (%) (Auto) 12.3 % (20.0-45.0) L Monocytes (%) (Auto) 4.0 % (1.0-10.0) Eosinophils (%) (Auto) 1.4 % (0.0-3.0) Basophils (%) (Auto) 0.2 % (0.0-2.0) Prothrombin Time 10.4 SEC (9.30-11.50) Prothromb Time International Ratio 0.9 (0.9-1.1) Activated Partial Thromboplast Time 32 SEC (23-33) D-Dimer 0.84 mg/L FEU (0.00-0.49) H Sodium Level 134 MMOL/L (136-145) L Potassium Level 3.7 MMOL/L (3.5-5.1) Chloride Level 100 MMOL/L (98-107) Carbon Dioxide Level 28 MMOL/L (21-32) Anion Gap 6 mmol/L (5-15) Blood Urea Nitrogen 34 mg/dL (7-18) H Creatinine 1.2 MG/DL (0.55-1.30) Estimat Glomerular Filtration Rate 58.6 mL/min (>60) Glucose Level 110 MG/DL (74-106) H Lactic Acid Level 0.80 mmol/L (0.4-2.0) Calcium Level 8.7 MG/DL (8.5-10.1) Phosphorus Level 3.4 MG/DL (2.5-4.9) Magnesium Level 1.9 MG/DL (1.8-2.4) Ferritin 553 NG/ML (8-388) H Total Bilirubin 0.3 MG/DL (0.2-1.0) Aspartate Amino Transf (AST/SGOT) 38 U/L (15-37) H Alanine Aminotransferase (ALT/SGPT) 12 U/L (12-78) Alkaline Phosphatase 53 U/L (46-116) Lactate Dehydrogenase 269 U/L (81-234) H Total Creatine Kinase 438 U/L (26-308) H Creatine Kinase MB 1.9 NG/ML (0.0-3.6) Creatine Kinase MB Relative Index 0.4 Troponin I 0.018 ng/mL (0.000-0.056) C-Reactive Protein, Quantitative 10.7 mg/dL (0.00-0.90) H Pro-B-Type Natriuretic Peptide 271 pg/mL (0-125) H Total Protein 7.0 G/DL (6.4-8.2) Albumin 2.5 G/DL (3.4-5.0) L Globulin 4.5 g/dL Albumin/Globulin Ratio 0.6 (1.0-2.7) L Lipase 144 U/L (73-393) Urine Color Yellow Urine Appearance Cloudy Urine pH 6 (4.5-8.0) Urine Specific [place] 1.015 (1.005-1.035) Urine Protein 2+ (NEGATIVE) H Urine Glucose (UA) Negative (NEGATIVE) Urine Ketones Negative (NEGATIVE) Urine Blood 1+ (NEGATIVE) H Urine Nitrite Negative (NEGATIVE) Urine Bilirubin Negative (NEGATIVE) Urine Urobilinogen Normal MG/DL (0.0-1.0) Urine Leukocyte Esterase 1+ (NEGATIVE) H Urine RBC 2-4 /HPF (0 - 0) H Urine WBC 2-4 /HPF (0 - 0) Urine Squamous Epithelial Cells None /LPF (NONE/OCC) Urine Bacteria Few /HPF (NONE) Urine Yeast Many /HPF (NONE) H Microbiology Date/Time Source Procedure Growth Status 02/17/20 19:40 Urine,Clean Catch Urine Culture - Preliminary NO GROWTH Resulted Assessment/Plan Assessment/Plan Covid 19 PNA Hypoxia Toxic encephalopathy Paroxsymal sinus tachycardia Dementia Moderate protein calorie malnutrition Parkinsons disease CAD Hypovolemia/dehydration Dysphagia IV steroids O2 Resp Rx Restraints IVF Anticoagulation Iggy Saunders MD Feb 18, 2020 13:19
--- NOTE | 2020-02-18 13:29 | NUR ---
CASE MANAGEMENT: INITIAL REVIEW 79YR OLD MALE NATALIE FROM [facility] CC:UPPER RESPIRATORY ILLNESS WITH FEVER SI:COVID-19 PNA . HYPOXIA . RIGHT BBB . ANEMIA 101.3 86 20 103/54 90% ON RA ->O2 NOT ADEQUATE NEEDING SUPPLEMENTAL OXYGEN NC 2L PLACED H/H 9.7/30.0 NA+134 BUN 34 FERR 553 LDH 269 TCK 4.8 BNP 271 IS:TYLENOL MD X1 IV DECADRON X1 LOVENOX SQ BID IV ZITHROMAX X1 IV ROCEPHIN X1 IVF NS BOLUS X1 \: 2E TELE UNIT DCP: HOME WHEN STABLE PLAN: CARDIAC MONITORING CONT IV ABX CONT IV HYDRATION WOUND CARE EVAL Addendum: 02/18/20 at 1340 by TEQUILA CHRISTY LVN MET FOR ACUTE INTERQUAL
--- NOTE | 2020-02-18 13:45 | NUR ---
NURSES NOTES: Notified Dr. Saunders when on the unit that pt had removed IV 3 prior times and asking to restraints was told that he only needed right wrist restraint. Let him know that patient is strong on both sides and needed both wrist in restraints but he declined.
--- NOTE | 2020-02-18 13:54 | NUR ---
NURSE NOTES:WOUND ASSESSMENT SPOKE WITH RN, ALLA, WHO STATES PATIENT HAS BEEN VERY AGITATED CONSTANTLY MOVING IN BED, PULLING OUT IV LINES, REMOVING PILLOWS USED TO ELEVATE HEELS AND OPTIFOAM DRESSINGS. RIGHT WRIST RESTRAINT NOTED. SACRUM- CLEAN , SKIN INTACT. WITHOUT EVIDENCE OF ANY BREAKDOWN. BILATERAL HEELS- BOTH WITH SKIN INTACT WITHOUT EVIDENCE OF BREAKDOWN. RECOMMEND- APPLYING OPTIFOAM TO SACRUM AND HEELS IF PATIENT WILL ALLOW FOR PREVENTATIVE PURPOSES. FLOAT HEELS WITH PILLOWS.
--- NOTE | 2020-02-18 13:54 | Cardiology Report ---
APPROVED REPORT EKG Measurement Heart [id number] <Conclusion> Normal sinus rhythm Right bundle branch block Abnormal ECG
--- NOTE | 2020-02-18 14:00 | NUR ---
NURSE NOTES: NURSES NOTES: Wound nurses came out of the room and let me know that patient had gotten out of restraint while they were checking on his wounds and let me know they were afraid that he was going to pull himself over on to the floor with the restraint. Notified Dr. Saunders while on the unit if we could have the other wrist restraint and was told he would check on the pt. Fixed the pt on the bed and re-applied the restraint on the right wrist.
--- NOTE | 2020-02-18 14:22 | Consultation ---
Consult Note Consult Note 79 year old elderly male, with advanced Parkinsonism disease and dementia, with recent G-tube presents from SNF. He tested positive for COVID-19 and transferred for further evaluation. Patient noted to be hypoxemic, sob, and had fevers. He was transferred to the hospital for evaluation. The patient is unable to give a ny historical data. care noted and reviewed and labs and imaging reviewed PAST MEDICAL HISTORY: 1. Dementia. 2. Parkinson disease. 3. Coronary artery disease. 4. G-tube. 5. Chronic kidney disease. 6. Hyperlipidemia. ALLERGIES: Penicillin. FAMILY HISTORY: Noncontributory. SOCIAL HISTORY: Nonsmoker. No alcohol or substance abuse. SNF patient REVIEW OF SYSTEMS: Not obtainable. PHYSICAL EXAMINATION: NAD on oxygen HEENT: Temporal wasting. NECK: Jugular venous pressure normal. carotid 2+ LUNGS: scattered rhonchi. moderate breath sounds CARDIAC: Regular rhythm and rate. normal S1S2 without MRG ABDOMEN: Soft, nontender. No guarding or rebound. EXTREMITIES: No clubbing, cyanosis, or edema. Labs Test 02/17/20 19:30 02/17/20 19:40 White Blood Count 8.3 K/UL (4.8-10.8) Red Blood Count 3.39 M/UL (4.70-6.10) Hemoglobin 9.7 G/DL (14.2-18.0) Hematocrit 30.0 % (42.0-52.0) Mean Corpuscular Volume 88 FL (80-99) Mean Corpuscular Hemoglobin 28.5 PG (27.0-31.0) Mean Corpuscular Hemoglobin Concent 32.2 G/DL (32.0-36.0) Red Cell Distribution Width 16.0 % (11.6-14.8) Platelet Count 347 K/UL (150-450) Mean Platelet Volume 5.1 FL (6.5-10.1) Neutrophils (%) (Auto) 82.1 % (45.0-75.0) Lymphocytes (%) (Auto) 12.3 % (20.0-45.0) Monocytes (%) (Auto) 4.0 % (1.0-10.0) Eosinophils (%) (Auto) 1.4 % (0.0-3.0) Basophils (%) (Auto) 0.2 % (0.0-2.0) Prothrombin Time 10.4 SEC (9.30-11.50) Prothromb Time International Ratio 0.9 (0.9-1.1) Activated Partial Thromboplast Time 32 SEC (23-33) D-Dimer 0.84 mg/L FEU (0.00-0.49) Sodium Level 134 MMOL/L (136-145) Potassium Level 3.7 MMOL/L (3.5-5.1) Chloride Level 100 MMOL/L (98-107) Carbon Dioxide Level 28 MMOL/L (21-32) Anion Gap 6 mmol/L (5-15) Blood Urea Nitrogen 34 mg/dL (7-18) Creatinine 1.2 MG/DL (0.55-1.30) Estimat Glomerular Filtration Rate 58.6 mL/min (>60) Glucose Level 110 MG/DL (74-106) Lactic Acid Level 0.80 mmol/L (0.4-2.0) Calcium Level 8.7 MG/DL (8.5-10.1) Phosphorus Level 3.4 MG/DL (2.5-4.9) Magnesium Level 1.9 MG/DL (1.8-2.4) Ferritin 553 NG/ML (8-388) Total Bilirubin 0.3 MG/DL (0.2-1.0) Aspartate Amino Transf (AST/SGOT) 38 U/L (15-37) Alanine Aminotransferase (ALT/SGPT) 12 U/L (12-78) Alkaline Phosphatase 53 U/L (46-116) Lactate Dehydrogenase 269 U/L (81-234) Total Creatine Kinase 438 U/L (26-308) Creatine Kinase MB 1.9 NG/ML (0.0-3.6) Creatine Kinase MB Relative Index 0.4 Troponin I 0.018 ng/mL (0.000-0.056) C-Reactive Protein, Quantitative 10.7 mg/dL (0.00-0.90) Pro-B-Type Natriuretic Peptide 271 pg/mL (0-125) Total Protein 7.0 G/DL (6.4-8.2) Albumin 2.5 G/DL (3.4-5.0) Globulin 4.5 g/dL Albumin/Globulin Ratio 0.6 (1.0-2.7) Lipase 144 U/L (73-393) Urine Color Yellow Urine Appearance Cloudy Urine pH 6 (4.5-8.0) Urine Specific [place] 1.015 (1.005-1.035) Urine Protein 2+ (NEGATIVE) Urine Glucose (UA) Negative (NEGATIVE) Urine Ketones Negative (NEGATIVE) Urine Blood 1+ (NEGATIVE) Urine Nitrite Negative (NEGATIVE) Urine Bilirubin Negative (NEGATIVE) Urine Urobilinogen Normal MG/DL (0.0-1.0) Urine Leukocyte Esterase 1+ (NEGATIVE) Urine RBC 2-4 /HPF (0 - 0) Urine WBC 2-4 /HPF (0 - 0) Urine Squamous Epithelial Cells None /LPF (NONE/OCC) Urine Bacteria Few /HPF (NONE) Urine Yeast Many /HPF (NONE) IMPRESSION: 1. Hypoxemia 2. COVID-19 pneumonia. 3. Severe protein-calorie malnutrition. 4. Parkinson disease with dementia. 5. Hypovolemia. 6. Aspiration. 7. Lyte imbalance 8. ARF 9. RBBB PLAN respiratory care isolation oxygen iv antibiotics care noted and reviewed monitor for respiratory deterioration impression, plan, and exam edited and reviewed in detail care discussed with Donald Quezada MD Feb 18, 2020 14:22
--- NOTE | 2020-02-18 14:22 | Pulmonology Progress Note ---
Subjective Allergies: Coded Allergies: PENICILLINS (Verified Allergy, Unknown, 01/07/20) Objective Last 24 Hour Vital Signs Date Time Temp Pulse Resp B/P (MAP) Pulse Ox O2 Delivery O2 Flow Rate FiO2 02/18/20 12:00 83 02/18/20 12:00 97.2 65 20 110/54 (72) 97 02/18/20 11:35 159 132/56 02/18/20 09:00 Nasal Cannula 2.0 02/18/20 08:00 97.2 68 20 102/50 (67) 97 02/18/20 08:00 86 02/18/20 04:00 62 02/18/20 04:00 97.0 62 20 105/55 (72) 98 02/18/20 00:54 Nasal Cannula 2.0 02/18/20 00:29 70 02/18/20 00:15 97.9 70 20 104/51 (68) 97 02/18/20 00:13 100.7 69 22 91/67 98 Room Air 02/17/20 23:15 100.7 69 21 95/41 99 Nasal Cannula 2.0 02/17/20 22:35 100.7 68 21 106/61 99 Nasal Cannula 2.0 02/17/20 20:45 100.7 73 21 105/55 99 Nasal Cannula 2.0 02/17/20 19:42 100.7 02/17/20 18:57 86 20 Room Air 02/17/20 18:57 101.3 86 20 105/63 99 Nasal Cannula 2.0 02/17/20 18:47 101.3 86 20 103/54 (70) 90 Room Air Intake and Output 02/17/20 02/18/20 19:00 07:00 Output Total 1000 ml Balance -1000 ml Output Urine Total 1000 ml Microbiology Date/Time Source Procedure Growth Status 02/17/20 19:40 Urine,Clean Catch Urine Culture - Preliminary NO GROWTH Resulted Laboratory Tests 02/17/20 19:30: White Blood Count 8.3, Red Blood Count 3.39L, Hemoglobin 9.7L, Hematocrit 30.0L, Mean Corpuscular Volume 88, Mean Corpuscular Hemoglobin 28.5, Mean Corpuscular Hemoglobin Concent 32.2, Red Cell Distribution Width 16.0H, Platelet Count 347, Mean Platelet Volume 5.1L, Neutrophils (%) (Auto) 82.1H, Lymphocytes (%) (Auto) 12.3L, Monocytes (%) (Auto) 4.0, Eosinophils (%) (Auto) 1.4, Basophils (%) (Auto) 0.2, Prothrombin Time 10.4, Prothromb Time International Ratio 0.9, Activated Partial Thromboplast Time 32, D-Dimer 0.84H, Sodium Level 134L, Potassium Level 3.7, Chloride Level 100, Carbon Dioxide Level 28, Anion Gap 6, Blood Urea Nitrogen 34H, Creatinine 1.2, Estimat Glomerular Filtration Rate 58.6, Glucose Level 110H, Lactic Acid Level 0.80, Calcium Level 8.7, Phosphorus Level 3.4, Magnesium Level 1.9, Ferritin 553H, Total Bilirubin 0.3, Aspartate Amino Transf (AST/SGOT) 38H, Alanine Aminotransferase (ALT/SGPT) 12, Alkaline Phosphatase 53, Lactate Dehydrogenase 269H, Total Creatine Kinase 438H, Creatine Kinase MB 1.9, Creatine Kinase MB Relative Index 0.4, Troponin I 0.018, C- Reactive Protein, Quantitative 10.7H, Pro-B-Type Natriuretic Peptide 271H, Total Protein 7.0, Albumin 2.5L, Globulin 4.5, Albumin/Globulin Ratio 0.6L, Lipase 144 02/17/20 19:40: Urine Color Yellow, Urine Appearance Cloudy, Urine pH 6, Urine Specific [place] 1.015, Urine Protein 2+H, Urine Glucose (UA) Negative, Urine Ketones Negative, Urine Blood 1+H, Urine Nitrite Negative, Urine Bilirubin Negative, Urine Urobilinogen Normal, Urine Leukocyte Esterase 1+H, Urine RBC 2-4H, Urine WBC 2- 4, Urine Squamous Epithelial Cells None, Urine Bacteria Few, Urine Yeast ManyH Current Medications Medications (Trade) Dose Ordered Sig/Veronica Route PRN Reason Start Time Stop Time Status Last Admin Dose Admin Acetaminophen (Tylenol) 650 mg Q4H PRN ORAL Mild Pain (Pain Scale 1-3) 02/18/20 01:45 03/19/20 01:44 Carbidopa/Levodopa (Sinemet 25/100) 1 tab QID ORAL 02/18/20 09:00 03/19/20 08:59 02/18/20 09:47 Ceftriaxone Sodium 1 gm/ Dextrose 55 ml @ 110 mls/hr Q24H IVPB 02/18/20 21:00 02/25/20 20:59 Dexamethasone Sodium Phosphate (Decadron 10mg/ ml Inj) 6 mg DAILY IV 02/18/20 13:00 02/27/20 09:01 Enoxaparin Sodium (Lovenox) 40 mg DAILY SUBQ 02/18/20 09:00 05/18/20 08:59 02/18/20 09:46 Sodium Chloride 1,000 ml @ 75 mls/hr [id number] IV 02/18/20 04:00 03/19/20 03:59 02/18/20 04:20 Donald Mendes MD Feb 18, 2020 14:22
[2020-02-18] MEDS: dexAMETHasone 10mg/ml Inj IV SCH (14:33)
--- NOTE | 2020-02-18 14:50 | NUR ---
NURSES NOTES: Pt pulled his IV out again and another one was reinserted and wrapped from the wrist to the upper arm to distract the pt.
--- NOTE | 2020-02-18 15:40 | Diagnostic Imaging Report ---
Procedure: XRAY Chest 1v Reason for study: Reason For Exam: SOB Comparison films: 01/10/2020. FINDINGS: A single one view chest is obtained. Vascularity is normal. There are bibasilar infiltrates. Cardiac and mediastinal silhouette are within normal limits. CP angles are sharp. The bony thorax appear unremarkable. IMPRESSION: Mild bibasilar infiltrates.
[2020-02-18 16:00] VITALS: BP 103/53
--- NOTE | 2020-02-18 17:00 | Consultation ---
DATE OF CONSULTATION: 02/18/2020 INFECTIOUS DISEASE CONSULT This consult is for coverage of Dr. Carrasco. PRIMARY ATTENDING PHYSICIAN: Iggy Saunders M.D. REASON FOR CONSULT: COVID-19 disease. HISTORY OF PRESENT ILLNESS: This is a 79-year-old Irish male admitted yesterday from nursing facility because of fever. In the hospital, he has tachycardia with heart rate up to 159, fever up to 101.3. COVID-19 test was positive yesterday in the nursing facility. PAST MEDICAL HISTORY: Significant for dementia, Parkinson disease, hypertension, hyperlipidemia, anemia, BPH, history of G-tube placement that was removed on January 27, 2020, history of previous admission to [facility] in December 2019 with hypoxemia and aspiration pneumonia. ALLERGIES: Allergic to penicillin, but tolerated ceftriaxone. MEDICATIONS: Ceftriaxone, metoprolol, carbidopa/levodopa, Tylenol, got a dose of dexamethasone in ER, got a dose of azithromycin in the ER. SOCIAL HISTORY: jail resident. . Irish in origin. No other history obtainable by the patient. He is confused, on restraints. PHYSICAL EXAMINATION: VITAL SIGNS: Temperature 97.2, pulse 159, blood pressure 132/56. GENERAL APPEARANCE: Seems to be thin. HEAD AND NECK: Getting oxygen by nasal cannula. HEART: Tachycardic. LUNGS: Clear. ABDOMEN: There is a scar of midline surgery. EXTREMITIES: No edema. NEUROLOGIC: Awake, alert, responsive, disoriented. LABORATORY AND DIAGNOSTIC DATA: WBC 8.3, hemoglobin 9.7, hematocrit 30, platelets 347. Sodium 134, potassium 3.9, chloride 100, bicarbonate 28, BUN 34, creatinine 1.2. Albumin is 2.5. Chest x-ray showed decrease infiltrate as compared to previous admission. IMPRESSION: Sepsis with fever and tachycardia, has COVID-19 disease. The patient is also at risk for aspiration pneumonia, has dementia, Parkinson disease, anemia, BPH. RECOMMENDATIONS: Continue ceftriaxone. Start on dexamethasone. The patient is hypoxemic. We will try to start remdesivir after obtaining consent from family. I called the patient's home, but unfortunately nobody speaks Danish there. I will try again to get the consent. At the end of my exam, I thank Dr. Saunders for involving me in the care of this patient. Mohsen Garcia M.D. DR: TRINA JOB#: [id number] CC:
--- NOTE | 2020-02-18 19:46 | NUR ---
NURSE NOTES: Report received from Lea. Patient is noted to be a covid 19 positive patient. Patient is noted not to be alert and oriented. Patient is non verbal. Patient is noted to be on 4 liters of oxygen via nasal canula. Patient does not appear to be in respiratory distress at this time. Was endorsed to Bridger BRUNO that patient had a heart rate in the 130's today and the IV Metoprolol was administered. Was endorsed to Bridger BRUNO that patient's hear rate has since then been back to normal limits. Patient is noted to be a very high fall risk. Was endorsed to Bridger BRUNO that patient continuously tries to get up out of bed. Reported to Bridger BRUNO that patient removed several IV lines today. Was endorsed to Bridger BRUNO that patient only has order for a right wrist restraint per Doctor Nicky. Upon doing bedside rounds with Lea, Patient was found with legs over the side rail and actively trying to remove the right wrist restraint. Patient was repositioned and Bridger BRUNO placed patient on zone two bed alarm. Bridger BRUNO has gone to patient's room twice since bed side rounds due to the bed alarm going off. Patient was found to be once again with legs of side rail and attempting to remove restraint. Was endorsed to Bridger BRUNO that Doctor Saunders declined to do bilateral soft wrist restraints and did not give any further orders for the patients behavior. Bridger BRUNO made the nursing surgical services director aware that the patient is a high fall risk. Bridger BRUNO spoke with [facility] building coordinator, however, there are no rooms closer the nursing station at this time. Bridger BRUNO is currently documenting outside patient's room for patient safety. Bed alarm is on, bed in lowest position, call light in reach. Will continue to follow plan of care.
[2020-02-18 20:00] VITALS: BP 122/58
--- NOTE | 2020-02-18 20:02 | NUR ---
NURSE HAND-OFF REPORT: Important Events on Shift: Pt is a high fall risk with only one right soft wrist restraint. Patient Status: Stable Diet: Regular Soft Easy Chew Pending Orders: Pending Results/Labs: Pending MD notification: Latest Vital Signs: Temperature 97.5 , Pulse 80 , B/P 103 /53 , Respiratory Rate 20 , O2 SAT 97 , Nasal Cannula, O2 Flow Rate 2.0 . Vital Sign Comment: EKG Rhythm: Sinus Rhythm Rhythm change?: N MD Notified?: - MD Response: Latest [place] Fall Score: 75 Fall Risk: High Risk Safety Measures: Call light Within Reach, Bed Alarm Zone 1, Side Rails Side Rails x2, Bed position Low and Locked. Fall Precautions: Yellow Socks Yellow Gown Door Sign Patient Fall Education Report given to
--- NOTE | 2020-02-18 20:19 | NUR ---
NURSE NOTES: Patient found for the third time to have bed alarm going off and right wrist restraint removed. Repositioned patient and placed restraint. Bridger BRUNO called Doctor Saunders regarding patient safety. Doctor Wheeler answered as covering MD. Doctor Wheeler gave overs for bilateral soft wrist restraints. Bridger BRUNO placed orders. Patient now in bilateral soft wrist restraints for patient safety and patient pulling at medical lines. Charge Nurse Cathy aware and informed Bridger BRUNO she will work on getting the patient in a room closer to the nursing station.
[2020-02-18] MEDS ORDERED: cefTRIAXone 1 GM in D5W 55 ML IVPB SCH (21:00)
--- NOTE | 2020-02-18 21:14 | NUR ---
NURSE NOTES: Patient safely transferred to room 221-1 for patient safety.
--- NOTE | 2020-02-18 21:14 | History and Physical Report ---
DATE OF ADMISSION: 02/17/2020 CHIEF COMPLAINT: COVID pneumonia and hypoxemia. HISTORY OF PRESENT ILLNESS: The patient is a 79-year-old male. He has a history of dementia, Parkinson disease, recently tested positive for COVID, was transferred because of fevers and hypoxemia. On evaluation in the emergency room, the patient was febrile to 101.3, saturating 90% on room air. On x-ray, the patient had bibasilar infiltrates. He is now admitted for further evaluation and care. PAST MEDICAL HISTORY: As above. History of ischemic cardiomyopathy, dysphagia status post G-tube, and history of paroxysmal SVT. PAST SURGICAL HISTORY: None. CURRENT MEDICATIONS: Reconciled and reviewed. ALLERGIES: Include penicillin. FAMILY HISTORY: Noncontributory. SOCIAL HISTORY: There is no known history of tobacco, ethanol, or drugs. REVIEW OF SYSTEMS: Unobtainable as the patient is confused. PHYSICAL EXAMINATION: VITAL SIGNS: Temperature 101.3, pulse 86, respirations 20, and blood pressure 103/54. GENERAL: The patient is a thin male, in no apparent distress. HEENT: Head is normocephalic. Oropharynx is clear. NECK: Supple. HEART: Regular rate and rhythm. LUNGS: Significant for scattered rhonchi and wheezes. ABDOMEN: Soft, nontender, and nondistended. EXTREMITIES: No clubbing, cyanosis, or edema. LABORATORY DATA: White count 8 and hemoglobin 10. Sodium 134 and potassium 3.7. Lactic acid was 0.8. Troponin 0.018. C-reactive protein was 10. UA was clear. ASSESSMENT: This is a 79-year-old male with history of hypertension, ischemic cardiomyopathy, dementia, and Parkinson disease, admitted with complaints of hypoxemic respiratory failure secondary to COVID-19 pneumonia. PLAN: 1. ID consultation. 2. Supplemental oxygen. 3. Steroids. 4. Consider remdesivir. 5. ID, Pulmonary, and Cardiology evaluations to be obtained. 6. The patient will be started on DVT prophylaxis. 7. He will be hydrated gently. 8. The patient is DNR as per advance directives. Mello Wheeler M.D. DR: MICHOACANO JOB#: [id number] CC:
--- NOTE | 2020-02-18 23:33 | NUR ---
NURSE NOTES: Contacted Doctor Wheeler regarding goel catheter order. Was endorsed to Bridger BRUNO from day Shift DAMION Tate that goel was removed today due to patient pulling at the goel catheter. However, patient is now in bilateral soft wrist restraints and still has an active order for goel catheter. Doctor Wheeler informed Bridger BRUNO to place a new goel catheter. Bridger BRUNO successfully placed a 16 fr indwelling goel catheter that is noted to be draining Dark yellow urine. A new 24 jayme IV was also placed in the right AC at this time and fluids were continued per MD orders.
[2020-02-19] VITALS: BP 145/76
--- NOTE | 2020-02-19 02:36 | NUR ---
NURSE NOTES: Patient is found for the third time to have removed IV access due to being restless in bed. Patient continues to move around in bed and put legs over side rail despite the bilateral soft wrist restraints. Patient repositioned and will place new IV access.
--- NOTE | 2020-02-19 03:15 | NUR ---
NURSE NOTES: Patient given bed bath, bed linen changed, and new IV obtained in left AC. Patient continues to be restless.
[2020-02-19 04:00] VITALS: BP 124/62
[2020-02-19 07:33] LABS: BASOPHILS % (AUTO) 0.4 % (0.0-2.0); HEMATOCRIT 28.2 % (42.0-52.0); HEMOGLOBIN 9.1 G/DL (14.2-18.0); LYMPHOCYTES % (AUTO) 12.7 % (20.0-45.0); MEAN CORPUSCULAR VOLUME 86 FL (80-99); MONOCYTES % (AUTO) 4.6 % (1.0-10.0); NEUTROPHILS % (AUTO) 82.3 % (45.0-75.0); PLATELET COUNT 341 K/UL (150-450); RED BLOOD COUNT 3.28 M/UL (4.70-6.10); RED CELL DISTRIBUTION WIDTH 15.6 % (11.6-14.8); WHITE BLOOD COUNT 8.6 K/UL (4.8-10.8)
--- NOTE | 2020-02-19 07:38 | NUR ---
NURSE HAND-OFF REPORT: Important Events on Shift: Patient is covid positive. Patient was extremely restless throughout the shift. Patient removed several IVs. Patient continues to remove patient monitor. Patient is a very high fall risk. patient in bilateral soft wrist restraints. Patient Status: DNR Diet: regular mechanical soft Pending Orders: none Pending Results/Labs: none Pending MD notification:none Latest Vital Signs: Temperature 97.2 , Pulse 73 , B/P 124 /62 , Respiratory Rate 20 , O2 SAT 95 , Nasal Cannula, O2 Flow Rate 4.0 . Vital Sign Comment: within normal limits. EKG Rhythm: SR w/BBB Rhythm change?: N MD Notified?: - MD Response: Latest [place] Fall Score: 75 Fall Risk: High Risk Safety Measures: Call light Within Reach, Bed Alarm Zone 1, Side Rails Side Rails x2, Bed position Low and Locked. Fall Precautions: Yellow Socks Yellow Gown Door Sign Patient Fall Education Report given to
[2020-02-19 07:58] LABS: ALBUMIN 2.4 G/DL (3.4-5.0); ALBUMIN/GLOBULIN RATIO 0.6 (1.0-2.7); BILIRUBIN,TOTAL 0.2 MG/DL (0.2-1.0); CALCIUM 8.5 MG/DL (8.5-10.1); CREATININE 1.2 MG/DL (0.55-1.30); POTASSIUM 4.2 MMOL/L (3.5-5.1)
[2020-02-19 08:00] VITALS: BP 93/61
--- NOTE | 2020-02-19 08:02 | Pulmonology Progress Note ---
Subjective Allergies: Coded Allergies: PENICILLINS (Verified Allergy, Unknown, 01/07/20) Subjective care noted ID reviewed on 4 liter NC Objective Last 24 Hour Vital Signs Date Time Temp Pulse Resp B/P (MAP) Pulse Ox O2 Delivery O2 Flow Rate FiO2 02/19/20 04:00 97.2 73 20 124/62 (82) 95 02/19/20 04:00 76 02/19/20 00:00 97.8 83 23 145/76 (99) 97 02/19/20 00:00 75 02/18/20 23:38 Nasal Cannula 4.0 02/18/20 21:00 Nasal Cannula 4.0 02/18/20 20:00 82 02/18/20 20:00 97.6 80 22 122/58 (79) 97 02/18/20 16:00 97.5 80 20 103/53 (70) 97 02/18/20 16:00 86 02/18/20 12:00 83 02/18/20 12:00 97.2 65 20 110/54 (72) 97 02/18/20 11:35 159 132/56 02/18/20 09:00 Nasal Cannula 2.0 Intake and Output 02/18/20 02/19/20 19:00 07:00 Intake Total 315 ml 730 ml Output Total 500 ml Balance 315 ml 230 ml Intake Oral 240 ml IV Total 75 ml 730 ml Output Urine Total 500 ml # Voids 2 # Bowel Movements 1 Objective deferred due to COVID Microbiology Date/Time Source Procedure Growth Status 02/17/20 19:40 Urine,Clean Catch Urine Culture - Preliminary YEAST Resulted 02/17/20 19:40 Blood Blood Culture - Preliminary NO GROWTH AFTER 24 HOURS Resulted 02/17/20 19:30 Blood Blood Culture - Preliminary NO GROWTH AFTER 24 HOURS Resulted Laboratory Tests 02/19/20 05:15: White Blood Count 8.6, Red Blood Count 3.28L, Hemoglobin 9.1L, Hematocrit 28.2L, Mean Corpuscular Volume 86, Mean Corpuscular Hemoglobin 27.7, Mean Corpuscular Hemoglobin Concent 32.3, Red Cell Distribution Width 15.6H, Platelet Count 341, Mean Platelet Volume 5.2L, Neutrophils (%) (Auto) 82.3H, Lymphocytes (%) (Auto) 12.7L, Monocytes (%) (Auto) 4.6, Eosinophils (%) (Auto) 0.0, Basophils (%) (Auto) 0.4, Sodium Level 140, Potassium Level 4.2, Chloride Level 107, Carbon Dioxide Level 25, Anion Gap 8, Blood Urea Nitrogen 39H, Creatinine 1.2, Estimat Glomerular Filtration Rate 58.6, Glucose Level 97, Calcium Level 8.5, Total Bilirubin 0.2, Aspartate Amino Transf (AST/SGOT) 34, Alanine Aminotransferase (ALT/SGPT) 15, Alkaline Phosphatase 53, Total Protein 6.5, Albumin 2.4L, Globuli n 4.1, Albumin/Globulin Ratio 0.6L Current Medications Medications (Trade) Dose Ordered Sig/Veronica Route PRN Reason Start Time Stop Time Status Last Admin Dose Admin Acetaminophen (Tylenol) 650 mg Q4H PRN ORAL Mild Pain (Pain Scale 1-3) 02/18/20 01:45 03/19/20 01:44 Carbidopa/Levodopa (Sinemet 25/100) 1 tab QID ORAL 02/18/20 09:00 03/19/20 08:59 02/18/20 20:34 Ceftriaxone Sodium 1 gm/ Dextrose 55 ml @ 110 mls/hr Q24H IVPB 02/18/20 21:00 02/25/20 20:59 02/18/20 20:34 Dexamethasone Sodium Phosphate (Decadron 10mg/ ml Inj) 6 mg DAILY IV 02/18/20 13:00 02/27/20 09:01 02/18/20 14:33 Enoxaparin Sodium (Lovenox) 40 mg DAILY SUBQ 02/18/20 09:00 05/18/20 08:59 02/18/20 09:46 Sodium Chloride 1,000 ml @ 75 mls/hr [id number] IV 02/18/20 04:00 03/19/20 03:59 02/19/20 06:32 Assessment/Plan Assessment/Plan IMPRESSION: 1. Hypoxemia 2. COVID-19 pneumonia. 3. Severe protein-calorie malnutrition. 4. Parkinson disease with dementia. 5. Hypovolemia. 6. Aspiration. 7. Lyte imbalance 8. ARF 9. RBBB PLAN respiratory care isolation as is oxygen iv antibiotics ID noted care noted and reviewed monitor for respiratory deterioration monitor imaging DVT prophylaxis impression, plan, and exam edited and reviewed in detail care discussed with Donald Quezada MD Feb 19, 2020 08:02
[2020-02-19] MEDS: Levodopa/Carbidopa 25/100 tab ORAL SCH ×4 (09:12→20:11)
[2020-02-19] MEDS: dexAMETHasone 10mg/ml Inj IV SCH (09:12)
[2020-02-19] MEDS: Enoxaparin 40mg Inj SUBQ SCH (09:13)
--- NOTE | 2020-02-19 10:29 | NUR ---
CASE MANAGEMENT:REVIEW 02/19/20 SI: COVIS PNA 97.5 96 16 93/61 96% ON 4L/NC BUN+39 IS: IV ROCEPHIN Q24 IV DECADRON Q24 IVF@75/HR LOVENOX SQ QD : TELEMETRY STATUS DCP: [facility]
--- NOTE | 2020-02-19 10:58 | Infectious Diseases Prog Note ---
Assessment/Plan Assessment/Plan antibiotics : ceftriaxone A 1. COVID 19 pneumonia on 4 liters O2, 97 percent saturation 2. fungal UTI 3. dementia 4. Parkinsons 5. hypertension P 1. ivermectin x 1 dose discussed with patients daughter who consented to it 2. continue decadron day 3 3. d/c ceftriaxone 4. start fluconazole 5. continue isolation Subjective ROS Limited/Unobtainable: Yes Allergies: Coded Allergies: PENICILLINS (Verified Allergy, Unknown, 01/07/20) Objective Last 24 Hour Vital Signs Date Time Temp Pulse Resp B/P (MAP) Pulse Ox O2 Delivery O2 Flow Rate FiO2 02/19/20 08:51 Nasal Cannula 4.0 02/19/20 08:00 97.5 96 16 93/61 (72) 96 02/19/20 04:00 97.2 73 20 124/62 (82) 95 02/19/20 04:00 76 02/19/20 00:00 97.8 83 23 145/76 (99) 97 02/19/20 00:00 75 02/18/20 23:38 Nasal Cannula 4.0 02/18/20 21:00 Nasal Cannula 4.0 02/18/20 20:00 82 02/18/20 20:00 97.6 80 22 122/58 (79) 97 02/18/20 16:00 97.5 80 20 103/53 (70) 97 02/18/20 16:00 86 02/18/20 12:00 83 02/18/20 12:00 97.2 65 20 110/54 (72) 97 02/18/20 11:35 159 132/56 Height (Feet): 5 Height (Inches): 2.00 Weight (Pounds): 100 Microbiology Date/Time Source Procedure Growth Status 02/17/20 19:40 Urine,Clean Catch Urine Culture - Preliminary YEAST Resulted 02/17/20 19:40 Blood Blood Culture - Preliminary NO GROWTH AFTER 24 HOURS Resulted 02/17/20 19:30 Blood Blood Culture - Preliminary NO GROWTH AFTER 24 HOURS Resulted Laboratory Tests Test 02/19/20 05:15 White Blood Count 8.6 K/UL (4.8-10.8) Red Blood Count 3.28 M/UL (4.70-6.10) L Hemoglobin 9.1 G/DL (14.2-18.0) L Hematocrit 28.2 % (42.0-52.0) L Mean Corpuscular Volume 86 FL (80-99) Mean Corpuscular Hemoglobin 27.7 PG (27.0-31.0) Mean Corpuscular Hemoglobin Concent 32.3 G/DL (32.0-36.0) Red Cell Distribution Width 15.6 % (11.6-14.8) H Platelet Count 341 K/UL (150-450) Mean Platelet Volume 5.2 FL (6.5-10.1) L Neutrophils (%) (Auto) 82.3 % (45.0-75.0) H Lymphocytes (%) (Auto) 12.7 % (20.0-45.0) L Monocytes (%) (Auto) 4.6 % (1.0-10.0) Eosinophils (%) (Auto) 0.0 % (0.0-3.0) Basophils (%) (Auto) 0.4 % (0.0-2.0) Sodium Level 140 MMOL/L (136-145) Potassium Level 4.2 MMOL/L (3.5-5.1) Chloride Level 107 MMOL/L (98-107) Carbon Dioxide Level 25 MMOL/L (21-32) Anion Gap 8 mmol/L (5-15) Blood Urea Nitrogen 39 mg/dL (7-18) H Creatinine 1.2 MG/DL (0.55-1.30) Estimat Glomerular Filtration Rate 58.6 mL/min (>60) Glucose Level 97 MG/DL (74-106) Calcium Level 8.5 MG/DL (8.5-10.1) Total Bilirubin 0.2 MG/DL (0.2-1.0) Aspartate Amino Transf (AST/SGOT) 34 U/L (15-37) Alanine Aminotransferase (ALT/SGPT) 15 U/L (12-78) Alkaline Phosphatase 53 U/L (46-116) Total Protein 6.5 G/DL (6.4-8.2) Albumin 2.4 G/DL (3.4-5.0) L Globulin 4.1 g/dL Albumin/Globulin Ratio 0.6 (1.0-2.7) L Current Medications Medications (Trade) Dose Ordered Sig/Veronica Route PRN Reason Start Time Stop Time Status Last Admin Dose Admin Acetaminophen (Tylenol) 650 mg Q4H PRN ORAL Mild Pain (Pain Scale 1-3) 02/18/20 01:45 03/19/20 01:44 Carbidopa/Levodopa (Sinemet 25/100) 1 tab QID ORAL 02/18/20 09:00 03/19/20 08:59 02/19/20 09:12 Ceftriaxone Sodium 1 gm/ Dextrose 55 ml @ 110 mls/hr Q24H IVPB 02/18/20 21:00 02/25/20 20:59 02/18/20 20:34 Dexamethasone Sodium Phosphate (Decadron 10mg/ ml Inj) 6 mg DAILY IV 02/18/20 13:00 02/27/20 09:01 02/19/20 09:12 Enoxaparin Sodium (Lovenox) 40 mg DAILY SUBQ 02/18/20 09:00 05/18/20 08:59 02/19/20 09:13 Sodium Chloride 1,000 ml @ 75 mls/hr [id number] IV 02/18/20 04:00 03/19/20 03:59 02/19/20 06:32 Ana Carrasco MD Feb 19, 2020 10:58
[2020-02-19] MEDS: Fluconazole 100mg tab ORAL SCH (11:00)
[2020-02-19 12:00] VITALS: BP 127/77
--- NOTE | 2020-02-19 19:45 | NUR ---
NURSE NOTES: RECEIVED REPORT FROM DAMION ODOM. PATIENT AWAKE IN BED, APPEARS TO BE NON-VERBAL. NO S/SX OF PAIN OR DISCOMFORT NOTED AT THIS TIME. BREATHING IS EVEN AND UNLABORED ON 4LPM VIA NC, NO S/SX OF DISTRESS. IV SITE LAC PATENT, INTACT, ASYMPTOMATIC, WITH IVF RUNNING PRESCRIBING. MANE CATHETER DRAINING WELL TO GRAVITY, URINE CLEAR AND YELLOW IN COLOR. BILATERAL SOFT WRIST RESTRAINTS IN PLACE, NO COMPROMISE NOTED IN CIRCULATION, SENSATION, MOBILITY, OR SKIN INTEGRITY. FALL AND ASPIRATION PRECAUTIONS IN PLACE. CONTACT AND DROPLET ISOLATION IMPLEMENTED. BED LOCKED AND IN LOWEST POSITION, SIDERAILS UP X 3. CALL LIGHT WITHIN REACH, WILL CONTINUE TO MONITOR PER POC.
[2020-02-19 20:00] VITALS: BP 115/65
[2020-02-20] VITALS (8 sets, daily range): BP systolic 113–180; BP diastolic 54–79
--- NOTE | 2020-02-20 | NUR ---
NURSE NOTES: PATIENT NOTED TO BE VERY RESTLESS THROUGHOUT THE NIGHT, DANGLING LEGS OVER SIDERAILS DESPITE BEING IN BILATERAL SOFT WRIST RESTRAINTS. PATIENT REPOSITIONED FOR COMFORT, PILLOWS PLACED UNDER BILATERAL LEGS AND BILATERAL ARMS. IV SITE ON LAC RE-WRAPPED. WILL CONTINUE TO MONITOR FOR ANY CHANGES.
--- NOTE | 2020-02-20 00:10 | Cardiology Progress Note ---
Subjective DATE OF SERVICE: Feb 19, 2020 Confused Some congestion Pulls out IV lines and tries to get OOB alone. Needs restraints for safety Remains on Ivermectin, Steroids, and anticoagulation. Still on 4L oxygen by N/C. Objective Last 24 Hour Vital Signs Date Time Temp Pulse Resp B/P (MAP) Pulse Ox O2 Delivery O2 Flow Rate FiO2 02/19/20 21:00 Nasal Cannula 4.0 02/19/20 20:00 89 02/19/20 20:00 97.7 92 18 115/65 (82) 99 02/19/20 12:00 97.7 75 18 127/77 (94) 99 02/19/20 12:00 88 02/19/20 08:51 Nasal Cannula 4.0 02/19/20 08:00 91 02/19/20 08:00 97.5 96 16 93/61 (72) 96 02/19/20 04:00 97.2 73 20 124/62 (82) 95 02/19/20 04:00 76 ROS: unchanged from my evaluation of 02/17/20 HEENT: normal ENT inspection RHYTHM: NSR, ST LUNGS: bilateral rhonchi CARDIAC: normal rate, regular rhythm, normal S1 and S2 ABDOMEN: normal bowel sounds, non tender, soft, no organomegaly EXTREMITIES: trace edema, other - confused Laboratory Tests Test 02/19/20 05:15 White Blood Count 8.6 K/UL (4.8-10.8) Red Blood Count 3.28 M/UL (4.70-6.10) L Hemoglobin 9.1 G/DL (14.2-18.0) L Hematocrit 28.2 % (42.0-52.0) L Mean Corpuscular Volume 86 FL (80-99) Mean Corpuscular Hemoglobin 27.7 PG (27.0-31.0) Mean Corpuscular Hemoglobin Concent 32.3 G/DL (32.0-36.0) Red Cell Distribution Width 15.6 % (11.6-14.8) H Platelet Count 341 K/UL (150-450) Mean Platelet Volume 5.2 FL (6.5-10.1) L Neutrophils (%) (Auto) 82.3 % (45.0-75.0) H Lymphocytes (%) (Auto) 12.7 % (20.0-45.0) L Monocytes (%) (Auto) 4.6 % (1.0-10.0) Eosinophils (%) (Auto) 0.0 % (0.0-3.0) Basophils (%) (Auto) 0.4 % (0.0-2.0) Sodium Level 140 MMOL/L (136-145) Potassium Level 4.2 MMOL/L (3.5-5.1) Chloride Level 107 MMOL/L (98-107) Carbon Dioxide Level 25 MMOL/L (21-32) Anion Gap 8 mmol/L (5-15) Blood Urea Nitrogen 39 mg/dL (7-18) H Creatinine 1.2 MG/DL (0.55-1.30) Estimat Glomerular Filtration Rate 58.6 mL/min (>60) Glucose Level 97 MG/DL (74-106) Calcium Level 8.5 MG/DL (8.5-10.1) Total Bilirubin 0.2 MG/DL (0.2-1.0) Aspartate Amino Transf (AST/SGOT) 34 U/L (15-37) Alanine Aminotransferase (ALT/SGPT) 15 U/L (12-78) Alkaline Phosphatase 53 U/L (46-116) Total Protein 6.5 G/DL (6.4-8.2) Albumin 2.4 G/DL (3.4-5.0) L Globulin 4.1 g/dL Albumin/Globulin Ratio 0.6 (1.0-2.7) L Microbiology Date/Time Source Procedure Growth Status 02/17/20 19:40 Urine,Clean Catch Urine Culture - Preliminary YEAST Resulted 02/17/20 19:40 Blood Blood Culture - Preliminary NO GROWTH AFTER 24 HOURS Resulted 02/17/20 19:30 Blood Blood Culture - Preliminary NO GROWTH AFTER 24 HOURS Resulted Assessment/Plan Assessment/Plan Covid 19 PNA Hypoxia Toxic encephalopathy Paroxsymal sinus tachycardia Dementia Moderate protein calorie malnutrition Parkinsons disease CAD Hypovolemia/dehydration Dysphagia Fungal cystitis Severe protein-calorie malnutrition IV steroids Antiviral and antifungal rx per ID O2 Resp Rx Restraints prn IVF with adjustments based on clinical parameters Anticoagulation Nutritional support DC telemetry Iggy Saunders MD Feb 20, 2020 00:10
--- NOTE | 2020-02-20 06:25 | NUR ---
NURSE NOTES: Received a pt from tele nurse DAMION Stanford. pt is on 4L nc and stating 98%. No pain,cough and fever at the moment. iv is intact and asymptomatic. pt has Valera cath and darning good. pt has bilat soft restrain. pt is on covid 19 isolation. Bed is in the lowest position,locked , and alarm on . Call light within reach. We will keep monitoring the pt.
--- NOTE | 2020-02-20 06:44 | NUR ---
INTER-FACILITY TRANSFER: Patient transferred to [facility], per DR. ARMIJO. Report given to DAMION HINOJOSA. Patient transferred with valuables and medications. Belongings verified upon transfer and given to DAMION HINOJOSA. BODY/SKIN ASSESSMENT DONE AT BEDSIDE.
--- NOTE | 2020-02-20 07:22 | NUR ---
NURSE HAND-OFF: Important Events on Shift: transfer to [facility] Patient Status: stable Diet: regular Pending Orders: Pending Results/Labs: Pending MD notification: Latest Vital Signs: Temperature 97.7 , Pulse 76 , B/P 140 /54 , Respiratory Rate 18 , O2 SAT 98 , Nasal Cannula, O2 Flow Rate 4.0 . Vital Sign Comment: Latest Mancilla Fall Score: 70 Fall Risk: High Risk Safety Measures: Call light Within Reach, Bed Alarm Zone 1, Side Rails Side Rails x3, Bed position Low and Locked. Fall Precautions: Yellow Socks Door Sign Patient Fall Education Report given to DAMION DAS.
--- NOTE | 2020-02-20 07:30 | NUR ---
nurse notes 0730 received patient sleeping,but easily arousable, no sign of distress, on contact and droplet precaution, kept clean dry and comfortable in bed 0820 physicall assessment done, noted on going IVF , HL wrapped with kerlix IV site swollen dcd , Will place a new line, Patient have no ID band, charge nurse made aware jessica syed
[2020-02-20 08:42] LABS: BASOPHILS % (AUTO) 0.7 % (0.0-2.0); HEMATOCRIT 30.1 % (42.0-52.0); HEMOGLOBIN 9.9 G/DL (14.2-18.0); LYMPHOCYTES % (AUTO) 9.2 % (20.0-45.0); MEAN CORPUSCULAR VOLUME 86 FL (80-99); MONOCYTES % (AUTO) 6.1 % (1.0-10.0); PLATELET COUNT 357 K/UL (150-450); RED CELL DISTRIBUTION WIDTH 15.1 % (11.6-14.8); WHITE BLOOD COUNT 10.7 K/UL (4.8-10.8)
[2020-02-20] MEDS: Levodopa/Carbidopa 25/100 tab ORAL SCH ×4 (09:01→20:28)
[2020-02-20] MEDS: Fluconazole 100mg tab ORAL SCH (09:01)
--- NOTE | 2020-02-20 09:20 | General Progress Note ---
Subjective ROS Limited/Unobtainable: No Constitutional: Reports: malaise, weakness HEENT: Reports: no symptoms Cardiovascular: Reports: no symptoms Respiratory: Reports: cough, shortness of breath Gastrointestinal/Abdominal: Reports: no symptoms Genitourinary: Reports: no symptoms Neurologic/Psychiatric: Reports: no symptoms Endocrine: Reports: no symptoms Hematologic/Lymphatic: Reports: no symptoms Allergies: Coded Allergies: PENICILLINS (Verified Allergy, Unknown, 01/07/20) All Systems: reviewed and negative except above Subjective no events. remains stable on 4L nc. tolerating pos. on decadron. s/p ivermectin Objective Last 24 Hour Vital Signs Date Time Temp Pulse Resp B/P (MAP) Pulse Ox O2 Delivery O2 Flow Rate FiO2 02/20/20 08:12 98.2 80 18 180/76 (110) 98 02/20/20 07:04 97.7 76 18 140/54 (82) 98 02/20/20 00:00 72 02/20/20 00:00 98.1 73 18 137/79 (98) 100 02/19/20 21:00 Nasal Cannula 4.0 02/19/20 20:00 89 02/19/20 20:00 97.7 92 18 115/65 (82) 99 02/19/20 12:00 97.7 75 18 127/77 (94) 99 02/19/20 12:00 88 Intake and Output 02/19/20 02/20/20 19:00 07:00 Output Total 600 ml 600 ml Balance -600 ml -600 ml Output Urine Total 600 ml 600 ml # Bowel Movements 1 Laboratory Tests 02/20/20 05:00: White Blood Count 10.7, Red Blood Count 3.50L, Hemoglobin 9.9L, Hematocrit 30.1L , Mean Corpuscular Volume 86, Mean Corpuscular Hemoglobin 28.2, Mean Corpuscular Hemoglobin Concent 32.8, Red Cell Distribution Width 15.1H, Platelet Count 357, Mean Platelet Volume 5.2L, Neutrophils (%) (Auto) 84.0H, Lymphocytes (%) (Auto) 9.2L, Monocytes (%) (Auto) 6.1, Eosinophils (%) (Auto) 0.0, Basophils (%) (Auto) 0.7, Sodium Level [Pending], Potassium Level [Pending], Chloride Level [Pending], Carbon Dioxide Level [Pending], Blood Urea Nitrogen [Pending], Creatinine [Pending], Estimat Glomerular Filtration Rate [Pending], Glucose Level [Pending], Calcium Level [Pending], Magnesium Level [Pending], Total Bilirubin [Pending], Aspartate Amino Transf (AST/SGOT) [Pending], Alanine Aminotransferase (ALT/SGPT) [Pending], Alkaline Phosphatase [Pending], Pro-B-Type Natriuretic Peptide [Pending], Total Protein [Pending], Albumin [Pending], Globulin [Pending] Height (Feet): 5 Height (Inches): 2.00 Weight (Pounds): 100 General Appearance: WD/WN, alert Neck: supple Cardiovascular: regular rhythm Respiratory/Chest: lungs clear Abdomen: normal bowel sounds, non tender, soft, no organomegaly Edema: no edema noted Arm (L), no edema noted Arm (R) 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
[2020-02-20 09:21] LABS: ALANINE AMINOTRANSFERASE 10 U/L (12-78); ALBUMIN 2.4 G/DL (3.4-5.0); ALBUMIN/GLOBULIN RATIO 0.6 (1.0-2.7); ALKALINE PHOSPHATASE 58 U/L (46-116); ANION GAP 10 mmol/L (5-15); ASPARTATE AMINO TRANSFERASE 40 U/L (15-37); BILIRUBIN,TOTAL 0.3 MG/DL (0.2-1.0); BLOOD UREA NITROGEN 33 mg/dL (7-18); CALCIUM 8.3 MG/DL (8.5-10.1); CARBON DIOXIDE 23 MMOL/L (21-32); CHLORIDE 106 MMOL/L (98-107); POTASSIUM 4.1 MMOL/L (3.5-5.1); SODIUM 139 MMOL/L (136-145)
[2020-02-20] MEDS: dexAMETHasone 10mg/ml Inj IV SCH (09:23)
[2020-02-20] MEDS: Enoxaparin 40mg Inj SUBQ SCH (09:24)
--- NOTE | 2020-02-20 10:55 | Pulmonology Progress Note ---
Subjective ROS Limited/Unobtainable: Yes Allergies: Coded Allergies: PENICILLINS (Verified Allergy, Unknown, 01/07/20) All Systems: reviewed and negative except above Subjective care noted ID reviewed on 4 liter NC Objective Last 24 Hour Vital Signs Date Time Temp Pulse Resp B/P (MAP) Pulse Ox O2 Delivery O2 Flow Rate FiO2 02/20/20 08:30 146/69 (94) 02/20/20 08:30 Nasal Cannula 4.0 02/20/20 08:12 98.2 80 18 180/76 (110) 98 02/20/20 07:04 97.7 76 18 140/54 (82) 98 02/20/20 00:00 72 02/20/20 00:00 98.1 73 18 137/79 (98) 100 02/19/20 21:00 Nasal Cannula 4.0 02/19/20 20:00 89 02/19/20 20:00 97.7 92 18 115/65 (82) 99 02/19/20 12:00 97.7 75 18 127/77 (94) 99 02/19/20 12:00 88 Intake and Output 02/19/20 02/20/20 19:00 07:00 Output Total 600 ml 600 ml Balance -600 ml -600 ml Output Urine Total 600 ml 600 ml # Bowel Movements 1 Objective deferred due to COVID Microbiology Date/Time Source Procedure Growth Status 02/17/20 19:50 Rectum VRE Culture - Final NO VANCOMYCIN RESISTANT ENTEROCOCCUS ... Complete 02/17/20 19:50 Nasal Nares MRSA Culture - Final NO METHICILLIN RESISTANT STAPH AUREUS... Complete 02/17/20 19:40 Urine,Clean Catch Urine Culture - Final Narda Albicans Complete 02/17/20 19:40 Blood Blood Culture - Preliminary NO GROWTH AFTER 24 HOURS Resulted 02/17/20 19:30 Blood Blood Culture - Preliminary NO GROWTH AFTER 24 HOURS Resulted Laboratory Tests 02/20/20 05:00: White Blood Count 10.7, Red Blood Count 3.50L, Hemoglobin 9.9L, Hematocrit 30.1L , Mean Corpuscular Volume 86, Mean Corpuscular Hemoglobin 28.2, Mean Corpuscular Hemoglobin Concent 32.8, Red Cell Distribution Width 15.1H, Platelet Count 357, Mean Platelet Volume 5.2L, Neutrophils (%) (Auto) 84.0H, Lymphocytes (%) (Auto) 9.2L, Monocytes (%) (Auto) 6.1, Eosinophils (%) (Auto) 0.0, Basophils (%) (Auto) 0.7, Sodium Level 139, Potassium Level 4.1, Chloride Level 106, Carbon Dioxide Level 23, Anion Gap 10, Blood Urea Nitrogen 33H, Creatinine 1.0, Estimat Glomerular Filtration Rate > 60, Glucose Level 54L, Calcium Level 8.3L, Magnesium Level 2.1, Total Bilirubin 0.3, Aspartate Amino Transf (AST/SGOT) 40H, Alanine Aminotransferase (ALT/SGPT) 10L, Alkaline Phosphatase 58, Pro-B-Type Natriuretic Peptide 2051H, Total Protein 6.6, Albumin 2.4L, Globulin 4.2, Albumin/Globulin Ratio 0.6L Current Medications Medications (Trade) Dose Ordered Sig/Veronica Route PRN Reason Start Time Stop Time Status Last Admin Dose Admin Acetaminophen (Tylenol) 650 mg Q4H PRN ORAL Mild Pain (Pain Scale 1-3) 02/18/20 01:45 03/19/20 01:44 Carbidopa/Levodopa (Sinemet 25/100) 1 tab QID ORAL 02/18/20 09:00 03/19/20 08:59 02/20/20 09:01 Dexamethasone Sodium Phosphate (Decadron 10mg/ ml Inj) 6 mg DAILY IV 02/18/20 13:00 02/27/20 09:01 02/20/20 09:23 Enoxaparin Sodium (Lovenox) 40 mg DAILY SUBQ 02/18/20 09:00 05/18/20 08:59 02/20/20 09:24 Fluconazole (Diflucan) 100 mg DAILY ORAL 02/19/20 11:00 02/26/20 10:59 02/20/20 09:01 Sodium Chloride 1,000 ml @ 75 mls/hr [id number] IV 02/18/20 04:00 03/19/20 03:59 02/20/20 09:23 Assessment/Plan Assessment/Plan IMPRESSION: 1. Hypoxemia 2. COVID-19 pneumonia. 3. Severe protein-calorie malnutrition. 4. Parkinson disease with dementia. 5. Hypovolemia. 6. Aspiration. 7. Lyte imbalance 8. ARF 9. RBBB PLAN respiratory care isolation ? needed oxygen iv antibiotics ID noted care noted and reviewed monitor for respiratory deterioration monitor imaging for change DVT prophylaxis impression, plan, and exam edited and reviewed in detail care discussed with Donald Quezada MD Feb 20, 2020 10:55
--- NOTE | 2020-02-20 14:13 | Diagnostic Imaging Report ---
EXAM: XR Chest, 1 View CLINICAL HISTORY: COUGH TECHNIQUE: Frontal view of the chest. COMPARISON: Chest x-rays dated 02/17/20 FINDINGS: Lungs: Hazy density at the periphery of the right upper lung, concerning for pneumonia. Prominent perihilar interstitial markings. Interval improved aeration of bilateral lung bases. Pleural space: Unremarkable. The costophrenic angles are sharp. No visible pneumothorax. Heart: Unremarkable. No cardiomegaly. Mediastinum: Unremarkable. Bones/joints: Multilevel degenerative disc space loss and endplate osteophytes throughout the visualized spine. Vasculature: Atherosclerotic calcifications within the aortic arch. IMPRESSION: 1. Hazy density at the periphery of the right upper lung, concerning for pneumonia. 2. Prominent perihilar interstitial markings. This may represent chronic senescent/postinflammatory changes, however cannot exclude a bronchitis or pneumonitis. 3. Interval improved aeration of bilateral lung bases.
--- NOTE | 2020-02-20 18:19 | NUR ---
NURSE HAND-OFF: Important Events on Shift:[NONE] Patient Status: [NO CHANGE] Diet: [Regular mechanical soft chopped pureed like soup soft easy chew feeder 1] Pending Orders: [none] Pending Results/Labs:[none] Pending MD notification:[none] Latest Vital Signs: Temperature 98.5 , Pulse 76 , B/P 113 /59 , Respiratory Rate 18 , O2 SAT 100 , Nasal Cannula, O2 Flow Rate 4.0 . Vital Sign Comment: [stable] Latest Mancilla Fall Score: 70 Fall Risk: High Risk Safety Measures: Call light Within Reach, Bed Alarm Zone 1, Side Rails Side Rails x3, Bed position Low and Locked. Fall Precautions: Yellow Socks Door Sign Patient Fall Education Report given to [KIRIT keating RN]. Addendum: 02/20/20 at 1928 by NEMESIO DAS RN RN NURSE HAND-OFF: Important Events on Shift:[NONE] Patient Status: [NO CHANGE] Diet: [Regular mechanical soft chopped pureed like soup soft easy chew feeder 1] Pending Orders: [none] Pending Results/Labs:[none] Pending MD notification:[none] Latest Vital Signs: Temperature 98.5 , Pulse 76 , B/P 113 /59 , Respiratory Rate 18 , O2 SAT 100 , Nasal Cannula, O2 Flow Rate 4.0 . Vital Sign Comment: [stable] Latest Mancilla Fall Score: 70 Fall Risk: High Risk Safety Measures: Call light Within Reach, Bed Alarm Zone 1, Side Rails Side Rails x3, Bed position Low and Locked. Fall Precautions: Yellow Socks Door Sign Patient Fall Education Report given to Ramirez MCDANIEL RN accordingly
--- NOTE | 2020-02-20 19:25 | NUR ---
NURSE NOTES: Received report from pebbels pritchard rn. patient is asleep. on nasal cannula at 5lpm. no sob. with iv line on the right upper arm running ns @ 75 ml/hr. with goel draining well. DNR/DNI. PER FARA " patient isnon-verbal and on bilateral soft wrist restraints due to frequent falls" no injury noted at the moment. bed locked and in lowest position. call light and light button within easy reach. bed alarm on. will observe isolation precautions. will continue plan of care.
--- NOTE | 2020-02-20 20:00 | NUR ---
NURSE NOTES: with bilateral soft wrist restraints. no injury noted. no redness. no bruises or open skin. skin is intact. active range of motion initiated. tolerated with no complaints. no moaning or facial grimacing. needs attended and met. provided rest and comfort. will continue to monitor.
--- NOTE | 2020-02-20 20:42 | Cardiology Progress Note ---
Subjective DATE OF SERVICE: Feb 20, 2020 Confused Still some congestion Pulls out IV lines and tries to get OOB alone. Needs restraints for safety Remains on Steroids, and anticoagulation; she is s/p Ivermectin. Still on 4L oxygen by N/C. BNP rising. Objective Last 24 Hour Vital Signs Date Time Temp Pulse Resp B/P (MAP) Pulse Ox O2 Delivery O2 Flow Rate FiO2 02/20/20 15:52 98.5 76 18 113/59 (77) 100 02/20/20 12:59 118/75 (89) 02/20/20 12:00 98.3 86 18 162/77 (105) 100 02/20/20 08:30 146/69 (94) 02/20/20 08:30 Nasal Cannula 4.0 02/20/20 08:12 98.2 80 18 180/76 (110) 98 02/20/20 07:04 97.7 76 18 140/54 (82) 98 02/20/20 00:00 72 02/20/20 00:00 98.1 73 18 137/79 (98) 100 02/19/20 21:00 Nasal Cannula 4.0 ROS: unchanged from my evaluation of 02/17/20 HEENT: normal ENT inspection RHYTHM: NSR, ST LUNGS: bilateral rhonchi CARDIAC: normal rate, regular rhythm, normal S1 and S2 ABDOMEN: normal bowel sounds, non tender, soft, no organomegaly EXTREMITIES: trace edema, other - confused Laboratory Tests Test 02/20/20 05:00 White Blood Count 10.7 K/UL (4.8-10.8) Red Blood Count 3.50 M/UL (4.70-6.10) L Hemoglobin 9.9 G/DL (14.2-18.0) L Hematocrit 30.1 % (42.0-52.0) L Mean Corpuscular Volume 86 FL (80-99) Mean Corpuscular Hemoglobin 28.2 PG (27.0-31.0) Mean Corpuscular Hemoglobin Concent 32.8 G/DL (32.0-36.0) Red Cell Distribution Width 15.1 % (11.6-14.8) H Platelet Count 357 K/UL (150-450) Mean Platelet Volume 5.2 FL (6.5-10.1) L Neutrophils (%) (Auto) 84.0 % (45.0-75.0) H Lymphocytes (%) (Auto) 9.2 % (20.0-45.0) L Monocytes (%) (Auto) 6.1 % (1.0-10.0) Eosinophils (%) (Auto) 0.0 % (0.0-3.0) Basophils (%) (Auto) 0.7 % (0.0-2.0) Sodium Level 139 MMOL/L (136-145) Potassium Level 4.1 MMOL/L (3.5-5.1) Chloride Level 106 MMOL/L (98-107) Carbon Dioxide Level 23 MMOL/L (21-32) Anion Gap 10 mmol/L (5-15) Blood Urea Nitrogen 33 mg/dL (7-18) H Creatinine 1.0 MG/DL (0.55-1.30) Estimat Glomerular Filtration Rate > 60 mL/min (>60) Glucose Level 54 MG/DL (74-106) L Calcium Level 8.3 MG/DL (8.5-10.1) L Magnesium Level 2.1 MG/DL (1.8-2.4) Total Bilirubin 0.3 MG/DL (0.2-1.0) Aspartate Amino Transf (AST/SGOT) 40 U/L (15-37) H Alanine Aminotransferase (ALT/SGPT) 10 U/L (12-78) L Alkaline Phosphatase 58 U/L (46-116) Pro-B-Type Natriuretic Peptide 2051 pg/mL (0-125) H Total Protein 6.6 G/DL (6.4-8.2) Albumin 2.4 G/DL (3.4-5.0) L Globulin 4.2 g/dL Albumin/Globulin Ratio 0.6 (1.0-2.7) L Assessment/Plan Assessment/Plan Covid 19 PNA Hypoxia Toxic encephalopathy Paroxsymal sinus tachycardia Dementia Moderate protein calorie malnutrition Parkinsons disease CAD Hypovolemia/dehydration Dysphagia Fungal cystitis Severe protein-calorie malnutrition Hypertension with chronic diastolic CHF IV steroids Antiviral and antifungal rx per ID O2 Resp Rx Restraints prn IVF with adjustments based on clinical parameters Anticoagulation Nutritional support DC IVF Restart beta richmond and statin rx Iggy Saunders MD Feb 20, 2020 20:42
[2020-02-20] MEDS: Atorvastatin 20mg tab ORAL SCH (20:49)
--- NOTE | 2020-02-20 22:00 | NUR ---
NURSE NOTES: Patient is asleep. with bilateral soft wrist restraints. no injury noted. no redness. no bruises, no swelling. + bilateral wrist pulses. skin is intact. active range of motion initiated. tolerated with no complaints. no moaning or facial grimacing. needs attended and met. provided rest and comfort. will continue to monitor.
[2020-02-21] VITALS: BP 121/75
--- NOTE | 2020-02-21 | NUR ---
NURSE NOTES: Patient is awake. with bilateral soft wrist restraints. no evidence of pain at the moment. no facial grimacing and moaning. no injury noted. no redness. no bruises, no swelling. + bilateral wrist pulses. skin is intact. active range of motion initiated. tolerated with no complaints. no moaning or facial grimacing. needs attended and met. provided rest and comfort. will continue to monitor.
[2020-02-21 04:00] VITALS: BP 138/89
--- NOTE | 2020-02-21 04:00 | NUR ---
NURSE NOTES: NURSE NOTES: Patient is awake. changed beddings. offered water. with bilateral soft wrist restraints. no evidence of pain at the moment. no facial grimacing and moaning. no injury noted. no redness. no bruises, no swelling. + bilateral wrist pulses. skin is intact. active range of motion initiated. tolerated with no complaints. no moaning or facial grimacing. needs attended and met. provided rest and comfort. kept clean and dry. will continue to monitor.
--- NOTE | 2020-02-21 06:00 | NUR ---
NURSE NOTES: Patient is asleep. with bilateral soft wrist restraints. no evidence of pain at the moment. no facial grimacing and moaning. no injury noted. no redness. no bruises, no swelling. + bilateral wrist pulses. skin is intact. active range of motion initiated. tolerated with no complaints. needs attended and met. provided rest and comfort. kept clean and dry. will continue to monitor.
--- NOTE | 2020-02-21 06:42 | NUR ---
NURSE HAND-OFF: Important Events on Shift:RESTRAINTS CARE; MANE CARE Patient Status: STABLE Diet:REGULAR; LIQ PUREED SOUP, SOFT EASY CHEW, MECH SOFT FIENLY CHOPPED. Pending Orders: Pending Results/Labs: Pending MD notification: Latest Vital Signs: Temperature 97.3 , Pulse 80 , B/P 138 /89 , Respiratory Rate 19 , O2 SAT 100 , Nasal Cannula, O2 Flow Rate 4.0 . Vital Sign Comment: Latest Mancilla Fall Score: 70 Fall Risk: High Risk Safety Measures: Call light Within Reach, Bed Alarm Zone 1, Side Rails Side Rails x3, Bed position Low and Locked. Fall Precautions: Yellow Socks Door Sign Patient Fall Education
--- NOTE | 2020-02-21 07:45 | NUR ---
HAND-OFF: Report given to DAMION IGNACIO.
[2020-02-21 08:00] VITALS: BP 151/84
--- NOTE | 2020-02-21 08:33 | NUR ---
NURSE NOTES: received patient lying on bed, in bilateral soft wrist restraints, skin intact under restraints. No sign of distress at the moment. Patient is bedbound, on 5L/min NC, no respiratory distress noted. Valera catheter Fr16 in place for urine retention, yellow urine noted. Right upper arm IV access, saline locked. Bed at the lowest position possible, call light within easy reach, side rails x3. Will continue to monitor patient and follow up with the plan of care.
[2020-02-21] MEDS: Fluconazole 100mg tab ORAL SCH (09:26)
[2020-02-21] MEDS: Levodopa/Carbidopa 25/100 tab ORAL SCH ×4 (09:26→21:19)
[2020-02-21] MEDS: dexAMETHasone 10mg/ml Inj IV SCH (09:27)
[2020-02-21] MEDS: Enoxaparin 40mg Inj SUBQ SCH (09:28)
--- NOTE | 2020-02-21 10:09 | Pulmonology Progress Note ---
Subjective ROS Limited/Unobtainable: Yes Allergies: Coded Allergies: PENICILLINS (Verified Allergy, Unknown, 01/07/20) All Systems: reviewed and negative except above Subjective care noted ID reviewed oxygen needs noted imaging noted Objective Last 24 Hour Vital Signs Date Time Temp Pulse Resp B/P (MAP) Pulse Ox O2 Delivery O2 Flow Rate FiO2 02/21/20 09:26 77 151/84 02/21/20 08:00 98.7 77 18 151/84 (106) 100 02/21/20 04:00 97.3 80 19 138/89 (105) 100 02/21/20 00:00 97.9 72 20 121/75 (90) 100 02/20/20 21:00 Nasal Cannula 4.0 02/20/20 20:59 97.9 02/20/20 20:49 72 138/67 02/20/20 20:00 97.9 72 20 138/67 (90) 100 02/20/20 15:52 98.5 76 18 113/59 (77) 100 02/20/20 12:59 118/75 (89) 02/20/20 12:00 98.3 86 18 162/77 (105) 100 Intake and Output 02/20/20 02/21/20 18:59 06:59 Intake Total 1085 ml 275 ml Output Total 1000 ml 400 ml Balance 85 ml -125 ml Intake Oral 200 ml IV Total 785 ml 75 ml Other 300 ml Output Urine Total 1000 ml 400 ml Objective deferred due to COVID Current Medications Medications (Trade) Dose Ordered Sig/Veronica Route PRN Reason Start Time Stop Time Status Last Admin Dose Admin Acetaminophen (Tylenol) 650 mg Q4H PRN ORAL Mild Pain (Pain Scale 1-3) 02/18/20 01:45 03/19/20 01:44 02/20/20 20:29 Atorvastatin Calcium (Lipitor) 20 mg BEDTIME ORAL 02/20/20 21:00 05/20/20 20:59 02/20/20 20:49 Carbidopa/Levodopa (Sinemet 25/100) 1 tab QID ORAL 02/18/20 09:00 03/19/20 08:59 02/21/20 09:26 Dexamethasone Sodium Phosphate (Decadron 10mg/ ml Inj) 6 mg DAILY IV 02/18/20 13:00 02/27/20 09:01 02/21/20 09:27 Enoxaparin Sodium (Lovenox) 40 mg DAILY SUBQ 02/18/20 09:00 05/18/20 08:59 02/21/20 09:28 Fluconazole (Diflucan) 100 mg DAILY ORAL 02/19/20 11:00 02/26/20 10:59 02/21/20 09:26 Folic Acid (Folate) 1 mg DAILY ORAL 02/21/20 09:00 03/22/20 08:59 02/21/20 09:26 Metoprolol Tartrate (Lopressor) 25 mg Q12HR ORAL 02/20/20 21:00 05/20/20 20:59 02/21/20 09:26 Assessment/Plan Assessment/Plan IMPRESSION: 1. Hypoxemia 2. COVID-19 pneumonia. 3. Severe protein-calorie malnutrition. 4. Parkinson disease with dementia. 5. Hypovolemia. 6. Aspiration. 7. Lyte imbalance 8. ARF 9. RBBB PLAN respiratory care oxygen iv antibiotics ID noted keep negative based on imaging care noted and reviewed monitor for respiratory deterioration monitor imaging for change DVT prophylaxis impression, plan, and exam edited and reviewed in detail care discussed with Donald Quezada MD Feb 21, 2020 10:09
--- NOTE | 2020-02-21 11:25 | General Progress Note ---
Subjective ROS Limited/Unobtainable: Yes Constitutional: Reports: malaise, weakness HEENT: Reports: no symptoms Cardiovascular: Reports: no symptoms Respiratory: Reports: cough, shortness of breath Gastrointestinal/Abdominal: Reports: difficulty swallowing Genitourinary: Reports: no symptoms Neurologic/Psychiatric: Reports: pre-existing deficit Endocrine: Reports: no symptoms Hematologic/Lymphatic: Reports: anemia Allergies: Coded Allergies: PENICILLINS (Verified Allergy, Unknown, 01/07/20) All Systems: reviewed and negative except above Subjective no events. remains stable on 4L nc. tolerating pos. on decadron. s/p ivermectin cxr shows new right sided infiltrate. no fevers. per staff very poor po intake. Objective Last 24 Hour Vital Signs Date Time Temp Pulse Resp B/P (MAP) Pulse Ox O2 Delivery O2 Flow Rate FiO2 02/21/20 09:26 77 151/84 02/21/20 09:00 Nasal Cannula 4.0 02/21/20 08:00 98.7 77 18 151/84 (106) 100 02/21/20 04:00 97.3 80 19 138/89 (105) 100 02/21/20 00:00 97.9 72 20 121/75 (90) 100 02/20/20 21:00 Nasal Cannula 4.0 02/20/20 20:59 97.9 02/20/20 20:49 72 138/67 02/20/20 20:00 97.9 72 20 138/67 (90) 100 02/20/20 15:52 98.5 76 18 113/59 (77) 100 02/20/20 12:59 118/75 (89) 02/20/20 12:00 98.3 86 18 162/77 (105) 100 Intake and Output 02/20/20 02/21/20 18:59 06:59 Intake Total 1085 ml 275 ml Output Total 1000 ml 400 ml Balance 85 ml -125 ml Intake Oral 200 ml IV Total 785 ml 75 ml Other 300 ml Output Urine Total 1000 ml 400 ml Height (Feet): 5 Height (Inches): 2.00 Weight (Pounds): 100 Objective General Appearance: WD/WN, alert Neck: supple Cardiovascular: regular rhythm Respiratory/Chest: lungs clear Abdomen: normal bowel sounds, non tender, soft, no organomegaly Edema: no edema noted Arm (L), no edema noted Arm (R) 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
[2020-02-21 12:00] VITALS: BP 158/77
--- NOTE | 2020-02-21 13:44 | Infectious Diseases Prog Note ---
Assessment/Plan Assessment/Plan A 1. COVID 19 pneumonia 2. fungal UTI 3. dementia 4. Parkinsons 5. hypertension P 1. Had ivermectin x 1 dose 2. continue Dexamethasone 3. Continue fluconazole 4. continue isolation Subjective ROS Limited/Unobtainable: Yes Constitutional: Denies: fever Neurologic: Reports: confusion, other - on restraint Allergies: Coded Allergies: PENICILLINS (Verified Allergy, Unknown, 01/07/20) Objective Last 24 Hour Vital Signs Date Time Temp Pulse Resp B/P (MAP) Pulse Ox O2 Delivery O2 Flow Rate FiO2 02/21/20 12:00 97.6 66 18 158/77 (104) 100 02/21/20 09:26 77 151/84 02/21/20 09:00 Nasal Cannula 4.0 02/21/20 08:00 98.7 77 18 151/84 (106) 100 02/21/20 04:00 97.3 80 19 138/89 (105) 100 02/21/20 00:00 97.9 72 20 121/75 (90) 100 02/20/20 21:00 Nasal Cannula 4.0 02/20/20 20:59 97.9 02/20/20 20:49 72 138/67 02/20/20 20:00 97.9 72 20 138/67 (90) 100 02/20/20 15:52 98.5 76 18 113/59 (77) 100 Height (Feet): 5 Height (Inches): 2.00 Weight (Pounds): 100 HEENT: other - dry mouth Respiratory/Chest: other - oxygen by nasal cannula Cardiovascular: normal rate Abdomen: soft, non tender Extremities: no edema Neurologic/Psychiatric: disoriented Current Medications Medications (Trade) Dose Ordered Sig/Veronica Route PRN Reason Start Time Stop Time Status Last Admin Dose Admin Acetaminophen (Tylenol) 650 mg Q4H PRN ORAL Mild Pain (Pain Scale 1-3) 02/18/20 01:45 03/19/20 01:44 02/20/20 20:29 Atorvastatin Calcium (Lipitor) 20 mg BEDTIME ORAL 02/20/20 21:00 05/20/20 20:59 02/20/20 20:49 Carbidopa/Levodopa (Sinemet 25/100) 1 tab QID ORAL 02/18/20 09:00 03/19/20 08:59 02/21/20 13:17 Dexamethasone Sodium Phosphate (Decadron 10mg/ ml Inj) 6 mg DAILY IV 02/18/20 13:00 02/27/20 09:01 02/21/20 09:27 Enoxaparin Sodium (Lovenox) 40 mg DAILY SUBQ 02/18/20 09:00 05/18/20 08:59 02/21/20 09:28 Fluconazole (Diflucan) 100 mg DAILY ORAL 02/19/20 11:00 02/26/20 10:59 02/21/20 09:26 Folic Acid (Folate) 1 mg DAILY ORAL 02/21/20 09:00 03/22/20 08:59 02/21/20 09:26 Metoprolol Tartrate (Lopressor) 25 mg Q12HR ORAL 02/20/20 21:00 05/20/20 20:59 02/21/20 09:26 Mohsen Garcia MD Feb 21, 2020 13:44
[2020-02-21 15:38] VITALS: BP 151/71
--- NOTE | 2020-02-21 15:57 | Cardiology Progress Note ---
Subjective DATE OF SERVICE: Feb 21, 2020 Still with some congestion. CXR reveals new right infiltrate Pulls out IV lines and tries to get OOB alone. Needs restraints for safety Remains on Steroids, and anticoagulation; she is s/p Ivermectin. Still on 4L oxygen by N/C. BNP was elevated yesterday; IVF discont'd Objective Last 24 Hour Vital Signs Date Time Temp Pulse Resp B/P (MAP) Pulse Ox O2 Delivery O2 Flow Rate FiO2 02/21/20 15:38 98.3 69 19 151/71 (97) 95 02/21/20 12:00 97.6 66 18 158/77 (104) 100 02/21/20 09:26 77 151/84 02/21/20 09:00 Nasal Cannula 4.0 02/21/20 08:00 98.7 77 18 151/84 (106) 100 02/21/20 04:00 97.3 80 19 138/89 (105) 100 02/21/20 00:00 97.9 72 20 121/75 (90) 100 02/20/20 21:00 Nasal Cannula 4.0 02/20/20 20:59 97.9 02/20/20 20:49 72 138/67 02/20/20 20:00 97.9 72 20 138/67 (90) 100 ROS: unchanged from my evaluation of 02/17/20 HEENT: normal ENT inspection RHYTHM: NSR, ST LUNGS: bilateral rhonchi CARDIAC: normal rate, regular rhythm, normal S1 and S2 ABDOMEN: normal bowel sounds, non tender, soft, no organomegaly EXTREMITIES: trace edema, other - confused Assessment/Plan Assessment/Plan Covid 19 PNA Probable aspiration PNA Hypoxia Toxic encephalopathy Paroxsymal sinus tachycardia Dementia Moderate protein calorie malnutrition Parkinsons disease CAD Hypovolemia/dehydration Dysphagia Fungal cystitis Severe protein-calorie malnutrition Hypertension with chronic diastolic CHF - beta richmond restarted yesterday IV steroids Antiviral and antifungal rx per ID O2 Resp Rx Restraints prn IVF with adjustments based on clinical parameters Anticoagulation Nutritional support Swallow eval Continue beta richmond and statin rx Iggy Saunders MD Feb 21, 2020 15:57
[2020-02-21] MEDS ORDERED: Varibar Pudding 230ml MC PRN (16:00)
[2020-02-21] MEDS ORDERED: Varibar Thin Liquid powder 148gm MC PRN (16:00)
[2020-02-21] MEDS ORDERED: Varibar Nectar 240ml MC PRN (16:00)
[2020-02-21] MEDS ORDERED: Varibar Honey 250ml MC PRN (16:00)
--- NOTE | 2020-02-21 19:16 | NUR ---
NURSE HAND-OFF: Important Events on Shift:[change in diet order ] Patient Status: [] Diet: [Liquid Pureed like soup, Honey thick liquids] Pending Orders: [ST eval ordered] Pending Results/Labs:[] Pending MD notification:[] Latest Vital Signs: Temperature 98.3 , Pulse 69 , B/P 151 /71 , Respiratory Rate 19 , O2 SAT 95 , Nasal Cannula, O2 Flow Rate 4.0 . Vital Sign Comment: [] Latest Mancilla Fall Score: 70 Fall Risk: High Risk Safety Measures: Call light Within Reach, Bed Alarm Zone 1, Side Rails Side Rails x3, Bed position Low and Locked. Fall Precautions: Yellow Socks Door Sign Patient Fall Education Report given to [DAMION Lopez].
--- NOTE | 2020-02-21 19:25 | NUR ---
NURSE NOTES: Received report from jessica branham. patient is awake. on nasal cannula at 5lpm. no sob. with iv line on the right upper arm ,saline lockl. with goel draining well. DNR/DNI. noted with coughing episodes. on bilateral soft wrist restraints no injury noted at the moment. bed locked and in lowest position. call light and light button within easy reach. bed alarm on. will observe isolation precautions. will continue plan of care.
--- NOTE | 2020-02-21 19:58 | NUR ---
NURSE NOTES: Received report from pebbles pritchard rn. patient is awake. on nasal cannula at 5lpm. no sob. with iv line on the right upper arm ,saline lockl. with goel draining well. DNR/DNI. noted with coughing episodes. on bilateral soft wrist restraints no injury noted at the moment. bed locked and in lowest position. call light and light button within easy reach. bed alarm on. will observe isolation precautions. will continue plan of care. Addendum: 02/21/20 at 1958 by Karla Lopez RN wrong entry
[2020-02-21 20:00] VITALS: BP 133/64
--- NOTE | 2020-02-21 20:00 | NUR ---
NURSE NOTES: patient is with bilateral soft wrist restraints. no injury noted. no redness. no bruises or open skin. skin is intact. active range of motion initiated. tolerated with no complaints. no moaning or facial grimacing. needs attended and met. provided rest and comfort. will continue to monitor.
--- NOTE | 2020-02-21 20:56 | NUR ---
NURSE NOTES: received an order from dr. watson to give robitussin ac q4h prn for cough. order noted and carried out. charge nurse made aware
[2020-02-21] MEDS: Atorvastatin 20mg tab ORAL SCH (21:19)
[2020-02-21] MEDS: guaiFENesin w/Codeine 5ml Liq ud ORAL PRN (21:19)
[2020-02-22] VITALS: BP 125/69
--- NOTE | 2020-02-22 | NUR ---
NURSE NOTES: Patient is awake. with bilateral soft wrist restraints. no evidence of pain at the moment. no facial grimacing and moaning. no injury noted. no redness. no bruises, no swelling. + bilateral wrist pulses. skin is intact. active range of motion initiated. tolerated with no complaints. needs attended and met. provided rest and comfort. will continue to monitor.
--- NOTE | 2020-02-22 02:00 | NUR ---
NURSE NOTES: asleep. with bilateral soft wrist restraints. no evidence of pain at the moment. no facial grimacing and moaning. no injury noted. no redness. no bruises, no swelling. + bilateral wrist pulses. skin is intact. active range of motion initiated. tolerated with no complaints. no moaning or facial grimacing. needs attended and met. provided rest and comfort. will continue to monitor.
[2020-02-22 04:00] VITALS: BP 145/65
--- NOTE | 2020-02-22 04:00 | NUR ---
NURSE NOTES: Patient is awake. with a bowel movement x1, formed.changed beddings. offered water. with bilateral soft wrist restraints. no evidence of pain at the moment. no facial grimacing and moaning. no injury noted. no redness. no bruises, no swelling. + bilateral wrist pulses. skin is intact. active range of motion initiated. tolerated with no complaints. no moaning or facial grimacing. needs attended and met. provided rest and comfort. kept clean and dry. will continue to monitor.
[2020-02-22] MEDS: guaiFENesin w/Codeine 5ml Liq ud ORAL PRN ×2 (05:17→21:34)
--- NOTE | 2020-02-22 06:00 | NUR ---
NURSE NOTES: Patient is awake. noted with productive cough. on nasal cannula at 3 lpm(rt tapered down the 02 to 3lpm last night).with 100% of saturation. robitussin given as ordered. with bilateral soft wrist restraints. no evidence of pain at the moment. no facial grimacing and moaning. no injury noted. no redness. no bruises, no swelling. + bilateral wrist pulses. skin is intact. active range of motion initiated. tolerated with no complaints. needs attended and met. provided rest and comfort. kept clean and dry. will continue to monitor.
--- NOTE | 2020-02-22 06:29 | NUR ---
NURSE HAND-OFF: Important Events on Shift:episodes of productive cough; restraints care; repositioned q2h, goel care,o2 monitoring Patient Status: stable Diet: regualr liquid pureed soup, honey thickened liquid Pending Orders: evjahaira swallow Pending Results/Labs: Pending MD notification: Latest Vital Signs: Temperature 97.9 , Pulse 70 , B/P 145 /65 , Respiratory Rate 20 , O2 SAT 99 , Nasal Cannula, O2 Flow Rate 4.0 . Vital Sign Comment: Latest Mancilla Fall Score: 70 Fall Risk: High Risk Safety Measures: Call light Within Reach, Bed Alarm Zone 1, Side Rails Side Rails x3, Bed position Low and Locked. Fall Precautions: Yellow Socks Door Sign Patient Fall Education
--- NOTE | 2020-02-22 07:23 | General Progress Note ---
Subjective ROS Limited/Unobtainable: No Constitutional: Reports: malaise, weakness HEENT: Reports: no symptoms Cardiovascular: Reports: no symptoms Respiratory: Reports: sputum Gastrointestinal/Abdominal: Reports: difficulty swallowing Genitourinary: Reports: no symptoms Neurologic/Psychiatric: Reports: pre-existing deficit Endocrine: Reports: no symptoms Hematologic/Lymphatic: Reports: no symptoms Allergies: Coded Allergies: PENICILLINS (Verified Allergy, Unknown, 01/07/20) All Systems: reviewed and negative except above Subjective no events. minimal cough. o2 weaned down to 2-3 L NC. remains withdrawn and poorly responsive. no fevers. minimal po intake. no overt signs of aspiration according to staff. Objective Last 24 Hour Vital Signs Date Time Temp Pulse Resp B/P (MAP) Pulse Ox O2 Delivery O2 Flow Rate FiO2 02/22/20 04:00 97.9 70 20 145/65 (91) 99 02/22/20 00:00 98.1 68 19 125/69 (87) 100 02/21/20 21:19 65 133/64 02/21/20 21:00 Nasal Cannula 4.0 02/21/20 20:00 97.2 65 19 133/64 (87) 100 02/21/20 15:38 98.3 69 19 151/71 (97) 95 02/21/20 12:00 97.6 66 18 158/77 (104) 100 02/21/20 09:26 77 151/84 02/21/20 09:00 Nasal Cannula 4.0 02/21/20 08:00 98.7 77 18 151/84 (106) 100 Intake and Output 02/21/20 02/22/20 19:00 07:00 Intake Total 200 ml 350 ml Output Total 600 ml 650 ml Balance -400 ml -300 ml Intake Oral 350 ml Other 200 ml Output Urine Total 600 ml 650 ml Height (Feet): 5 Height (Inches): 2.00 Weight (Pounds): 100 Objective General Appearance: WD/WN, alert Neck: supple Cardiovascular: regular rhythm Respiratory/Chest: lungs clear Abdomen: normal bowel sounds, non tender, soft, no organomegaly Edema: no edema noted Arm (L), no edema noted Arm (R) 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
--- NOTE | 2020-02-22 07:25 | NUR ---
HAND-OFF: Report given to jessica branham.
[2020-02-22 08:00] VITALS: BP 124/89
[2020-02-22 08:43] LABS: BASOPHILS % (AUTO) 3.2 % (0.0-2.0); HEMATOCRIT 33.7 % (42.0-52.0); HEMOGLOBIN 11.1 G/DL (14.2-18.0); LYMPHOCYTES % (AUTO) 18.9 % (20.0-45.0); MEAN CORPUSCULAR VOLUME 85 FL (80-99); MONOCYTES % (AUTO) 6.7 % (1.0-10.0); NEUTROPHILS % (AUTO) 71.2 % (45.0-75.0); PLATELET COUNT 326 K/UL (150-450); RED BLOOD COUNT 3.99 M/UL (4.70-6.10); RED CELL DISTRIBUTION WIDTH 15.2 % (11.6-14.8); WHITE BLOOD COUNT 9.7 K/UL (4.8-10.8)
[2020-02-22 09:00] LABS: ALANINE AMINOTRANSFERASE 19 U/L (12-78); ALBUMIN 2.5 G/DL (3.4-5.0); ALBUMIN/GLOBULIN RATIO 0.7 (1.0-2.7); ALKALINE PHOSPHATASE 49 U/L (46-116); ANION GAP 10 mmol/L (5-15); ASPARTATE AMINO TRANSFERASE 37 U/L (15-37); BILIRUBIN,TOTAL 0.5 MG/DL (0.2-1.0); BLOOD UREA NITROGEN 26 mg/dL (7-18); CALCIUM 8.6 MG/DL (8.5-10.1); CARBON DIOXIDE 24 MMOL/L (21-32); CHLORIDE 98 MMOL/L (98-107); CREATININE 0.9 MG/DL (0.55-1.30); POTASSIUM 4.5 MMOL/L (3.5-5.1); SODIUM 132 MMOL/L (136-145)
[2020-02-22] MEDS: dexAMETHasone 10mg/ml Inj IV SCH (09:32)
[2020-02-22] MEDS: Levodopa/Carbidopa 25/100 tab ORAL SCH ×4 (09:33→21:00)
[2020-02-22] MEDS: Fluconazole 100mg tab ORAL SCH (09:34)
[2020-02-22] MEDS: Enoxaparin 40mg Inj SUBQ SCH (09:35)
--- NOTE | 2020-02-22 11:44 | Infectious Diseases Prog Note ---
Assessment/Plan Assessment/Plan antibiotics : fluconazole A 1. COVID 19 pneumonia on 3 liters O2, 98 percent saturation s/p ivermectin 2. fungal UTI 3. dementia 4. Parkinsons 5. hypertension P 1. continue decadron day 6 2. continue fluconazole 3 more days 3. continue isolation Subjective ROS Limited/Unobtainable: Yes Allergies: Coded Allergies: PENICILLINS (Verified Allergy, Unknown, 01/07/20) Objective Last 24 Hour Vital Signs Date Time Temp Pulse Resp B/P (MAP) Pulse Ox O2 Delivery O2 Flow Rate FiO2 02/22/20 09:32 67 124/89 02/22/20 08:00 97.5 67 19 124/89 (101) 98 02/22/20 04:00 97.9 70 20 145/65 (91) 99 02/22/20 00:00 98.1 68 19 125/69 (87) 100 02/21/20 21:19 65 133/64 02/21/20 21:00 Nasal Cannula 4.0 02/21/20 20:00 97.2 65 19 133/64 (87) 100 02/21/20 15:38 98.3 69 19 151/71 (97) 95 02/21/20 12:00 97.6 66 18 158/77 (104) 100 Height (Feet): 5 Height (Inches): 2.00 Weight (Pounds): 100 Laboratory Tests Test 02/22/20 08:30 White Blood Count 9.7 K/UL (4.8-10.8) Red Blood Count 3.99 M/UL (4.70-6.10) L Hemoglobin 11.1 G/DL (14.2-18.0) L Hematocrit 33.7 % (42.0-52.0) L Mean Corpuscular Volume 85 FL (80-99) Mean Corpuscular Hemoglobin 27.7 PG (27.0-31.0) Mean Corpuscular Hemoglobin Concent 32.8 G/DL (32.0-36.0) Red Cell Distribution Width 15.2 % (11.6-14.8) H Platelet Count 326 K/UL (150-450) Mean Platelet Volume 5.4 FL (6.5-10.1) L Neutrophils (%) (Auto) 71.2 % (45.0-75.0) Lymphocytes (%) (Auto) 18.9 % (20.0-45.0) L Monocytes (%) (Auto) 6.7 % (1.0-10.0) Eosinophils (%) (Auto) 0.0 % (0.0-3.0) Basophils (%) (Auto) 3.2 % (0.0-2.0) H Sodium Level 132 MMOL/L (136-145) L Potassium Level 4.5 MMOL/L (3.5-5.1) Chloride Level 98 MMOL/L (98-107) Carbon Dioxide Level 24 MMOL/L (21-32) Anion Gap 10 mmol/L (5-15) Blood Urea Nitrogen 26 mg/dL (7-18) H Creatinine 0.9 MG/DL (0.55-1.30) Estimat Glomerular Filtration Rate > 60 mL/min (>60) Glucose Level 80 MG/DL (74-106) Calcium Level 8.6 MG/DL (8.5-10.1) Total Bilirubin 0.5 MG/DL (0.2-1.0) Aspartate Amino Transf (AST/SGOT) 37 U/L (15-37) Alanine Aminotransferase (ALT/SGPT) 19 U/L (12-78) Alkaline Phosphatase 49 U/L (46-116) Total Protein 6.1 G/DL (6.4-8.2) L Albumin 2.5 G/DL (3.4-5.0) L Globulin 3.6 g/dL Albumin/Globulin Ratio 0.7 (1.0-2.7) L Current Medications Medications (Trade) Dose Ordered Sig/Veronica Route PRN Reason Start Time Stop Time Status Last Admin Dose Admin Acetaminophen (Tylenol) 650 mg Q4H PRN ORAL Mild Pain (Pain Scale 1-3) 02/18/20 01:45 03/19/20 01:44 02/20/20 20:29 Atorvastatin Calcium (Lipitor) 20 mg BEDTIME ORAL 02/20/20 21:00 05/20/20 20:59 02/21/20 21:19 Barium Sulfate (Varibar Honey) 250 ml NOW PRN RAD 02/21/20 16:00 02/24/20 15:51 Barium Sulfate (Varibar [place]) 240 ml NOW PRN RAD 02/21/20 16:00 02/24/20 15:51 Barium Sulfate (Varibar Pudding) 230 ml NOW PRN RAD 02/21/20 16:00 02/24/20 15:51 Barium Sulfate (Varibar Thin Liquid powder) 148 gm NOW PRN RAD 02/21/20 16:00 02/24/20 15:51 Carbidopa/Levodopa (Sinemet 25/100) 1 tab QID ORAL 02/18/20 09:00 03/19/20 08:59 02/22/20 09:33 Dexamethasone Sodium Phosphate (Decadron 10mg/ ml Inj) 6 mg DAILY IV 02/18/20 13:00 02/27/20 09:01 02/22/20 09:32 Enoxaparin Sodium (Lovenox) 40 mg DAILY SUBQ 02/18/20 09:00 05/18/20 08:59 02/22/20 09:35 Fluconazole (Diflucan) 100 mg DAILY ORAL 02/19/20 11:00 02/26/20 10:59 02/22/20 09:34 Folic Acid (Folate) 1 mg DAILY ORAL 02/21/20 09:00 03/22/20 08:59 02/22/20 09:33 Guaifenesin/ Codeine Phosphate (Robitussin with codeine) 5 ml EVERY 4 HOURS PRN ORAL For Cough 02/21/20 21:00 03/22/20 20:59 02/22/20 05:17 Metoprolol Tartrate (Lopressor) 25 mg Q12HR ORAL 02/20/20 21:00 05/20/20 20:59 02/22/20 09:32 Ana Carrasco MD Feb 22, 2020 11:44
[2020-02-22 12:00] VITALS: BP 122/67
--- NOTE | 2020-02-22 12:45 | Pulmonology Progress Note ---
Subjective ROS Limited/Unobtainable: Yes Constitutional: Denies: fever Allergies: Coded Allergies: PENICILLINS (Verified Allergy, Unknown, 01/07/20) All Systems: reviewed and negative except above Objective Last 24 Hour Vital Signs Date Time Temp Pulse Resp B/P (MAP) Pulse Ox O2 Delivery O2 Flow Rate FiO2 02/22/20 09:32 67 124/89 02/22/20 09:00 Nasal Cannula 4.0 02/22/20 08:00 97.5 67 19 124/89 (101) 98 02/22/20 04:00 97.9 70 20 145/65 (91) 99 02/22/20 00:00 98.1 68 19 125/69 (87) 100 02/21/20 21:19 65 133/64 02/21/20 21:00 Nasal Cannula 4.0 02/21/20 20:00 97.2 65 19 133/64 (87) 100 02/21/20 15:38 98.3 69 19 151/71 (97) 95 Intake and Output 02/21/20 02/22/20 19:00 07:00 Intake Total 200 ml 350 ml Output Total 600 ml 650 ml Balance -400 ml -300 ml Intake Oral 350 ml Other 200 ml Output Urine Total 600 ml 650 ml Laboratory Tests 02/22/20 08:30: White Blood Count 9.7, Red Blood Count 3.99L, Hemoglobin 11.1L, Hematocrit 33.7L , Mean Corpuscular Volume 85, Mean Corpuscular Hemoglobin 27.7, Mean Corpuscular Hemoglobin Concent 32.8, Red Cell Distribution Width 15.2H, Platelet Count 326, Mean Platelet Volume 5.4L, Neutrophils (%) (Auto) 71.2, Lymphocytes (%) (Auto) 18.9L, Monocytes (%) (Auto) 6.7, Eosinophils (%) (Auto) 0.0, Basophils (%) (Auto) 3.2H, Sodium Level 132L, Potassium Level 4.5, Chloride Level 98, Carbon Dioxide Level 24, Anion Gap 10, Blood Urea Nitrogen 26H, Creatinine 0.9, Estimat Glomerular Filtration Rate > 60, Glucose Level 80, Calcium Level 8.6, Total Bilirubin 0.5, Aspartate Amino Transf (AST/SGOT) 37, Alanine Aminotransferase (ALT/SGPT) 19, Alkaline Phosphatase 49, Total Protein 6.1L, Albumin 2.5L, Globulin 3.6, Albumin/Globulin Ratio 0.7L Current Medications Medications (Trade) Dose Ordered Sig/Veronica Route PRN Reason Start Time Stop Time Status Last Admin Dose Admin Acetaminophen (Tylenol) 650 mg Q4H PRN ORAL Mild Pain (Pain Scale 1-3) 02/18/20 01:45 03/19/20 01:44 02/20/20 20:29 Atorvastatin Calcium (Lipitor) 20 mg BEDTIME ORAL 02/20/20 21:00 05/20/20 20:59 02/21/20 21:19 Barium Sulfate (Varibar Honey) 250 ml NOW PRN RAD 02/21/20 16:00 02/24/20 15:51 Barium Sulfate (Varibar [place]) 240 ml NOW PRN MC RAD 02/21/20 16:00 02/24/20 15:51 Barium Sulfate (Varibar Pudding) 230 ml NOW PRN RAD 02/21/20 16:00 02/24/20 15:51 Barium Sulfate (Varibar Thin Liquid powder) 148 gm NOW PRN RAD 02/21/20 16:00 02/24/20 15:51 Carbidopa/Levodopa (Sinemet 25/100) 1 tab QID ORAL 02/18/20 09:00 03/19/20 08:59 02/22/20 09:33 Dexamethasone Sodium Phosphate (Decadron 10mg/ ml Inj) 6 mg DAILY IV 02/18/20 13:00 02/27/20 09:01 02/22/20 09:32 Enoxaparin Sodium (Lovenox) 40 mg DAILY SUBQ 02/18/20 09:00 05/18/20 08:59 02/22/20 09:35 Fluconazole (Diflucan) 100 mg DAILY ORAL 02/19/20 11:00 02/26/20 10:59 02/22/20 09:34 Folic Acid (Folate) 1 mg DAILY ORAL 02/21/20 09:00 03/22/20 08:59 02/22/20 09:33 Guaifenesin/ Codeine Phosphate (Robitussin with codeine) 5 ml EVERY 4 HOURS PRN ORAL For Cough 02/21/20 21:00 03/22/20 20:59 02/22/20 05:17 Metoprolol Tartrate (Lopressor) 25 mg Q12HR ORAL 02/20/20 21:00 05/20/20 20:59 02/22/20 09:32 Assessment/Plan Assessment/Plan Pulmonary Progress Note Subjective ROS Limited/Unobtainable: Yes Allergies: Coded Allergies: PENICILLINS (Verified Allergy, Unknown, 01/07/20) All Systems: reviewed and negative except above Subjective care noted ID following oxygen needs noted imaging noted Objective Vital Signs noted Deferred Covid 19 Assessment/Plan IMPRESSION: 1. Hypoxemia 2. COVID-19 pneumonia. 3. Severe protein-calorie malnutrition. 4. Parkinson disease with dementia. 5. Hypovolemia. 6. Aspiration. 7. Lyte imbalance 8. ARF 9. RBBB PLAN respiratory care oxygen iv antibiotics ID noted keep negative based on imaging care noted and reviewed monitor for respiratory deterioration monitor imaging for change DVT prophylaxis impression, plan, and exam edited and reviewed in detail care discussed with Iggy Sotelo MD Feb 22, 2020 12:45
--- NOTE | 2020-02-22 13:50 | NUR ---
STATION INSPECTOR BEDSIDE SWALLOW EVALUATION: Patient referred for bedside swallow evaluation by Dr. Wheeler. Pt is known to ST during last stay at [facility] where data analyst report writer completed a MBSS (see PLOF section of full report found in care activity). Pt was admitted with a diet of liquidized puree, (like soup). Which, per DAMION Lovelace, Pt was presenting with overt aspiration signs and symptoms. Of note, per Pt's transfer documents from SNF Pt was receive PEG flushes. TO CLARIFY, PT DOES NOT HAVE PEG TUBE AT THIS TIME, PER RN MATEUS, SMALL SCAR PRESENT ONLY. Pt seen at bedside, does communicate minimal greeting to ST, able to maintain focus/attention during session, no additional verbal output or means of communication (verbal or nonverbal) for rest of session. Pt is on nasal cannula, vitals stable for session. Pt given trials of nectar thick liquid via teaspoon, honey thick liquids via teaspoon and cup sip, and puree solids. Overall, Pt's swallow is characterized by slow and prolonged, with oral phase presenting as prolonged A-P bolus transit, no bolus formation per observations attempted, swallow initiation appears moderately to severe delayed, laryngeal elevation present upon palpation appears fair. Aspiration signs and symptoms with nectar thick liquids signified by wet, weak coughs; No aspiration signs or symptoms with honey thick liquids or Puree solids. INITIAL IMPRESSIONS: Moderately severe oropharyngeal dysphagia due to prolonged oral transit times, delayed initiation of pharyngeal swallow, laryngeal elevation appears delayed, aspiration signs and symptoms with nectar thick liquids compounded by COVID PNA, h/o Dementia, and chronic dysphagia, Pt has a high risk for aspiration. STATION INSPECTOR made RN aware of results, recommendations, and safe swallow precautions. RECOMMENDATIONS: 1. Continue moist puree with nectar thick liquids via 1 to 1 careful handfeeding, please keep HOB>30 after PO for GERD precautions. 2. No further STATION INSPECTOR indicated at this time as Pt is on safest and least restrictive diet. Thank you for this referral! STATION INSPECTOR
[2020-02-22 16:00] VITALS: BP 123/81
--- NOTE | 2020-02-22 16:13 | NUR ---
CASE MANAGEMENT:REVIEW 02/22/20 SI: COVID PNA 98.3 62 18 123/81 100% ON 4L/NC BUN+26 IS: IV DECADRON Q24 FOLATE PO QD LOPRESSOR PO Q12 DIFLUCAN PO QD LOVENOX SQ QD : TELEMETRY STATUS DCP: [facility]
--- NOTE | 2020-02-22 16:17 | NUR ---
OXYGEN ORDER NOTED TO TITRATE OXYGEN PER DAMION IGNACIO, PATIENT IS NOW ON 3L/NC PLAN IS TO DISCHARGE TO [facility] TOMORROW PENDING OXYGEN TAPERING
--- NOTE | 2020-02-22 16:26 | NUR ---
*-*DISCHARGE PLANNING*-* PATIENT HAS BEEN REFERRED BACK TO: [facility] P: [phone]
--- NOTE | 2020-02-22 19:55 | NUR ---
NURSE HAND-OFF: Important Events on Shift:[] Patient Status: [] Diet: [Pureed, honey thick liquids] Pending Orders: [] Pending Results/Labs:[] Pending MD notification:[] Latest Vital Signs: Temperature 98.3 , Pulse 62 , B/P 123 /81 , Respiratory Rate 18 , O2 SAT 100 , Nasal Cannula, O2 Flow Rate 4.0 . Vital Sign Comment: [] Latest Mancilla Fall Score: 70 Fall Risk: High Risk Safety Measures: Call light Within Reach, Bed Alarm Zone 1, Side Rails Side Rails x3, Bed position Low and Locked. Fall Precautions: Yellow Socks Door Sign Patient Fall Education Report given to [DAMION Bowman].
[2020-02-22 20:00] VITALS: BP 120/86
--- NOTE | 2020-02-22 20:17 | NUR ---
NURSE NOTES: Pt is in bed, awake, non-verbal. Pt moans and makes sounds time to time. Able to make eye contact and follow commands. Vitas stable. Pt is on N/C 1L now. Pt will be tapered down to room air as tolerated. Pt was repositioned, HOB elevated. Pt has weak cough. Pt has bilat soft wrist restraints for pulling devices and safety. Restraints sites are asymptomatic. Pt able to take purred diet with honey thick liq. Pt is on droplet/contact isolation for COVID-19. Fall precautions in place, Bed alarm on, bed locked low in position, side rails up and call light within reach.
[2020-02-22] MEDS: Atorvastatin 20mg tab ORAL SCH (21:00)
[2020-02-23] VITALS: BP 120/79
--- NOTE | 2020-02-23 00:09 | NUR ---
NURSE NOTES: Pt is now on room air O2 sat 97%
[2020-02-23] MEDS ORDERED: LOVENOX10 M4 SUBQ (02:31)
--- NOTE | 2020-02-23 02:34 | Cardiology Progress Note ---
Subjective DATE OF SERVICE: Feb 22, 2020 Now with less congestion. CXR revealed right infiltrates Pulls out IV lines and tries to get OOB alone. Needs restraints for safety Remains on Steroids, and anticoagulation; she is s/p Ivermectin. Now on 3L oxygen by N/C, and saturating 97-98%. Objective Last 24 Hour Vital Signs Date Time Temp Pulse Resp B/P (MAP) Pulse Ox O2 Delivery O2 Flow Rate FiO2 02/23/20 00:00 97.9 60 18 120/79 (93) 97 02/22/20 21:00 Room Air 02/22/20 21:00 63 120/86 02/22/20 20:00 98.2 63 20 120/86 (97) 100 02/22/20 16:00 98.3 62 18 123/81 (95) 100 02/22/20 12:00 98.7 64 19 122/67 (85) 100 02/22/20 09:32 67 124/89 02/22/20 09:00 Nasal Cannula 4.0 02/22/20 08:00 97.5 67 19 124/89 (101) 98 02/22/20 04:00 97.9 70 20 145/65 (91) 99 ROS: unchanged from my evaluation of 02/17/20 HEENT: normal ENT inspection RHYTHM: NSR, ST LUNGS: bilateral rhonchi CARDIAC: normal rate, regular rhythm, normal S1 and S2 ABDOMEN: normal bowel sounds, non tender, soft, no organomegaly EXTREMITIES: trace edema, other - confused Laboratory Tests Test 02/22/20 08:30 White Blood Count 9.7 K/UL (4.8-10.8) Red Blood Count 3.99 M/UL (4.70-6.10) L Hemoglobin 11.1 G/DL (14.2-18.0) L Hematocrit 33.7 % (42.0-52.0) L Mean Corpuscular Volume 85 FL (80-99) Mean Corpuscular Hemoglobin 27.7 PG (27.0-31.0) Mean Corpuscular Hemoglobin Concent 32.8 G/DL (32.0-36.0) Red Cell Distribution Width 15.2 % (11.6-14.8) H Platelet Count 326 K/UL (150-450) Mean Platelet Volume 5.4 FL (6.5-10.1) L Neutrophils (%) (Auto) 71.2 % (45.0-75.0) Lymphocytes (%) (Auto) 18.9 % (20.0-45.0) L Monocytes (%) (Auto) 6.7 % (1.0-10.0) Eosinophils (%) (Auto) 0.0 % (0.0-3.0) Basophils (%) (Auto) 3.2 % (0.0-2.0) H Sodium Level 132 MMOL/L (136-145) L Potassium Level 4.5 MMOL/L (3.5-5.1) Chloride Level 98 MMOL/L (98-107) Carbon Dioxide Level 24 MMOL/L (21-32) Anion Gap 10 mmol/L (5-15) Blood Urea Nitrogen 26 mg/dL (7-18) H Creatinine 0.9 MG/DL (0.55-1.30) Estimat Glomerular Filtration Rate > 60 mL/min (>60) Glucose Level 80 MG/DL (74-106) Calcium Level 8.6 MG/DL (8.5-10.1) Total Bilirubin 0.5 MG/DL (0.2-1.0) Aspartate Amino Transf (AST/SGOT) 37 U/L (15-37) Alanine Aminotransferase (ALT/SGPT) 19 U/L (12-78) Alkaline Phosphatase 49 U/L (46-116) Total Protein 6.1 G/DL (6.4-8.2) L Albumin 2.5 G/DL (3.4-5.0) L Globulin 3.6 g/dL Albumin/Globulin Ratio 0.7 (1.0-2.7) L Assessment/Plan Assessment/Plan Covid 19 PNA Hypoxia resolving Toxic encephalopathy Paroxsymal sinus tachycardia Dementia Moderate protein calorie malnutrition Parkinsons disease CAD Hypovolemia/dehydration Dysphagia IV steroids to be completed tomorrow O2 to be tapered off Resp Rx Anticoagulation DC plan tomorrow to SNF if progress continues. Iggy Saunders MD Feb 23, 2020 02:34
[2020-02-23] MEDS ORDERED: DIFLUCAN100 MG ORAL (02:36)
--- NOTE | 2020-02-23 03:43 | NUR ---
NURSE NOTES: Pt is in bed, asleep. No SOB.
[2020-02-23 04:00] VITALS: BP 123/75
--- NOTE | 2020-02-23 07:15 | NUR ---
NURSE HAND-OFF: Important Events on Shift:[Pt is on room air now] Patient Status: [Stable] Diet: [Pureed diet] Pending Orders: [] Pending Results/Labs:[] Pending MD notification:[] Latest Vital Signs: Temperature 98.4 , Pulse 60 , B/P 123 /75 , Respiratory Rate 18 , O2 SAT 97 , Room Air, O2 Flow Rate 4.0 . Vital Sign Comment: [] Latest Mancilla Fall Score: 70 Fall Risk: High Risk Safety Measures: Call light Within Reach, Bed Alarm Zone 1, Side Rails Side Rails x3, Bed position Low and Locked. Fall Precautions: Yellow Socks Door Sign Patient Fall Education Report given to [DAMION Burr. Endorsed to renew 72-hour prolonged restraints].
--- NOTE | 2020-02-23 07:20 | NUR ---
NURSE NOTES: Received patient in bed,awake,noted with soft bilateral wrist restraints. No swelling or skin break. goel is intact,draining well to gravity. For discharge planning. Bed is in lowest position and locked. Bed alarm is on. Will continue plan of care.
[2020-02-23 08:00] VITALS: BP 140/78
--- NOTE | 2020-02-23 08:10 | Pulmonology Progress Note ---
Subjective ROS Limited/Unobtainable: Yes Constitutional: Denies: fever Allergies: Coded Allergies: PENICILLINS (Verified Allergy, Unknown, 01/07/20) All Systems: reviewed and negative except above Subjective care noted ID reviewed oxygen needs noted imaging noted Objective Last 24 Hour Vital Signs Date Time Temp Pulse Resp B/P (MAP) Pulse Ox O2 Delivery O2 Flow Rate FiO2 02/23/20 04:00 98.4 60 18 123/75 (91) 97 02/23/20 00:00 97.9 60 18 120/79 (93) 97 02/22/20 21:00 Room Air 02/22/20 21:00 63 120/86 02/22/20 20:00 98.2 63 20 120/86 (97) 100 02/22/20 16:00 98.3 62 18 123/81 (95) 100 02/22/20 12:00 98.7 64 19 122/67 (85) 100 02/22/20 09:32 67 124/89 02/22/20 09:00 Nasal Cannula 4.0 Intake and Output 02/22/20 02/23/20 19:00 07:00 Intake Total 400 ml Output Total 800 ml Balance 400 ml -800 ml Other 400 ml Output Urine Total 800 ml # Voids 1 # Bowel Movements 1 Objective deferred due to COVID Laboratory Tests 02/22/20 08:30: White Blood Count 9.7, Red Blood Count 3.99L, Hemoglobin 11.1L, Hematocrit 33.7L , Mean Corpuscular Volume 85, Mean Corpuscular Hemoglobin 27.7, Mean Corpuscular Hemoglobin Concent 32.8, Red Cell Distribution Width 15.2H, Platelet Count 326, Mean Platelet Volume 5.4L, Neutrophils (%) (Auto) 71.2, Lymphocytes (%) (Auto) 18.9L, Monocytes (%) (Auto) 6.7, Eosinophils (%) (Auto) 0.0, Basophils (%) (Auto) 3.2H, Sodium Level 132L, Potassium Level 4.5, Chloride Level 98, Carbon Dioxide Level 24, Anion Gap 10, Blood Urea Nitrogen 26H, Creatinine 0.9, Estimat Glomerular Filtration Rate > 60, Glucose Level 80, Calcium Level 8.6, Total Bilirubin 0.5, Aspartate Amino Transf (AST/SGOT) 37, Alanine Aminotransferase (ALT/SGPT) 19, Alkaline Phosphatase 49, Total Protein 6.1L, Albumin 2.5L, Globulin 3.6, Albumin/Globulin Ratio 0.7L Current Medications Medications (Trade) Dose Ordered Sig/Veronica Route PRN Reason Start Time Stop Time Status Last Admin Dose Admin Acetaminophen (Tylenol) 650 mg Q4H PRN ORAL Mild Pain (Pain Scale 1-3) 02/18/20 01:45 03/19/20 01:44 02/20/20 20:29 Atorvastatin Calcium (Lipitor) 20 mg BEDTIME ORAL 02/20/20 21:00 05/20/20 20:59 02/22/20 21:00 Barium Sulfate (Varibar Honey) 250 ml NOW PRN RAD 02/21/20 16:00 02/24/20 15:51 Barium Sulfate (Varibar [place]) 240 ml NOW PRN RAD 02/21/20 16:00 02/24/20 15:51 Barium Sulfate (Varibar Pudding) 230 ml NOW PRN RAD 02/21/20 16:00 02/24/20 15:51 Barium Sulfate (Varibar Thin Liquid powder) 148 gm NOW PRN RAD 02/21/20 16:00 02/24/20 15:51 Carbidopa/Levodopa (Sinemet 25/100) 1 tab QID ORAL 02/18/20 09:00 03/19/20 08:59 02/22/20 21:00 Dexamethasone Sodium Phosphate (Decadron 10mg/ ml Inj) 6 mg DAILY IV 02/18/20 13:00 02/27/20 09:01 02/22/20 09:32 Enoxaparin Sodium (Lovenox) 40 mg DAILY SUBQ 02/18/20 09:00 05/18/20 08:59 02/22/20 09:35 Fluconazole (Diflucan) 100 mg DAILY ORAL 02/19/20 11:00 02/26/20 10:59 02/22/20 09:34 Folic Acid (Folate) 1 mg DAILY ORAL 02/21/20 09:00 03/22/20 08:59 02/22/20 09:33 Guaifenesin/ Codeine Phosphate (Robitussin with codeine) 5 ml EVERY 4 HOURS PRN ORAL For Cough 02/21/20 21:00 03/22/20 20:59 02/22/20 21:34 Metoprolol Tartrate (Lopressor) 25 mg Q12HR ORAL 02/20/20 21:00 05/20/20 20:59 02/22/20 21:00 Assessment/Plan Assessment/Plan IMPRESSION: 1. Hypoxemia 2. COVID-19 pneumonia. 3. Severe protein-calorie malnutrition. 4. Parkinson disease with dementia. 5. Hypovolemia. 6. Aspiration. 7. Lyte imbalance 8. ARF 9. RBBB PLAN respiratory care reviewed overnight oxygen - needs low iv antibiotics ID noted keep negative based on imaging care noted and reviewed monitor for respiratory deterioration monitor imaging for change DVT prophylaxis dc planning soon DNR impression, plan, and exam edited and reviewed in detail care discussed with Donald Quezada MD Feb 23, 2020 08:10
--- NOTE | 2020-02-23 08:39 | NUR ---
NURSE NOTES: RN communicated with Dr. Wheeler to ask if patient is needed with goel cath upon discharge. Dr. Wheeler said to leave it. Rn observed patient grabbing his goel cath and IV. Diversional activities done, unsuccessful. Rn informed Dr. Wheeler and renewed the restraints.Will continue to monitor.
[2020-02-23] MEDS: Fluconazole 100mg tab ORAL SCH (09:22)
[2020-02-23] MEDS: Levodopa/Carbidopa 25/100 tab ORAL SCH ×4 (09:22→20:35)
[2020-02-23] MEDS: dexAMETHasone 10mg/ml Inj IV SCH (09:22)
[2020-02-23] MEDS: Enoxaparin 40mg Inj SUBQ SCH (09:23)
--- NOTE | 2020-02-23 09:50 | NUR ---
NURSE NOTES: Patient urinated and RN perform bladder scan with residual of 245ml. Patient was seen by Dr. Lai from Dr. Scott's group and RN informed Dr. Lai of refusal of meds, IV insertion , physical therapy, MRI and food and potassium level of 3.3. Doctor is eleni with no new order @ this time. RN explained to the patient the risks and benefits. Patient stated that " I am okay, I am going home, no pain, I feel good." Patient is alert and oriented x2. Will continue to monitor. Addendum: 02/23/20 at 1121 by GINI HOWARD RN wrong entry
--- NOTE | 2020-02-23 11:11 | NUR ---
NURSE NOTES: CM requested covid rapid test for discharge purpose. Rn received order from Dr. Carrasco and swab was done from right nasal and sent specimen to lab.
--- NOTE | 2020-02-23 11:23 | Infectious Diseases Prog Note ---
Assessment/Plan Assessment/Plan antibiotics : fluconazole A 1. COVID 19 pneumonia improving on room air, 100 percent saturation s/p ivermectin 2. fungal UTI 3. dementia 4. Parkinsons 5. hypertension P 1. continue decadron day 7, dc on discharge 2. continue fluconazole 2 more days 3. continue isolation Subjective ROS Limited/Unobtainable: Yes Allergies: Coded Allergies: PENICILLINS (Verified Allergy, Unknown, 01/07/20) Objective Last 24 Hour Vital Signs Date Time Temp Pulse Resp B/P (MAP) Pulse Ox O2 Delivery O2 Flow Rate FiO2 02/23/20 09:22 85 140/78 02/23/20 09:00 Room Air 02/23/20 08:00 98.6 85 18 140/78 (98) 97 02/23/20 04:00 98.4 60 18 123/75 (91) 97 02/23/20 00:00 97.9 60 18 120/79 (93) 97 02/22/20 21:00 Room Air 02/22/20 21:00 63 120/86 02/22/20 20:00 98.2 63 20 120/86 (97) 100 02/22/20 16:00 98.3 62 18 123/81 (95) 100 02/22/20 12:00 98.7 64 19 122/67 (85) 100 Height (Feet): 5 Height (Inches): 2.00 Weight (Pounds): 100 Current Medications Medications (Trade) Dose Ordered Sig/Veronica Route PRN Reason Start Time Stop Time Status Last Admin Dose Admin Acetaminophen (Tylenol) 650 mg Q4H PRN ORAL Mild Pain (Pain Scale 1-3) 02/18/20 01:45 03/19/20 01:44 02/20/20 20:29 Atorvastatin Calcium (Lipitor) 20 mg BEDTIME ORAL 02/20/20 21:00 05/20/20 20:59 02/22/20 21:00 Barium Sulfate (Varibar Honey) 250 ml NOW PRN MC RAD 02/21/20 16:00 02/24/20 15:51 Barium Sulfate (Varibar [place]) 240 ml NOW PRN MC RAD 02/21/20 16:00 02/24/20 15:51 Barium Sulfate (Varibar Pudding) 230 ml NOW PRN MC RAD 02/21/20 16:00 02/24/20 15:51 Barium Sulfate (Varibar Thin Liquid powder) 148 gm NOW PRN MC RAD 02/21/20 16:00 02/24/20 15:51 Carbidopa/Levodopa (Sinemet 25/100) 1 tab QID ORAL 02/18/20 09:00 03/19/20 08:59 02/23/20 09:22 Dexamethasone Sodium Phosphate (Decadron 10mg/ ml Inj) 6 mg DAILY IV 02/18/20 13:00 02/27/20 09:01 02/23/20 09:22 Enoxaparin Sodium (Lovenox) 40 mg DAILY SUBQ 02/18/20 09:00 05/18/20 08:59 02/23/20 09:23 Fluconazole (Diflucan) 100 mg DAILY ORAL 02/19/20 11:00 02/26/20 10:59 02/23/20 09:22 Folic Acid (Folate) 1 mg DAILY ORAL 02/21/20 09:00 03/22/20 08:59 02/23/20 09:22 Guaifenesin/ Codeine Phosphate (Robitussin with codeine) 5 ml EVERY 4 HOURS PRN ORAL For Cough 02/21/20 21:00 03/22/20 20:59 02/22/20 21:34 Metoprolol Tartrate (Lopressor) 25 mg Q12HR ORAL 02/20/20 21:00 05/20/20 20:59 02/23/20 09:22 Ana Carrasco MD Feb 23, 2020 11:23
[2020-02-23 12:00] VITALS: BP 105/55
--- NOTE | 2020-02-23 12:07 | NUR ---
RD ASSESSMENT & RECOMMENDATIONS SEE CARE ACTIVITY FOR COMPLETE ASSESSMENT DAILY ESTIMATED NEEDS: Needs based on Underweight, 46kg 30-35 kcals/kg 8453-9126 total kcals 1-1.5 g protein/kg 46-69 g total protein 25-30 mL/kg 2971-5385 total fluid mLs NUTRITION DIAGNOSIS: * Increased kcal and pro needs r/t underweight status as evidenced by pt is 78% of [place] Body Weight, w/ est progressive and severe wt loss of 24lbs/19% in 2 months * Swallowing difficulty R/T dysphagia as evidenced by h/o PEG placement, now removed, DISH MAKER recommends pureed moist texture w/ NTL. CURRENT DIET:REGULAR, pureed moist w/ HTL PO DIET RECOMMENDATIONS: Liberalized REGULAR (texture per DISH MAKER) + Ensure Enlive BID w/ meals ADDITIONAL RECOMMENDATIONS: 1) Maintain calibrated bedscale wt 2) Monitor for continued good PO intake 3) F/up w/ WC eval: add MVI x 1 and Vit C 250mg QD 4) Monitor lytes, replete as needed 5) Monitor for hypoglycemia (none since 02/19= BG 54) . .
--- NOTE | 2020-02-23 12:28 | NUR ---
NURSE NOTES: CM was informed of covid test result.
--- NOTE | 2020-02-23 13:00 | NUR ---
NURSE NOTES: Per Rossy KUHN,since patient is covid positive,patient needs to be referred to [facility]. She will follow up.
[2020-02-23 16:00] VITALS: BP 129/66
--- NOTE | 2020-02-23 16:00 | NUR ---
NURSE NOTES: Wound dressing was changed. Sacral is clean and dry.
--- NOTE | 2020-02-23 16:31 | NUR ---
*-*DISCHARGE PLANNING*-* PATIENT HAS BEEN REFERRED BACK TO: [facility] P: [phone] S/W EDILMA, STATED SHE WILL REFERRED PATIENT TO [facility], CALLED BACK TO FOLLOW UP, S/W DANO, WHO STAYED ADMISSION LEFT EARLIER IN THE DAY, EDILMA STATED SHE WILL FOLLOW UP TOMORROW TO HELP FIND PLACEMENT.
--- NOTE | 2020-02-23 17:23 | General Progress Note ---
Assessment/Plan Status: stable Assessment/Plan: stable o2 as needed decadron rx per ID fluconazole for uti speech rx monitor cxr monitor for aspiration monitor labs dvt/stress ulcer prophylaxis meds reviewed pulm, id, cards appreciated dc planning in process Subjective Allergies: Coded Allergies: PENICILLINS (Verified Allergy, Unknown, 01/07/20) Subjective no events. minimal cough. o2 weaned down to room air. remains withdrawn and poorly responsive. no fevers. minimal po intake. no overt signs of aspiration according to staff. Objective Last 24 Hour Vital Signs Date Time Temp Pulse Resp B/P (MAP) Pulse Ox O2 Delivery O2 Flow Rate FiO2 02/23/20 16:00 97.0 61 20 129/66 (87) 95 02/23/20 12:00 97.7 66 20 105/55 (72) 95 02/23/20 09:22 85 140/78 02/23/20 09:00 Room Air 02/23/20 08:00 98.6 85 18 140/78 (98) 97 02/23/20 04:00 98.4 60 18 123/75 (91) 97 02/23/20 00:00 97.9 60 18 120/79 (93) 97 02/22/20 21:00 Room Air 02/22/20 21:00 63 120/86 02/22/20 20:00 98.2 63 20 120/86 (97) 100 Intake and Output 02/22/20 02/23/20 19:00 07:00 Intake Total 400 ml Output Total 800 ml Balance 400 ml -800 ml Other 400 ml Output Urine Total 800 ml # Voids 1 # Bowel Movements 1 Height (Feet): 5 Height (Inches): 2.00 Weight (Pounds): 100 Objective General Appearance: WD/WN, alert Neck: supple Cardiovascular: regular rhythm Respiratory/Chest: lungs clear Abdomen: normal bowel sounds, non tender, soft, no organomegaly Edema: no edema noted Arm (L), no edema noted Arm (R) Neurologic: linux developer II-XII grossly normal, alert, oriented x 3 MIPS Medication Reconciliation Is this a Psycho/Diag encounte: No Depression Does this Patient have Dementi: Yes Mello Wheeler MD Feb 23, 2020 17:23
--- NOTE | 2020-02-23 17:30 | NUR ---
NURSE NOTES: Rn followed up with [facility] will follow up tomorrow for discharge.
--- NOTE | 2020-02-23 19:20 | NUR ---
NURSE HAND-OFF: Important Events on Shift: DCP Patient Status: stable Diet: pureed honey thick Pending Orders: Pending Results/Labs: Pending MD notification: Latest Vital Signs: Temperature 97.0 , Pulse 61 , B/P 129 /66 , Respiratory Rate 20 , O2 SAT 95 , Room Air, O2 Flow Rate 4.0 . Vital Sign Comment: Latest Mancilla Fall Score: 70 Fall Risk: High Risk Safety Measures: Call light Within Reach, Bed Alarm Zone 1, Side Rails Side Rails x3, Bed position Low and Locked. Fall Precautions: Yellow Socks Door Sign Patient Fall Education Report given to Idrisrece and endorsed plan of care.
--- NOTE | 2020-02-23 19:49 | NUR ---
NURSE NOTES: Patient received in bed, awake, in room air. Pt on bilateral soft wrist restraints. Patient appears to be restless at this time, moving his legs around and attempts to swing them over the siderails. bed alarm is on. Patient pulled up in bed, and repositioned by RN. Bilateral soft wrist restraints secured. Valera catheter secured and away from patient's reach. Will continue with close monitoring. Addendum: 02/23/20 at 2132 by DARIO FUENTES RN RN Patient had BM, cleaned, full linen changed. Dressing changed on sacrum.
[2020-02-23 20:00] VITALS: BP 97/74
[2020-02-23] MEDS: Atorvastatin 20mg tab ORAL SCH (20:35)
--- NOTE | 2020-02-23 22:13 | Cardiology Progress Note ---
Subjective DATE OF SERVICE: Feb 23, 2020 No respiratory distress. CXR revealed right infiltrates Pulls out IV lines and tries to get OOB alone. Needs restraints for safety Remains on Steroids, and anticoagulation; she is s/p Ivermectin. Now off oxygen, and saturating adequately. Objective Last 24 Hour Vital Signs Date Time Temp Pulse Resp B/P (MAP) Pulse Ox O2 Delivery O2 Flow Rate FiO2 02/23/20 20:25 Room Air 02/23/20 20:07 71 97/74 02/23/20 20:00 97.1 71 22 97/74 (82) 95 02/23/20 16:00 97.0 61 20 129/66 (87) 95 02/23/20 12:00 97.7 66 20 105/55 (72) 95 02/23/20 09:22 85 140/78 02/23/20 09:00 Room Air 02/23/20 08:00 98.6 85 18 140/78 (98) 97 02/23/20 04:00 98.4 60 18 123/75 (91) 97 02/23/20 00:00 97.9 60 18 120/79 (93) 97 ROS: unchanged from my evaluation of 02/17/20 HEENT: normal ENT inspection RHYTHM: NSR, ST LUNGS: bilateral rhonchi CARDIAC: normal rate, regular rhythm, normal S1 and S2 ABDOMEN: normal bowel sounds, non tender, soft, no organomegaly EXTREMITIES: trace edema, other - confused Microbiology Date/Time Source Procedure Growth Status 02/23/20 11:00 Nasopharynx SARS-CoV-2 RdRp Gene Assay - Final Complete Assessment/Plan Assessment/Plan Covid 19 PNA Hypoxia resolved Toxic encephalopathy Paroxsymal sinus tachycardia Dementia Moderate protein calorie malnutrition Parkinsons disease CAD Hypovolemia/dehydration Dysphagia IV steroids to be discont'd at discharge O2 was tapered off Resp Rx Anticoagulation DC plan today to SNF. Iggy Saunders MD Feb 23, 2020 22:13
[2020-02-24] VITALS: BP 161/77
[2020-02-24] MEDS: guaiFENesin w/Codeine 5ml Liq ud ORAL PRN (00:19)
--- NOTE | 2020-02-24 03:12 | NUR ---
NURSE NOTES: Received report from jessica alvarez. patient is on bed awake, a&o x1. on room air, no sob. per antonio, " patient moves his legs over the siderails; with coughing episodes, robitussin with codeine given." on bilateral soft wrist restraints, no injury noted. no redness, no edema, + peripheral pulses, initiated range of motion". with goel catheter draining well. antonio states " pending discharge to [facility] ".bed locked and in lowest position. call light and light button within easy reach. bed alarm on. will continue plan of care.
--- NOTE | 2020-02-24 03:17 | NUR ---
NURSE HAND-OFF: Important Events on Shift:[had BM, cough medicine given prn, restraint care] Patient Status: [stable, awake, on restraint] Diet: [Regular pureed, honey thick liquid] Pending Orders: [for discharge] Pending Results/Labs:[] Pending MD notification:[] Latest Vital Signs: Temperature 96.4 , Pulse 77 , B/P 161 /77 , Respiratory Rate 22 , O2 SAT 94 , Room Air, O2 Flow Rate 4.0 . Vital Sign Comment: [] Latest Mancilla Fall Score: 50 Fall Risk: High Risk Safety Measures: Call light Within Reach, Bed Alarm Zone 1, Side Rails Side Rails x3, Bed position Low and Locked. Fall Precautions: Yellow Socks Door Sign Patient Fall Education Report given to [Melinda BRUNO].
[2020-02-24 04:00] VITALS: BP 146/72
--- NOTE | 2020-02-24 06:00 | Discharge Summary ---
DATE OF ADMISSION: 02/17/2020 DATE OF DISCHARGE: 02/23/2020 ADMISSION DIAGNOSES: 1. COVID-19 pneumonia. 2. Hypoxemic respiratory failure. 3. Toxic metabolic encephalopathy. 4. Pneumonia. DISCHARGE DIAGNOSES: 1. COVID-19 pneumonia. 2. Hypoxemic respiratory failure. 3. Toxic metabolic encephalopathy. 4. Pneumonia. HOSPITAL COURSE: The patient is a 79-year-old male who was admitted with complaints of COVID-19 pneumonia from a retirement facility. He received ivermectin and Decadron. He initially was on 4 liters of oxygen, but upon discharge was saturating well on room air. He had a swallow evaluation, which he passed. On discharge, he was stable to be discharged to complete 6 more days of Decadron and 3 more days of fluconazole for a fungal UTI. He will be followed by his PMD at the retirement facility. DISCHARGE MEDICATIONS: Please see discharge med list for discharge meds. DIET: Pureed diet. ACTIVITIES: Ad charlene. Mello Wheeler M.D. DR: Mary Beth JOB#: [id number] CC:
--- NOTE | 2020-02-24 06:45 | NUR ---
NURSE HAND-OFF: Important Events on Shift:MANE CARE, RESTRAINTS CARE Patient Status:STABLE Diet: REGULAR PUREED DIET Pending Orders: CHEST XRAY 1V, PENDING DISCHARGE Pending Results/Labs: Pending MD notification: Latest Vital Signs: Temperature 97.6 , Pulse 73 , B/P 146 /72 , Respiratory Rate 20 , O2 SAT 96 , Room Air, O2 Flow Rate 4.0 . Vital Sign Comment: Latest Mancilla Fall Score: 50 Fall Risk: High Risk Safety Measures: Call light Within Reach, Bed Alarm Zone 1, Side Rails Side Rails x3, Bed position Low and Locked. Fall Precautions: Yellow Socks Door Sign Patient Fall Education
--- NOTE | 2020-02-24 07:25 | NUR ---
HAND-OFF: Report given to jessica grijalva.
[2020-02-24 08:00] VITALS: BP 159/75
[2020-02-24] MEDS: dexAMETHasone 10mg/ml Inj IV SCH (08:13)
[2020-02-24] MEDS: Levodopa/Carbidopa 25/100 tab ORAL SCH ×2 (08:13→12:50)
[2020-02-24] MEDS: Fluconazole 100mg tab ORAL SCH (08:14)
[2020-02-24] MEDS: Enoxaparin 40mg Inj SUBQ SCH (08:14)
--- NOTE | 2020-02-24 10:39 | NUR ---
RADIOLOGY DEPT., CHEST X-RAY DONE.-P.DYE
[2020-02-24 12:00] VITALS: BP 119/59
--- NOTE | 2020-02-24 14:18 | NUR ---
*-*DISCHARGE PLANNED*-* PATIENT HAS BEEN ACCEPTED AND WILL BE DISCHARGED BACK TO: [facility] P: [phone] FOR NURSE TO NURSE REPORT ROOM# 8.C SKILLED [facility] TRANSPORTATION SET FOR 4PM S/W SUZETTE [id number]
--- NOTE | 2020-02-24 15:18 | NUR ---
NURSE NOTES: RN SPOKE TO EARLE HAYES, PT'S , AND MADE AWARE PT IS BEING DISCHARGED TO [facility] TODAY. VERBALIZED UNDERSTANDING. RN GAVE REPORT TO DAMION JOHNSON AT [facility]. NO WOUNDS NOTED AT SACRAL OR BILATERAL HEELS. DRESSINGS CHANGED: SKIN BARRIER FILM AND OPTIFOAM APPLIED. BELONGINGS AT BEDSIDE. 1 PAIR OF SOCKS AND 1 BLANKET NOTED. PT UNABLE TO SIGN BELONGINGS FORM. IV ACCESS DISCONTINUED. PT PLACED IN HIGH VALLEJO'S POSITION, BED IN LOWEST POSITION WITH BEDSIDE RAILS X3 RAISED. BED ALARM ON ZONE 1. [facility] ETA 1600HRS. WILL CONTINUE TO MONITOR.
--- NOTE | 2020-02-24 15:34 | Diagnostic Imaging Report ---
Indication: Shortness of breath Technique: One view of the chest Comparison: 02/20/2020 Findings: The lungs and pleural spaces are clear. The heart size is normal. The aorta is tortuous and calcified. No significant change Impression: No acute process
[2020-02-24 16:00] VITALS: BP 125/56
--- NOTE | 2020-02-24 17:04 | NUR ---
NURSE NOTES: PT WAS DISCHARGED WITH AMBULANCE PERSONNEL. ORDER TO D/C RESTRAINTS RECEIVED AND PT WAS TAKEN OFF BILATERAL SOFT WRIST RESTRAINTS. BELONGINGS GIVEN TO AMBULANCE PERSONNEL. PT WAS DISCHARGED IN STABLE CONDITION.
--- NOTE | 2020-02-24 17:55 | Pulmonology Progress Note ---
Subjective ROS Limited/Unobtainable: Yes Constitutional: Denies: fever Allergies: Coded Allergies: PENICILLINS (Verified Allergy, Unknown, 01/07/20) All Systems: reviewed and negative except above Subjective care noted ID reviewed oxygen needs noted imaging noted Objective Last 24 Hour Vital Signs Date Time Temp Pulse Resp B/P (MAP) Pulse Ox O2 Delivery O2 Flow Rate FiO2 02/24/20 16:00 97.5 65 18 125/56 (79) 100 02/24/20 12:00 96.4 60 18 119/59 (79) 97 02/24/20 09:00 Room Air 02/24/20 08:14 63 159/75 02/24/20 08:00 97.5 63 18 159/75 (103) 96 02/24/20 04:00 97.6 73 20 146/72 (96) 96 02/24/20 00:00 77 161/77 02/24/20 00:00 96.4 77 22 161/77 (105) 94 02/23/20 20:25 Room Air 02/23/20 20:00 97.1 71 22 97/74 (82) 95 Intake and Output 02/23/20 02/24/20 19:00 07:00 Intake Total 480 ml 200 ml Balance 480 ml 200 ml Intake Oral 480 ml 200 ml # Voids 2 2 Objective deferred due to COVID Microbiology Date/Time Source Procedure Growth Status 02/23/20 11:00 Nasopharynx SARS-CoV-2 RdRp Gene Assay - Final Complete Assessment/Plan Assessment/Plan IMPRESSION: 1. Hypoxemia 2. COVID-19 pneumonia. 3. Severe protein-calorie malnutrition. 4. Parkinson disease with dementia. 5. Hypovolemia. 6. Aspiration. 7. Lyte imbalance 8. ARF 9. RBBB PLAN respiratory care reviewed overnight oxygen - needs low iv antibiotics ID noted keep negative based on imaging care noted and reviewed monitor for respiratory deterioration monitor imaging for change DVT prophylaxis dc planning agreed; care noted and reviewed DNR impression, plan, and exam edited and reviewed in detail care discussed with Donald Quezada MD Feb 24, 2020 17:55
--- NOTE | 2020-02-25 02:10 | Cardiology Progress Note ---
Subjective DATE OF SERVICE: Feb 24, 2020 No respiratory distress. CXR revealed right infiltrates - clinically improved Completed Steroids, and anticoagulation; he is s/p Ivermectin. Now off oxygen, and saturating adequately. Objective Last 24 Hour Vital Signs Date Time Temp Pulse Resp B/P (MAP) Pulse Ox O2 Delivery O2 Flow Rate FiO2 02/24/20 16:00 97.5 65 18 125/56 (79) 100 02/24/20 12:00 96.4 60 18 119/59 (79) 97 02/24/20 09:00 Room Air 02/24/20 08:14 63 159/75 02/24/20 08:00 97.5 63 18 159/75 (103) 96 02/24/20 04:00 97.6 73 20 146/72 (96) 96 ROS: unchanged from my evaluation of 02/17/20 HEENT: normal ENT inspection RHYTHM: NSR, ST LUNGS: bilateral rhonchi CARDIAC: normal rate, regular rhythm, normal S1 and S2 ABDOMEN: normal bowel sounds, non tender, soft, no organomegaly EXTREMITIES: trace edema, other - confused Microbiology Date/Time Source Procedure Growth Status 02/23/20 11:00 Nasopharynx SARS-CoV-2 RdRp Gene Assay - Final Complete Assessment/Plan Assessment/Plan Covid 19 PNA Hypoxia resolved Toxic encephalopathy Paroxsymal sinus tachycardia Dementia Moderate protein calorie malnutrition Parkinsons disease CAD Hypovolemia/dehydration Dysphagia IV steroids discont'd at discharge O2 was tapered off Resp Rx Anticoagulation DC plan today to SNF. Iggy Saunders MD Feb 25, 2020 02:10
== END 2020-02-24 17:00 | DRG 177 ==
LOC: EDBD 18:45 → EMR 19:08 → 2E 19:33 → EDBEDREQ 21:08 → 2E 22:11 → 4E 02-20 06:25
DX: U07.1 COVID-19 (principal); G92 Toxic encephalopathy; E43 Unspecified severe protein-calorie malnutrition; J96.91 Respiratory failure, unspecified with hypoxia; J12.89 Other viral pneumonia; E87.1 Hypo-osmolality and hyponatremia; I50.32 Chronic diastolic (congestive) heart failure; B37.41 Candidal cystitis and urethritis; Z43.1 Encounter for attention to gastrostomy; Z68.1 Body mass index [BMI] 19.9 or less, adult; G20 Parkinson's disease; F02.80 Dementia in other diseases classified elsewhere, unspecified severity, without behavioral disturbance, psychotic disturbance, mood disturbance, and anxiety; E86.1 Hypovolemia; N18.9 Chronic kidney disease, unspecified; I45.19 Other right bundle-branch block; I11.0 Hypertensive heart disease with heart failure; Z88.0 Allergy status to penicillin; I25.5 Ischemic cardiomyopathy; R13.10 Dysphagia, unspecified; Z66 Do not resuscitate; I45.10 Unspecified right bundle-branch block; E86.0 Dehydration; R00.0 Tachycardia, unspecified
CPT/HCPCS: 36415; 71045; 80053; 81003; 82550; 82553; 82728; 83605; 83615; 83690; 83735; 83880; 84100; 84484; 85025; 85379; 85610; 85730; 86140; 87040; 87081; 87086; 92610; 93005; 96365; 96368; 96375; 99291; J7030; U0002